=== PATIENT | female | born 1945 | race African-American/Black ===

== ENCOUNTER 2016-05-27 15:35 | Inpatient (IN) | payer MEDICARE ==
[~2016-05-27] VITALS: Ht 162.6 cm; Wt 77.1 kg
[~2016-05-27 15:35] MED LIST: AMOXICILLIN500 MG ORAL; AUGMENTIN 875-1 EAC1 ORAL; BACLOFEN10 MG ORAL; CYMBALTA60 MG ORAL; LYRICA75 M1 ORAL; SPIRIVA18 MCG; VENTOLIN HFA18 GM; ZONEGRAN100 MG ORAL
[2016-05-27 15:48] VITALS: BP 146/85
--- NOTE | 2016-05-27 16:17 | Emergency Room Report ---
History of Present Illness General Chief Complaint: Constipation Source: Patient, EMS Present Illness HPI This patient has a history of paraplegia. She states that for the past 5 days she has not had a bowel movement. She states that she does have a history of constipation but never this severe. She denies pain but does feel "uncomfortable." The patient states she feels like she cannot eat because she is not having bowel movements. She also states that she has had very little urination for the past 3 days. Patient denies fever or chills. She denies nausea or vomiting. She denies chest pain or shortness of breath. She states that she also has bilateral lower extremity edema that is new for her. She has no other complaints. Allergies: Uncoded Allergies: NARCOTICS (Allergy, Mild, 10/02/14) Opiates --> Nausea, SOB Patient History Past Medical History: see triage record, other - paraplegia Past Surgical History: other - Spinal surgeries. Social History: Denies: alcohol use, drug use, smoking Reviewed Nursing Documentation: PMH: Agreed, PSxH: Agreed Nursing Documentation-PMH Hx Cardiac Problems: No Hx Hypertension: No Hx Pacemaker: No Hx COPD: Yes Hx Diabetes: No Hx Cancer: No Hx Gastrointestinal Problems: No Hx Dialysis: No Hx Cerebrovascular Accident: Yes - 2009 Hx Seizures: Yes Hx Paralysis: Yes Hx Weakness: Yes Review of Systems All Other Systems: negative except mentioned in HPI Physical Exam Vital Signs Date Time Temp Pulse Resp B/P Pulse Ox O2 Delivery O2 Flow Rate FiO2 05/27/16 15:27 84 16 147/80 96 Room Air 05/27/16 15:48 97.7 Sp02 EP Interpretation: reviewed, normal General Appearance: no apparent distress, alert, GCS 15, non-toxic Head: normocephalic, atraumatic Eyes: bilateral eye PERRL, bilateral eye normal inspection ENT: hearing grossly normal, normal pharynx, no angioedema, normal voice Neck: full range of motion, supple/symm/no masses Respiratory: chest non-tender, lungs clear, normal breath sounds, speaking full sentences Cardiovascular #1: regular rate, rhythm, no edema Gastrointestinal: soft, no guarding, no rebound, other - mild ttp and full throughout. Rectal: deferred Musculoskeletal: swelling - 2+pitting edema BLE Neurologic: alert, oriented x3, responsive, sensory intact, speech normal, other - Paraplegia. At baseline. Psychiatric: judgement/insight normal, memory normal, mood/affect normal, no suicidal/homicidal ideation Skin: warm/dry, well hydrated, other - See MSK exam Medical Decision Making Diagnostic Impression: Primary Impression: Constipation ER Course This patient presents with constipation. I did go ahead and obtain a CT abdomen and pelvis that showed no acute findings. Unfortunately, the CT contrast did infiltrate into the subcutaneous tissue of the chest wall. This should reabsorb spontaneously. Laboratory workup only showed a mild hyponatremia. I will go ahead and give the patient laxatives and enemas. The patient has a home nurse that can administer the medications and enemas. There is no evidence of a urinary tract infection. At this time, I did not identify an emergency medical condition. The patient was given return precautions and followup instructions. Labs Test 05/27/16 16:45 05/27/16 18:45 Urine Color Yellow Urine Appearance Clear Urine pH 6.5 (4.5-8.0) Urine Specific [place] 1.015 (1.005-1.035) Urine Protein 4+ (NEGATIVE) Urine Glucose (UA) Negative (NEGATIVE) Urine Ketones 1+ (NEGATIVE) Urine Occult Blood 1+ (NEGATIVE) Urine Nitrite Negative (NEGATIVE) Urine Bilirubin Negative (NEGATIVE) Urine Urobilinogen Normal MG/DL (0.0-1.0) Urine Leukocyte Esterase 1+ (NEGATIVE) Urine RBC 0-2 /HPF (0 - 2) Urine WBC 0-2 /HPF (0 - 2) Urine Squamous Epithelial Cells None /LPF (NONE/OCC) Urine Bacteria Few /HPF (NONE) White Blood Count 9.3 K/UL (4.8-10.8) Red Blood Count 5.08 M/UL (4.20-5.40) Hemoglobin 14.3 G/DL (12.0-16.0) Hematocrit 46.1 % (37.0-47.0) Mean Corpuscular Volume 91 FL (80-99) Mean Corpuscular Hemoglobin 28.1 PG (27.0-31.0) Mean Corpuscular Hemoglobin Concent 31.0 G/DL (32.0-36.0) Red Cell Distribution Width 14.1 % (11.6-14.8) Platelet Count 322 K/UL (150-450) Mean Platelet Volume 10.3 FL (6.5-10.1) Neutrophils (%) (Auto) 73.4 % (45.0-75.0) Lymphocytes (%) (Auto) 13.3 % (20.0-45.0) Monocytes (%) (Auto) 11.7 % (1.0-10.0) Eosinophils (%) (Auto) 0.4 % (0.0-3.0) Basophils (%) (Auto) 1.2 % (0.0-2.0) Sodium Level 127 mEQ/L (135-145) Potassium Level 4.3 mEQ/L (3.4-4.9) Chloride Level 88 mEQ/L (98-107) Carbon Dioxide Level 26 mEQ/L (20-30) Anion Gap 13 (5-15) Blood Urea Nitrogen 11 mg/dL (7-23) Creatinine 0.5 mg/dL (0.5-0.9) Estimat Glomerular Filtration Rate mL/min (>60) Glucose Level 109 mg/dL (74-106) Calcium Level 8.8 mg/dL (8.6-10.2) Total Bilirubin < 0.2 mg/dL (0.0-1.2) Aspartate Amino Transf (AST/SGOT) 19 U/L (5-40) Alanine Aminotransferase (ALT/SGPT) 22 U/L (3-33) Alkaline Phosphatase 152 U/L (35-104) Total Protein 7.4 g/dL (6.6-8.7) Albumin 2.1 g/dL (3.5-5.2) Globulin 5.3 g/dL Albumin/Globulin Ratio 0.3 (1.0-2.7) CT/MRI/US Diagnostic Results CT/MRI/US Diagnostic Results : Imaging Test Ordered: CT abd/pelvis Impression No acute findings. See official report. Last Vital Signs Date Time Temp Pulse Resp B/P Pulse Ox O2 Delivery O2 Flow Rate FiO2 05/27/16 15:48 97.7 99 22 146/85 92 Room Air Disposition: HOME, SELF-CARE Condition: Stable Referrals: NOT CHOSEN IPA/,REFERRING (PCP) Patient Instructions: Constipation, Adult EDDIE HOSKINS D.O. May 27, 2016 16:17
[2016-05-27 17:24] LABS: APPEARANCE,URINE CLEAR; KETONES,URINE 1+ (NEGATIVE); LEUKOCYTE ESTERASE ,URINE 1+ (NEGATIVE); NITRITE,URINE NEGATIVE (NEGATIVE); PH,URINE 6.5 (4.5-8.0); PROTEIN,URINE 4+ (NEGATIVE); UROBILINOGEN,URINE NORMAL MG/DL (0.0-1.0)
[2016-05-27 17:38] LABS: BACTERIA,URINE FEW /HPF; RBC,URINE 0-2 /HPF (0 - 2); WBC,URINE 0-2 /HPF (0 - 2)
[2016-05-27 17:53] VITALS: BP 141/77
[2016-05-27 19:00] VITALS: BP 175/71
[2016-05-27 19:02] LABS: BASOPHILS % (AUTO) 1.2 % (0.0-2.0); EOSINOPHILS % (AUTO) 0.4 % (0.0-3.0); LYMPHOCYTES % (AUTO) 13.3 % (20.0-45.0); MEAN CORPUSCULAR HEMOGLOBIN 28.1 PG (27.0-31.0); MEAN CORPUSCULAR VOLUME 91 FL (80-99); MEAN PLATELET VOLUME 10.3 FL (6.5-10.1); MONOCYTES % (AUTO) 11.7 % (1.0-10.0); NEUTROPHILS % (AUTO) 73.4 % (45.0-75.0); PLATELET COUNT 322 K/UL (150-450); RED BLOOD COUNT 5.08 M/UL (4.20-5.40); RED CELL DISTRIBUTION WIDTH 14.1 % (11.6-14.8); WHITE BLOOD COUNT 9.3 K/UL (4.8-10.8)
[2016-05-27 19:25] LABS: ALANINE AMINOTRANSFERASE 22 U/L (3-33); ALBUMIN/GLOBULIN RATIO 0.3 (1.0-2.7); ANION GAP 13 (5-15); ASPARTATE AMINO TRANSFERASE 19 U/L (5-40); CALCIUM 8.8 mg/dL (8.6-10.2); CARBON DIOXIDE 26 mEQ/L (20-30); CHLORIDE 88 mEQ/L (98-107); CREATININE 0.5 mg/dL (0.5-0.9); HEMOLYSIS 6; POTASSIUM 4.3 mEQ/L (3.4-4.9); SODIUM 127 mEQ/L (135-145); TOTAL PROTEIN 7.4 g/dL (6.6-8.7)
[2016-05-27] MEDS ORDERED: FLEET ENEMA133 ML RECTAL (22:46)
[2016-05-27] MEDS ORDERED: MIRALAX17 G2 ORAL (22:46)
[2016-05-27] MEDS ORDERED: COLACE100 MG ORAL (22:46)
[2016-05-27 23:30] VITALS: BP 141/65
[2016-05-28] MEDS ORDERED: Mylanta II UD 30ml ORAL PRN (00:15)
[2016-05-28] MEDS ORDERED: Miralax 17gm pkt ORAL PRN (00:15)
[2016-05-28] MEDS ORDERED: Morphine Sulfate 2mg/ml Inj IVP PRN (00:15)
[2016-05-28] MEDS ORDERED: LORazepam Inj 2mg/ml 1ml IV PRN (00:15)
[2016-05-28] MEDS ORDERED: Zolpidem 5mg tab ORAL PRN (00:15)
[2016-05-28 01:25] VITALS: BP 126/84
[2016-05-28 04:21] VITALS: BP 136/69
[2016-05-28] MEDS: Lyrica 50mg cap ORAL SCH ×3 (06:00→17:45)
[2016-05-28 07:30] LABS: URIC ACID 4.4 mg/dL (3.0-7.5)
[2016-05-28 07:42] LABS: FREE T3 1.6 pg/mL (2.3-4.2); THYROID STIMULATING HORMONE 6.62 uIU/mL (0.300-4.500)
[2016-05-28 08:14] VITALS: BP 144/76
[2016-05-28] MEDS: DULoxetine 30mg cap ORAL SCH (08:30)
[2016-05-28] MEDS: Miralax 17gm pkt ORAL SCH (08:31)
[2016-05-28] MEDS: Heparin 5000 units/ml inj SUBQ SCH ×2 (08:36→21:32)
[2016-05-28 08:42] LABS: APPEARANCE,URINE SLIGHTLY CLOUDY; KETONES,URINE 2+ (NEGATIVE); LEUKOCYTE ESTERASE ,URINE 1+ (NEGATIVE); NITRITE,URINE NEGATIVE (NEGATIVE); PH,URINE 6.5 (4.5-8.0); PROTEIN,URINE 4+ (NEGATIVE); UROBILINOGEN,URINE NORMAL MG/DL (0.0-1.0)
[2016-05-28 08:53] LABS: BACTERIA,URINE FEW /HPF; RBC,URINE 40-60 /HPF (0 - 2); SQUAMOUS EPITHELIAL CELL,UR FEW /LPF (NONE/OCC)
[2016-05-28] MEDS ORDERED: Albuterol 90mcg Inhaler 8gm INH PRN (09:00)
[2016-05-28 11:50] VITALS: BP 152/73
--- NOTE | 2016-05-28 13:35 | Diagnostic Imaging Report ---
Indication: Right flank pain Technique: Spiral acquisitions obtained through the abdomen and pelvis. No oral contrast utilized, per emergency room physician request No IV contrast utilized, as the IV infiltrated during attempted IV contrast injection. Multiplanar reconstructions were generated. Total dose length product 859 mGycm. CTDIvol(s) 19 mGy Comparison: None Findings: Lack of oral contrast limits assessment of the GI tract. There are a few colonic diverticula. No evidence of diverticulitis. The appendix is normal. No small bowel distention. No free or loculated intraperitoneal air or fluid. There is broad-based diastases of the rectus abdominis tendon as well as a small fat-containing umbilical hernia. Lack of IV contrast limits assessment of the solid organs. The liver demonstrates a capsular calcification within segment 1. The gallbladder, bile ducts, pancreas, spleen, adrenals are unremarkable. The left kidney demonstrates a 12 mm cyst. The right kidney is unremarkable. No urinary calculi demonstrated. No retroperitoneal or mesenteric mass or adenopathy. The uterus contains a calcification, presumably old fibroids. There is a Mancini catheter within the bladder which is nondistended. There is diffuse edema of the subcutaneous fat. There are small to moderate bilateral pleural effusions. The lung bases demonstrate interstitial congestive change and some compressive atelectasis. The heart is borderline enlarged. High attenuation material is seen within the superficial superomedial left breast. Impression: Attenuation material within the superficial superomedial left breast. According to the technologist notes, the IV site was in the left breast represents extravasated contrast. Bilateral pleural effusions and pulmonary interstitial edema Generalized soft tissue edema No acute abdominal process. Note, however, limited assessment of the GI tract in the absence of IV contrast Borderline cardiomegaly Incidental findings as noted, including broad-based diastasis of the rectus abdominis tendon, small fat-containing umbilical hernia, capsular calcification within segment one of the liver, 12 mm left renal cyst, old uterine calcified fibroids, Mancini catheter This agrees with the preliminary interpretation provided overnight by Dr. Carroll The CT scanner at [facility] is accredited by the [employer] and the scans are performed using protocols designed to limit radiation exposure to as low as reasonably achievable to attain images of sufficient resolution adequate for diagnostic evaluation.
[2016-05-28 16:00] VITALS: BP 156/97
--- NOTE | 2016-05-28 17:09 | History and Physical ---
History of Present Illness General Date patient seen: May 28, 2016 Reason for Hospitalization: Constipation Present Illness HPI 70 year old female with history of paraplegia presented to [facility] with cc constipation for the last 5 days. She states that she does have a history of constipation but never this severe. She denies pain but does feel "uncomfortable." She also states that she has had very little urination for the past 3 days. Patient denies fever or chills. She denies nausea or vomiting. She denies chest pain or shortness of breath. She states that she also has bilateral lower extremity edema that is new for her. She was aloso found to have anasarca and hyponatremia and admitted for further work up. Allergies: Uncoded Allergies: NARCOTICS (Allergy, Mild, 10/02/14) Opiates --> Nausea, SOB Medication History Scheduled Albuterol Sulfate (Ventolin Hfa), 2 PUFFS DAILY, (Reported) Baclofen* (Baclofen*), 20 MG ORAL THREE TIMES A DAY, (Reported) Docusate Sodium* (Colace*), 100 MG ORAL THREE TIMES A DAY Duloxetine Hcl* (Cymbalta*), 90 MG ORAL DAILY, (Reported) Na Phos,M-B/Na Phos,Di-Ba* (Fleet Enema*), 133 ML RECTAL DAILY Polyethylene Glycol 3350* (Miralax*), 17 GM ORAL DAILY Pregabalin* (Lyrica*), 100 MG ORAL Q6HR, (Reported) Tiotropium Dixie* (Spiriva*), 2 PUFFS DAILY, (Reported) Zonisamide* (Zonegran*), 400 MG ORAL DAILY, (Reported) Patient History History Provided By: Patient Healthcare decision maker daughter(Marleny) Resuscitation status Full Code Advanced Directive on File No Past Medical/Surgical History Past Medical/Surgical History: (1) Chronic incomplete quadriplegia (2) Hypothyroid Review of Systems Gastrointestinal: Reports: constipation Genitourinary: Reports: frequency All Other Systems: negative except mentioned in HPI Physical Exam General Appearance: WD/WN, alert Lines, tubes and drains: peripheral HEENT: normocephalic, atraumatic Neck: non-tender, normal alignment Respiratory/Chest: chest wall non-tender, lungs clear Cardiovascular/Chest: normal peripheral pulses, normal rate Extremities: severe edema, pitting Skin Exam: normal pigmentation Lymphatic: anterior cervical Last 24 Hour Vital Signs Date Time Temp Pulse Resp B/P Pulse Ox O2 Delivery O2 Flow Rate FiO2 05/28/16 11:50 97.9 69 20 152/73 93 Nasal Cannula 2.0 05/28/16 10:28 98 Nasal Cannula 2.0 28 05/28/16 10:28 75 18 98 Nasal Cannula 2.0 28 05/28/16 10:28 Nasal Cannula 2.0 28 05/28/16 10:28 77 18 98 Nasal Cannula 2.0 28 05/28/16 08:14 97.0 100 20 144/76 92 Nasal Cannula 2.0 05/28/16 04:21 97.0 97 20 136/69 92 Nasal Cannula 4.0 05/28/16 02:30 97.7 95 15 144/66 95 Nasal Cannula 3.0 05/28/16 01:25 97.7 99 14 126/84 92 Nasal Cannula 2.0 05/27/16 23:30 96 18 141/65 93 Room Air 05/27/16 23:16 96 14 133/78 90 Room Air 05/27/16 19:00 91 21 175/71 96 Room Air 05/27/16 17:53 88 13 141/77 92 Room Air Intake and Output 05/27/16 05/28/16 19:00 07:00 Output Total 250 ml Balance -250 ml Output Urine Total 250 ml # Voids 1 Laboratory Tests Test 05/27/16 18:45 05/28/16 05:45 05/28/16 07:00 White Blood Count 9.3 K/UL (4.8-10.8) Red Blood Count 5.08 M/UL (4.20-5.40) Hemoglobin 14.3 G/DL (12.0-16.0) Hematocrit 46.1 % (37.0-47.0) Mean Corpuscular Volume 91 FL (80-99) Mean Corpuscular Hemoglobin 28.1 PG (27.0-31.0) Mean Corpuscular Hemoglobin Concent 31.0 G/DL (32.0-36.0) L Red Cell Distribution Width 14.1 % (11.6-14.8) Platelet Count 322 K/UL (150-450) Mean Platelet Volume 10.3 FL (6.5-10.1) H Neutrophils (%) (Auto) 73.4 % (45.0-75.0) Lymphocytes (%) (Auto) 13.3 % (20.0-45.0) L Monocytes (%) (Auto) 11.7 % (1.0-10.0) H Eosinophils (%) (Auto) 0.4 % (0.0-3.0) Basophils (%) (Auto) 1.2 % (0.0-2.0) Sodium Level 127 mEQ/L (135-145) L Potassium Level 4.3 mEQ/L (3.4-4.9) Chloride Level 88 mEQ/L (98-107) L Carbon Dioxide Level 26 mEQ/L (20-30) Anion Gap 13 (5-15) Blood Urea Nitrogen 11 mg/dL (7-23) Creatinine 0.5 mg/dL (0.5-0.9) Estimat Glomerular Filtration Rate mL/min (>60) Glucose Level 109 mg/dL (74-106) H Calcium Level 8.8 mg/dL (8.6-10.2) Total Bilirubin < 0.2 mg/dL (0.0-1.2) Aspartate Amino Transf (AST/SGOT) 19 U/L (5-40) Alanine Aminotransferase (ALT/SGPT) 22 U/L (3-33) Alkaline Phosphatase 152 U/L (35-104) H Total Protein 7.4 g/dL (6.6-8.7) Albumin 2.1 g/dL (3.5-5.2) L Globulin 5.3 g/dL Albumin/Globulin Ratio 0.3 (1.0-2.7) L Plasma/Serum Osmolality Pending Uric Acid 4.4 mg/dL (3.0-7.5) Thyroid Stimulating Hormone (TSH) 6.620 uIU/mL (0.300-4.500) Free Thyroxine 0.92 ng/dL (0.86-1.85) Free Triiodothyronine 1.6 pg/mL (2.3-4.2) L Cortisol Pending Urine Color Yellow Urine Appearance Slightly cloudy Urine pH 6.5 (4.5-8.0) Urine Specific [place] 1.010 (1.005-1.035) Urine Protein 4+ (NEGATIVE) H Urine Glucose (UA) Negative (NEGATIVE) Urine Ketones 2+ (NEGATIVE) H Urine Occult Blood 5+ (NEGATIVE) H Urine Nitrite Negative (NEGATIVE) Urine Bilirubin Negative (NEGATIVE) Urine Urobilinogen Normal MG/DL (0.0-1.0) Urine Leukocyte Esterase 1+ (NEGATIVE) H Urine RBC 40-60 /HPF (0 - 2) H Urine WBC 2-4 /HPF (0 - 2) Urine Squamous Epithelial Cells Few /LPF (NONE/OCC) Urine Bacteria Few /HPF (NONE) Urine Osmolality Pending Urine Random Sodium 10 mmol/L Height (Feet): 5 Height (Inches): 4.00 Weight (Pounds): 170 Medications Current Medications Medications (Trade) Dose Ordered Sig/Miguel Route PRN Reason Start Time Stop Time Status Last Admin Dose Admin Acetaminophen (Tylenol) 650 mg Q4H PRN ORAL fever 05/28/16 00:15 06/27/16 00:14 Al Hydroxide/Mg Hydroxide (Mylanta II) 30 ml Q6H PRN ORAL dyspepsia 05/28/16 00:15 06/27/16 00:14 Albuterol Sulfate (Proventil MDI) 2 puff Q4H PRN INH Shortness of Breath 05/28/16 09:00 06/27/16 08:59 Baclofen (Lioresal) 20 mg THREE TIMES A DAY ORAL 05/28/16 09:00 06/27/16 08:59 05/28/16 13:53 Dextrose (Dextrose 50%) STAT PRN IV Hypoglycemia 05/28/16 00:15 06/27/16 00:14 Duloxetine HCl (Cymbalta) 90 mg DAILY ORAL 05/28/16 09:00 06/27/16 08:59 05/28/16 08:30 Heparin Sodium (Porcine) (Heparin 5000 units/ml) 5,000 units EVERY 12 HOURS SUBQ 05/28/16 09:00 06/27/16 08:59 05/28/16 08:36 Lorazepam (Ativan 2mg/ml 1ml) 0.5 mg Q4H PRN IV For Anxiety 05/28/16 00:15 06/04/16 00:14 Morphine Sulfate (Morphine Sulfate) 1 mg Q4H PRN IVP For Pain 05/28/16 00:15 06/04/16 00:14 Ondansetron HCl (Zofran) 4 mg Q6H PRN IVP Nausea & Vomiting 05/28/16 00:15 06/27/16 00:14 Polyethylene Glycol (Miralax) 17 gm DAILY ORAL 05/28/16 09:00 06/27/16 08:59 05/28/16 08:31 Polyethylene Glycol (Miralax) 17 gm HSPRN PRN ORAL Constipation 05/28/16 00:15 06/27/16 00:14 Pregabalin (Lyrica) 100 mg Q6HR ORAL 05/28/16 06:00 06/27/16 05:59 05/28/16 13:54 Tiotropium [place] (Spiriva Inhaler) 2 puff DAILY INH 05/28/16 09:30 06/27/16 09:29 05/28/16 10:27 Zolpidem Tartrate (Ambien) 5 mg HSPRN PRN ORAL Insomnia 05/28/16 00:15 06/27/16 00:14 Zonisamide (Zonegran) 400 mg DAILY ORAL 05/28/16 09:00 06/27/16 08:59 Assessment/Plan Problem List: (1) Anasarca ICD Codes: R60.1 - Generalized edema SNOMED: 768517039, 255360350 (2) Chronic incomplete quadriplegia ICD Codes: G82.50 - Quadriplegia, unspecified SNOMED: 83437306, 195489101 (3) Hypothyroid ICD Codes: E03.9 - Hypothyroidism, unspecified SNOMED: 09497332 (4) Hyponatremia ICD Codes: E87.1 - Hypo-osmolality and hyponatremia SNOMED: 14999487 (5) Constipation ICD Codes: K59.00 - Constipation, unspecified SNOMED: 37678500 Assessment/Plan laxatives and enema endo evaluation vascular studies of legs Urology evaluation f/u DARION Reinoso May 28, 2016 17:09
[2016-05-28] MEDS: Lactulose 20gm/30ml UDC ORAL SCH (17:45)
[2016-05-28] MEDS: Docusate 100mg cap ORAL SCH (17:51)
[2016-05-28 20:00] VITALS: BP 140/80
[2016-05-28] MEDS ORDERED: Miralax 17gm pkt ORAL SCH (21:00)
[2016-05-29] VITALS (10 sets, daily range): BP systolic 71–180; BP diastolic 48–96
[2016-05-29] MEDS: Lyrica 50mg cap ORAL SCH ×4 (06:00→18:09)
[2016-05-29 06:40] LABS: BASOPHILS % (AUTO) 3.3 % (0.0-2.0); LYMPHOCYTES % (AUTO) 10.3 % (20.0-45.0); MEAN CORPUSCULAR HEMOGLOBIN 28.9 PG (27.0-31.0); MEAN CORPUSCULAR HGB CONC 31.6 G/DL (32.0-36.0); MEAN CORPUSCULAR VOLUME 92 FL (80-99); MEAN PLATELET VOLUME 10.3 FL (6.5-10.1); MONOCYTES % (AUTO) 7.3 % (1.0-10.0); NEUTROPHILS % (AUTO) 79.1 % (45.0-75.0); PLATELET COUNT 321 K/UL (150-450); RED BLOOD COUNT 4.76 M/UL (4.20-5.40); RED CELL DISTRIBUTION WIDTH 13.6 % (11.6-14.8); WHITE BLOOD COUNT 8.3 K/UL (4.8-10.8)
[2016-05-29 07:01] LABS: ALANINE AMINOTRANSFERASE 19 U/L (3-33); ALBUMIN/GLOBULIN RATIO 0.4 (1.0-2.7); ANION GAP 12 (5-15); ASPARTATE AMINO TRANSFERASE 18 U/L (5-40); CALCIUM 8.8 mg/dL (8.6-10.2); CARBON DIOXIDE 28 mEQ/L (20-30); CHLORIDE 90 mEQ/L (98-107); CHOLESTEROL 265 mg/dL (< 200); CREATININE 0.4 mg/dL (0.5-0.9); HEMOLYSIS 16; SODIUM 130 mEQ/L (135-145); TOTAL PROTEIN 6.9 g/dL (6.6-8.7)
[2016-05-29 07:03] LABS: CHOLESTEROL/HDL RATIO 2.1 (3.3-4.4); LDL CHOLESTEROL (CALC.) 121 mg/dL (60-99)
[2016-05-29] MEDS: DULoxetine 30mg cap ORAL SCH (08:53)
[2016-05-29] MEDS: Miralax 17gm pkt ORAL SCH (08:53)
[2016-05-29] MEDS: Docusate 100mg cap ORAL SCH ×3 (08:53→18:09)
[2016-05-29] MEDS: Heparin 5000 units/ml inj SUBQ SCH (08:54)
[2016-05-29] MEDS: Lactulose 20gm/30ml UDC ORAL SCH ×3 (08:54→18:00)
--- NOTE | 2016-05-29 09:10 | Consultation ---
DATE OF CONSULTATION: 05/29/2016 ENDOCRINOLOGY CONSULTATION CONSULTING PHYSICIAN: Shravan Dhaliwal M.D. REFERRING PHYSICIAN: Jose Tenorio M.D. REASON FOR CONSULTATION: Hypothyroidism. HISTORY OF THE PRESENT ILLNESS: The patient is a 70-year-old, female with history of hypothyroidism, who presents to the hospital with fever, constipation and weakness. The patient urination has been decreased and has not been eating and drinking as usual. PAST MEDICAL HISTORY: 1. Quadriplezia. 2. Questionable hypothyroidism. FAMILY HISTORY: Noncontributory. REVIEW OF SYSTEMS: As per history of present illness. PHYSICAL EXAMINATION: GENERAL: She is awake and alert. VITAL SIGNS: Blood pressure is 165/96, pulse of 97, temperature 97.0 degrees, and respiratory of 18. HEENT: Pupils are equal and reactive to light. Sclerae are anicteric NECK: No JVD. No thyromegaly. LUNGS: Clear. HEART: Regular rate and rhythm. ABDOMEN: Positive bowel sounds. Soft. EXTREMITIES: Upper and lower extremity edema. LABORATORY AND DIAGNOSTIC DATA: Sodium 127, potassium 4.2, chloride 98, bicarbonate 26, BUN 11, creatinine 0.5, and glucose of 109. A1c is pending. Uric acid 4.4, and alkaline phosphatase 152. TSH 6.6, free T4 0.92, and free T3 of 1.6. DIAGNOSES: 1. Constipation. 2. Chronic hyponatremia. 3. Hypothyroidism. PLAN: Hyponatremia most likely due to dehydration. I doubt the patient has as a renal insufficiency since the patient's potassium on presentation was not elevated. On furthermore, the patient has an elevated blood pressure. TSH is elevated. I will start the patient on levothyroxine 50 mcg. Serum cortisol is pending. I will follow the results. Thank you Dr. Tenorio, for courtesy of this consultation. Shravan Dhaliwal M.D. DR: Floyd JOB#: [id number] CC: [email or web address]
--- NOTE | 2016-05-29 12:47 | Consultation ---
History of Present Illness General Date patient seen: May 29, 2016 Time patient seen: 12:43 Chief Complaint: Constipation Reason for Consultation: trouble urinating Present Illness HPI 70 yo female incomplete quadriplegic. Came to ER yesterday with complaints of feeling weak and having constipation. In ER admitted to difficulty urinating as well. Currently patient denies urinary troubles. She has a milton in. Discussed with caregiver Mrs. Vicki Ronquillo who denies that patient had any urinary issues. She states she uses a diaper overnight, no hematuria. In daytime she has good control over urination. Caregiver admits patient has been complaining of constipation for a while though. Allergies: Uncoded Allergies: NARCOTICS (Allergy, Mild, 10/02/14) Opiates --> Nausea, SOB Medication History Scheduled Albuterol Sulfate (Ventolin Hfa), 2 PUFFS DAILY, (Reported) Baclofen* (Baclofen*), 20 MG ORAL THREE TIMES A DAY, (Reported) Docusate Sodium* (Colace*), 100 MG ORAL THREE TIMES A DAY Duloxetine Hcl* (Cymbalta*), 90 MG ORAL DAILY, (Reported) Na Phos,M-B/Na Phos,Di-Ba* (Fleet Enema*), 133 ML RECTAL DAILY Polyethylene Glycol 3350* (Miralax*), 17 GM ORAL DAILY Pregabalin* (Lyrica*), 100 MG ORAL Q6HR, (Reported) Tiotropium [place]* (Spiriva*), 2 PUFFS DAILY, (Reported) Zonisamide* (Zonegran*), 400 MG ORAL DAILY, (Reported) Patient History Limited by: medical condition History Provided By: Patient, Caregiver Healthcare decision maker daughter(Marleny) Resuscitation status Full Code Advanced Directive on File No Past Medical/Surgical History Past Medical/Surgical History: (1) Chronic incomplete quadriplegia (2) Constipation (3) Hyponatremia Review of Systems Constitutional: Reports: weakness Eye: Denies: acuity changes, blurred vision, discharge, double vision, eye pain , no symptoms, nose congestion, nose pain, other, see HPI, tearing ENT: Denies: ear discharge, ear pain, hearing loss, mouth pain, nasal discharge , no symptoms, nose congestion, nose pain, other, see HPI, throat pain, throat swelling Respiratory: Denies: MARCUS, cough, no symptoms, orthopnea, other, see HPI, shortness of breath, sputum, stridor, wheezing Cardiovascular: Denies: PND, chest pain, edema, no symptoms, other, palpitations, see HPI, syncope Gastrointestinal: Reports: constipation Genitourinary: Denies: discharge, dysuria, frequency, hematuria, incontinence, no symptoms, other, pain, retention, see HPI, urgency, vag bleed/dc Musculoskeletal: Denies: back pain, gout, joint pain, joint swelling, muscle pain, muscle stiffness, no symptoms, other, see HPI Skin: Denies: change in color, change in hair/nails, dryness, lesions, no symptoms, other, rash, see HPI Psychiatric: Denies: HI, SI, anxiety, depressed feelings, emotional problems, hallucinations, no symptoms, other, prior hx, see HPI Neurological: Denies: dizziness, focal weakness, headache, no symptoms, numbness, other, paresthesia, see HPI, seizure, syncope, tingling, tremors Endocrine: Denies: excessive sweating, flushing, increased thirst, increased urine, intolerance to temperature, no symptoms, other, see HPI, unexplained weight loss Hematologic/Lymphatic: Denies: anemia, blood clots, diathesis, easy bleeding, easy bruising, no symptoms, other, see HPI, swollen glands Physical Exam General Appearance: WD/WN Respiratory/Chest: lungs clear Cardiovascular/Chest: normal rate Abdomen: non tender, soft Genitourinary/Rectal: milton Last 24 Hour Vital Signs Date Time Temp Pulse Resp B/P Pulse Ox O2 Delivery O2 Flow Rate FiO2 05/29/16 11:25 98.0 76 20 128/88 93 Nasal Cannula 2.0 05/29/16 07:52 97.5 66 21 143/73 94 Nasal Cannula 2.0 05/29/16 07:37 77 18 96 Nasal Cannula 2.0 28 05/29/16 07:37 78 18 96 Nasal Cannula 2.0 28 05/29/16 07:37 96 Nasal Cannula 2.0 28 05/29/16 07:37 Nasal Cannula 2.0 28 05/29/16 06:43 165/96 05/29/16 04:00 97.0 97 20 165/96 96 Nasal Cannula 2.0 05/29/16 02:07 97.5 96 20 158/90 94 Nasal Cannula 2.0 05/29/16 00:00 97.5 104 20 180/90 94 Nasal Cannula 2.0 05/28/16 20:00 97.6 80 18 140/80 93 Room Air 05/28/16 19:58 98 Nasal Cannula 2.0 28 05/28/16 19:58 Nasal Cannula 2.0 28 05/28/16 16:00 97.7 96 16 156/97 90 Room Air Intake and Output 05/28/16 05/29/16 19:00 07:00 Intake Total 240 ml 180 ml Output Total 250 ml 550 ml Balance -10 ml -370 ml Intake Oral 240 ml 180 ml Output Urine Total 250 ml 550 ml # Voids 1 # Bowel Movements 2 Laboratory Tests Test 05/29/16 05:30 White Blood Count 8.3 K/UL (4.8-10.8) Red Blood Count 4.76 M/UL (4.20-5.40) Hemoglobin 13.8 G/DL (12.0-16.0) Hematocrit 43.7 % (37.0-47.0) Mean Corpuscular Volume 92 FL (80-99) Mean Corpuscular Hemoglobin 28.9 PG (27.0-31.0) Mean Corpuscular Hemoglobin Concent 31.6 G/DL (32.0-36.0) L Red Cell Distribution Width 13.6 % (11.6-14.8) Platelet Count 321 K/UL (150-450) Mean Platelet Volume 10.3 FL (6.5-10.1) H Neutrophils (%) (Auto) 79.1 % (45.0-75.0) H Lymphocytes (%) (Auto) 10.3 % (20.0-45.0) L Monocytes (%) (Auto) 7.3 % (1.0-10.0) Eosinophils (%) (Auto) 0.0 % (0.0-3.0) Basophils (%) (Auto) 3.3 % (0.0-2.0) H Sodium Level 130 mEQ/L (135-145) L Potassium Level 4.0 mEQ/L (3.4-4.9) Chloride Level 90 mEQ/L (98-107) L Carbon Dioxide Level 28 mEQ/L (20-30) Anion Gap 12 (5-15) Blood Urea Nitrogen 10 mg/dL (7-23) Creatinine 0.4 mg/dL (0.5-0.9) L Estimat Glomerular Filtration Rate mL/min (>60) Glucose Level 94 mg/dL (74-106) Hemoglobin A1c 6.0 % (< 6.0) Calcium Level 8.8 mg/dL (8.6-10.2) Total Bilirubin < 0.2 mg/dL (0.0-1.2) Aspartate Amino Transf (AST/SGOT) 18 U/L (5-40) Alanine Aminotransferase (ALT/SGPT) 19 U/L (3-33) Alkaline Phosphatase 150 U/L (35-104) H Pro-B-Type Natriuretic Peptide 9096 pg/mL (0-125) H Total Protein 6.9 g/dL (6.6-8.7) Albumin 2.0 g/dL (3.5-5.2) L Globulin 4.9 g/dL Albumin/Globulin Ratio 0.4 (1.0-2.7) L Triglycerides Level 83 mg/dL (< 150) Cholesterol Level 265 mg/dL (< 200) H LDL Cholesterol 121 mg/dL (60-99) H HDL Cholesterol 127 mg/dL (> 60) H Cholesterol/HDL Ratio 2.1 (3.3-4.4) L Thyroid Stimulating Hormone (TSH) 6.390 uIU/mL (0.300-4.500) Height (Feet): 5 Height (Inches): 4.00 Weight (Pounds): 170 Medications Current Medications Medications (Trade) Dose Ordered Sig/Miguel Route PRN Reason Start Time Stop Time Status Last Admin Dose Admin Acetaminophen (Tylenol) 650 mg Q4H PRN ORAL fever 05/28/16 00:15 06/27/16 00:14 Al Hydroxide/Mg Hydroxide (Mylanta II) 30 ml Q6H PRN ORAL dyspepsia 05/28/16 00:15 06/27/16 00:14 Albuterol Sulfate (Proventil MDI) 2 puff Q4H PRN INH Shortness of Breath 05/28/16 09:00 06/27/16 08:59 Baclofen (Lioresal) 20 mg THREE TIMES A DAY ORAL 05/28/16 09:00 06/27/16 08:59 05/29/16 08:54 Clonidine HCl (Catapres) 0.1 mg Q4H PRN ORAL For High Blood Pressure 05/29/16 06:30 06/28/16 06:29 05/29/16 06:43 Dextrose (Dextrose 50%) STAT PRN IV Hypoglycemia 05/28/16 00:15 06/27/16 00:14 Docusate Sodium (Colace) 100 mg THREE TIMES A DAY ORAL 05/28/16 18:00 06/27/16 17:59 05/29/16 08:53 Duloxetine HCl (Cymbalta) 90 mg DAILY ORAL 05/28/16 09:00 06/27/16 08:59 05/29/16 08:53 Heparin Sodium (Porcine) (Heparin 5000 units/ml) 5,000 units EVERY 12 HOURS SUBQ 05/28/16 09:00 06/27/16 08:59 05/29/16 08:54 Lactulose (Cephulac) 30 gm THREE TIMES A DAY ORAL 05/28/16 18:00 06/27/16 17:59 05/29/16 08:54 Levothyroxine Sodium (Synthroid) 50 mcg DAILY@0630 ORAL 05/29/16 10:00 06/28/16 09:59 05/29/16 08:57 Lorazepam (Ativan 2mg/ml 1ml) 0.5 mg Q4H PRN IV For Anxiety 05/28/16 00:15 06/04/16 00:14 Mineral Oil (Fleet's Mineral Oil Enema) 133 ml EVERY OTHER DAY RECTAL 05/30/16 09:00 06/29/16 08:59 Morphine Sulfate (Morphine Sulfate) 1 mg Q4H PRN IVP For Pain 05/28/16 00:15 06/04/16 00:14 Ondansetron HCl (Zofran) 4 mg Q6H PRN IVP Nausea & Vomiting 05/28/16 00:15 06/27/16 00:14 Polyethylene Glycol (Miralax) 17 gm DAILY ORAL 05/28/16 09:00 06/27/16 08:59 05/29/16 08:53 Polyethylene Glycol (Miralax) 17 gm HSPRN PRN ORAL Constipation 05/28/16 00:15 06/27/16 00:14 Pregabalin (Lyrica) 100 mg Q6HR ORAL 05/28/16 06:00 06/27/16 05:59 05/28/16 17:45 Sennosides (Senokot) 8.6 mg DAILY ORAL 05/28/16 17:00 06/27/16 16:59 05/29/16 08:53 Tiotropium [place] (Spiriva Inhaler) 2 puff DAILY INH 05/28/16 09:30 06/27/16 09:29 05/29/16 07:37 Zolpidem Tartrate (Ambien) 5 mg HSPRN PRN ORAL Insomnia 05/28/16 00:15 06/27/16 00:14 Zonisamide (Zonegran) 400 mg DAILY ORAL 05/28/16 09:00 06/27/16 08:59 05/29/16 08:[address] negative for pathology Assessment/Plan Status: doing well, stable Assessment/Plan 70 yo female with incomplete quadriplegia for 6 years. Discussed with caregiver , not sure if difficulty urinating was true history. Patient currently denies it. Admits to constipation though. Caregiver states patient was voiding fine at home. Uses a diaper overnight and voids on her own in the daytime. 1. recommend DC milton 2. ua is relatively benign, f/u on culture 3. no further intervention. Abhijeet Asher M.D. May 29, 2016 12:47
--- NOTE | 2016-05-29 16:08 | Wound Care Consultation ---
Wound Assessment Wound Assessment : Wound Present on Admission: Yes New Wound: No Status Change of Wound: No Wound Location Body Site Modif: right Wound Location Body Site: buttocks Wound Type: pressure ulcer Benson Test: Does not Benson Pressure Ulcer Stage: deep tissue injury Wound Thickness: Full Thickness Wound Length: 3.0 Wound Width: 3.0 Wound Depth: utd Percent of Wound Purple/Maroon: 100 Wound Drainage Amount: None Wound Drainage Odor: None/Absent Tissue Surrounding Wound: Erythemic Wound General Appearance: Reddened Wound Comment #1 Right buttock DTI purple in color Recommendation -Keep clean and dry -Turn and reposition -Optimize nutrition -Local wound care per protocol -Low air loss overlay mattress -Offload both heels -Assess and f/u accordingly for any changes NICKIE MENDEZ RN May 29, 2016 16:08
--- NOTE | 2016-05-29 21:37 | Pulmonology Progress Note ---
Assessment/Plan Problems: (1) Anasarca (2) Tachycardia (3) Constipation (4) Hyponatremia (5) Hypothyroid (6) Chronic incomplete quadriplegia Assessment/Plan transfer to [facility] for bp support echo in am xr of left hip continue laxatives Endo consult reviewed Subjective ROS Limited/Unobtainable: No Interval Events: c/o left hip pain, was tachycardic and hypotensive Allergies: Uncoded Allergies: NARCOTICS (Allergy, Mild, 10/02/14) Opiates --> Nausea, SOB Objective Last 24 Hour Vital Signs Date Time Temp Pulse Resp B/P Pulse Ox O2 Delivery O2 Flow Rate FiO2 05/29/16 21:07 97.9 133 19 118/82 94 Nasal Cannula 5.0 05/29/16 21:04 98.1 94 20 100/60 98 Nasal Cannula 5.0 05/29/16 21:03 125 80/54 93 05/29/16 20:00 97.9 121 20 71/48 95 Room Air 05/29/16 19:41 Nasal Cannula 2.0 28 05/29/16 19:41 97 Nasal Cannula 2.0 28 05/29/16 16:17 98.2 51 17 151/71 94 Nasal Cannula 3.0 05/29/16 11:25 98.0 76 20 128/88 93 Nasal Cannula 2.0 05/29/16 07:52 97.5 66 21 143/73 94 Nasal Cannula 2.0 05/29/16 07:37 77 18 96 Nasal Cannula 2.0 28 05/29/16 07:37 78 18 96 Nasal Cannula 2.0 28 05/29/16 07:37 96 Nasal Cannula 2.0 28 05/29/16 07:37 Nasal Cannula 2.0 28 05/29/16 06:43 165/96 05/29/16 04:00 97.0 97 20 165/96 96 Nasal Cannula 2.0 05/29/16 02:07 97.5 96 20 158/90 94 Nasal Cannula 2.0 05/29/16 00:00 97.5 104 20 180/90 94 Nasal Cannula 2.0 Intake and Output 05/28/16 05/29/16 19:00 07:00 Intake Total 240 ml 180 ml Output Total 250 ml 550 ml Balance -10 ml -370 ml Intake Oral 240 ml 180 ml Output Urine Total 250 ml 550 ml # Voids 1 # Bowel Movements 2 Objective General Appearance: WD/WN HEENT: normocephalic, atraumatic Respiratory/Chest: chest wall non-tender, lungs clear Cardiovascular: normal peripheral pulses, normal rate, regular rhythm Abdomen: normal bowel sounds, soft, non tender, no organomegaly Genitourinary: normal external genitalia Extremities: no cyanosis, no clubbing +++ edema Skin: no rash, no lesions 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 Laboratory Tests 05/29/16 05:30: White Blood Count 8.3, Red Blood Count 4.76, Hemoglobin 13.8, Hematocrit 43.7, Mean Corpuscular Volume 92, Mean Corpuscular Hemoglobin 28.9, Mean Corpuscular Hemoglobin Concent 31.6L, Red Cell Distribution Width 13.6, Platelet Count 321, Mean Platelet Volume 10.3H, Neutrophils (%) (Auto) 79.1H, Lymphocytes (%) (Auto ) 10.3L, Monocytes (%) (Auto) 7.3, Eosinophils (%) (Auto) 0.0, Basophils (%) ( Auto) 3.3H, Sodium Level 130L, Potassium Level 4.0, Chloride Level 90L, Carbon Dioxide Level 28, Anion Gap 12, Blood Urea Nitrogen 10, Creatinine 0.4L, Estimat Glomerular Filtration Rate , Glucose Level 94, Hemoglobin A1c 6.0, Calcium Level 8.8, Total Bilirubin < 0.2, Aspartate Amino Transf (AST/SGOT) 18, Alanine Aminotransferase (ALT/SGPT) 19, Alkaline Phosphatase 150H, Pro-B-Type Natriuretic Peptide 9096H, Total Protein 6.9, Albumin 2.0L, Globulin 4.9, Albumin/Globulin Ratio 0.4L, Triglycerides Level 83, Cholesterol Level 265H, LDL Cholesterol 121H, HDL Cholesterol 127H, Cholesterol/HDL Ratio 2.1L, Thyroid Stimulating Hormone (TSH) 6.390H Current Medications Medications (Trade) Dose Ordered Sig/Miguel Route PRN Reason Start Time Stop Time Status Last Admin Dose Admin Acetaminophen (Tylenol) 650 mg Q4H PRN ORAL fever 05/30/16 00:15 06/29/16 00:14 UNV Al Hydroxide/Mg Hydroxide (Mylanta II) 30 ml Q6H PRN ORAL dyspepsia 05/30/16 00:15 06/29/16 00:14 UNV Albuterol Sulfate (Proventil MDI) 2 puff Q4H PRN INH Shortness of Breath 05/30/16 01:00 06/29/16 00:59 UNV Baclofen (Lioresal) 20 mg THREE TIMES A DAY ORAL 05/30/16 09:00 06/29/16 08:59 UNV Clonidine HCl (Catapres) 0.1 mg Q4H PRN ORAL For High Blood Pressure 05/29/16 22:30 06/28/16 22:29 UNV Dextrose (Dextrose 50%) STAT PRN IV Hypoglycemia 05/30/16 00:15 06/29/16 00:14 UNV Docusate Sodium (Colace) 100 mg THREE TIMES A DAY ORAL 05/30/16 09:00 06/29/16 08:59 UNV Duloxetine HCl (Cymbalta) 90 mg DAILY ORAL 05/30/16 09:00 06/29/16 08:59 UNV Heparin Sodium (Porcine) (Heparin 5000 units/ml) 5,000 units EVERY 12 HOURS SUBQ 05/30/16 09:00 06/29/16 08:59 UNV Lactulose (Cephulac) 30 gm THREE TIMES A DAY ORAL 05/30/16 09:00 06/29/16 08:59 UNV Levothyroxine Sodium (Synthroid) 50 mcg DAILY@0630 ORAL 05/30/16 06:30 06/29/16 06:29 UNV Lorazepam (Ativan 2mg/ml 1ml) 0.5 mg Q4H PRN IV For Anxiety 05/30/16 00:15 06/06/16 00:14 UNV Mineral Oil (Fleet's Mineral Oil Enema) 133 ml EVERY OTHER DAY RECTAL 05/30/16 09:00 06/29/16 08:59 UNV Morphine Sulfate (Morphine Sulfate) 1 mg Q4H PRN IVP For Pain 05/30/16 00:15 06/06/16 00:14 UNV Ondansetron HCl (Zofran) 4 mg Q6H PRN IVP Nausea & Vomiting 05/30/16 00:15 06/29/16 00:14 UNV Polyethylene Glycol (Miralax) 17 gm DAILY ORAL 05/30/16 09:00 06/29/16 08:59 UNV Polyethylene Glycol (Miralax) 17 gm HSPRN PRN ORAL Constipation 05/30/16 00:15 06/29/16 00:14 UNV Pregabalin (Lyrica) 100 mg Q6HR ORAL 05/30/16 00:00 06/29/16 00:00 UNV Sennosides (Senokot) 8.6 mg DAILY ORAL 05/30/16 09:00 06/29/16 08:59 UNV Tiotropium [place] (Spiriva Inhaler) 2 puff DAILY INH 05/30/16 09:00 06/29/16 08:59 UNV Zolpidem Tartrate (Ambien) 5 mg HSPRN PRN ORAL Insomnia 05/30/16 00:15 06/29/16 00:14 UNV Zonisamide (Zonegran) 400 mg DAILY ORAL 05/30/16 09:00 06/29/16 08:59 UNV DARION MISHRA May 29, 2016 21:37
[2016-05-30] VITALS: BP 97/63
[2016-05-30] MEDS: Lyrica 50mg cap ORAL SCH ×4 (00:03→18:06)
[2016-05-30] MEDS ORDERED: LORazepam Inj 2mg/ml 1ml IV PRN (00:15)
[2016-05-30] MEDS ORDERED: Zolpidem 5mg tab ORAL PRN (00:15)
[2016-05-30] MEDS ORDERED: Morphine Sulfate 2mg/ml Inj IVP PRN (00:15)
[2016-05-30] MEDS ORDERED: Mylanta II UD 30ml ORAL PRN (00:15)
[2016-05-30] MEDS ORDERED: Miralax 17gm pkt ORAL PRN (00:15)
[2016-05-30] MEDS ORDERED: Albuterol 90mcg Inhaler 8gm INH PRN (01:00)
[2016-05-30 04:00] VITALS: BP 117/71
[2016-05-30 08:00] VITALS: BP 123/46
[2016-05-30] MEDS ORDERED: Fleet's Mineral Oil Enema RECTAL SCH (09:00)
[2016-05-30] MEDS: Fleet's Mineral Oil Enema RECTAL SCH (09:00)
[2016-05-30 09:14] LABS: CORTISOL LC 14.8 ug/dL (.)
[2016-05-30] MEDS: Lactulose 20gm/30ml UDC ORAL SCH ×3 (09:29→17:59)
[2016-05-30] MEDS: Miralax 17gm pkt ORAL SCH (09:29)
[2016-05-30] MEDS: DULoxetine 30mg cap ORAL SCH (09:31)
[2016-05-30] MEDS: Docusate 100mg cap ORAL SCH ×3 (09:33→17:59)
[2016-05-30] MEDS: Heparin 5000 units/ml inj SUBQ SCH ×2 (09:34→21:13)
[2016-05-30 10:36] LABS: EOSINOPHILS % (AUTO) 0.2 % (0.0-3.0); LYMPHOCYTES % (AUTO) 12.3 % (20.0-45.0); MEAN CORPUSCULAR HGB CONC 29.9 G/DL (32.0-36.0); MEAN CORPUSCULAR VOLUME 90 FL (80-99); MEAN PLATELET VOLUME 9.1 FL (6.5-10.1); MONOCYTES % (AUTO) 12.8 % (1.0-10.0); NEUTROPHILS % (AUTO) 73.8 % (45.0-75.0); PLATELET COUNT 324 K/UL (150-450); RED BLOOD COUNT 5.04 M/UL (4.20-5.40); RED CELL DISTRIBUTION WIDTH 14.2 % (11.6-14.8); WHITE BLOOD COUNT 8.1 K/UL (4.8-10.8)
[2016-05-30 10:55] LABS: ALANINE AMINOTRANSFERASE 22 U/L (3-33); ALBUMIN/GLOBULIN RATIO 0.3 (1.0-2.7); ANION GAP 13 (5-15); ASPARTATE AMINO TRANSFERASE 30 U/L (5-40); CALCIUM 8.6 mg/dL (8.6-10.2); CARBON DIOXIDE 26 mEQ/L (20-30); CHLORIDE 93 mEQ/L (98-107); CREATININE 0.6 mg/dL (0.5-0.9); HEMOLYSIS 4; POTASSIUM 4.4 mEQ/L (3.4-4.9); SODIUM 132 mEQ/L (135-145); TOTAL PROTEIN 6.6 g/dL (6.6-8.7)
--- NOTE | 2016-05-30 10:56 | Diagnostic Imaging Report ---
Indication: DYSPNEA Technique: One view of the chest Comparison: 06/02/2013 Findings: There are bilateral pleural effusions, right greater than left. There is some underlying parenchymal consolidation the right lung base. There is some atelectasis versus scarring at left lung base. Chronic parenchymal scarring with calcification and pleural thickening are seen in the right lung apex Impression: Bilateral pleural effusions Right basilar consolidation Chronic changes as described
--- NOTE | 2016-05-30 11:05 | Pulmonology Progress Note ---
Assessment/Plan Problems: (1) Anasarca (2) Tachycardia (3) Constipation (4) Hyponatremia (5) Hypothyroid (6) Chronic incomplete quadriplegia Assessment/Plan transfer to [facility] for bp support echo shwoing EF of 60% xr of left hip continue laxatives, had a few BM Endo consult reviewed cardio evaluation abdominal US for increased Alk phos Subjective ROS Limited/Unobtainable: No Interval Events: transferred to [facility] b/o tachycardia Constitutional: Reports: no symptoms HEENT: Repors: no symptoms Respiratory: Reports: no symptoms Cardiovascular: Reports: no symptoms Gastrointestinal/Abdominal: Reports: no symptoms Genitourinary: Reports: no symptoms Musculoskeletal: Reports: other - massive edema Allergies: Uncoded Allergies: NARCOTICS (Allergy, Mild, 10/02/14) Opiates --> Nausea, SOB Objective Last 24 Hour Vital Signs Date Time Temp Pulse Resp B/P Pulse Ox O2 Delivery O2 Flow Rate FiO2 05/30/16 10:30 76 16 98 Nasal Cannula 2.0 28 05/30/16 10:30 Nasal Cannula 2.0 28 05/30/16 10:30 78 16 97 Nasal Cannula 2.0 28 05/30/16 10:30 98 Nasal Cannula 2.0 28 05/30/16 08:00 97.9 52 18 123/46 98 Simple Mask 4.0 05/30/16 08:00 89 05/30/16 04:00 96.8 104 18 117/71 98 Simple Mask 4.0 05/30/16 03:37 99 05/30/16 00:00 139 05/30/16 00:00 96.8 104 18 97/63 98 Simple Mask 4.0 05/29/16 21:07 97.9 133 19 118/82 94 Nasal Cannula 5.0 05/29/16 21:04 98.1 94 20 100/60 98 Nasal Cannula 5.0 05/29/16 21:03 125 80/54 93 05/29/16 20:00 97.9 121 20 71/48 95 Room Air 05/29/16 19:41 Nasal Cannula 2.0 28 05/29/16 19:41 97 Nasal Cannula 2.0 28 05/29/16 16:17 98.2 51 17 151/71 94 Nasal Cannula 3.0 05/29/16 11:25 98.0 76 20 128/88 93 Nasal Cannula 2.0 Intake and Output 05/29/16 05/30/16 19:00 07:00 Intake Total 200 ml Output Total 300 ml 100 ml Balance -100 ml -100 ml Intake Oral 200 ml Output Urine Total 300 ml 100 ml Objective General Appearance: WD/WN HEENT: normocephalic, atraumatic Respiratory/Chest: chest wall non-tender, lungs clear Cardiovascular: normal peripheral pulses, normal rate, regular rhythm Abdomen: normal bowel sounds, soft, non tender, no organomegaly Genitourinary: normal external genitalia Extremities: no cyanosis, no clubbing +++ edema Skin: no rash, no lesions 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 General Appearance: WD/WN HEENT: normocephalic, atraumatic Respiratory/Chest: chest wall non-tender, lungs clear Cardiovascular: normal peripheral pulses, normal rate Abdomen: normal bowel sounds, no organomegaly Genitourinary: normal external genitalia Extremities: no cyanosis Skin: no lesions 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 Lymphatic: no neck adenopathy Laboratory Tests 05/30/16 10:30: White Blood Count 8.1, Red Blood Count 5.04, Hemoglobin 13.6, Hematocrit 45.5, Mean Corpuscular Volume 90, Mean Corpuscular Hemoglobin 27.0, Mean Corpuscular Hemoglobin Concent 29.9L, Red Cell Distribution Width 14.2, Platelet Count 324, Mean Platelet Volume 9.1, Neutrophils (%) (Auto) 73.8, Lymphocytes (%) (Auto) 12.3L, Monocytes (%) (Auto) 12.8H, Eosinophils (%) (Auto) 0.2, Basophils (%) ( Auto) 1.0, Sodium Level 132L, Potassium Level 4.4, Chloride Level 93L, Carbon Dioxide Level 26, Anion Gap 13, Blood Urea Nitrogen 12, Creatinine 0.6, Estimat Glomerular Filtration Rate , Glucose Level 111H, Calcium Level 8.6, Total Bilirubin < 0.2, Aspartate Amino Transf (AST/SGOT) 30, Alanine Aminotransferase (ALT/SGPT) 22, Alkaline Phosphatase 153H, Pro-B-Type Natriuretic Peptide 8476H, Total Protein 6.6, Albumin 1.8L, Globulin 4.8, Albumin/Globulin Ratio 0.3L Current Medications Medications (Trade) Dose Ordered Sig/Miguel Route PRN Reason Start Time Stop Time Status Last Admin Dose Admin Acetaminophen (Tylenol) 650 mg Q4H PRN ORAL fever 05/30/16 00:15 06/29/16 00:14 Al Hydroxide/Mg Hydroxide (Mylanta II) 30 ml Q6H PRN ORAL dyspepsia 05/30/16 00:15 06/29/16 00:14 Albuterol Sulfate (Proventil MDI) 2 puff Q4H PRN INH Shortness of Breath 05/30/16 01:00 06/29/16 00:59 Baclofen (Lioresal) 20 mg THREE TIMES A DAY ORAL 05/30/16 09:00 06/29/16 08:59 05/30/16 09:32 Clonidine HCl (Catapres) 0.1 mg Q4H PRN ORAL For High Blood Pressure 05/29/16 22:30 06/28/16 22:29 Dextrose (Dextrose 50%) STAT PRN IV Hypoglycemia 05/30/16 00:15 06/29/16 00:14 Docusate Sodium (Colace) 100 mg THREE TIMES A DAY ORAL 05/30/16 09:00 06/29/16 08:59 05/30/16 09:33 Duloxetine HCl (Cymbalta) 90 mg DAILY ORAL 05/30/16 09:00 06/29/16 08:59 05/30/16 09:31 Heparin Sodium (Porcine) (Heparin 5000 units/ml) 5,000 units EVERY 12 HOURS SUBQ 05/30/16 09:00 06/29/16 08:59 05/30/16 09:34 Lactulose (Cephulac) 30 gm THREE TIMES A DAY ORAL 05/30/16 09:00 06/29/16 08:59 05/30/16 09:29 Levothyroxine Sodium (Synthroid) 50 mcg DAILY@0630 ORAL 05/30/16 06:30 06/29/16 06:29 05/30/16 06:04 Lorazepam (Ativan 2mg/ml 1ml) 0.5 mg Q4H PRN IV For Anxiety 05/30/16 00:15 06/06/16 00:14 Mineral Oil (Fleet's Mineral Oil Enema) 133 ml EVERY OTHER DAY RECTAL 05/30/16 09:00 06/29/16 08:59 Morphine Sulfate (Morphine Sulfate) 1 mg Q4H PRN IVP For Pain 05/30/16 00:15 06/06/16 00:14 Ondansetron HCl (Zofran) 4 mg Q6H PRN IVP Nausea & Vomiting 05/30/16 00:15 06/29/16 00:14 Polyethylene Glycol (Miralax) 17 gm DAILY ORAL 05/30/16 09:00 06/29/16 08:59 05/30/16 09:29 Polyethylene Glycol (Miralax) 17 gm HSPRN PRN ORAL Constipation 05/30/16 00:15 06/29/16 00:14 Pregabalin (Lyrica) 100 mg Q6HR ORAL 05/30/16 00:00 06/29/16 00:00 05/30/16 06:06 Sennosides (Senokot) 8.6 mg DAILY ORAL 05/30/16 09:00 06/29/16 08:59 05/30/16 09:32 Tiotropium [place] (Spiriva Inhaler) 1 puff DAILY INH 05/30/16 09:00 06/29/16 08:59 05/30/16 10:34 Zolpidem Tartrate (Ambien) 5 mg HSPRN PRN ORAL Insomnia 05/30/16 00:15 06/29/16 00:14 Zonisamide (Zonegran) 400 mg DAILY ORAL 05/30/16 09:00 06/29/16 08:59 05/30/16 09:31 DARION MISHRA May 30, 2016 11:05
[2016-05-30 12:00] VITALS: BP 136/80
--- NOTE | 2016-05-30 14:51 | General Progress Note ---
Assessment/Plan Problem List: (1) Hyponatremia ICD Codes: E87.1 - Hypo-osmolality and hyponatremia SNOMED: 51083144 (2) Hypothyroid ICD Codes: E03.9 - Hypothyroidism, unspecified SNOMED: 97131686 (3) Chronic incomplete quadriplegia ICD Codes: G82.50 - Quadriplegia, unspecified SNOMED: 20236690, 739243248 (4) Constipation ICD Codes: K59.00 - Constipation, unspecified SNOMED: 52586025 Assessment/Plan continue Levothyroxine 50 mcg daily serum Cortisol is normal repeat TSH in 6 weeks as OP I will sign off Subjective Allergies: Uncoded Allergies: NARCOTICS (Allergy, Mild, 10/02/14) Opiates --> Nausea, SOB All Systems: reviewed and negative except above Subjective events noted - interval notes reviewed Objective Last 24 Hour Vital Signs Date Time Temp Pulse Resp B/P Pulse Ox O2 Delivery O2 Flow Rate FiO2 05/30/16 12:00 99 05/30/16 12:00 97.2 80 18 136/80 98 Simple Mask 4.0 05/30/16 10:30 76 16 98 Nasal Cannula 2.0 28 05/30/16 10:30 Nasal Cannula 2.0 28 05/30/16 10:30 78 16 97 Nasal Cannula 2.0 28 05/30/16 10:30 98 Nasal Cannula 2.0 28 05/30/16 08:00 97.9 52 18 123/46 98 Simple Mask 4.0 05/30/16 08:00 89 05/30/16 04:00 96.8 104 18 117/71 98 Simple Mask 4.0 05/30/16 03:37 99 05/30/16 00:00 139 05/30/16 00:00 96.8 104 18 97/63 98 Simple Mask 4.0 05/29/16 21:07 97.9 133 19 118/82 94 Nasal Cannula 5.0 05/29/16 21:04 98.1 94 20 100/60 98 Nasal Cannula 5.0 05/29/16 21:03 125 80/54 93 05/29/16 20:00 97.9 121 20 71/48 95 Room Air 05/29/16 19:41 Nasal Cannula 2.0 28 05/29/16 19:41 97 Nasal Cannula 2.0 28 2/16/17 16:17 98.2 51 17 151/71 94 Nasal Cannula 3.0 Intake and Output 05/29/16 05/30/16 19:00 07:00 Intake Total 200 ml Output Total 300 ml 100 ml Balance -100 ml -100 ml Intake Oral 200 ml Output Urine Total 300 ml 100 ml Laboratory Tests 05/30/16 10:30: White Blood Count 8.1, Red Blood Count 5.04, Hemoglobin 13.6, Hematocrit 45.5, Mean Corpuscular Volume 90, Mean Corpuscular Hemoglobin 27.0, Mean Corpuscular Hemoglobin Concent 29.9L, Red Cell Distribution Width 14.2, Platelet Count 324, Mean Platelet Volume 9.1, Neutrophils (%) (Auto) 73.8, Lymphocytes (%) (Auto) 12.3L, Monocytes (%) (Auto) 12.8H, Eosinophils (%) (Auto) 0.2, Basophils (%) ( Auto) 1.0, Sodium Level 132L, Potassium Level 4.4, Chloride Level 93L, Carbon Dioxide Level 26, Anion Gap 13, Blood Urea Nitrogen 12, Creatinine 0.6, Estimat Glomerular Filtration Rate , Glucose Level 111H, Calcium Level 8.6, Total Bilirubin < 0.2, Aspartate Amino Transf (AST/SGOT) 30, Alanine Aminotransferase (ALT/SGPT) 22, Alkaline Phosphatase 153H, Pro-B-Type Natriuretic Peptide 8476H, Total Protein 6.6, Albumin 1.8L, Globulin 4.8, Albumin/Globulin Ratio 0.3L, Alpha Fetoprotein [Pending], Carcinoembryonic Antigen 2.1 Height (Feet): 5 Height (Inches): 4.00 Weight (Pounds): 170 General Appearance: no apparent distress Neck: normal alignment Cardiovascular: regular rhythm Respiratory/Chest: normal breath sounds Abdomen: normal bowel sounds Objective Current Medications Medications (Trade) Dose Ordered Sig/Miguel Route PRN Reason Start Time Stop Time Status Last Admin Dose Admin Acetaminophen (Tylenol) 650 mg Q4H PRN ORAL fever 05/30/16 00:15 06/29/16 00:14 Al Hydroxide/Mg Hydroxide (Mylanta II) 30 ml Q6H PRN ORAL dyspepsia 05/30/16 00:15 06/29/16 00:14 Albuterol Sulfate (Proventil MDI) 2 puff Q4H PRN INH Shortness of Breath 05/30/16 01:00 06/29/16 00:59 Baclofen (Lioresal) 20 mg THREE TIMES A DAY ORAL 05/30/16 09:00 06/29/16 08:59 05/30/16 09:32 Clonidine HCl (Catapres) 0.1 mg Q4H PRN ORAL For High Blood Pressure 05/29/16 22:30 06/28/16 22:29 Dextrose (Dextrose 50%) STAT PRN IV Hypoglycemia 05/30/16 00:15 06/29/16 00:14 Docusate Sodium (Colace) 100 mg THREE TIMES A DAY ORAL 05/30/16 09:00 06/29/16 08:59 05/30/16 09:33 Duloxetine HCl (Cymbalta) 90 mg DAILY ORAL 05/30/16 09:00 06/29/16 08:59 05/30/16 09:31 Heparin Sodium (Porcine) (Heparin 5000 units/ml) 5,000 units EVERY 12 HOURS SUBQ 05/30/16 09:00 06/29/16 08:59 05/30/16 09:34 Lactulose (Cephulac) 30 gm THREE TIMES A DAY ORAL 05/30/16 09:00 06/29/16 08:59 05/30/16 09:29 Levothyroxine Sodium (Synthroid) 50 mcg DAILY@0630 ORAL 05/30/16 06:30 06/29/16 06:29 05/30/16 06:04 Lorazepam (Ativan 2mg/ml 1ml) 0.5 mg Q4H PRN IV For Anxiety 05/30/16 00:15 06/06/16 00:14 Mineral Oil (Fleet's Mineral Oil Enema) 133 ml EVERY OTHER DAY RECTAL 05/30/16 09:00 06/29/16 08:59 Morphine Sulfate (Morphine Sulfate) 1 mg Q4H PRN IVP For Pain 05/30/16 00:15 06/06/16 00:14 Ondansetron HCl (Zofran) 4 mg Q6H PRN IVP Nausea & Vomiting 05/30/16 00:15 06/29/16 00:14 Polyethylene Glycol (Miralax) 17 gm DAILY ORAL 05/30/16 09:00 06/29/16 08:59 05/30/16 09:29 Polyethylene Glycol (Miralax) 17 gm HSPRN PRN ORAL Constipation 05/30/16 00:15 06/29/16 00:14 Pregabalin (Lyrica) 100 mg Q6HR ORAL 05/30/16 00:00 06/29/16 00:00 05/30/16 06:06 Sennosides (Senokot) 8.6 mg DAILY ORAL 05/30/16 09:00 06/29/16 08:59 05/30/16 09:32 Tiotropium [place] (Spiriva Inhaler) 1 puff DAILY INH 05/30/16 09:00 06/29/16 08:59 05/30/16 10:34 Zolpidem Tartrate (Ambien) 5 mg HSPRN PRN ORAL Insomnia 05/30/16 00:15 06/29/16 00:14 Zonisamide (Zonegran) 400 mg DAILY ORAL 05/30/16 09:00 06/29/16 08:59 05/30/16 09:31 MAXIMILIANO FISCHER May 30, 2016 14:51
[2016-05-30 16:41] LABS: PROTHROMBIN TIME 10.4 SEC (9.30-11.50)
--- NOTE | 2016-05-30 16:42 | Diagnostic Imaging Report ---
Indication: ABN LABS Technique: Akbar-scale and duplex images of the upper abdomen were obtained Comparison: Findings: Liver demonstrates slightly coarsened echogenicity. No focal abnormality. There is a right-sided pleural effusion. Pancreas is unremarkable. Right kidney measures 9.1 cm length. Patent portal and hepatic veins. Gallbladder is unremarkable, without stones, wall thickening, nor pericholecystic fluid. Common bile duct measures 5 mm diameter. Left kidney measures 9.4 cm length. Kidneys demonstrate normal echogenicity, no hydronephrosis or focal abnormalities. The spleen is small, otherwise unremarkable the left renal cyst described on recent CT scan is not evident sonographically CT scan 05/27/2016. The distal abdominal aorta is obscured by bowel gas. Visualized portions are nonaneurysmal Impression: Negative for gallstones or dilated ducts Right pleural effusion, also described on prior CT scan Nonspecific mild coarsening of the hepatic echogenicity, hepatocellular disease not excludable Note inability to visualize the distal abdominal aorta
[2016-05-30] MEDS ORDERED: NS 275ml ONE (16:53)
[2016-05-30] MEDS ORDERED: Tubing IV Secondary IV ONE (16:53)
[2016-05-30 16:59] VITALS: BP 140/75
[2016-05-30 20:00] VITALS: BP 138/66
--- NOTE | 2016-05-30 21:44 | Diagnostic Imaging Report ---
APPROVED REPORT CPT Code: 85308 Symptoms Comments: Hip and BL legs pain Comments Technically difficult study due to vessel depth and market edema (mid-thigh and calf area). RIGHT LEG: Common femoral artery waveform analysis is within normal limits at rest. Color flow duplex sonography reveals diffuse plaque throughout the proximal superficial femoral and popliteal arteries. There is no evidence of stenosis or occlusion within these segments. The mid to distal superficial femoral artery was not well visualized. The tibioperoneal trunk was also not well visualized. The distal posterior tibial and dorsalis pedis arteries are moderately calcified. However, Doppler posterior tibial artery waveform analysis is monophasic, consistent with severe ischemia at rest. LEFT LEG: Common femoral artery waveform analysis is within normal limits at rest. Color flow duplex sonography reveals diffuse plaque throughout the proximal superficial femoral and popliteal arteries. There is no evidence of stenosis or occlusion within these segments. The mid to distal superficial femoral artery was not well visualized. The tibioperoneal trunk was also not well visualized. The distal posterior tibial and dorsalis pedis arteries are moderately calcified. However, Doppler posterior tibial artery waveform analysis is monophasic, consistent with severe ischemia at rest.
[2016-05-31] VITALS: BP 110/66
[2016-05-31] MEDS: Lyrica 50mg cap ORAL SCH ×4 (00:21→18:28)
[2016-05-31 04:00] VITALS: BP 122/59
[2016-05-31 08:00] VITALS: BP 126/57
[2016-05-31] MEDS: Miralax 17gm pkt ORAL SCH (08:23)
[2016-05-31] MEDS: DULoxetine 30mg cap ORAL SCH (08:25)
[2016-05-31] MEDS: Lactulose 20gm/30ml UDC ORAL SCH ×3 (08:25→18:00)
[2016-05-31] MEDS: Docusate 100mg cap ORAL SCH ×3 (08:26→18:00)
[2016-05-31] MEDS: Heparin 5000 units/ml inj SUBQ SCH ×2 (08:29→20:32)
--- NOTE | 2016-05-31 10:32 | Pulmonology Progress Note ---
Assessment/Plan Problems: (1) Anasarca (2) Tachycardia (3) Constipation (4) Hyponatremia (5) Hypothyroid (6) Chronic incomplete quadriplegia Assessment/Plan transfer to [facility] for bp support echo shwoing EF of 60% xr of left hip continue laxatives, had a few BM Endo consult reviewed cardio evaluation abdominal US for increased Alk phos Subjective Allergies: Coded Allergies: OPIOIDS - MORPHINE ANALOGUES (Verified Allergy, Unknown, 06/02/16) per daughter. All opiods, she doesn't want any given to patient Uncoded Allergies: NARCOTICS (Allergy, Mild, 10/02/14) Opiates --> Nausea, SOB Objective Last 24 Hour Vital Signs Date Time Temp Pulse Resp B/P Pulse Ox O2 Delivery O2 Flow Rate FiO2 05/31/16 09:36 103 16 99 Nasal Cannula 2.0 05/31/16 09:32 103 16 99 Nasal Cannula 2.0 05/31/16 09:03 Nasal Cannula 2.0 05/31/16 08:00 97.3 95 16 126/57 100 Nasal Cannula 4.0 05/31/16 07:02 99 Nasal Cannula 2.0 05/31/16 04:00 97.5 99 21 122/59 96 Nasal Cannula 4.0 05/31/16 00:00 97.9 101 24 110/66 96 Nasal Cannula 4.0 05/30/16 20:00 97.9 93 24 138/66 96 Nasal Cannula 4.0 05/30/16 19:35 98.3 05/30/16 19:08 97 05/30/16 18:55 Nasal Cannula 2.0 28 05/30/16 18:53 98 Nasal Cannula 2.0 28 05/30/16 16:59 97.3 101 24 140/75 96 Nasal Cannula 4.0 05/30/16 16:53 94 05/30/16 12:00 99 05/30/16 12:00 97.2 80 18 136/80 98 Simple Mask 4.0 Intake and Output 05/30/16 05/31/16 19:00 07:00 Intake Total 200 ml Output Total 200 ml 500 ml Balance 0 ml -500 ml Intake Oral 200 ml Output Urine Total 200 ml 500 ml # Bowel Movements 4 Objective General Appearance: WD/WN HEENT: normocephalic, atraumatic Respiratory/Chest: chest wall non-tender, lungs clear Cardiovascular: normal peripheral pulses, normal rate, regular rhythm Abdomen: normal bowel sounds, soft, non tender, no organomegaly Genitourinary: normal external genitalia Extremities: no cyanosis, no clubbing +++ edema Skin: no rash, no lesions 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 normal Laboratory Tests 05/30/16 16:10: Prothrombin Time 10.4, Prothromb Time International Ratio 1.0, Activated Partial Thromboplast Time 31 Current Medications Medications (Trade) Dose Ordered Sig/Miguel Route PRN Reason Start Time Stop Time Status Last Admin Dose Admin Acetaminophen (Tylenol) 650 mg Q4H PRN ORAL fever 05/30/16 00:15 06/29/16 00:14 Al Hydroxide/Mg Hydroxide (Mylanta II) 30 ml Q6H PRN ORAL dyspepsia 05/30/16 00:15 06/29/16 00:14 Albuterol Sulfate (Proventil MDI) 2 puff Q4H PRN INH Shortness of Breath 05/30/16 01:00 06/29/16 00:59 Baclofen (Lioresal) 20 mg THREE TIMES A DAY ORAL 05/30/16 09:00 06/29/16 08:59 05/31/16 08:26 Clonidine HCl (Catapres) 0.1 mg Q4H PRN ORAL For High Blood Pressure 05/29/16 22:30 06/28/16 22:29 Dextrose (Dextrose 50%) STAT PRN IV Hypoglycemia 05/30/16 00:15 06/29/16 00:14 Docusate Sodium (Colace) 100 mg THREE TIMES A DAY ORAL 05/30/16 09:00 06/29/16 08:59 05/31/16 08:26 Duloxetine HCl (Cymbalta) 90 mg DAILY ORAL 05/30/16 09:00 06/29/16 08:59 05/31/16 08:25 Heparin Sodium (Porcine) (Heparin 5000 units/ml) 5,000 units EVERY 12 HOURS SUBQ 05/30/16 09:00 06/29/16 08:59 05/31/16 08:29 Lactulose (Cephulac) 30 gm THREE TIMES A DAY ORAL 05/30/16 09:00 06/29/16 08:59 05/31/16 08:25 Levothyroxine Sodium (Synthroid) 50 mcg DAILY@0630 ORAL 05/30/16 06:30 06/29/16 06:29 05/31/16 05:51 Lorazepam (Ativan 2mg/ml 1ml) 0.5 mg Q4H PRN IV For Anxiety 05/30/16 00:15 06/06/16 00:14 Mineral Oil (Fleet's Mineral Oil Enema) 133 ml EVERY OTHER DAY RECTAL 05/30/16 09:00 06/29/16 08:59 Morphine Sulfate (Morphine Sulfate) 1 mg Q4H PRN IVP For Pain 05/30/16 00:15 06/06/16 00:14 Ondansetron HCl (Zofran) 4 mg Q6H PRN IVP Nausea & Vomiting 05/30/16 00:15 06/29/16 00:14 Polyethylene Glycol (Miralax) 17 gm DAILY ORAL 05/30/16 09:00 06/29/16 08:59 05/31/16 08:23 Polyethylene Glycol (Miralax) 17 gm HSPRN PRN ORAL Constipation 05/30/16 00:15 06/29/16 00:14 Pregabalin (Lyrica) 100 mg Q6HR ORAL 05/30/16 00:00 06/29/16 00:00 05/31/16 05:51 Sennosides (Senokot) 8.6 mg DAILY ORAL 05/30/16 09:00 06/29/16 08:59 05/31/16 08:26 Tiotropium [place] (Spiriva Inhaler) 1 puff DAILY INH 05/30/16 09:00 06/29/16 08:59 05/31/16 09:33 Zolpidem Tartrate (Ambien) 5 mg HSPRN PRN ORAL Insomnia 05/30/16 00:15 06/29/16 00:14 Zonisamide (Zonegran) 400 mg DAILY ORAL 05/30/16 09:00 06/29/16 08:59 05/31/16 08:25 DARION MISHRA May 31, 2016 10:32
--- NOTE | 2016-05-31 11:21 | Diagnostic Imaging Report ---
Indication: Dyspnea Comparison: 05/29/16 A single view chest radiograph was obtained. Findings: Microcalcifications and thickening of the right apical pleura with some mild scarring of the lung noted. Findings unchanged. Small left pleural-based density that appears non-gravity dependent noted, not seen on the prior occasion. Cardiomegaly is present. Again there is some prominence of pulmonary vascularity bilaterally. The bones are osteopenic. Impression: Suspected mild CHF. Please correlate clinically. Apparent small left pleural effusion. Old granulomatous disease
[2016-05-31 12:00] VITALS: BP 120/72
[2016-05-31] MEDS ORDERED: NS 275ml ONE (13:59)
[2016-05-31 16:00] VITALS: BP 145/82
--- NOTE | 2016-05-31 17:44 | Cardiology Progress Note ---
Subjective Subjective [id number] Objective Last 24 Hour Vital Signs Date Time Temp Pulse Resp B/P Pulse Ox O2 Delivery O2 Flow Rate FiO2 05/31/16 16:00 97.5 95 24 145/82 97 Nasal Cannula 2.0 05/31/16 16:00 91 05/31/16 12:00 97.5 98 18 120/72 100 Nasal Cannula 4.0 05/31/16 12:00 96 05/31/16 09:36 103 16 99 Nasal Cannula 2.0 05/31/16 09:32 103 16 99 Nasal Cannula 2.0 05/31/16 09:03 Nasal Cannula 2.0 05/31/16 08:00 97.3 95 16 126/57 100 Nasal Cannula 4.0 05/31/16 08:00 94 05/31/16 07:02 99 Nasal Cannula 2.0 05/31/16 04:00 97.5 99 21 122/59 96 Nasal Cannula 4.0 05/31/16 00:00 97.9 101 24 110/66 96 Nasal Cannula 4.0 05/30/16 20:00 97.9 93 24 138/66 96 Nasal Cannula 4.0 05/30/16 19:35 98.3 05/30/16 19:08 97 05/30/16 18:55 Nasal Cannula 2.0 28 05/30/16 18:53 98 Nasal Cannula 2.0 28 Intake and Output 05/30/16 05/31/16 19:00 07:00 Intake Total 200 ml Output Total 200 ml 500 ml Balance 0 ml -500 ml Intake Oral 200 ml Output Urine Total 200 ml 500 ml # Bowel Movements 4 SALVADOR FARRAR May 31, 2016 17:44
[2016-05-31 20:00] VITALS: BP 124/57
--- NOTE | 2016-05-31 22:59 | Consultation ---
DATE OF CONSULTATION: 05/31/2016 CARDIOLOGY CONSULT[address] Coverage for Dr. Ulises Millan. IDENTIFYING DATA: This is a 70-year-old black female. REASON FOR ADMISSION: Altered mental status. HISTORY OF PRESENT ILLNESS: History is taken from the patient's caregiver. The patient is an unfortunate 70-year-old female, who had a stroke in the past and then she had quadriplegia due to the spinal cord injury in her neck and she is bedridden for significant amount of time. The caregiver was taking care of her and she noted that the patient is more obtunded and she is constipated so they brought her to the emergency department at [facility], where she was evaluated and admitted to telemetry. She still remains lethargic and there was no history of shortness of breath or chest pain. PAST MEDICAL HISTORY: Hypertension, atrial fibrillation, quadriplegia due to compression fractures and spasticity due to spinal cord injury and chronic pain. ALLERGIES: Not documented. MEDICATIONS: Her home medications were reviewed and as I can see she has not taken anything for blood thinning. REVIEW OF SYSTEMS: Discussed with the caregiver and she said that the patient has history of atrial fibrillation in the past and high blood pressure and she has not taken anything for blood thinners. PHYSICAL EXAMINATION: GENERAL: She is very lethargic. She barely trying to open her eyes. She is responding and conversing. She however looks like unable to open her eyes and she denies any shortness of breath, wheezing on cough, or recent fever. No dysuria. VITAL SIGNS: Blood pressure is 140/80, heart rate is 90, that time I see the patient is in sinus rhythm and oxygen saturation 97%, based on the nursing record. She is afebrile. HEENT: Does not open her eyes. She has good corneal reaction. Cannot evaluate extraocular movement due to the closed eyes. NECK: SKINCannot evaluate JVP because patient is supine in her bed. Her carotid upstroke is normal LUNGS: She has crackles at both bases. HEART: Regular. Diminished S1 and diminished S2. PMI is not palpable. SKIN: There is no rash present. No significant lumps. She has LE edema and abdominal wall edema. ABDOMEN: Soft and distended. No rebound. No guarding. EXTREMITIES: Lower extremities, bilateral edema and some discoloration at distal toes. NEUROLOGICAL: She has spastic quadriplegia. LABORATORY AND DIAGNOSTIC DATA: Her INR was 1. Her laboratories are remarkable for very low Hb. Her chemistry was noted and significant for elevated BNP, CEA is 2.1, and TSH was 6.38. Her medications ordered during this admission also were reviewed. Her EKG which was done emergency department revealed presence of low-voltage QRS with atrial fibrillation with Edward phenomenon and the rate about, 120 beats per minute, however, right now on the monitor, she is in sinus rhythm. IMPRESSION AND RECOMMENDATION: The patient is in the paroxysmal atrial fibrillation and she probably has indication for anticoagulation (Coumadin) , but that needs to be decided by her primary care physician. I would recommend at the present time to put her on subcutaneous Lovenox for her paroxysmal atrial fibrillation and then decision can be made whether she is a good candidate to bridge her with Coumadin. However, she needs to be cleared neurologically, to make sure she does not have acute stroke. Also, her voltage is very low out of proportion to her echo data. The degree of hypothyroidism is out of proportion to her low voltage ECG. \ The other differential would be infiltrative heart disease, such as amyloidosis. The best test would be cardiac MRI, that should be taken in consideration to see whether she has infiltrative heart disease. The other option will be the biopsy. Thank you very much. I will follow this patient with you. Janee Pablo M.D. DR: YOHANNES JOB#: [id number] CC: [facility]
[2016-06-01] VITALS: BP 107/54
[2016-06-01] MEDS: Lyrica 50mg cap ORAL SCH ×4 (00:53→17:34)
[2016-06-01 04:00] VITALS: BP 114/58
[2016-06-01 08:00] VITALS: BP 127/63
[2016-06-01] MEDS: Heparin 5000 units/ml inj SUBQ SCH ×2 (08:23→21:24)
[2016-06-01] MEDS: Docusate 100mg cap ORAL SCH ×3 (08:36→17:28)
[2016-06-01] MEDS: Lactulose 20gm/30ml UDC ORAL SCH ×3 (08:36→17:27)
[2016-06-01] MEDS: Fleet's Mineral Oil Enema RECTAL SCH (09:00)
[2016-06-01] MEDS: Miralax 17gm pkt ORAL SCH (10:22)
[2016-06-01] MEDS: DULoxetine 30mg cap ORAL SCH (10:22)
[2016-06-01 11:54] LABS: ANION GAP 10 (5-15); CALCIUM 8.6 mg/dL (8.6-10.2); CARBON DIOXIDE 29 mEQ/L (20-30); CHLORIDE 96 mEQ/L (98-107); CREATININE 0.5 mg/dL (0.5-0.9); HEMOLYSIS 103; POTASSIUM 4.3 mEQ/L (3.4-4.9); SODIUM 135 mEQ/L (135-145)
[2016-06-01 12:00] VITALS: BP 121/57
--- NOTE | 2016-06-01 12:22 | Pulmonology Progress Note ---
Assessment/Plan Assessment/Plan ASSESSMENT acute toxic encephalopathy- anasarca severe PVD bilateral pleural effusion mild pulmonary edema severe pulmonary HTN seizure disorder constipation hyponatremia -resolved hypothyroidism with elevated TSH functional quadriplegia [facility] O2 HHN titrate to keep sat above 92% MRI brain in am ammonia level now neuro eval EEG CXR with mild pulmonary edema, bilateral pleural effusion continue with diuretic, monitor renal parameters, lytes, thoracentesis for am if enough pleural fluid to safely tap cardio eval appreciated evidence of mild congestive heart failure per cardio ECHO with preserved EF 60-65% and RVSP of 86 c/w severe pulmonary HTN patient with evidence of PAF, rate controlled, cardio recommended a/coagulation - to be decided by PMD/cardio as outpatient- hold for now in lieu of possible CVA elevated alkaline phosphatase CT A/P no acute abdominal process, + anasarca abdominal US - no gallstones, no dilated bile ducts Arterial Duplex BLE with evidence of severe PVD, need to be started on ASA, when OK with neuro seizure precautions, continue anticonvulsant EEG urology seen, off Mancini, no difficulties urinating to diaper, no further issues as per urologist elevated TSH and low T4, started on Synthroid, check thyroid panel in 4 weeks bowel regimen DVT prophylaxis case discussed and evaluated by supervising physician Subjective Allergies: Uncoded Allergies: NARCOTICS (Allergy, Mild, 10/02/14) Opiates --> Nausea, SOB Subjective patient not responsive, open eyes spontaneously afebrile seen and evaluated by cardio 05/31 family at the bedside per family patient was not altered when admitted, started yesterday MRI brain pending hx of seizure hx of prior CVA and brain aneurysm Objective Last 24 Hour Vital Signs Date Time Temp Pulse Resp B/P Pulse Ox O2 Delivery O2 Flow Rate FiO2 06/01/16 08:00 97.2 95 16 127/63 100 Nasal Cannula 2.5 06/01/16 08:00 95 06/01/16 04:00 97.0 92 18 114/58 Nasal Cannula 2.0 06/01/16 00:00 97.0 92 18 107/54 99 Nasal Cannula 2.0 05/31/16 20:00 97.3 91 24 124/57 100 Nasal Cannula 2.0 05/31/16 20:00 94 05/31/16 19:32 97.5 05/31/16 19:21 99 Nasal Cannula 2.0 05/31/16 19:21 Nasal Cannula 2.0 05/31/16 16:00 97.5 95 24 145/82 97 Nasal Cannula 2.0 05/31/16 16:00 91 Intake and Output 05/31/16 06/01/16 19:00 07:00 Intake Total 460 ml 60 ml Output Total 100 ml 250 ml Balance 360 ml -190 ml Intake Oral 460 ml 60 ml Output Urine Total 100 ml 250 ml # Bowel Movements 5 3 General Appearance: other - bedridden AA female not verbally responsive mert cute distress HEENT: normocephalic, atraumatic, anicteric, other - R facial droop Respiratory/Chest: no respiratory distress, no accessory muscle use, decreased breath sounds - at bases , crackles/rales - few isoalted crackles at abses Cardiovascular: normal peripheral pulses, normal rate, regular rhythm, no JVD Abdomen: normal bowel sounds, non distended Genitourinary: normal external genitalia Extremities: pedal pulses normal, other - +3 BLE, +1 to 2 BUE Neurologic/Psychiatric: abnormal gait, other - R facial droop, not verbally responsive, Musculoskeletal: atrophy - BLE, other - conrtracted palms Laboratory Tests 06/01/16 11:10: Sodium Level 135, Potassium Level 4.3, Chloride Level 96L, Carbon Dioxide Level 29, Anion Gap 10, Blood Urea Nitrogen 11, Creatinine 0.5, Estimat Glomerular Filtration Rate , Glucose Level 129H, Calcium Level 8.6 Current Medications Medications (Trade) Dose Ordered Sig/Miguel Route PRN Reason Start Time Stop Time Status Last Admin Dose Admin Acetaminophen (Tylenol) 650 mg Q4H PRN ORAL fever 05/30/16 00:15 06/29/16 00:14 Al Hydroxide/Mg Hydroxide (Mylanta II) 30 ml Q6H PRN ORAL dyspepsia 05/30/16 00:15 06/29/16 00:14 Albuterol Sulfate (Proventil MDI) 2 puff Q4H PRN INH Shortness of Breath 05/30/16 01:00 06/29/16 00:59 Baclofen (Lioresal) 20 mg THREE TIMES A DAY ORAL 05/30/16 09:00 06/29/16 08:59 06/01/16 08:34 Clonidine HCl (Catapres) 0.1 mg Q4H PRN ORAL For High Blood Pressure 05/29/16 22:30 06/28/16 22:29 Dextrose (Dextrose 50%) STAT PRN IV Hypoglycemia 05/30/16 00:15 06/29/16 00:14 Docusate Sodium (Colace) 100 mg THREE TIMES A DAY ORAL 05/30/16 09:00 06/29/16 08:59 06/01/16 08:36 Duloxetine HCl (Cymbalta) 90 mg DAILY ORAL 05/30/16 09:00 06/29/16 08:59 06/01/16 10:22 Furosemide (Lasix) 20 mg EVERY 8 HOURS IV 06/01/16 07:30 07/01/16 07:29 06/01/16 08:15 Heparin Sodium (Porcine) (Heparin 5000 units/ml) 5,000 units EVERY 12 HOURS SUBQ 05/30/16 09:00 06/29/16 08:59 06/01/16 08:23 Lactulose (Cephulac) 30 gm THREE TIMES A DAY ORAL 05/30/16 09:00 06/29/16 08:59 06/01/16 08:36 Levothyroxine Sodium (Synthroid) 50 mcg DAILY@0630 ORAL 05/30/16 06:30 06/29/16 06:29 06/01/16 06:58 Lorazepam (Ativan 2mg/ml 1ml) 0.5 mg Q4H PRN IV For Anxiety 05/30/16 00:15 06/06/16 00:14 Mineral Oil (Fleet's Mineral Oil Enema) 133 ml EVERY OTHER DAY RECTAL 05/30/16 09:00 06/29/16 08:59 Morphine Sulfate (Morphine Sulfate) 1 mg Q4H PRN IVP For Pain 05/30/16 00:15 06/06/16 00:14 Ondansetron HCl (Zofran) 4 mg Q6H PRN IVP Nausea & Vomiting 05/30/16 00:15 06/29/16 00:14 Polyethylene Glycol (Miralax) 17 gm DAILY ORAL 05/30/16 09:00 06/29/16 08:59 06/01/16 10:22 Polyethylene Glycol (Miralax) 17 gm HSPRN PRN ORAL Constipation 05/30/16 00:15 06/29/16 00:14 Pregabalin (Lyrica) 100 mg Q6HR ORAL 05/30/16 00:00 06/29/16 00:00 06/01/16 06:57 Sennosides (Senokot) 8.6 mg DAILY ORAL 05/30/16 09:00 06/29/16 08:59 06/01/16 08:36 Tiotropium [place] (Spiriva Inhaler) 1 puff DAILY INH 05/30/16 09:00 06/29/16 08:59 06/01/16 08:13 Zolpidem Tartrate (Ambien) 5 mg HSPRN PRN ORAL Insomnia 05/30/16 00:15 06/29/16 00:14 Zonisamide (Zonegran) 400 mg DAILY ORAL 05/30/16 09:00 06/29/16 08:59 06/01/16 08:36 [facility]Mariela NP Jun 01, 2016 12:22
[2016-06-01] MEDS ORDERED: Lidocaine 1% Plain 30 ml INJ PRN (12:45)
[2016-06-01] MEDS ORDERED: Heparin 2000 units/Ns 1000ml INJ PRN (12:45)
[2016-06-01] MEDS ORDERED: Sodium Bicarbonate 8.4% 50ml Inj IV PRN (12:45)
--- NOTE | 2016-06-01 13:31 | Consultation ---
Consult Note Consult Note asked to eval for anasarca Low Serum Albumin, High Cholestrol, 4+ Proteinuria Assessment/Plan Nephrotic Syndrome most likely- leading to Anasarca, Pleural effusion acute toxic encephalopathy- severe PVD mild pulmonary edema severe pulmonary HTN seizure disorder constipation hyponatremia , likelu due to Anasarca Mild hypothyroidism with elevated TSH functional quadriplegia Plan: 24 H urine for Protein- Easy on diuresis- per orders MARISOL ELAINE Jun 01, 2016 13:31
--- NOTE | 2016-06-01 14:54 | Internal Med Progress Note ---
Subjective Physician Name Jareth Verma Attending Physician Jose Tenorio Current Medications Medications (Trade) Dose Ordered Sig/Miguel Route PRN Reason Start Time Stop Time Status Last Admin Dose Admin Acetaminophen (Tylenol) 650 mg Q4H PRN ORAL fever 05/30/16 00:15 06/29/16 00:14 Albuterol Sulfate (Proventil MDI) 2 puff Q4H PRN INH Shortness of Breath 05/30/16 01:00 06/29/16 00:59 Baclofen (Lioresal) 20 mg THREE TIMES A DAY ORAL 05/30/16 09:00 06/29/16 08:59 06/01/16 13:09 Clonidine HCl (Catapres) 0.1 mg Q4H PRN ORAL For High Blood Pressure 05/29/16 22:30 06/28/16 22:29 Dextrose (Dextrose 50%) STAT PRN IV Hypoglycemia 05/30/16 00:15 06/29/16 00:14 Docusate Sodium (Colace) 100 mg THREE TIMES A DAY ORAL 05/30/16 09:00 06/29/16 08:59 06/01/16 13:09 Duloxetine HCl (Cymbalta) 90 mg DAILY ORAL 05/30/16 09:00 06/29/16 08:59 06/01/16 10:22 Furosemide (Lasix) 20 mg EVERY 12 HOURS IV 06/02/16 21:00 07/02/16 20:59 Heparin Sodium (Porcine) (Heparin 5000 units/ml) 5,000 units EVERY 12 HOURS SUBQ 05/30/16 09:00 06/29/16 08:59 06/01/16 08:23 Heparin Sodium/ Sodium Chloride (Heparin 2000 units/Ns 1000ml premix) 2,000 unit ONCE PRN INJ PICC PLACEMENT 06/01/16 12:45 06/02/16 23:59 Lactulose (Cephulac) 30 gm THREE TIMES A DAY ORAL 05/30/16 09:00 06/29/16 08:59 06/01/16 13:07 Levothyroxine Sodium (Synthroid) 50 mcg DAILY@0630 ORAL 05/30/16 06:30 06/29/16 06:29 06/01/16 06:58 Lidocaine HCl (Xylocaine 1% 30ml) 30 ml ONCE PRN INJ PICC PLACEMENT 06/01/16 12:45 06/02/16 23:59 Lorazepam (Ativan 2mg/ml 1ml) 0.5 mg Q4H PRN IV For Anxiety 05/30/16 00:15 06/06/16 00:14 Mineral Oil (Fleet's Mineral Oil Enema) 133 ml EVERY OTHER DAY RECTAL 05/30/16 09:00 06/29/16 08:59 Morphine Sulfate (Morphine Sulfate) 1 mg Q4H PRN IVP For Pain 05/30/16 00:15 06/06/16 00:14 Ondansetron HCl (Zofran) 4 mg Q6H PRN IVP Nausea & Vomiting 05/30/16 00:15 06/29/16 00:14 Pantoprazole (Protonix) 40 mg DAILY ORAL 06/02/16 09:00 07/02/16 08:59 Polyethylene Glycol (Miralax) 17 gm DAILY ORAL 05/30/16 09:00 06/29/16 08:59 06/01/16 10:22 Polyethylene Glycol (Miralax) 17 gm HSPRN PRN ORAL Constipation 05/30/16 00:15 06/29/16 00:14 Pregabalin (Lyrica) 100 mg Q6HR ORAL 05/30/16 00:00 06/29/16 00:00 06/01/16 13:08 Sennosides (Senokot) 8.6 mg DAILY ORAL 05/30/16 09:00 06/29/16 08:59 06/01/16 08:36 Sodium Bicarbonate (Sodium Bicarbonate) 50 ml ONCE PRN IV PICC PLACEMENT 06/01/16 12:45 06/02/16 23:59 Tiotropium [place] (Spiriva Inhaler) 1 puff DAILY INH 05/30/16 09:00 06/29/16 08:59 06/01/16 08:13 Zolpidem Tartrate (Ambien) 5 mg HSPRN PRN ORAL Insomnia 05/30/16 00:15 06/29/16 00:14 Zonisamide (Zonegran) 400 mg DAILY ORAL 05/30/16 09:00 06/29/16 08:59 06/01/16 08:36 Allergies: Uncoded Allergies: NARCOTICS (Allergy, Mild, 10/02/14) Opiates --> Nausea, SOB Subjective altered, not responsive, open eyes, daughter and grad daughter at bedside Objective Last Vital Signs Date Time Temp Pulse Resp B/P Pulse Ox O2 Delivery O2 Flow Rate FiO2 06/01/16 09:00 92 18 100 Nasal Cannula 3.0 32 06/01/16 08:00 97.2 127/63 General Appearance: no apparent distress, lethargic EENT: other - PERRLA, Anicteric, sluggish Neck: normal alignment, supple Cardiovascular: normal rate, regularly irregular, other - distent heart sound Respiratory/Chest: no accessory muscle use, decreased breath sounds, other - decrease breath sound on bases Abdomen: normal bowel sounds, non tender, soft, other - obese Extremities: other - contracted extrimeties Neurologic: disoriented, unresponsiveness Laboratory Tests Test 06/01/16 11:10 Sodium Level 135 mEQ/L (135-145) Potassium Level 4.3 mEQ/L (3.4-4.9) Chloride Level 96 mEQ/L (98-107) L Carbon Dioxide Level 29 mEQ/L (20-30) Anion Gap 10 (5-15) Blood Urea Nitrogen 11 mg/dL (7-23) Creatinine 0.5 mg/dL (0.5-0.9) Estimat Glomerular Filtration Rate mL/min (>60) Glucose Level 129 mg/dL (74-106) H Calcium Level 8.6 mg/dL (8.6-10.2) Intake and Output 05/31/16 06/01/16 18:59 06:59 Intake Total 400 ml 120 ml Output Total 100 ml 250 ml Balance 300 ml -130 ml Intake Oral 400 ml 120 ml Output Urine Total 100 ml 250 ml # Bowel Movements 5 3 Assessment/Plan Assessment/Plan ASSESSMENT acute toxic metabolic encephalopathy- possible CVA anasarca severe PVD bilateral pleural effusion mild pulmonary edema severe pulmonary HTN seizure disorder constipation hyponatremia -resolved hypothyroidism with elevated TSH functional quadriplegia PLAN: in [facility] O2 HHN titrate to keep sat above 92% MRI brain in am CTA of brain stat neuro eval EEG Monitor Labs and cultures discuss with daughter at bedside extensively NG tube placement and start feeding DVT prophylaxis No Abx for now Jareth Verma MD Jun 01, 2016 14:54
--- NOTE | 2016-06-01 15:09 | Internal Med Progress Note ---
Subjective Date of Service: Jun 01, 2016 Physician Name LafleurZenia german Attending Physician Jose Tenorio Current Medications Medications (Trade) Dose Ordered Sig/Miguel Route PRN Reason Start Time Stop Time Status Last Admin Dose Admin Acetaminophen (Tylenol) 650 mg Q4H PRN ORAL fever 05/30/16 00:15 06/29/16 00:14 Albuterol Sulfate (Proventil MDI) 2 puff Q4H PRN INH Shortness of Breath 05/30/16 01:00 06/29/16 00:59 Baclofen (Lioresal) 20 mg THREE TIMES A DAY ORAL 05/30/16 09:00 06/29/16 08:59 06/01/16 13:09 Clonidine HCl (Catapres) 0.1 mg Q4H PRN ORAL For High Blood Pressure 05/29/16 22:30 06/28/16 22:29 Dextrose (Dextrose 50%) STAT PRN IV Hypoglycemia 05/30/16 00:15 06/29/16 00:14 Docusate Sodium (Colace) 100 mg THREE TIMES A DAY ORAL 05/30/16 09:00 06/29/16 08:59 06/01/16 13:09 Duloxetine HCl (Cymbalta) 90 mg DAILY ORAL 05/30/16 09:00 06/29/16 08:59 06/01/16 10:22 Furosemide (Lasix) 20 mg EVERY 12 HOURS IV 06/02/16 21:00 07/02/16 20:59 Heparin Sodium (Porcine) (Heparin 5000 units/ml) 5,000 units EVERY 12 HOURS SUBQ 05/30/16 09:00 06/29/16 08:59 06/01/16 08:23 Heparin Sodium/ Sodium Chloride (Heparin 2000 units/Ns 1000ml premix) 2,000 unit ONCE PRN INJ PICC PLACEMENT 06/01/16 12:45 06/02/16 23:59 Lactulose (Cephulac) 30 gm THREE TIMES A DAY ORAL 05/30/16 09:00 06/29/16 08:59 06/01/16 13:07 Levothyroxine Sodium (Synthroid) 50 mcg DAILY@0630 ORAL 05/30/16 06:30 06/29/16 06:29 06/01/16 06:58 Lidocaine HCl (Xylocaine 1% 30ml) 30 ml ONCE PRN INJ PICC PLACEMENT 06/01/16 12:45 06/02/16 23:59 Lorazepam (Ativan 2mg/ml 1ml) 0.5 mg Q4H PRN IV For Anxiety 05/30/16 00:15 06/06/16 00:14 Mineral Oil (Fleet's Mineral Oil Enema) 133 ml EVERY OTHER DAY RECTAL 05/30/16 09:00 06/29/16 08:59 Morphine Sulfate (Morphine Sulfate) 1 mg Q4H PRN IVP For Pain 05/30/16 00:15 06/06/16 00:14 Ondansetron HCl (Zofran) 4 mg Q6H PRN IVP Nausea & Vomiting 05/30/16 00:15 06/29/16 00:14 Pantoprazole (Protonix) 40 mg DAILY ORAL 06/02/16 09:00 07/02/16 08:59 Polyethylene Glycol (Miralax) 17 gm DAILY ORAL 05/30/16 09:00 06/29/16 08:59 06/01/16 10:22 Polyethylene Glycol (Miralax) 17 gm HSPRN PRN ORAL Constipation 05/30/16 00:15 06/29/16 00:14 Pregabalin (Lyrica) 100 mg Q6HR ORAL 05/30/16 00:00 06/29/16 00:00 06/01/16 13:08 Sennosides (Senokot) 8.6 mg DAILY ORAL 05/30/16 09:00 06/29/16 08:59 06/01/16 08:36 Sodium Bicarbonate (Sodium Bicarbonate) 50 ml ONCE PRN IV PICC PLACEMENT 06/01/16 12:45 06/02/16 23:59 Tiotropium [place] (Spiriva Inhaler) 1 puff DAILY INH 05/30/16 09:00 06/29/16 08:59 06/01/16 08:13 Zolpidem Tartrate (Ambien) 5 mg HSPRN PRN ORAL Insomnia 05/30/16 00:15 06/29/16 00:14 Zonisamide (Zonegran) 400 mg DAILY ORAL 05/30/16 09:00 06/29/16 08:59 06/01/16 08:36 Allergies: Uncoded Allergies: NARCOTICS (Allergy, Mild, 10/02/14) Opiates --> Nausea, SOB ROS Limited/Unobtainable: No Constitutional: Reports: no symptoms HEENT: Reports: no symptoms Cardiovascular: Reports: no symptoms Respiratory: Reports: no symptoms Gastrointestinal/Abdominal: Reports: constipated Genitourinary: Reports: no symptoms Neurologic/Psychiatric: Reports: no symptoms Subjective 70 YO F admitted for constipation, anasarca and altered mental status. Cover for Int [place]-Dr Verma Objective Last Vital Signs Date Time Temp Pulse Resp B/P Pulse Ox O2 Delivery O2 Flow Rate FiO2 06/01/16 09:00 92 18 100 Nasal Cannula 3.0 32 06/01/16 08:00 97.2 127/63 General Appearance: no apparent distress, alert, obese EENT: PERRL/EOMI, normal ENT inspection Neck: non-tender, normal alignment, supple Cardiovascular: normal peripheral pulses, no gallop/murmur, no JVD, irregularly irregular Respiratory/Chest: chest wall non-tender, lungs clear, normal breath sounds, no respiratory distress, no accessory muscle use Abdomen: normal bowel sounds, no organomegaly, no mass, guarding, tender Extremities: normal range of motion Edema: trace edema Neurologic: sas etl developer II-XII grossly normal, no motor/sensory deficits Laboratory Tests Test 06/01/16 11:10 Sodium Level 135 mEQ/L (135-145) Potassium Level 4.3 mEQ/L (3.4-4.9) Chloride Level 96 mEQ/L (98-107) L Carbon Dioxide Level 29 mEQ/L (20-30) Anion Gap 10 (5-15) Blood Urea Nitrogen 11 mg/dL (7-23) Creatinine 0.5 mg/dL (0.5-0.9) Estimat Glomerular Filtration Rate mL/min (>60) Glucose Level 129 mg/dL (74-106) H Calcium Level 8.6 mg/dL (8.6-10.2) Intake and Output 05/31/16 06/01/16 19:00 07:00 Intake Total 460 ml 60 ml Output Total 100 ml 250 ml Balance 360 ml -190 ml Intake Oral 460 ml 60 ml Output Urine Total 100 ml 250 ml # Bowel Movements 5 3 Assessment/Plan Problem List: (1) Altered mental status (2) Acute complete quadriplegia (3) Constipation Assessment & Plan: Resolving; ? due to hypothyroidism? (4) Anasarca Assessment & Plan: ?hypothyroidism? Continue lasix (5) Cerebral vascular disease (6) HTN (hypertension) (7) Atrial fibrillation Assessment & Plan: see cardiology note. Cont lovenox. May require coumadin (8) Hypothyroidism Assessment & Plan: Cont levoxyl. (9) Hyponatremia Status: not improved ZENIA LAFLEUR Jun 01, 2016 15:09
[2016-06-01 15:47] VITALS: BP 156/76
--- NOTE | 2016-06-01 16:29 | Cardiology Progress Note ---
Assessment/Plan Assessment/Plan The patient has episodes of a fib she has indications for anticoagulation however, she needs to be cleared neurologically (to make sure she does not have a stroke) before starting her on anticoagulation she also needs further evaluation for possible cardiac amyoloidosis or other infiltrative cardiac disease, probably by cardiac MRI Subjective Subjective remains lethargic and has difficulties to open her eyes denies dyspnea and chest pain, according to caregiver Objective Last 24 Hour Vital Signs Date Time Temp Pulse Resp B/P Pulse Ox O2 Delivery O2 Flow Rate FiO2 06/01/16 15:47 97.3 90 18 156/76 06/01/16 12:00 97.0 90 16 121/57 100 Nasal Cannula 2.5 06/01/16 12:00 97.0 90 16 121/57 100 Nasal Cannula 2.5 06/01/16 09:00 92 18 100 Nasal Cannula 3.0 32 06/01/16 09:00 92 18 100 Nasal Cannula 3.0 32 06/01/16 08:00 97.2 95 16 127/63 100 Nasal Cannula 2.5 06/01/16 08:00 95 06/01/16 06:35 Nasal Cannula 3.0 32 06/01/16 06:35 99 Nasal Cannula 2.0 28 06/01/16 04:00 97.0 92 18 114/58 Nasal Cannula 2.0 06/01/16 00:00 97.0 92 18 107/54 99 Nasal Cannula 2.0 05/31/16 20:00 97.3 91 24 124/57 100 Nasal Cannula 2.0 05/31/16 20:00 94 05/31/16 19:32 97.5 05/31/16 19:21 99 Nasal Cannula 2.0 05/31/16 19:21 Nasal Cannula 2.0 General Appearance: lethargic, other - does not open her eyes EENT: other - bilateral ptosis Neck: other - unable to assess JVD Rhythm: NSR - and paroxysmal a fib Cardiovascular: normal rate Respiratory/Chest: decreased breath sounds, crackles/rales Abdomen: soft Extremities: non-pitting, moderate edema Neurologic: other - quadriplegia Intake and Output 05/31/16 06/01/16 19:00 07:00 Intake Total 460 ml 60 ml Output Total 100 ml 250 ml Balance 360 ml -190 ml Intake Oral 460 ml 60 ml Output Urine Total 100 ml 250 ml # Bowel Movements 5 3 Laboratory Tests Test 06/01/16 11:10 Sodium Level 135 mEQ/L (135-145) Potassium Level 4.3 mEQ/L (3.4-4.9) Chloride Level 96 mEQ/L (98-107) L Carbon Dioxide Level 29 mEQ/L (20-30) Anion Gap 10 (5-15) Blood Urea Nitrogen 11 mg/dL (7-23) Creatinine 0.5 mg/dL (0.5-0.9) Estimat Glomerular Filtration Rate mL/min (>60) Glucose Level 129 mg/dL (74-106) H Calcium Level 8.6 mg/dL (8.6-10.2) SALVADOR FARRAR Jun 01, 2016 16:29
[2016-06-01 19:57] VITALS: BP 123/76
[2016-06-02] VITALS (36 sets, daily range): BP systolic 84–142; BP diastolic 54–95
[2016-06-02 04:36] LABS: BASOPHILS % (AUTO) 2.1 % (0.0-2.0); LYMPHOCYTES % (AUTO) 6.7 % (20.0-45.0); MEAN CORPUSCULAR HGB CONC 30.5 G/DL (32.0-36.0); MEAN CORPUSCULAR VOLUME 92 FL (80-99); MEAN PLATELET VOLUME 9.6 FL (6.5-10.1); NEUTROPHILS % (AUTO) 78.2 % (45.0-75.0); PLATELET COUNT 324 K/UL (150-450); RED BLOOD COUNT 4.62 M/UL (4.20-5.40); RED CELL DISTRIBUTION WIDTH 14.5 % (11.6-14.8); WHITE BLOOD COUNT 8.4 K/UL (4.8-10.8)
[2016-06-02 04:45] LABS: PROTHROMBIN TIME 9.8 SEC (9.30-11.50)
[2016-06-02] MEDS: Lyrica 50mg cap ORAL SCH ×4 (05:46→19:11)
[2016-06-02 06:56] LABS: ALANINE AMINOTRANSFERASE 20 U/L (3-33); ALBUMIN/GLOBULIN RATIO 0.4 (1.0-2.7); ANION GAP 12 (5-15); ASPARTATE AMINO TRANSFERASE 15 U/L (5-40); CARBON DIOXIDE 29 mEQ/L (20-30); CHLORIDE 97 mEQ/L (98-107); CHOLESTEROL 259 mg/dL (< 200); CREATININE 0.4 mg/dL (0.5-0.9); CRP QUANT 2.6 mg/dL (< 0.5); HEMOLYSIS 13; LDL CHOLESTEROL (CALC.) 131 mg/dL (60-99); MAGNESIUM 2.2 mg/dL (1.7-2.5); POTASSIUM 4.4 mEQ/L (3.4-4.9); SODIUM 138 mEQ/L (135-145); TOTAL PROTEIN 6.2 g/dL (6.6-8.7); URIC ACID 5.8 mg/dL (3.0-7.5)
[2016-06-02] MEDS: Heparin 5000 units/ml inj SUBQ SCH ×2 (09:00→22:42)
[2016-06-02] MEDS: Lactulose 20gm/30ml UDC ORAL SCH ×3 (09:40→19:09)
[2016-06-02] MEDS: DULoxetine 30mg cap ORAL SCH (09:41)
[2016-06-02] MEDS: Miralax 17gm pkt ORAL SCH (09:42)
[2016-06-02] MEDS: Docusate 100mg cap ORAL SCH ×2 (09:43→13:25)
--- NOTE | 2016-06-02 10:03 | Diagnostic Imaging Report ---
Indication: Altered level of consciousness Technique: Contiguous 5 mm thick transaxial imaging of the head obtained in a Siemens Sensation [address] scanner. Soft tissue and bone windows generated. Total Dose length Product (DLP): [address] Dose Index Volume (CTDIvol): 70.38 mGy Comparison: 10/02/14 Findings: Patient has had previous right temporal craniotomy. There is an aneurysm clip projected over the M1 segment of the right middle cerebral artery. There is encephalomalacia involving part of the medial right temporal lobe and the basal ganglia. Ex-vacuo dilatation of the anterior horn of the right lateral ventricle and other compensatory volume loss changes noted. Findings are unchanged. There is no mass effect, midline shift, edema or acute hemorrhage identified. Impression: No definite mass effect, midline shift or acute intracranial bleed Postsurgical changes related to aneurysm clip surgery in the right side. Findings unchanged from the prior examination. The CT scanner at [facility] is accredited by the [employer] [place] [employer] and the scans are performed using protocols designed to limit radiation exposure to as low as reasonably achievable to attain images of sufficient resolution adequate for diagnostic evaluation.
[2016-06-02] MEDS ORDERED: Artificial Tears 1.4% Op Soln BOTH EYES PRN (10:15)
--- NOTE | 2016-06-02 10:21 | Internal Med Progress Note ---
Subjective Date of Service: Jun 02, 2016 Physician Name Emmanuel Lafleur Attending Physician Jareth Verma MD Current Medications Medications (Trade) Dose Ordered Sig/Miguel Route PRN Reason Start Time Stop Time Status Last Admin Dose Admin Acetaminophen (Tylenol) 650 mg Q4H PRN ORAL fever 05/30/16 00:15 06/29/16 00:14 Albuterol Sulfate (Proventil MDI) 2 puff Q4H PRN INH Shortness of Breath 05/30/16 01:00 06/29/16 00:59 Baclofen (Lioresal) 20 mg THREE TIMES A DAY ORAL 05/30/16 09:00 06/29/16 08:59 06/01/16 13:09 Clonidine HCl (Catapres) 0.1 mg Q4H PRN ORAL For High Blood Pressure 05/29/16 22:30 06/28/16 22:29 Dextrose (Dextrose 50%) STAT PRN IV Hypoglycemia 05/30/16 00:15 06/29/16 00:14 Docusate Sodium (Colace) 100 mg THREE TIMES A DAY ORAL 05/30/16 09:00 06/29/16 08:59 06/02/16 09:43 Duloxetine HCl (Cymbalta) 90 mg DAILY ORAL 05/30/16 09:00 06/29/16 08:59 06/02/16 09:41 Furosemide (Lasix) 20 mg EVERY 12 HOURS IV 06/02/16 21:00 07/02/16 20:59 Heparin Sodium (Porcine) (Heparin 5000 units/ml) 5,000 units EVERY 12 HOURS SUBQ 05/30/16 09:00 06/29/16 08:59 06/01/16 21:24 Heparin Sodium/ Sodium Chloride (Heparin 2000 units/Ns 1000ml premix) 2,000 unit ONCE PRN INJ PICC PLACEMENT 06/01/16 12:45 06/02/16 23:59 Lactulose (Cephulac) 30 gm THREE TIMES A DAY ORAL 05/30/16 09:00 06/29/16 08:59 06/02/16 09:40 Levothyroxine Sodium (Synthroid) 50 mcg DAILY@0630 ORAL 05/30/16 06:30 06/29/16 06:29 06/02/16 06:18 Lidocaine HCl (Xylocaine 1% 30ml) 30 ml ONCE PRN INJ PICC PLACEMENT 06/01/16 12:45 06/02/16 23:59 Lorazepam (Ativan 2mg/ml 1ml) 0.5 mg Q4H PRN IV For Anxiety 05/30/16 00:15 06/06/16 00:14 Mineral Oil (Fleet's Mineral Oil Enema) 133 ml EVERY OTHER DAY RECTAL 05/30/16 09:00 06/29/16 08:59 Morphine Sulfate (Morphine Sulfate) 1 mg Q4H PRN IVP For Pain 05/30/16 00:15 06/06/16 00:14 Ondansetron HCl (Zofran) 4 mg Q6H PRN IVP Nausea & Vomiting 05/30/16 00:15 06/29/16 00:14 Pantoprazole (Protonix) 40 mg DAILY ORAL 06/02/16 09:00 07/02/16 08:59 06/02/16 09:40 Polyethylene Glycol (Miralax) 17 gm DAILY ORAL 05/30/16 09:00 06/29/16 08:59 06/02/16 09:42 Polyethylene Glycol (Miralax) 17 gm HSPRN PRN ORAL Constipation 05/30/16 00:15 06/29/16 00:14 Pregabalin (Lyrica) 100 mg Q6HR ORAL 05/30/16 00:00 06/29/16 00:00 06/01/16 13:08 Sennosides (Senokot) 8.6 mg DAILY ORAL 05/30/16 09:00 06/29/16 08:59 06/02/16 09:42 Sodium Bicarbonate (Sodium Bicarbonate) 50 ml ONCE PRN IV PICC PLACEMENT 06/01/16 12:45 06/02/16 23:59 Tiotropium [place] (Spiriva Inhaler) 1 puff DAILY INH 05/30/16 09:00 06/29/16 08:59 06/01/16 08:13 Zolpidem Tartrate (Ambien) 5 mg HSPRN PRN ORAL Insomnia 05/30/16 00:15 06/29/16 00:14 Zonisamide (Zonegran) 400 mg DAILY ORAL 05/30/16 09:00 06/29/16 08:59 06/02/16 09:40 Allergies: Uncoded Allergies: NARCOTICS (Allergy, Mild, 10/02/14) Opiates --> Nausea, SOB ROS Limited/Unobtainable: Yes Subjective 70 YO F admitted for constipation, anasarca and altered mental status. More alert today per daughter at bedside. Cover for Int Med-Dr Verma. Await transfer to [facility] per family request. Objective Last Vital Signs Date Time Temp Pulse Resp B/P Pulse Ox O2 Delivery O2 Flow Rate FiO2 06/02/16 09:37 Nasal Cannula 3.0 32 06/02/16 09:36 90 18 94 06/02/16 08:00 97.7 134/62 General Appearance: WD/WN, lethargic, agitated EENT: PERRL/EOMI, normal ENT inspection, TMs normal Neck: non-tender, normal alignment, supple Cardiovascular: normal peripheral pulses, normal rate, regular rhythm, no gallop/murmur, no JVD Respiratory/Chest: respiratory distress, crackles/rales, rhonchi - bilaterally , expiratory wheezing Abdomen: normal bowel sounds, non tender, soft, no organomegaly, no mass Extremities: normal range of motion Edema: pitting Neurologic: quiller tender II-XII grossly normal Skin: normal pigmentation, warm/dry Laboratory Tests Test 06/01/16 11:10 06/02/16 04:00 Sodium Level 135 mEQ/L (135-145) 138 mEQ/L (135-145) Potassium Level 4.3 mEQ/L (3.4-4.9) 4.4 mEQ/L (3.4-4.9) Chloride Level 96 mEQ/L (98-107) L 97 mEQ/L (98-107) L Carbon Dioxide Level 29 mEQ/L (20-30) 29 mEQ/L (20-30) Anion Gap 10 (5-15) 12 (5-15) Blood Urea Nitrogen 11 mg/dL (7-23) 12 mg/dL (7-23) Creatinine 0.5 mg/dL (0.5-0.9) 0.4 mg/dL (0.5-0.9) L Estimat Glomerular Filtration Rate mL/min (>60) mL/min (>60) Glucose Level 129 mg/dL (74-106) H 122 mg/dL (74-106) H Calcium Level 8.6 mg/dL (8.6-10.2) 9.0 mg/dL (8.6-10.2) White Blood Count 8.4 K/UL (4.8-10.8) Red Blood Count 4.62 M/UL (4.20-5.40) Hemoglobin 12.9 G/DL (12.0-16.0) Hematocrit 42.5 % (37.0-47.0) Mean Corpuscular Volume 92 FL (80-99) Mean Corpuscular Hemoglobin 28.0 PG (27.0-31.0) Mean Corpuscular Hemoglobin Concent 30.5 G/DL (32.0-36.0) L Red Cell Distribution Width 14.5 % (11.6-14.8) Platelet Count 324 K/UL (150-450) Mean Platelet Volume 9.6 FL (6.5-10.1) Neutrophils (%) (Auto) 78.2 % (45.0-75.0) H Lymphocytes (%) (Auto) 6.7 % (20.0-45.0) L Monocytes (%) (Auto) 13.0 % (1.0-10.0) H Eosinophils (%) (Auto) 0.0 % (0.0-3.0) Basophils (%) (Auto) 2.1 % (0.0-2.0) H Prothrombin Time 9.8 SEC (9.30-11.50) Prothromb Time International Ratio 1.0 (0.9-1.1) Uric Acid 5.8 mg/dL (3.0-7.5) Phosphorus Level 4.0 mg/dL (2.5-4.8) Magnesium Level 2.2 mg/dL (1.7-2.5) Total Bilirubin < 0.2 mg/dL (0.0-1.2) Gamma Glutamyl Transpeptidase 148 U/L (5-36) H Aspartate Amino Transf (AST/SGOT) 15 U/L (5-40) Alanine Aminotransferase (ALT/SGPT) 20 U/L (3-33) Alkaline Phosphatase 159 U/L (35-104) H Ammonia 109 umol/L (11-51) H Total Creatine Kinase 42 U/L (26-140) C-Reactive Protein, Quantitative 2.6 mg/dL (< 0.5) H Pro-B-Type Natriuretic Peptide 9661 pg/mL (0-125) H Total Protein 6.2 g/dL (6.6-8.7) L Albumin 2.0 g/dL (3.5-5.2) L Globulin 4.2 g/dL Albumin/Globulin Ratio 0.4 (1.0-2.7) L Triglycerides Level 86 mg/dL (< 150) Cholesterol Level 259 mg/dL (< 200) H LDL Cholesterol 131 mg/dL (60-99) H HDL Cholesterol > 111 mg/dL (> 60) H Cholesterol/HDL Ratio 2.0 (3.3-4.4) L Thyroid Stimulating Hormone (TSH) 4.480 uIU/mL (0.300-4.500) Cortisol Pending Intake and Output 06/01/16 06/02/16 19:00 07:00 Intake Total 50 ml 50 ml Output Total 500 ml 290 ml Balance -450 ml -240 ml Intake Oral 50 ml Free Water 50 ml Output Urine Total 500 ml 290 ml # Voids 2 # Bowel Movements 2 Assessment/Plan Problem List: (1) Altered mental status (2) Acute complete quadriplegia (3) Constipation Assessment & Plan: Resolving; ? due to hypothyroidism? (4) Anasarca Assessment & Plan: ?hypothyroidism? Continue lasix (5) Cerebral vascular disease (6) HTN (hypertension) (7) Atrial fibrillation Assessment & Plan: see cardiology note. Cont lovenox. May require coumadin (8) Hypothyroidism Assessment & Plan: Cont levoxyl. (9) Hyponatremia Assessment & Plan: See nephrology note. Status: not improved Assessment/Plan Transfer to [facility] when bed available per family request EMMANUEL LAFLEUR Jun 02, 2016 10:21
--- NOTE | 2016-06-02 10:49 | Cardiology Report ---
APPROVED REPORT EXAM: Two-dimensional and M-mode echocardiogram with Doppler and color Doppler. INDICATION Left Ventricular Function M-Mode DIMENSIONS IVSd1.2 (0.7-1.1cm)Left Atrium (MM)2.7 (1.6-4.0cm) LVDd4.2 (3.5-5.6cm)Aortic Root2.8 (2.0-3.7cm) PWd.9 (0.7-1.1cm)Aortic Cusp Exc.1.8 (1.5-2.0cm) LVDs1.9 (2.5-4.0cm) PWs1.6 cm Normal left ventricular chamber size, systolic function and wall motion. Left ventricular ejection fraction estimated to be 60-65 %. Mild left ventricular hypertrophy. No evidence of pericardial fat or effusion. All other cardiac chamber sizes are within normal limits. Mild focal aortic valve sclerosis with adequate cusp excursion. Mildly thickened mitral valve leaflets with normal excursion. Mild mitral annulus and aortic root calcification. Pulmonic valve not well visualized. Normal tricuspid valve structure. IVC at normal size with physiologic collapse. A color flow and spectral Doppler study was performed and revealed: Trace aortic regurgitation. Trace mitral regurgitation. Mitral diastolic velocities suggest reduced left ventricular relaxation (Grade I). Mild to moderate tricuspid regurgitation. Tricuspid systolic velocities suggests peak right ventricular systolic pressure of 86 mmHg, consistent with severe pulmonary hypertension. No pulmonic regurgitation present.
--- NOTE | 2016-06-02 10:50 | Diagnostic Imaging Report ---
Indication: Left hip pain. Swollen leg Technique: 2 views of the left hip Comparison: None Findings: Positioning is limited. Bones are osteoporotic. No definite acute fractures or dislocations. Joint spaces are preserved. Is a Mancini catheter. Impression: No gross acute bony trauma Note, however, that in elderly osteoporotic patients, nondisplaced fractures can easily be occult. Consider cross-sectional imaging if there is high clinical suspicion
--- NOTE | 2016-06-02 13:07 | Pulmonology Progress Note ---
Assessment/Plan Problems: (1) Anasarca (2) Tachycardia (3) Constipation (4) Hyponatremia (5) Hypothyroid (6) Chronic incomplete quadriplegia Assessment/Plan CT of head was negative awaiting MRI PICC line placed echo shwoing EF of 60% continue laxatives, had a few BM cardio evaluation and f/u appreciated abdominal US for increased Alk phos Subjective ROS Limited/Unobtainable: No Interval Events: less somnolent Allergies: Uncoded Allergies: NARCOTICS (Allergy, Mild, 10/02/14) Opiates --> Nausea, SOB Objective Last 24 Hour Vital Signs Date Time Temp Pulse Resp B/P Pulse Ox O2 Delivery O2 Flow Rate FiO2 06/02/16 09:37 Nasal Cannula 3.0 32 06/02/16 09:36 90 18 94 Nasal Cannula 3.0 32 06/02/16 08:00 96 06/02/16 08:00 97.7 95 18 134/62 100 Nasal Cannula 3.0 06/02/16 07:10 99 Nasal Cannula 3.0 32 06/02/16 07:10 Nasal Cannula 3.0 32 06/02/16 04:00 97.6 89 20 133/79 100 Nasal Cannula 3.0 06/02/16 00:00 97.4 86 18 141/75 100 Nasal Cannula 3.0 06/01/16 23:36 90 06/01/16 20:00 93 06/01/16 19:57 97.7 89 18 123/76 100 06/01/16 19:17 Nasal Cannula 3.0 32 06/01/16 19:16 100 Nasal Cannula 2.0 28 06/01/16 16:00 93 06/01/16 15:47 97.3 90 18 156/76 Intake and Output 06/01/16 06/02/16 18:59 06:59 Intake Total 50 ml 50 ml Output Total 500 ml 290 ml Balance -450 ml -240 ml Intake Oral 50 ml Free Water 50 ml Output Urine Total 500 ml 290 ml # Voids 2 # Bowel Movements 2 Objective General Appearance: WD/WN HEENT: normocephalic, atraumatic Respiratory/Chest: chest wall non-tender, lungs clear Cardiovascular: normal peripheral pulses, normal rate, regular rhythm Abdomen: normal bowel sounds, soft, non tender, no organomegaly Genitourinary: normal external genitalia Extremities: no cyanosis, no clubbing +++ edema Skin: no rash, no lesions 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 General Appearance: cachetic HEENT: normocephalic Respiratory/Chest: chest wall non-tender, lungs clear Cardiovascular: normal peripheral pulses, normal rate, regular rhythm Abdomen: normal bowel sounds, no organomegaly Genitourinary: normal external genitalia Extremities: no cyanosis Skin: no rash Laboratory Tests 06/02/16 04:00: White Blood Count 8.4, Red Blood Count 4.62, Hemoglobin 12.9, Hematocrit 42.5, Mean Corpuscular Volume 92, Mean Corpuscular Hemoglobin 28.0, Mean Corpuscular Hemoglobin Concent 30.5L, Red Cell Distribution Width 14.5, Platelet Count 324, Mean Platelet Volume 9.6, Neutrophils (%) (Auto) 78.2H, Lymphocytes (%) (Auto) 6.7L, Monocytes (%) (Auto) 13.0H, Eosinophils (%) (Auto) 0.0, Basophils (%) ( Auto) 2.1H, Prothrombin Time 9.8, Prothromb Time International Ratio 1.0, Sodium Level 138, Potassium Level 4.4, Chloride Level 97L, Carbon Dioxide Level 29, Anion Gap 12, Blood Urea Nitrogen 12, Creatinine 0.4L, Estimat Glomerular Filtration Rate , Glucose Level 122H, Uric Acid 5.8, Calcium Level 9.0, Phosphorus Level 4.0, Magnesium Level 2.2, Total Bilirubin < 0.2, Gamma Glutamyl Transpeptidase 148H, Aspartate Amino Transf (AST/SGOT) 15, Alanine Aminotransferase (ALT/SGPT) 20, Alkaline Phosphatase 159H, Ammonia 109H, Total Creatine Kinase 42, C-Reactive Protein, Quantitative 2.6H, Pro-B-Type Natriuretic Peptide 9661H, Total Protein 6.2L, Albumin 2.0L, Globulin 4.2, Albumin/Globulin Ratio 0.4L, Triglycerides Level 86, Cholesterol Level 259H, LDL Cholesterol 131H, HDL Cholesterol > 111H, Cholesterol/HDL Ratio 2.0L, Thyroid Stimulating Hormone (TSH) 4.480, Cortisol [Pending] Current Medications Medications (Trade) Dose Ordered Sig/Miguel Route PRN Reason Start Time Stop Time Status Last Admin Dose Admin Acetaminophen (Tylenol) 650 mg Q4H PRN ORAL fever 05/30/16 00:15 06/29/16 00:14 Albuterol Sulfate (Proventil MDI) 2 puff Q4H PRN INH Shortness of Breath 05/30/16 01:00 06/29/16 00:59 Artificial Tears (Akwa-Tears) 2 drop Q2H PRN BOTH EYES Dry Eyes 06/02/16 10:15 07/02/16 10:14 Baclofen (Lioresal) 20 mg THREE TIMES A DAY ORAL 05/30/16 09:00 06/29/16 08:59 06/01/16 13:09 Clonidine HCl (Catapres) 0.1 mg Q4H PRN ORAL For High Blood Pressure 05/29/16 22:30 06/28/16 22:29 Dextrose (Dextrose 50%) STAT PRN IV Hypoglycemia 05/30/16 00:15 06/29/16 00:14 Docusate Sodium (Colace) 100 mg THREE TIMES A DAY ORAL 05/30/16 09:00 06/29/16 08:59 06/02/16 09:43 Duloxetine HCl (Cymbalta) 90 mg DAILY ORAL 05/30/16 09:00 06/29/16 08:59 06/02/16 09:41 Furosemide (Lasix) 20 mg EVERY 12 HOURS IV 06/02/16 21:00 07/02/16 20:59 Heparin Sodium (Porcine) (Heparin 5000 units/ml) 5,000 units EVERY 12 HOURS SUBQ 05/30/16 09:00 06/29/16 08:59 06/01/16 21:24 Heparin Sodium/ Sodium Chloride (Heparin 2000 units/Ns 1000ml premix) 2,000 unit ONCE PRN INJ PICC PLACEMENT 06/01/16 12:45 06/02/16 23:59 Lactulose (Cephulac) 30 gm THREE TIMES A DAY ORAL 05/30/16 09:00 06/29/16 08:59 06/02/16 09:40 Levothyroxine Sodium (Synthroid) 50 mcg DAILY@0630 ORAL 05/30/16 06:30 06/29/16 06:29 06/02/16 06:18 Lidocaine HCl (Xylocaine 1% 30ml) 30 ml ONCE PRN INJ PICC PLACEMENT 06/01/16 12:45 06/02/16 23:59 Lorazepam (Ativan 2mg/ml 1ml) 0.5 mg Q4H PRN IV For Anxiety 05/30/16 00:15 06/06/16 00:14 Mineral Oil (Fleet's Mineral Oil Enema) 133 ml EVERY OTHER DAY RECTAL 05/30/16 09:00 06/29/16 08:59 Morphine Sulfate (Morphine Sulfate) 1 mg Q4H PRN IVP For Pain 05/30/16 00:15 06/06/16 00:14 Ondansetron HCl (Zofran) 4 mg Q6H PRN IVP Nausea & Vomiting 05/30/16 00:15 06/29/16 00:14 Pantoprazole (Protonix) 40 mg DAILY ORAL 06/02/16 09:00 07/02/16 08:59 06/02/16 09:40 Polyethylene Glycol (Miralax) 17 gm DAILY ORAL 05/30/16 09:00 06/29/16 08:59 06/02/16 09:42 Polyethylene Glycol (Miralax) 17 gm HSPRN PRN ORAL Constipation 05/30/16 00:15 06/29/16 00:14 Pregabalin (Lyrica) 100 mg Q6HR ORAL 05/30/16 00:00 06/29/16 00:00 06/01/16 13:08 Sennosides (Senokot) 8.6 mg DAILY ORAL 05/30/16 09:00 06/29/16 08:59 06/02/16 09:42 Sodium Bicarbonate (Sodium Bicarbonate) 50 ml ONCE PRN IV PICC PLACEMENT 06/01/16 12:45 06/02/16 23:59 Tiotropium Vernon (Spiriva Inhaler) 1 puff DAILY INH 05/30/16 09:00 06/29/16 08:59 06/01/16 08:13 Zolpidem Tartrate (Ambien) 5 mg HSPRN PRN ORAL Insomnia 05/30/16 00:15 06/29/16 00:14 Zonisamide (Zonegran) 400 mg DAILY ORAL 05/30/16 09:00 06/29/16 08:59 06/02/16 09:40 DARION MISHRA Jun 02, 2016 13:07
--- NOTE | 2016-06-02 13:14 | General Progress Note ---
Assessment/Plan Status: stable Assessment/Plan Nephrotic Syndrome most likely- leading to Anasarca, Pleural effusion acute toxic encephalopathy- severe PVD mild pulmonary edema severe pulmonary HTN seizure disorder constipation hyponatremia , likelu due to Anasarca Mild hypothyroidism with elevated TSH functional quadriplegia Plan: 24 H urine for Protein- being collected Easy on diuresis- per orders- monitor lytes- ? DC planning? Subjective ROS Limited/Unobtainable: Yes Allergies: Uncoded Allergies: NARCOTICS (Allergy, Mild, 10/02/14) Opiates --> Nausea, SOB Objective Last 24 Hour Vital Signs Date Time Temp Pulse Resp B/P Pulse Ox O2 Delivery O2 Flow Rate FiO2 06/02/16 09:37 Nasal Cannula 3.0 32 06/02/16 09:36 90 18 94 Nasal Cannula 3.0 32 06/02/16 08:00 96 06/02/16 08:00 97.7 95 18 134/62 100 Nasal Cannula 3.0 06/02/16 07:10 99 Nasal Cannula 3.0 32 06/02/16 07:10 Nasal Cannula 3.0 32 06/02/16 04:00 97.6 89 20 133/79 100 Nasal Cannula 3.0 06/02/16 00:00 97.4 86 18 141/75 100 Nasal Cannula 3.0 06/01/16 23:36 90 06/01/16 20:00 93 06/01/16 19:57 97.7 89 18 123/76 100 06/01/16 19:17 Nasal Cannula 3.0 32 06/01/16 19:16 100 Nasal Cannula 2.0 28 06/01/16 16:00 93 06/01/16 15:47 97.3 90 18 156/76 Intake and Output 06/01/16 06/02/16 19:00 07:00 Intake Total 50 ml 50 ml Output Total 500 ml 290 ml Balance -450 ml -240 ml Intake Oral 50 ml Free Water 50 ml Output Urine Total 500 ml 290 ml # Voids 2 # Bowel Movements 2 Laboratory Tests 06/02/16 04:00: White Blood Count 8.4, Red Blood Count 4.62, Hemoglobin 12.9, Hematocrit 42.5, Mean Corpuscular Volume 92, Mean Corpuscular Hemoglobin 28.0, Mean Corpuscular Hemoglobin Concent 30.5L, Red Cell Distribution Width 14.5, Platelet Count 324, Mean Platelet Volume 9.6, Neutrophils (%) (Auto) 78.2H, Lymphocytes (%) (Auto) 6.7L, Monocytes (%) (Auto) 13.0H, Eosinophils (%) (Auto) 0.0, Basophils (%) ( Auto) 2.1H, Prothrombin Time 9.8, Prothromb Time International Ratio 1.0, Sodium Level 138, Potassium Level 4.4, Chloride Level 97L, Carbon Dioxide Level 29, Anion Gap 12, Blood Urea Nitrogen 12, Creatinine 0.4L, Estimat Glomerular Filtration Rate , Glucose Level 122H, Uric Acid 5.8, Calcium Level 9.0, Phosphorus Level 4.0, Magnesium Level 2.2, Total Bilirubin < 0.2, Gamma Glutamyl Transpeptidase 148H, Aspartate Amino Transf (AST/SGOT) 15, Alanine Aminotransferase (ALT/SGPT) 20, Alkaline Phosphatase 159H, Ammonia 109H, Total Creatine Kinase 42, C-Reactive Protein, Quantitative 2.6H, Pro-B-Type Natriuretic Peptide 9661H, Total Protein 6.2L, Albumin 2.0L, Globulin 4.2, Albumin/Globulin Ratio 0.4L, Triglycerides Level 86, Cholesterol Level 259H, LDL Cholesterol 131H, HDL Cholesterol > 111H, Cholesterol/HDL Ratio 2.0L, Thyroid Stimulating Hormone (TSH) 4.480, Cortisol [Pending] Height (Feet): 5 Height (Inches): 4.00 Weight (Pounds): 170 General Appearance: no apparent distress Neck: stiff neck Cardiovascular: tachycardia Respiratory/Chest: decreased breath sounds Abdomen: distended Edema: 2+ Arm (L), 2+ Arm (R), 2+ Leg (L), 2+ Leg (R), 2+ Pedal (L), 2+ Pedal ( R), 2+ Generalized MARISOL ELAINE Jun 02, 2016 13:14
--- NOTE | 2016-06-02 13:17 | Diagnostic Imaging Report ---
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 The right upper extremity was prepped with alcohol. All elements of maximal sterile barrier technique were followed including usage of a cap, mask, sterile gown, sterile gloves, hand hygiene and a large sterile sheet. Sonographic evaluation of the upper extremity was performed demonstrating a patent and compressible basilic vein. Access was obtained under real-time ultrasound guidance and digital image was saved and archived. An .018 wire was introduced. Needle exchanged for a 5 Fijian peel-away sheath. Measurements were obtained. A 5 Fijian dual-lumen Power PICC line catheter was cut to 35 cm and introduced over the wire. Peel-away sheath and wire were removed.Catheter was secured to the skin using 2-0 Prolene suture. Both ports aspirate and flush easily. Post procedure chest x-ray demonstrates good position of the PICC line catheter within the SVC. Impression: Successful placement of an upper extremity PICC line catheter
--- NOTE | 2016-06-02 13:28 | Diagnostic Imaging Report ---
Indication: Chest Pain Comparison: 05/31/16 A single view chest radiograph was obtained. Findings: There is a right pleural effusion. Interstitial opacities again noted bilaterally. Cardiomegaly is present. Thickening of the right apical pleural and suggestion of a right apical parenchymal scarring noted. NG tube is in good position. Impression: Suspected mild CHF. Right pleural effusion suspected. Pleural/parenchymal scarring right upper lobe. No significant interval change
--- NOTE | 2016-06-02 13:28 | Diagnostic Imaging Report ---
Indication: NG tube Comparison: None Single view of the abdomen obtained NG tube is in good position with the tip and proximal port both in the stomach. In pression: NG tube satisfactory in position
[2016-06-02] MEDS ORDERED: DOPamine 400mg/250ml BTL IV ONE (16:14)
[2016-06-02] MEDS ORDERED: Sodium Bicarbonate 8.4% 50ml Carp ONE (16:14)
[2016-06-02] MEDS ORDERED: Atropine Inj 1mg/10ml Syr ONE (16:14)
[2016-06-02] MEDS ORDERED: EPINEPHrine 1mg/10ml carp IV ONE (16:14)
--- NOTE | 2016-06-02 16:46 | Diagnostic Imaging Report ---
Indication: Altered level of consciousness Technique: The head was imaged in a 1.5 Beckie magnet. Sequences obtained include sagittal T1 FLAIR, axial T2 FLAIR, diffusion and ADC map. Comparison: None No diffusion restriction is identified. There is limited evaluation because of a magnetic susceptibility artifact involving the right middle cranial fossa region. This is due to a presence of an aneurysm clip placed in 2007. There is no mass effect or edema demonstrated. Impression: Incomplete examination. No mass effect, edema or hemorrhage identified as demonstrated. Note: The patient was noted to be unresponsive during the scan. The technologists performing the exam were concerned as they noted diminished breath sounds. A code blue was initiated.
[2016-06-02] MEDS ORDERED: DOPamine 400mg/250ml 250 ML IV SCH ×2 (17:00→17:15)
--- NOTE | 2016-06-02 17:15 | Consultation ---
Consult Note Consult Note NEUROLOGY CONSULTATION: Full note dictated #[id number] 70 y/o, RH, BF with PH of right MCA aneurysmal rupture ~ 20 years ago with unknown consequences. This was followed by a seizure disorder for which the patient was on Zonegran. About 7 years ago she had a seizure and neck injury and became quadriparetic. She was admitted to [facility] on 05/28/16 for constipation and anasarca. On 06/01/16 there was a change in her mental state. A CT of the brain was done and was benign for acute pathology. On 06/02/16 she was taken to the MRI scanner where she had a respiratory arrest. A code Blue was called at 15:14 hrs. She was intubated and ventilated. It is unclear what the BP and pulse were. She has since been transferred to the ICU. ON EXAM: Comatose with no response to DP. EM+ on OCM. 1+ DTRs with absent ankle jerks and mute plantars. IMPRESSION: S/P code blue. Now comatose. Suspect anoxic ischemic encephalopathy. REC: Support cardio-respiratory function. Observe. Change antiseizure medicine to Keppra 500 mg IV q 12 hours after 1 G load. Renny Bazzi M.D., M.S.P.Gavin. RENNY BAZZI Jun 02, 2016 17:15
[2016-06-02] MEDS ORDERED: levETIRAcetam 1,000 MG in D5W 110 ML IV STA (17:23)
--- NOTE | 2016-06-02 17:25 | Emergency Room Report ---
History of Present Illness General Chief Complaint: Constipation Source: Patient, Caregiver Present Illness Allergies: Coded Allergies: OPIOIDS - MORPHINE ANALOGUES (Verified Allergy, Unknown, 06/02/16) per daughter. All opiods, she doesn't want any given to patient Uncoded Allergies: NARCOTICS (Allergy, Mild, 10/02/14) Opiates --> Nausea, SOB Nursing Documentation-PMH Hx Cardiac Problems: No Hx Hypertension: No Hx Pacemaker: No Hx COPD: Yes Hx Diabetes: No Hx Cancer: No Hx Gastrointestinal Problems: No Hx Dialysis: No Hx Cerebrovascular Accident: Yes - 2009 Hx Seizures: Yes Hx Paralysis: Yes Hx Weakness: Yes Physical Exam Vital Signs Date Time Temp Pulse Resp B/P Pulse Ox O2 Delivery O2 Flow Rate FiO2 05/27/16 15:27 84 16 147/80 96 Room Air 05/27/16 15:48 97.7 05/28/16 01:25 2.0 05/28/16 10:28 28 Procedures CPR/Code Blue CPR/Code Blue Narrative Was called to the MRI department for CODE BLUE Upon arrival the patient was pulseless pupils are fixed and dilated With lack of any respirations CPR was underway Patient was asystole and epinephrine was given Patient had some pooling of blood in the oral mucosa However I was able to intubate using 7.5 ET tube at the lips under direct visualization of the vocal cords Good CO2 color change CPR and ACLS continued Patient was given multiple rounds of medications refer to the code sheet for full specifics, patient's Accu-Chek was over 150 Patient did have a response to our intervention and did gain pulses with a palpable femoral pulse On a rapid secondary evaluation patient show significant edema diffusely At this time patient has a palpable pulse Documented blood pressure Patient was transferred emergently to ICU for continued care , Intubation Intubation : Consent: Emergent Intubation Method: orotracheal Tube Size (cm): 7.5 Breath Sounds after Intubation: equal Intubation Complications: no complications Post Intubation Xray: Yes Progress/Xray Impression: ET tube, appropriately placed right lower lobe atelectasis infiltrate left Attempts: One Patient Tolerated: Well Complications: None Medical Decision Making Diagnostic Impression: Primary Impression: Constipation Last Vital Signs Date Time Temp Pulse Resp B/P Pulse Ox O2 Delivery O2 Flow Rate FiO2 06/02/16 16:52 100 06/02/16 15:43 142 20 06/02/16 12:00 97.7 114/61 100 Nasal Cannula 3.0 Disposition: ADMITTED INPATIENT Condition: Stable Scripts Na Phos,M-B/Na Phos,Di-Ba* (FLEET ENEMA*) 133 Ml Enema 133 ML RECTAL DAILY for 2 Days, ML 0 Refills Prov: EDDIE HOSKINS D.O. 05/27/16 Polyethylene Glycol 3350* (MIRALAX*) 17 Gm Powd.pack 17 GM ORAL DAILY for 30 Days, PACKET Prov: EDDIE HOSKINS D.O. 05/27/16 Docusate Sodium* (COLACE*) 100 Mg Capsule 100 MG ORAL THREE TIMES A DAY for 30 Days, CAP Prov: EDDIE HOSKINS D.O. 05/27/16 Referrals: NOT CHOSEN IPA/,REFERRING (PCP) Patient Instructions: Constipation, Adult CHER DICKEY D.O. Jun 02, 2016 17:25
[2016-06-02] MEDS ORDERED: LORazepam Inj 2mg/ml 1ml IV PRN (17:30)
[2016-06-02] MEDS ORDERED: Docusate 100mg cap ORAL SCH (18:00)
--- NOTE | 2016-06-02 20:07 | Cardiology Progress Note ---
Assessment/Plan Assessment/Plan s/p pulmonary arrest atrial fibrillation acute toxic encephalopathy severe pulmonary HTN right heart failure Nephrotic Syndrome most likely-leading to Anasarca, Pleural effusion seizure disorder constipation hyponatremia Mild hypothyroidism with elevated TSH functional quadriplegi on pressors now on the vent neuro noted seems to be in sinus now ekg tonit e not oan anticaog yet continue suppportive carer for aliyah at least 48 hour to see if any change neuro ja[place] to then determine prognosis bp support with pressors vent support d/w rn d/w dr carter will check trop although maybe elevated due to cpr remain critical and at risk of dying tle reviwed ekg reviewd labs reviwed 45 min Subjective ROS Limited/Unobtainable: Yes Subjective s/p cardiopulm arrest while in mri s/p resuscitation now on the evnt not verbal not communicative Objective Last 24 Hour Vital Signs Date Time Temp Pulse Resp B/P Pulse Ox O2 Delivery O2 Flow Rate FiO2 06/02/16 19:45 119 16 109/80 96 Mechanical Ventilator 100 06/02/16 19:30 118 16 100 06/02/16 19:30 118 16 128/86 96 Mechanical Ventilator 100 06/02/16 19:15 118 16 127/95 96 Mechanical Ventilator 100 06/02/16 19:00 120 16 127/95 96 Mechanical Ventilator 100 06/02/16 18:45 126 16 105/80 96 Mechanical Ventilator 100 06/02/16 18:38 84/61 06/02/16 18:30 130 16 103/69 96 Mechanical Ventilator 100 06/02/16 18:15 129 16 84/61 96 Mechanical Ventilator 100 06/02/16 18:00 122 20 103/69 96 Mechanical Ventilator 100 06/02/16 17:45 120 20 90/60 96 Mechanical Ventilator 100 06/02/16 17:35 120 20 95/60 96 Mechanical Ventilator 100 06/02/16 17:32 123 16 100 06/02/16 17:27 119 20 Mechanical Ventilator 100 06/02/16 17:26 119 20 100 06/02/16 17:15 118 20 100/68 96 Mechanical Ventilator 100 06/02/16 17:00 138 20 115/60 96 Mechanical Ventilator 100 06/02/16 16:52 100 06/02/16 16:45 128 20 115/60 96 Mechanical Ventilator 100 06/02/16 16:30 129 20 118/58 94 Mechanical Ventilator 100 06/02/16 16:15 130 20 120/60 95 Mechanical Ventilator 100 06/02/16 16:00 97.5 139 20 130/61 96 Mechanical Ventilator 100 06/02/16 15:43 142 20 100 06/02/16 12:00 97.7 104 19 114/61 100 Nasal Cannula 3.0 06/02/16 12:00 91 06/02/16 09:37 Nasal Cannula 3.0 32 06/02/16 09:36 90 18 94 Nasal Cannula 3.0 32 06/02/16 08:00 96 06/02/16 08:00 97.7 95 18 134/62 100 Nasal Cannula 3.0 06/02/16 07:10 99 Nasal Cannula 3.0 32 06/02/16 07:10 Nasal Cannula 3.0 32 06/02/16 04:00 97.6 89 20 133/79 100 Nasal Cannula 3.0 06/02/16 00:00 97.4 86 18 141/75 100 Nasal Cannula 3.0 06/01/16 23:36 90 General Appearance: no apparent distress, on vent Neck: supple Cardiovascular: normal rate, tachycardia Respiratory/Chest: lungs clear, normal breath sounds Abdomen: normal bowel sounds, non tender Extremities: severe edema, pitting - up aliyah abd wall Intake and Output 06/01/16 06/02/16 19:00 07:00 Intake Total 50 ml 50 ml Output Total 500 ml 290 ml Balance -450 ml -240 ml Intake Oral 50 ml Free Water 50 ml Output Urine Total 500 ml 290 ml # Voids 2 # Bowel Movements 2 Laboratory Tests Test 06/02/16 04:00 White Blood Count 8.4 K/UL (4.8-10.8) Red Blood Count 4.62 M/UL (4.20-5.40) Hemoglobin 12.9 G/DL (12.0-16.0) Hematocrit 42.5 % (37.0-47.0) Mean Corpuscular Volume 92 FL (80-99) Mean Corpuscular Hemoglobin 28.0 PG (27.0-31.0) Mean Corpuscular Hemoglobin Concent 30.5 G/DL (32.0-36.0) L Red Cell Distribution Width 14.5 % (11.6-14.8) Platelet Count 324 K/UL (150-450) Mean Platelet Volume 9.6 FL (6.5-10.1) Neutrophils (%) (Auto) 78.2 % (45.0-75.0) H Lymphocytes (%) (Auto) 6.7 % (20.0-45.0) L Monocytes (%) (Auto) 13.0 % (1.0-10.0) H Eosinophils (%) (Auto) 0.0 % (0.0-3.0) Basophils (%) (Auto) 2.1 % (0.0-2.0) H Prothrombin Time 9.8 SEC (9.30-11.50) Prothromb Time International Ratio 1.0 (0.9-1.1) Sodium Level 138 mEQ/L (135-145) Potassium Level 4.4 mEQ/L (3.4-4.9) Chloride Level 97 mEQ/L (98-107) L Carbon Dioxide Level 29 mEQ/L (20-30) Anion Gap 12 (5-15) Blood Urea Nitrogen 12 mg/dL (7-23) Creatinine 0.4 mg/dL (0.5-0.9) L Estimat Glomerular Filtration Rate mL/min (>60) Glucose Level 122 mg/dL (74-106) H Uric Acid 5.8 mg/dL (3.0-7.5) Calcium Level 9.0 mg/dL (8.6-10.2) Phosphorus Level 4.0 mg/dL (2.5-4.8) Magnesium Level 2.2 mg/dL (1.7-2.5) Total Bilirubin < 0.2 mg/dL (0.0-1.2) Gamma Glutamyl Transpeptidase 148 U/L (5-36) H Aspartate Amino Transf (AST/SGOT) 15 U/L (5-40) Alanine Aminotransferase (ALT/SGPT) 20 U/L (3-33) Alkaline Phosphatase 159 U/L (35-104) H Ammonia 109 umol/L (11-51) H Total Creatine Kinase 42 U/L (26-140) C-Reactive Protein, Quantitative 2.6 mg/dL (< 0.5) H Pro-B-Type Natriuretic Peptide 9661 pg/mL (0-125) H Total Protein 6.2 g/dL (6.6-8.7) L Albumin 2.0 g/dL (3.5-5.2) L Globulin 4.2 g/dL Albumin/Globulin Ratio 0.4 (1.0-2.7) L Triglycerides Level 86 mg/dL (< 150) Cholesterol Level 259 mg/dL (< 200) H LDL Cholesterol 131 mg/dL (60-99) H HDL Cholesterol > 111 mg/dL (> 60) H Cholesterol/HDL Ratio 2.0 (3.3-4.4) L Thyroid Stimulating Hormone (TSH) 4.480 uIU/mL (0.300-4.500) Cortisol Pending TOMEKA CHUN Jun 02, 2016 20:07
[2016-06-02] MEDS ORDERED: Albuterol 90mcg Inhaler 8gm INH PRN (21:00)
--- NOTE | 2016-06-02 22:18 | Consultation ---
DATE OF CONSULTATION: 06/02/2016 NEUROLOGY CONSULTATION CONSULTING PHYSICIAN: Beto Bazzi M.D. REQUESTING PHYSICIANS: Jose Tenorio M.D. &. Jareth Verma M.D. HISTORY: Ms. Liya Donato is a 70-year-old, right-handed, black lady, who does have a past history of a right middle cerebral artery aneurysmal rupture that was treated with clipping approximately 20 years ago. The exact consequences of that rupture are unknown to us. She however did have a seizure disorder following that and has been on Zonegran for seizure control. About 7 years ago, she had a seizure and a neck injury and following that became quadriparetic. She was functioning relatively well in spite of that, until 05/28/2016 when she was admitted to [facility] for constipation and anasarca. On 06/01/2016, there was a sudden change in her mental state. A CT scan of the brain was performed, and was benign for acute pathology. On 06/02/2016, she was taken to the MRI scanner for an MRI scan of the brain for continued alteration in mental state. There she had a respiratory arrest. A Code Brain was called at 1514 hours. She was then intubated and ventilated and transferred to the intensive care unit with pressure support. It is unclear as to what her blood pressure and pulse were during the code. At this point in time, the patient is unresponsive. This consultation was requested to evaluate the patient for altered mental state. PAST MEDICAL HISTORY: Significant for hypothyroidism, right MCA aneurysmal rupture approximately 20 years ago, seizure disorder following aneurysmal rupture and neck injury approximately 7 years ago leading to quadriparesis. FAMILY HISTORY: Unavailable. PERSONAL HISTORY: Home: She lives with her daughter. Work: She is disabled. Habits: Unknown. PRESENT MEDICATIONS: Include Lasix, Artificial Tears, Protonix, sodium bicarbonate, docusate sodium, Cymbalta, heparin for DVT prophylaxis, lactulose, mineral oil, polyethylene glycol, Senokot, Spiriva, Zonegran 400 mg daily, baclofen 20 mg 3 times a day, Synthroid, Proventil, Tylenol p.r.n., Ativan p.r.n., morphine p.r.n., Zofran, MiraLax, Ambien, Lyrica 100 mg every 6 hours and clonidine. PHYSICAL EXAMINATION: GENERAL: She is a well-developed, black lady, lying in an ICU bed, connected to a ventilator via an orotracheal tube. VITAL SIGNS: Pulse 140, blood pressure 114/61 mmHg, respirations 18 per minute all controlled via ventilator, and temperature 97.7 degrees Fahrenheit. HEAD: Normocephalic and atraumatic. NECK: No neck rigidity was observed. EENT EXAMINATION: Benign except for bilateral chemosis. NEUROLOGICAL EXAMINATION: MENTAL STATUS EXAMINATION: She was comatose and did not respond even to deep painful stimuli. SPEECH: Could not be tested. LANGUAGE: Could not be tested. CRANIAL NERVE EXAMINATION: II: She did not blink to threat. III, IV & : The pupils were 5 mm in diameter and did not react to light. She had minimal eye movements on oculocephalic maneuvers. VIII: She did not respond to sounds and had no nystagmus. IX & X: The gag reflex was absent. XI: The sternocleidomastoids and trapezii did not function. XII: Could not be tested. MOTOR SYSTEM: The tone was increased in all four extremities with a significant degree of spasticity. Examination of muscle mass revealed generalized muscle wasting with bilateral upper and lower extremity contractures. Examination of power was impossible to perform because even on applying deep painful stimuli, no movements were seen. SENSORY EXAMINATION: She did not respond even to deep painful stimuli. REFLEXES: 1+ and bilaterally symmetrical at the biceps, triceps, brachioradialis, and knees and 0 at both ankles. The plantar responses were mute bilaterally. COORDINATION, STANCE & GAIT: Could not be tested. DIAGNOSTIC IMPRESSION: 1. Ms. Liya Donato is a 70-year-old, right-handed, black lady, who had right middle cerebral aneurysmal rupture approximately 20 years ago with unknown consequences. This however was followed by a seizure disorder for which the patient is on Zonegran. About 7 years ago, she had a seizure associated with neck injury and she became quadriparetic. On 05/28/2016, she was hospitalized at [facility] for constipation and anasarca. On 06/01/2016, there was a sudden change in her mental state. A CT scan of the brain was performed, and was benign for acute pathology. On 06/02/2016, she was taken to the MRI scanner where she had a respiratory arrest. A Code Blue was called and she had to be intubated, ventilated and at this point in time, she is comatose. 2. On neurological examination at this time, she does not respond even to deep painful stimuli. The only brainstem function she exhibits is minimal eye movements on oculocephalic maneuvers. Deep tendon reflexes are globally diminished with mute plantar responses. 3. The patient's history and neurological examination are most compatible with a significant anoxic ischemic cerebral insult, with her at this point in time being in a comatose state. RECOMMENDATIONS: 1. Agree with management thus far. 2. Would support the patient's cardiorespiratory function in an ICU setting. 3. As the patient is unable to take oral medicines at this time. Her antiseizure medicines should be changed to Keppra 500 mg intravenously every 12 hours after a 1 gram load right now. 4. Depending on how the patient fares over the next day or so, further recommendations will be given. Thank you for entrusting me with the care of Ms. Donato. I shall follow her with you. Beto Bazzi M.D., M.S.P.H. DR: [place] JOB#: [id number] MTDD
[2016-06-03] VITALS (78 sets, daily range): BP systolic 75–142; BP diastolic 40–111
[2016-06-03] MEDS ORDERED: Miralax 17gm pkt ORAL PRN (00:15)
[2016-06-03] MEDS ORDERED: Zolpidem 5mg tab ORAL PRN (00:15)
[2016-06-03 03:44] LABS: MEAN CORPUSCULAR HEMOGLOBIN 27.4 PG (27.0-31.0); MEAN CORPUSCULAR HGB CONC 30.6 G/DL (32.0-36.0); MEAN CORPUSCULAR VOLUME 90 FL (80-99); MEAN PLATELET VOLUME 8.3 FL (6.5-10.1); PLATELET COUNT 276 K/UL (150-450); RED BLOOD COUNT 4.16 M/UL (4.20-5.40); RED CELL DISTRIBUTION WIDTH 14.4 % (11.6-14.8)
[2016-06-03 03:59] LABS: ANION GAP 15 (5-15); CALCIUM 8.4 mg/dL (8.6-10.2); CARBON DIOXIDE 28 mEQ/L (20-30); CHLORIDE 99 mEQ/L (98-107); CREATININE 0.7 mg/dL (0.5-0.9); HEMOLYSIS 6; POTASSIUM 3.3 mEQ/L (3.4-4.9); SODIUM 142 mEQ/L (135-145)
[2016-06-03 04:01] LABS: TROPONIN I < 0.30 ng/mL (<=0.30)
[2016-06-03 04:06] LABS: WHITE BLOOD COUNT 28.4 K/UL (4.8-10.8)
[2016-06-03] MEDS: Lyrica 50mg cap ORAL SCH ×4 (05:47→19:12)
[2016-06-03 07:17] LABS: BILIRUBIN,DIRECT 0.1 mg/dL (0.1-0.3); TOTAL PROTEIN 5.6 g/dL (6.6-8.7)
[2016-06-03] MEDS ORDERED: levETIRAcetam 500 MG in D5W 110 ML IV SCH (09:00)
[2016-06-03 09:05] LABS: ABG ALLEN TEST POSITIVE; ABG BASE EXCESS 3.9; ABG PCO2 37.4 mmHg (35.0-45.0)
--- NOTE | 2016-06-03 09:37 | Diagnostic Imaging Report ---
Indication: As well as intubation, shortness of breath Technique: One view of the chest Comparison: 8 hours earlier Findings: Interim endotracheal intubation, endotracheal tube at the hilary interim placement right arm PICC, tip of the level of mid superior vena cava. There appears to be decreased bilateral pleural fluid and increased interstitial congestion. Nasogastric tube projects off the image, appears to be well within the stomach Impression: Interim endotracheal intubation. Slightly low position of endotracheal tube, tip at the hilary. This was discussed with patient's nurse at the time of interpretation Satisfactory position of PICC Slightly improved bilateral pleural effusions and interstitial congestion, over 8 hours
[2016-06-03] MEDS: Lactulose 20gm/30ml UDC ORAL SCH ×3 (10:08→19:11)
[2016-06-03] MEDS: Docusate 100mg tablet NG SCH ×3 (10:10→18:00)
[2016-06-03] MEDS: Miralax 17gm pkt ORAL SCH (10:11)
--- NOTE | 2016-06-03 10:21 | Pulmonolgy Critical Care Note ---
Critical Care - Asmt/Plan Problems: (1) Acute respiratory failure (2) Chronic incomplete quadriplegia (3) Atrial fibrillation (4) Acute encephalopathy (5) Protein-calorie malnutrition, severe (6) Anasarca Respiratory: monitor respiratory rate, adjust FIO2, CXR Cardiac: continue pressors - titrate to mean bp of 60, continue to monitor HR/ BP Renal: F/U I&O, keep IV fluid, check electrolytes Infectious Disease: check cultures, continue antibiotics Endocrine: monitor blood sugar Hematologic: transfuse if hgb<8.5 Neurologic: PRN Morphine, keep patient comfortable Affect: PRN ativan Prophylaxis: Protonix, Heparin Disposition: keep in ICU Time Spent (Minutes): 40 Notes Reviewed: entertainment & media correspondent, cardio, renal, ID Discussed with: nurses, consultants, telehealth case managerdog races manager - Objective Last 24 Hour Vital Signs Date Time Temp Pulse Resp B/P Pulse Ox O2 Delivery O2 Flow Rate FiO2 06/03/16 08:47 155 16 60 06/03/16 07:30 130 16 60 06/03/16 07:00 106 16 99/56 100 Mechanical Ventilator 60 06/03/16 07:00 99/56 06/03/16 06:45 108 16 117/91 100 Mechanical Ventilator 60 06/03/16 06:30 106 16 110/56 100 Mechanical Ventilator 60 06/03/16 06:15 110 16 117/91 100 Mechanical Ventilator 60 06/03/16 06:00 112 16 91/46 100 Mechanical Ventilator 60 06/03/16 06:00 93/52 06/03/16 05:45 110 16 116/56 100 Mechanical Ventilator 60 06/03/16 05:30 111 16 100 06/03/16 05:30 106 16 117/91 100 Mechanical Ventilator 60 06/03/16 05:15 111 16 135/90 100 Mechanical Ventilator 60 06/03/16 05:00 106 16 117/91 100 Mechanical Ventilator 60 06/03/16 05:00 135/78 06/03/16 04:45 106 16 137/78 100 Mechanical Ventilator 60 06/03/16 04:30 106 16 82/49 100 Mechanical Ventilator 60 06/03/16 04:15 106 16 75/47 100 Mechanical Ventilator 60 06/03/16 04:00 99.5 106 16 86/46 100 Mechanical Ventilator 60 06/03/16 04:00 86/58 06/03/16 03:45 106 16 84/49 100 Mechanical Ventilator 60 06/03/16 03:30 106 16 100 06/03/16 03:30 106 16 86/50 100 Mechanical Ventilator 60 06/03/16 03:15 106 16 122/51 100 Mechanical Ventilator 60 06/03/16 03:00 107 16 104/46 100 Mechanical Ventilator 60 06/03/16 03:00 118/56 06/03/16 02:45 106 16 102/40 100 Mechanical Ventilator 60 06/03/16 02:30 106 16 104/46 100 Mechanical Ventilator 60 06/03/16 02:15 107 16 104/56 100 Mechanical Ventilator 60 06/03/16 02:00 104/56 06/03/16 02:00 106 16 105/58 100 Mechanical Ventilator 60 06/03/16 01:45 107 16 120/62 100 Mechanical Ventilator 60 06/03/16 01:30 105 16 100 06/03/16 01:30 106 16 116/54 100 Mechanical Ventilator 60 06/03/16 01:15 109 16 107/56 100 Mechanical Ventilator 60 06/03/16 01:00 114 16 116/67 100 Mechanical Ventilator 100 06/03/16 01:00 116/54 06/03/16 00:45 114 16 116/67 100 Mechanical Ventilator 100 06/03/16 00:30 114 16 109/67 100 Mechanical Ventilator 100 06/03/16 00:15 114 16 106/75 100 Mechanical Ventilator 100 06/03/16 00:00 111 06/03/16 00:00 100 06/03/16 00:00 102/54 06/03/16 00:00 99.5 114 16 102/73 100 Mechanical Ventilator 100 06/02/16 23:45 114 16 108/54 100 Mechanical Ventilator 100 06/02/16 23:30 114 16 103/70 100 Mechanical Ventilator 100 06/02/16 23:15 114 16 118/73 100 Mechanical Ventilator 100 06/02/16 23:00 114 16 118/73 100 Mechanical Ventilator 100 06/02/16 23:00 118/73 06/02/16 22:45 114 16 100 06/02/16 22:45 114 16 131/68 100 Mechanical Ventilator 100 06/02/16 22:30 114 16 131/68 100 Mechanical Ventilator 100 06/02/16 22:15 114 16 118/84 100 Mechanical Ventilator 100 06/02/16 22:00 115 16 130/69 100 Mechanical Ventilator 100 06/02/16 22:00 130/69 17 21:45 116 16 127/83 100 Mechanical Ventilator 100 06/02/16 21:30 117 16 119/82 100 Mechanical Ventilator 100 17 21:30 114 16 100 17 21:15 118 16 142/80 100 Mechanical Ventilator 100 06/02/16 21:00 113/89 17 21:00 117 16 113/89 100 Mechanical Ventilator 100 17 20:45 117 16 113/78 100 Mechanical Ventilator 100 06/02/16 20:30 118 16 115/76 100 Mechanical Ventilator 100 06/02/16 20:15 117 17 127/77 96 Mechanical Ventilator 100 06/02/16 20:00 99.2 118 16 124/78 96 Mechanical Ventilator 100 06/02/16 20:00 124/76 06/02/16 19:45 119 16 109/80 96 Mechanical Ventilator 100 06/02/16 19:30 118 16 100 06/02/16 19:30 118 16 128/86 96 Mechanical Ventilator 100 06/02/16 19:15 118 16 127/95 96 Mechanical Ventilator 100 06/02/16 19:00 105/80 06/02/16 19:00 120 16 127/95 96 Mechanical Ventilator 100 06/02/16 18:45 126 16 105/80 96 Mechanical Ventilator 100 06/02/16 18:38 84/61 06/02/16 18:30 130 16 103/69 96 Mechanical Ventilator 100 06/02/16 18:15 129 16 84/61 96 Mechanical Ventilator 100 06/02/16 18:00 122 20 103/69 96 Mechanical Ventilator 100 06/02/16 17:45 120 20 90/60 96 Mechanical Ventilator 100 17 17:35 120 20 95/60 96 Mechanical Ventilator 100 17 17:32 123 16 100 17 17:27 119 20 Mechanical Ventilator 100 06/02/16 17:26 119 20 100 17 17:15 118 20 100/68 96 Mechanical Ventilator 100 06/02/16 17:00 138 20 115/60 96 Mechanical Ventilator 100 06/02/16 16:52 100 17 16:45 128 20 115/60 96 Mechanical Ventilator 100 06/02/16 16:30 129 20 118/58 94 Mechanical Ventilator 100 06/02/16 16:15 130 20 120/60 95 Mechanical Ventilator 100 06/02/16 16:00 97.5 139 20 130/61 96 Mechanical Ventilator 100 06/02/16 15:43 142 20 100 06/02/16 12:00 97.7 104 19 114/61 100 Nasal Cannula 3.0 06/02/16 12:00 91 Status: obtunded Condition: critical, grave HEENT: atraumatic, normocephalic Lungs: clear, chest wall tender Heart: HR/BP stable, HR/BP unstable Abdomen: soft, non-tender, active bowel sounds Extremities: edema - anasarca Critical Care - Subjective ROS Limited/Unobtainable: Yes ICU Day: 2 Intubation Day: 2 Interval Events: pt had an episode of respiratory arrest yesterday during MRI. She was revived and transferred to ICU. pt is orally intubated. looks comfortable. FI02: 60 Vent Support Breath Rate: 16 Vent Support Mode: AC Vent Tidal Volume: 600 Sputum Amount: Small PEEP: 5.0 PIP: 42 Fluids: NS 100 cc/hour Tube Feeding Amount: 0 I&O: Intake and Output 06/02/16 06/03/16 19:00 07:00 Intake Total 252.5 ml 1492.5 ml Output Total 320 ml 170 ml Balance -67.5 ml 1322.5 ml Intake Oral 0 ml 0 ml Free Water 125 ml IV Total 87.5 ml 1492.5 ml Tube Feeding 40 ml 0 ml Output Urine Total 320 ml 170 ml # Bowel Movements 1 CXR: ET in good position small right effusion, unchanged. ET-Tube: 7.5 ET Position: 24 Labs: Laboratory Tests Test 06/03/16 03:20 06/03/16 03:30 06/03/16 08:48 White Blood Count 28.4 K/UL (4.8-10.8) #*H Red Blood Count 4.16 M/UL (4.20-5.40) L Hemoglobin 11.4 G/DL (12.0-16.0) L Hematocrit 37.2 % (37.0-47.0) Mean Corpuscular Volume 90 FL (80-99) Mean Corpuscular Hemoglobin 27.4 PG (27.0-31.0) Mean Corpuscular Hemoglobin Concent 30.6 G/DL (32.0-36.0) L Red Cell Distribution Width 14.4 % (11.6-14.8) Platelet Count 276 K/UL (150-450) Mean Platelet Volume 8.3 FL (6.5-10.1) Neutrophils (%) (Auto) % (45.0-75.0) Lymphocytes (%) (Auto) % (20.0-45.0) Monocytes (%) (Auto) % (1.0-10.0) Eosinophils (%) (Auto) % (0.0-3.0) Basophils (%) (Auto) % (0.0-2.0) Neutrophils % (Manual) Pending Lymphocytes % (Manual) Pending Platelet Estimate Pending Platelet Morphology Pending Sodium Level 142 mEQ/L (135-145) Potassium Level 3.3 mEQ/L (3.4-4.9) L Chloride Level 99 mEQ/L (98-107) Carbon Dioxide Level 28 mEQ/L (20-30) Anion Gap 15 (5-15) Blood Urea Nitrogen 17 mg/dL (7-23) Creatinine 0.7 mg/dL (0.5-0.9) # Estimat Glomerular Filtration Rate mL/min (>60) Glucose Level 122 mg/dL (74-106) H Calcium Level 8.4 mg/dL (8.6-10.2) L Troponin I < 0.30 ng/mL (<=0.30) Pro-B-Type Natriuretic Peptide 84337 pg/mL (0-125) H Total Bilirubin 0.2 mg/dL (0.0-1.2) Direct Bilirubin 0.1 mg/dL (0.1-0.3) Aspartate Amino Transf (AST/SGOT) 28 U/L (5-40) Alanine Aminotransferase (ALT/SGPT) 23 U/L (3-33) Alkaline Phosphatase 163 U/L (35-104) H Total Protein 5.6 g/dL (6.6-8.7) L Albumin 1.5 g/dL (3.5-5.2) L Arterial Blood pH 7.480 (7.350-7.450) Arterial Blood Partial Pressure CO2 37.4 mmHg (35.0-45.0) Arterial Blood Partial Pressure O2 177.1 mmHg (75.0-100.0) H Arterial Blood HCO3 27.4 mmol/L (22.0-26.0) H Arterial Blood Oxygen Saturation 99.2 % (92.0-98.0) H Arterial Blood Base Excess 3.9 Claudy Test Positive DARION MISHRA Jun 03, 2016 10:21
[2016-06-03] MEDS: levETIRAcetam 500 MG in D5W 110 ML IV SCH ×2 (10:29→21:59)
[2016-06-03] MEDS: Fleet's Mineral Oil Enema RECTAL SCH (10:29)
[2016-06-03] MEDS: DULoxetine 30mg cap ORAL SCH (10:29)
[2016-06-03] MEDS: Heparin 5000 units/ml inj SUBQ SCH ×2 (10:32→22:00)
--- NOTE | 2016-06-03 10:42 | General Progress Note ---
Assessment/Plan Status: unchanged, deteriorating Status Narrative coded in MRI yesterday - intubated on vent Assessment/Plan Nephrotic Syndrome most likely- leading to Anasarca, Pleural effusion now with respiratory failure- acute toxic encephalopathy- severe PVD mild pulmonary edema severe pulmonary HTN seizure disorder constipation hyponatremia , likelu due to Anasarca Mild hypothyroidism with elevated TSH functional quadriplegia Plan: 24 H urine for Protein- still being collected pulm support per orders- monitor lytes- Subjective ROS Limited/Unobtainable: Yes Allergies: Coded Allergies: OPIOIDS - MORPHINE ANALOGUES (Verified Allergy, Unknown, 06/02/16) per daughter. All opiods, she doesn't want any given to patient Uncoded Allergies: NARCOTICS (Allergy, Mild, 10/02/14) Opiates --> Nausea, SOB Objective Last 24 Hour Vital Signs Date Time Temp Pulse Resp B/P Pulse Ox O2 Delivery O2 Flow Rate FiO2 06/03/16 08:47 155 16 60 06/03/16 07:30 130 16 60 06/03/16 07:00 106 16 99/56 100 Mechanical Ventilator 60 06/03/16 07:00 99/56 06/03/16 06:45 108 16 117/91 100 Mechanical Ventilator 60 06/03/16 06:30 106 16 110/56 100 Mechanical Ventilator 60 06/03/16 06:15 110 16 117/91 100 Mechanical Ventilator 60 06/03/16 06:00 112 16 91/46 100 Mechanical Ventilator 60 06/03/16 06:00 93/52 06/03/16 05:45 110 16 116/56 100 Mechanical Ventilator 60 06/03/16 05:30 111 16 100 06/03/16 05:30 106 16 117/91 100 Mechanical Ventilator 60 06/03/16 05:15 111 16 135/90 100 Mechanical Ventilator 60 06/03/16 05:00 106 16 117/91 100 Mechanical Ventilator 60 06/03/16 05:00 135/78 06/03/16 04:45 106 16 137/78 100 Mechanical Ventilator 60 06/03/16 04:30 106 16 82/49 100 Mechanical Ventilator 60 06/03/16 04:15 106 16 75/47 100 Mechanical Ventilator 60 06/03/16 04:00 99.5 106 16 86/46 100 Mechanical Ventilator 60 06/03/16 04:00 86/58 06/03/16 03:45 106 16 84/49 100 Mechanical Ventilator 60 06/03/16 03:30 106 16 100 06/03/16 03:30 106 16 86/50 100 Mechanical Ventilator 60 06/03/16 03:15 106 16 122/51 100 Mechanical Ventilator 60 06/03/16 03:00 107 16 104/46 100 Mechanical Ventilator 60 06/03/16 03:00 118/56 06/03/16 02:45 106 16 102/40 100 Mechanical Ventilator 60 06/03/16 02:30 106 16 104/46 100 Mechanical Ventilator 60 06/03/16 02:15 107 16 104/56 100 Mechanical Ventilator 60 06/03/16 02:00 104/56 06/03/16 02:00 106 16 105/58 100 Mechanical Ventilator 60 06/03/16 01:45 107 16 120/62 100 Mechanical Ventilator 60 06/03/16 01:30 105 16 100 06/03/16 01:30 106 16 116/54 100 Mechanical Ventilator 60 06/03/16 01:15 109 16 107/56 100 Mechanical Ventilator 60 06/03/16 01:00 114 16 116/67 100 Mechanical Ventilator 100 06/03/16 01:00 116/54 06/03/16 00:45 114 16 116/67 100 Mechanical Ventilator 100 06/03/16 00:30 114 16 109/67 100 Mechanical Ventilator 100 06/03/16 00:15 114 16 106/75 100 Mechanical Ventilator 100 06/03/16 00:00 111 06/03/16 00:00 100 06/03/16 00:00 102/54 06/03/16 00:00 99.5 114 16 102/73 100 Mechanical Ventilator 100 06/02/16 23:45 114 16 108/54 100 Mechanical Ventilator 100 06/02/16 23:30 114 16 103/70 100 Mechanical Ventilator 100 06/02/16 23:15 114 16 118/73 100 Mechanical Ventilator 100 06/02/16 23:00 114 16 118/73 100 Mechanical Ventilator 100 06/02/16 23:00 118/73 06/02/16 22:45 114 16 100 06/02/16 22:45 114 16 131/68 100 Mechanical Ventilator 100 06/02/16 22:30 114 16 131/68 100 Mechanical Ventilator 100 06/02/16 22:15 114 16 118/84 100 Mechanical Ventilator 100 06/02/16 22:00 115 16 130/69 100 Mechanical Ventilator 100 06/02/16 22:00 130/69 06/02/16 21:45 116 16 127/83 100 Mechanical Ventilator 100 06/02/16 21:30 117 16 119/82 100 Mechanical Ventilator 100 06/02/16 21:30 114 16 100 06/02/16 21:15 118 16 142/80 100 Mechanical Ventilator 100 06/02/16 21:00 113/89 06/02/16 21:00 117 16 113/89 100 Mechanical Ventilator 100 06/02/16 20:45 117 16 113/78 100 Mechanical Ventilator 100 06/02/16 20:30 118 16 115/76 100 Mechanical Ventilator 100 06/02/16 20:15 117 17 127/77 96 Mechanical Ventilator 100 06/02/16 20:00 99.2 118 16 124/78 96 Mechanical Ventilator 100 06/02/16 20:00 124/76 06/02/16 19:45 119 16 109/80 96 Mechanical Ventilator 100 06/02/16 19:30 118 16 100 06/02/16 19:30 118 16 128/86 96 Mechanical Ventilator 100 06/02/16 19:15 118 16 127/95 96 Mechanical Ventilator 100 06/02/16 19:00 105/80 06/02/16 19:00 120 16 127/95 96 Mechanical Ventilator 100 06/02/16 18:45 126 16 105/80 96 Mechanical Ventilator 100 06/02/16 18:38 84/61 06/02/16 18:30 130 16 103/69 96 Mechanical Ventilator 100 06/02/16 18:15 129 16 84/61 96 Mechanical Ventilator 100 06/02/16 18:00 122 20 103/69 96 Mechanical Ventilator 100 06/02/16 17:45 120 20 90/60 96 Mechanical Ventilator 100 06/02/16 17:35 120 20 95/60 96 Mechanical Ventilator 100 06/02/16 17:32 123 16 100 17 17:27 119 20 Mechanical Ventilator 100 06/02/16 17:26 119 20 100 17 17:15 118 20 100/68 96 Mechanical Ventilator 100 06/02/16 17:00 138 20 115/60 96 Mechanical Ventilator 100 17 16:52 100 17 16:45 128 20 115/60 96 Mechanical Ventilator 100 06/02/16 16:30 129 20 118/58 94 Mechanical Ventilator 100 06/02/16 16:15 130 20 120/60 95 Mechanical Ventilator 100 06/02/16 16:00 97.5 139 20 130/61 96 Mechanical Ventilator 100 06/02/16 15:43 142 20 100 06/02/16 12:00 97.7 104 19 114/61 100 Nasal Cannula 3.0 06/02/16 12:00 91 Intake and Output 06/02/16 06/03/16 19:00 07:00 Intake Total 252.5 ml 1492.5 ml Output Total 320 ml 170 ml Balance -67.5 ml 1322.5 ml Intake Oral 0 ml 0 ml Free Water 125 ml IV Total 87.5 ml 1492.5 ml Tube Feeding 40 ml 0 ml Output Urine Total 320 ml 170 ml # Bowel Movements 1 Laboratory Tests 06/03/16 03:20: White Blood Count 28.4#*H, Red Blood Count 4.16L, Hemoglobin 11.4L, Hematocrit 37.2, Mean Corpuscular Volume 90, Mean Corpuscular Hemoglobin 27.4, Mean Corpuscular Hemoglobin Concent 30.6L, Red Cell Distribution Width 14.4, Platelet Count 276, Mean Platelet Volume 8.3, Neutrophils (%) (Auto) , Lymphocytes (%) (Auto) , Monocytes (%) (Auto) , Eosinophils (%) (Auto) , Basophils (%) (Auto) , Neutrophils % (Manual) [Pending], Lymphocytes % (Manual) [Pending], Platelet Estimate [Pending], Platelet Morphology [Pending], Sodium Level 142, Potassium Level 3.3L, Chloride Level 99, Carbon Dioxide Level 28, Anion Gap 15, Blood Urea Nitrogen 17, Creatinine 0.7#, Estimat Glomerular Filtration Rate , Glucose Level 122H, Calcium Level 8.4L, Troponin I < 0.30, Pro -B-Type Natriuretic Peptide [id number] 06/03/16 03:30: Total Bilirubin 0.2, Direct Bilirubin 0.1, Aspartate Amino Transf (AST/SGOT) 28 , Alanine Aminotransferase (ALT/SGPT) 23, Alkaline Phosphatase 163H, Total Protein 5.6L, Albumin 1.5L 06/03/16 08:48: Arterial Blood pH 7.480H, Arterial Blood Partial Pressure CO2 37.4, Arterial Blood Partial Pressure O2 177.1H, Arterial Blood HCO3 27.4H, Arterial Blood Oxygen Saturation 99.2H, Arterial Blood Base Excess 3.9, Claudy Test Positive Height (Feet): 5 Height (Inches): 4.00 Weight (Pounds): 170 General Appearance: no apparent distress EENT: other - on Vent Cardiovascular: tachycardia Respiratory/Chest: decreased breath sounds Abdomen: distended Edema: 2+ Arm (L), 2+ Arm (R), 2+ Leg (L), 2+ Leg (R), 2+ Pedal (L), 2+ Pedal ( R), 2+ Generalized MARISOL ELAINE Jun 03, 2016 10:42
[2016-06-03] MEDS ORDERED: KCl 10% 40mEq/30ml liquid NG ONE (11:00)
[2016-06-03 11:24] LABS: BAND NEUTROPHILS % (MANUAL) 0 % (0-8); BASOPHILS % (MANUAL) 0 % (0-2); EOSINOPHILS % (MANUAL) 0 % (0-3); HYPOCHROMASIA 1+; LYMPHOCYTES % (MANUAL) 4 % (20-45); NEUTROPHILS % (MANUAL) 92 % (45-75); PLATELET ESTIMATE ADEQUATE; PLATELET MORPHOLOGY NORMAL; TOTAL CELLS COUNTED 100
--- NOTE | 2016-06-03 14:24 | Diagnostic Imaging Report ---
Indication: Status post endotracheal tube readjustment Technique: One view of the chest Comparison: 06/02/2016 Findings: Interim slight retraction of endotracheal tube, with improved and now satisfactory position approximately 3 cm above the hilary. Right arm PICC remains. Nasogastric tube remains. There is slightly better aeration currently. Small bilateral pleural effusions, reticular parenchymal disease at the right lung base persist. Impression: Improved and now satisfactory position of endotracheal tube Other essentially stable findings as described
--- NOTE | 2016-06-03 15:25 | Internal Med Progress Note ---
Subjective Date of Service: Jun 03, 2016 Physician Name Zenia Lafleur Attending Physician Jareth Verma MD Current Medications Medications (Trade) Dose Ordered Sig/Miguel Route PRN Reason Start Time Stop Time Status Last Admin Dose Admin Acetaminophen (Tylenol) 650 mg Q4H PRN ORAL fever 06/02/16 20:15 07/02/16 20:14 Albuterol Sulfate (Proventil MDI) 2 puff Q4H PRN INH Shortness of Breath 06/02/16 21:00 07/02/16 20:59 Artificial Tears (Akwa-Tears) 2 drop Q2H PRN BOTH EYES Dry Eyes 06/02/16 18:15 07/02/16 18:14 Baclofen (Lioresal) 20 mg THREE TIMES A DAY ORAL 06/02/16 18:00 07/02/16 17:59 06/03/16 10:10 Clonidine HCl (Catapres) 0.1 mg Q4H PRN ORAL For High Blood Pressure 06/02/16 18:30 07/02/16 18:29 Dextrose (Dextrose 50%) STAT PRN IV Hypoglycemia 06/03/16 00:15 07/03/16 00:14 Docusate Sodium 100 mg 100 mg TID NG 06/03/16 09:00 07/03/16 08:59 06/03/16 10:10 Duloxetine HCl (Cymbalta) 90 mg DAILY ORAL 06/03/16 09:00 07/03/16 08:59 06/03/16 10:29 Heparin Sodium (Porcine) (Heparin 5000 units/ml) 5,000 units EVERY 12 HOURS SUBQ 06/02/16 21:00 07/02/16 20:59 06/03/16 10:32 Lactulose (Cephulac) 30 gm THREE TIMES A DAY ORAL 06/02/16 18:00 07/02/16 17:59 06/03/16 10:08 Levetiracetam/ Dextrose (Keppra/D5W) 115 ml @ 460 mls/hr Q12HR IV 06/03/16 09:00 07/03/16 08:59 06/03/16 10:29 Levothyroxine Sodium (Synthroid) 50 mcg DAILY@0630 ORAL 06/03/16 06:30 07/03/16 06:29 06/03/16 06:30 Lorazepam (Ativan 2mg/ml 1ml) 2 mg Q4H PRN IV For Anxiety 06/02/16 21:30 06/09/16 21:29 Mineral Oil (Fleet's Mineral Oil Enema) 133 ml EVERY OTHER DAY RECTAL 06/03/16 09:00 07/03/16 08:59 06/03/16 10:29 Norepinephrine Bitartrate 4 mg/ Dextrose 250 ml @ 0 mls/hr Q24H IV 06/02/16 17:15 07/02/16 17:14 06/02/16 18:38 Ondansetron HCl (Zofran) 4 mg Q6H PRN IVP Nausea & Vomiting 06/02/16 18:15 07/02/16 18:14 Pantoprazole (Protonix) 40 mg DAILY ORAL 06/03/16 09:00 07/03/16 08:59 06/03/16 10:10 Polyethylene Glycol (Miralax) 17 gm DAILY ORAL 06/03/16 09:00 07/03/16 08:59 06/03/16 10:11 Polyethylene Glycol (Miralax) 17 gm HSPRN PRN ORAL Constipation 06/03/16 00:15 07/03/16 00:14 Pregabalin (Lyrica) 100 mg Q6HR ORAL 06/02/16 18:00 07/02/16 17:59 06/02/16 19:11 Sennosides (Senokot) 8.6 mg DAILY ORAL 06/03/16 09:00 07/03/16 08:59 06/03/16 10:10 Sodium Chloride (Sodium Chloride 1000ml bag) 1,000 ml @ 50 mls/hr Q20H IV 06/03/16 11:00 07/03/16 10:59 06/03/16 11:33 Zolpidem Tartrate (Ambien) 5 mg HSPRN PRN ORAL Insomnia 06/03/16 00:15 07/03/16 00:14 Allergies: Coded Allergies: OPIOIDS - MORPHINE ANALOGUES (Verified Allergy, Unknown, 06/02/16) per daughter. All opiods, she doesn't want any given to patient Uncoded Allergies: NARCOTICS (Allergy, Mild, 10/02/14) Opiates --> Nausea, SOB ROS Limited/Unobtainable: Yes Subjective 70 YO F admitted for constipation, anasarca and altered mental status. Cover for Int Med-Dr Verma. Patient coded yesterday in MRI; now intubated in ICU. Objective Last Vital Signs Date Time Temp Pulse Resp B/P Pulse Ox O2 Delivery O2 Flow Rate FiO2 06/03/16 15:00 107 16 114/93 100 Mechanical Ventilator 60 06/03/16 13:00 98.6 06/02/16 12:00 3.0 Laboratory Tests Test 06/03/16 03:20 06/03/16 03:30 06/03/16 08:48 White Blood Count 28.4 K/UL (4.8-10.8) #*H Red Blood Count 4.16 M/UL (4.20-5.40) L Hemoglobin 11.4 G/DL (12.0-16.0) L Hematocrit 37.2 % (37.0-47.0) Mean Corpuscular Volume 90 FL (80-99) Mean Corpuscular Hemoglobin 27.4 PG (27.0-31.0) Mean Corpuscular Hemoglobin Concent 30.6 G/DL (32.0-36.0) L Red Cell Distribution Width 14.4 % (11.6-14.8) Platelet Count 276 K/UL (150-450) Mean Platelet Volume 8.3 FL (6.5-10.1) Neutrophils (%) (Auto) % (45.0-75.0) Lymphocytes (%) (Auto) % (20.0-45.0) Monocytes (%) (Auto) % (1.0-10.0) Eosinophils (%) (Auto) % (0.0-3.0) Basophils (%) (Auto) % (0.0-2.0) Differential Total Cells Counted 100 Neutrophils % (Manual) 92 % (45-75) H Lymphocytes % (Manual) 4 % (20-45) L Monocytes % (Manual) 4 % (1-10) Eosinophils % (Manual) 0 % (0-3) Basophils % (Manual) 0 % (0-2) Band Neutrophils 0 % (0-8) Platelet Estimate Adequate Platelet Morphology Normal Hypochromasia 1+ Sodium Level 142 mEQ/L (135-145) Potassium Level 3.3 mEQ/L (3.4-4.9) L Chloride Level 99 mEQ/L (98-107) Carbon Dioxide Level 28 mEQ/L (20-30) Anion Gap 15 (5-15) Blood Urea Nitrogen 17 mg/dL (7-23) Creatinine 0.7 mg/dL (0.5-0.9) # Estimat Glomerular Filtration Rate mL/min (>60) Glucose Level 122 mg/dL (74-106) H Calcium Level 8.4 mg/dL (8.6-10.2) L Troponin I < 0.30 ng/mL (<=0.30) Pro-B-Type Natriuretic Peptide 01097 pg/mL (0-125) H Total Bilirubin 0.2 mg/dL (0.0-1.2) Direct Bilirubin 0.1 mg/dL (0.1-0.3) Aspartate Amino Transf (AST/SGOT) 28 U/L (5-40) Alanine Aminotransferase (ALT/SGPT) 23 U/L (3-33) Alkaline Phosphatase 163 U/L (35-104) H Total Protein 5.6 g/dL (6.6-8.7) L Albumin 1.5 g/dL (3.5-5.2) L Arterial Blood pH 7.480 (7.350-7.450) Arterial Blood Partial Pressure CO2 37.4 mmHg (35.0-45.0) Arterial Blood Partial Pressure O2 177.1 mmHg (75.0-100.0) H Arterial Blood HCO3 27.4 mmol/L (22.0-26.0) H Arterial Blood Oxygen Saturation 99.2 % (92.0-98.0) H Arterial Blood Base Excess 3.9 Claudy Test Positive Intake and Output 06/02/16 06/03/16 19:00 07:00 Intake Total 252.5 ml 1492.5 ml Output Total 320 ml 170 ml Balance -67.5 ml 1322.5 ml Intake Oral 0 ml 0 ml Free Water 125 ml IV Total 87.5 ml 1492.5 ml Tube Feeding 40 ml 0 ml Output Urine Total 320 ml 170 ml # Bowel Movements 1 Objective General Appearance: WD/WN, lethargic, agitated EENT: PERRL/EOMI, normal ENT inspection, TMs normal Neck: non-tender, normal alignment, supple Cardiovascular: normal peripheral pulses, normal rate, regular rhythm, no gallop/murmur, no JVD Respiratory/Chest: Mech vent; respiratory distress, crackles/rales, rhonchi - bilaterally, expiratory wheezing Abdomen: normal bowel sounds, non tender, soft, no organomegaly, no mass Extremities: normal range of motion Edema: pitting Neurologic: nail galvanizer II-XII grossly normal Skin: normal pigmentation, warm/dry Assessment/Plan Problem List: (1) Altered mental status (2) Acute complete quadriplegia (3) Constipation Assessment & Plan: Resolving; ? due to hypothyroidism? (4) Anasarca Assessment & Plan: ?hypothyroidism? Continue lasix (5) Cerebral vascular disease (6) HTN (hypertension) (7) Atrial fibrillation Assessment & Plan: see cardiology note. Cont lovenox. May require coumadin (8) Hypothyroidism Assessment & Plan: Cont levoxyl. (9) Hyponatremia Assessment & Plan: See nephrology note. (10) Respiratory failure Assessment & Plan: Intubated 06/02/16; see pulmonary note. Status: deteriorating Assessment/Plan Transfer to [facility] when bed available per family request ZENIA LAFLEUR Jun 03, 2016 15:25
--- NOTE | 2016-06-03 17:22 | Cardiology Progress Note ---
Assessment/Plan Assessment/Plan s/p pulmonary arrest atrial fibrillation now sinus anoxic encephalopathy severe pulmonary HTN right heart failure leukocytosis Nephrotic Syndrome seizure disorder constipation hyponatremia Mild hypothyroidism with elevated TSH functional quadriplegi on pressors now on the vent neuro noted seems to be in sinus now not on anticaog yet continue supportive carer for aliyah at least 48 hour to see if any change neuro ja[place] to then determine prognosis bp support with pressors vent support d/w rn d/w dr carter trop normal ekg noted has some chronic t inversion remains critical and at risk of dying tele reviewed labs reviewed will repeat echo tomorrow last one was fine a few days ago before her arrest d/w family 45 min Subjective ROS Limited/Unobtainable: Yes Subjective s/p cardiopulm arrest while in mri s/p resuscitation now on the vent not verbal not communicative Objective Last 24 Hour Vital Signs Date Time Temp Pulse Resp B/P Pulse Ox O2 Delivery O2 Flow Rate FiO2 06/03/16 16:08 133/49 06/03/16 15:00 107 16 114/93 100 Mechanical Ventilator 60 06/03/16 15:00 114/93 06/03/16 14:59 111 16 60 06/03/16 14:45 101 16 97/46 100 Mechanical Ventilator 60 06/03/16 14:30 101 16 102/54 100 Mechanical Ventilator 60 06/03/16 14:15 104 16 94/44 100 Mechanical Ventilator 60 06/03/16 14:00 107 16 98/53 100 Mechanical Ventilator 60 06/03/16 14:00 119/71 06/03/16 13:45 103 16 119/71 100 Mechanical Ventilator 60 06/03/16 13:30 106 16 106/59 100 Mechanical Ventilator 60 06/03/16 13:15 116 16 99/68 100 Mechanical Ventilator 60 06/03/16 13:00 98.6 122 16 107/62 100 Mechanical Ventilator 60 06/03/16 13:00 107/62 06/03/16 12:55 121 16 60 06/03/16 12:45 121 16 105/61 100 Mechanical Ventilator 60 06/03/16 12:30 118 16 88/48 100 Mechanical Ventilator 60 06/03/16 12:15 120 16 93/64 100 Mechanical Ventilator 60 06/03/16 12:00 122 06/03/16 12:00 60 06/03/16 12:00 114 16 91/69 100 Mechanical Ventilator 60 06/03/16 12:00 91/69 06/03/16 11:45 122 16 106/73 100 Mechanical Ventilator 60 06/03/16 11:30 121 16 118/63 100 Mechanical Ventilator 60 06/03/16 11:15 119 16 103/61 100 Mechanical Ventilator 60 06/03/16 11:00 119 16 93/65 100 Mechanical Ventilator 60 06/03/16 11:00 93/65 06/03/16 10:45 140 16 91/64 100 Mechanical Ventilator 60 06/03/16 10:31 138 16 60 06/03/16 10:30 137 16 82/52 100 Mechanical Ventilator 60 06/03/16 10:15 128 16 93/69 100 Mechanical Ventilator 60 06/03/16 10:00 91/63 06/03/16 10:00 129 16 91/63 100 Mechanical Ventilator 60 06/03/16 09:45 134 16 90/45 100 Mechanical Ventilator 60 06/03/16 09:30 145 16 113/57 100 Mechanical Ventilator 60 06/03/16 09:15 137 16 80/51 100 Mechanical Ventilator 60 06/03/16 09:00 103/52 06/03/16 09:00 138 16 103/52 100 Mechanical Ventilator 60 06/03/16 08:47 155 16 60 06/03/16 08:45 138 16 103/56 100 Mechanical Ventilator 60 06/03/16 08:30 144 16 99/42 100 Mechanical Ventilator 60 06/03/16 08:15 137 16 108/62 100 Mechanical Ventilator 60 06/03/16 08:00 127 06/03/16 08:00 60 06/03/16 08:00 107/62 06/03/16 08:00 99.0 139 16 98/58 100 Mechanical Ventilator 60 06/03/16 07:45 134 16 110/77 100 Mechanical Ventilator 60 06/03/16 07:30 130 16 60 06/03/16 07:30 130 16 107/64 100 Mechanical Ventilator 60 06/03/16 07:15 129 16 89/56 100 Mechanical Ventilator 60 06/03/16 07:00 106 16 99/56 100 Mechanical Ventilator 60 06/03/16 07:00 99/56 06/03/16 06:45 108 16 117/91 100 Mechanical Ventilator 60 06/03/16 06:30 106 16 110/56 100 Mechanical Ventilator 60 06/03/16 06:15 110 16 117/91 100 Mechanical Ventilator 60 06/03/16 06:00 112 16 91/46 100 Mechanical Ventilator 60 06/03/16 06:00 93/52 06/03/16 05:45 110 16 116/56 100 Mechanical Ventilator 60 06/03/16 05:30 111 16 100 06/03/16 05:30 106 16 117/91 100 Mechanical Ventilator 60 06/03/16 05:15 111 16 135/90 100 Mechanical Ventilator 60 06/03/16 05:00 106 16 117/91 100 Mechanical Ventilator 60 06/03/16 05:00 135/78 06/03/16 04:45 106 16 137/78 100 Mechanical Ventilator 60 06/03/16 04:30 106 16 82/49 100 Mechanical Ventilator 60 06/03/16 04:15 106 16 75/47 100 Mechanical Ventilator 60 06/03/16 04:00 99.5 106 16 86/46 100 Mechanical Ventilator 60 06/03/16 04:00 86/58 06/03/16 03:45 106 16 84/49 100 Mechanical Ventilator 60 06/03/16 03:30 106 16 100 06/03/16 03:30 106 16 86/50 100 Mechanical Ventilator 60 06/03/16 03:15 106 16 122/51 100 Mechanical Ventilator 60 06/03/16 03:00 107 16 104/46 100 Mechanical Ventilator 60 06/03/16 03:00 118/56 06/03/16 02:45 106 16 102/40 100 Mechanical Ventilator 60 06/03/16 02:30 106 16 104/46 100 Mechanical Ventilator 60 06/03/16 02:15 107 16 104/56 100 Mechanical Ventilator 60 06/03/16 02:00 104/56 06/03/16 02:00 106 16 105/58 100 Mechanical Ventilator 60 06/03/16 01:45 107 16 120/62 100 Mechanical Ventilator 60 06/03/16 01:30 105 16 100 06/03/16 01:30 106 16 116/54 100 Mechanical Ventilator 60 06/03/16 01:15 109 16 107/56 100 Mechanical Ventilator 60 06/03/16 01:00 114 16 116/67 100 Mechanical Ventilator 100 06/03/16 01:00 116/54 06/03/16 00:45 114 16 116/67 100 Mechanical Ventilator 100 06/03/16 00:30 114 16 109/67 100 Mechanical Ventilator 100 06/03/16 00:15 114 16 106/75 100 Mechanical Ventilator 100 06/03/16 00:00 111 06/03/16 00:00 100 06/03/16 00:00 102/54 06/03/16 00:00 99.5 114 16 102/73 100 Mechanical Ventilator 100 06/02/16 23:45 114 16 108/54 100 Mechanical Ventilator 100 06/02/16 23:30 114 16 103/70 100 Mechanical Ventilator 100 06/02/16 23:15 114 16 118/73 100 Mechanical Ventilator 100 06/02/16 23:00 114 16 118/73 100 Mechanical Ventilator 100 06/02/16 23:00 118/73 06/02/16 22:45 114 16 100 06/02/16 22:45 114 16 131/68 100 Mechanical Ventilator 100 06/02/16 22:30 114 16 131/68 100 Mechanical Ventilator 100 06/02/16 22:15 114 16 118/84 100 Mechanical Ventilator 100 06/02/16 22:00 115 16 130/69 100 Mechanical Ventilator 100 06/02/16 22:00 130/69 06/02/16 21:45 116 16 127/83 100 Mechanical Ventilator 100 06/02/16 21:30 117 16 119/82 100 Mechanical Ventilator 100 06/02/16 21:30 114 16 100 06/02/16 21:15 118 16 142/80 100 Mechanical Ventilator 100 06/02/16 21:00 113/89 06/02/16 21:00 117 16 113/89 100 Mechanical Ventilator 100 06/02/16 20:45 117 16 113/78 100 Mechanical Ventilator 100 06/02/16 20:30 118 16 115/76 100 Mechanical Ventilator 100 06/02/16 20:15 117 17 127/77 96 Mechanical Ventilator 100 06/02/16 20:00 99.2 118 16 124/78 96 Mechanical Ventilator 100 06/02/16 20:00 124/76 06/02/16 19:45 119 16 109/80 96 Mechanical Ventilator 100 06/02/16 19:30 118 16 100 06/02/16 19:30 118 16 128/86 96 Mechanical Ventilator 100 06/02/16 19:15 118 16 127/95 96 Mechanical Ventilator 100 06/02/16 19:00 105/80 06/02/16 19:00 120 16 127/95 96 Mechanical Ventilator 100 06/02/16 18:45 126 16 105/80 96 Mechanical Ventilator 100 06/02/16 18:38 84/61 06/02/16 18:30 130 16 103/69 96 Mechanical Ventilator 100 06/02/16 18:15 129 16 84/61 96 Mechanical Ventilator 100 06/02/16 18:00 122 20 103/69 96 Mechanical Ventilator 100 06/02/16 17:45 120 20 90/60 96 Mechanical Ventilator 100 06/02/16 17:35 120 20 95/60 96 Mechanical Ventilator 100 06/02/16 17:32 123 16 100 06/02/16 17:27 119 20 Mechanical Ventilator 100 06/02/16 17:26 119 20 100 General Appearance: no apparent distress, on vent Cardiovascular: regular rhythm, tachycardia - mild Respiratory/Chest: lungs clear, normal breath sounds Abdomen: normal bowel sounds, non tender, soft Extremities: no swelling Intake and Output 06/02/16 06/03/16 19:00 07:00 Intake Total 252.5 ml 1492.5 ml Output Total 320 ml 170 ml Balance -67.5 ml 1322.5 ml Intake Oral 0 ml 0 ml Free Water 125 ml IV Total 87.5 ml 1492.5 ml Tube Feeding 40 ml 0 ml Output Urine Total 320 ml 170 ml # Bowel Movements 1 Laboratory Tests Test 06/03/16 03:20 06/03/16 03:30 06/03/16 08:48 06/03/16 15:00 White Blood Count 28.4 K/UL (4.8-10.8) #*H Red Blood Count 4.16 M/UL (4.20-5.40) L Hemoglobin 11.4 G/DL (12.0-16.0) L Hematocrit 37.2 % (37.0-47.0) Mean Corpuscular Volume 90 FL (80-99) Mean Corpuscular Hemoglobin 27.4 PG (27.0-31.0) Mean Corpuscular Hemoglobin Concent 30.6 G/DL (32.0-36.0) L Red Cell Distribution Width 14.4 % (11.6-14.8) Platelet Count 276 K/UL (150-450) Mean Platelet Volume 8.3 FL (6.5-10.1) Neutrophils (%) (Auto) % (45.0-75.0) Lymphocytes (%) (Auto) % (20.0-45.0) Monocytes (%) (Auto) % (1.0-10.0) Eosinophils (%) (Auto) % (0.0-3.0) Basophils (%) (Auto) % (0.0-2.0) Differential Total Cells Counted 100 Neutrophils % (Manual) 92 % (45-75) H Lymphocytes % (Manual) 4 % (20-45) L Monocytes % (Manual) 4 % (1-10) Eosinophils % (Manual) 0 % (0-3) Basophils % (Manual) 0 % (0-2) Band Neutrophils 0 % (0-8) Platelet Estimate Adequate Platelet Morphology Normal Hypochromasia 1+ Sodium Level 142 mEQ/L (135-145) Potassium Level 3.3 mEQ/L (3.4-4.9) L Chloride Level 99 mEQ/L (98-107) Carbon Dioxide Level 28 mEQ/L (20-30) Anion Gap 15 (5-15) Blood Urea Nitrogen 17 mg/dL (7-23) Creatinine 0.7 mg/dL (0.5-0.9) # Estimat Glomerular Filtration Rate mL/min (>60) Glucose Level 122 mg/dL (74-106) H Calcium Level 8.4 mg/dL (8.6-10.2) L Troponin I < 0.30 ng/mL (<=0.30) Pro-B-Type Natriuretic Peptide 36117 pg/mL (0-125) H Total Bilirubin 0.2 mg/dL (0.0-1.2) Direct Bilirubin 0.1 mg/dL (0.1-0.3) Aspartate Amino Transf (AST/SGOT) 28 U/L (5-40) Alanine Aminotransferase (ALT/SGPT) 23 U/L (3-33) Alkaline Phosphatase 163 U/L (35-104) H Total Protein 5.6 g/dL (6.6-8.7) L Albumin 1.5 g/dL (3.5-5.2) L Arterial Blood pH 7.480 (7.350-7.450) Arterial Blood Partial Pressure CO2 37.4 mmHg (35.0-45.0) Arterial Blood Partial Pressure O2 177.1 mmHg (75.0-100.0) H Arterial Blood HCO3 27.4 mmol/L (22.0-26.0) H Arterial Blood Oxygen Saturation 99.2 % (92.0-98.0) H Arterial Blood Base Excess 3.9 Claudy Test Positive Ammonia 29 umol/L (11-51) TOMEKA CHUN Jun 03, 2016 17:22
--- NOTE | 2016-06-03 20:52 | Neurology Progress Note ---
Interim History Interim History Interim History Ms. Donato continues to be comatose. She is intubated and artificially ventilated. She is on pressors for BP support. As per her nurse there has been no improvement in her neurologic state. No seizures have been noted. Review of Systems Neuro Review of Systems Unable to obtain. Objective Physical Exam Last Vital Signs Date Time Temp Pulse Resp B/P Pulse Ox O2 Delivery O2 Flow Rate FiO2 06/03/16 20:00 99.2 120 16 107/87 100 Mechanical Ventilator 60 06/02/16 12:00 3.0 Laboratory Tests Test 06/03/16 03:20 06/03/16 03:30 06/03/16 08:48 06/03/16 15:00 White Blood Count 28.4 K/UL (4.8-10.8) #*H Red Blood Count 4.16 M/UL (4.20-5.40) L Hemoglobin 11.4 G/DL (12.0-16.0) L Hematocrit 37.2 % (37.0-47.0) Mean Corpuscular Volume 90 FL (80-99) Mean Corpuscular Hemoglobin 27.4 PG (27.0-31.0) Mean Corpuscular Hemoglobin Concent 30.6 G/DL (32.0-36.0) L Red Cell Distribution Width 14.4 % (11.6-14.8) Platelet Count 276 K/UL (150-450) Mean Platelet Volume 8.3 FL (6.5-10.1) Neutrophils (%) (Auto) % (45.0-75.0) Lymphocytes (%) (Auto) % (20.0-45.0) Monocytes (%) (Auto) % (1.0-10.0) Eosinophils (%) (Auto) % (0.0-3.0) Basophils (%) (Auto) % (0.0-2.0) Differential Total Cells Counted 100 Neutrophils % (Manual) 92 % (45-75) H Lymphocytes % (Manual) 4 % (20-45) L Monocytes % (Manual) 4 % (1-10) Eosinophils % (Manual) 0 % (0-3) Basophils % (Manual) 0 % (0-2) Band Neutrophils 0 % (0-8) Platelet Estimate Adequate Platelet Morphology Normal Hypochromasia 1+ Sodium Level 142 mEQ/L (135-145) Potassium Level 3.3 mEQ/L (3.4-4.9) L Chloride Level 99 mEQ/L (98-107) Carbon Dioxide Level 28 mEQ/L (20-30) Anion Gap 15 (5-15) Blood Urea Nitrogen 17 mg/dL (7-23) Creatinine 0.7 mg/dL (0.5-0.9) # Estimat Glomerular Filtration Rate mL/min (>60) Glucose Level 122 mg/dL (74-106) H Calcium Level 8.4 mg/dL (8.6-10.2) L Troponin I < 0.30 ng/mL (<=0.30) Pro-B-Type Natriuretic Peptide 97600 pg/mL (0-125) H Total Bilirubin 0.2 mg/dL (0.0-1.2) Direct Bilirubin 0.1 mg/dL (0.1-0.3) Aspartate Amino Transf (AST/SGOT) 28 U/L (5-40) Alanine Aminotransferase (ALT/SGPT) 23 U/L (3-33) Alkaline Phosphatase 163 U/L (35-104) H Total Protein 5.6 g/dL (6.6-8.7) L Albumin 1.5 g/dL (3.5-5.2) L Arterial Blood pH 7.480 (7.350-7.450) Arterial Blood Partial Pressure CO2 37.4 mmHg (35.0-45.0) Arterial Blood Partial Pressure O2 177.1 mmHg (75.0-100.0) H Arterial Blood HCO3 27.4 mmol/L (22.0-26.0) H Arterial Blood Oxygen Saturation 99.2 % (92.0-98.0) H Arterial Blood Base Excess 3.9 Claudy Test Positive Ammonia 29 umol/L (11-51) Neurologic Exam Objective PHYSICAL EXAMINATION: GENERAL: She is a well-developed, black lady, lying in an ICU bed, connected to a ventilator via an orotracheal tube. HEAD: Normocephalic, atraumatic, with old right temporal craniotomy scar.. NECK: No neck rigidity was observed. EENT EXAMINATION: Benign except for bilateral chemosis. NEUROLOGICAL EXAMINATION: MENTAL STATUS EXAMINATION: She was comatose and did not respond even to deep painful stimuli. SPEECH: Could not be tested. LANGUAGE: Could not be tested. CRANIAL NERVE EXAMINATION: II: She did not blink to threat. III, IV & : The pupils were 5 mm in diameter and did not react to light. She had minimal eye movements on oculocephalic maneuvers. VIII: She did not respond to sounds and had no nystagmus. IX & X: The gag reflex was absent. XI: The sternocleidomastoids and trapezii did not function. XII: Could not be tested. MOTOR SYSTEM: The tone was increased in all four extremities with a significant degree of spasticity. Examination of muscle mass revealed generalized muscle wasting with bilateral upper and lower extremity contractures. Examination of power was impossible to perform because even on applying deep painful stimuli, no movements were seen. SENSORY EXAMINATION: She did not respond even to deep painful stimuli. REFLEXES: 3+ and bilaterally symmetrical at the biceps, triceps, and brachioradialis. 1+ at both knees. 0 at both ankles. The plantar responses were mute bilaterally. COORDINATION, STANCE & GAIT: Could not be tested. Impression/Recommendations Diagnostic Impression 1. Ms. Liya Donato is a 70-year-old, right-handed, black lady, who had a right middle cerebral aneurysmal rupture approximately 20 years ago with unknown consequences. This however was followed by a seizure disorder for which the patient is on Zonegran. About 7 years ago, she had a seizure associated with neck injury and she became quadriparetic. On 05/28/2016, she was hospitalized at [facility] for constipation and anasarca. On , there was a sudden change in her mental state. A CT scan of the brain was performed, and was benign for acute pathology. On 06/02/2016, she was taken to the MRI scanner where she had a respiratory arrest. A Code Blue was called and she had to be intubated and ventilated. She has been comatose since then. 2. At this time she continues to be comatose, artificially ventilated and on norepinephrine for pressure support. 3. On neurological examination at this time, she does not respond even to deep painful stimuli. The only brainstem function she exhibits is minimal eye movements on oculocephalic maneuvers. Deep tendon reflexes are brisk in the upper extremities and diminished at the knees with mute plantar responses. 4. The EEG done on 06/02/16 revealed a severe encephalopathy with no reactivity, but no inter-ictal or ictal phenomena. 5. The patient's history and neurological examination are most compatible with a significant anoxic ischemic cerebral insult, with her at this point in time being in a comatose state, with no improvement in her neurologic condition. Recommendations 1. Continue present management. 2. Continue to support the patient's cardiorespiratory function in an ICU setting. 3. Continue Keppra 500 mg intravenously every 12 hours. 4. Observe closely. Renny Bazzi M.D., M.S.P.H. RENNY BAZZI Jun 03, 2016 20:52
--- NOTE | 2016-06-03 22:48 | Electroencephalogram ---
DATE OF PROCEDURE: 06/02/2016 REQUESTING PHYSICIANS: Jose Tenorio M.D. & Jareth Verma M.D. PROCEDURE PERFORMED: Electroencephalogram. HISTORY: This EEG was performed on 70-year-old lady with a history of right middle cerebral artery aneurysm rupture approximately 20 years ago, and approximately 7 years ago, she had neck trauma leading to quadriparesis associated with a seizure. The patient was recently admitted for constipation and anasarca then was exhibiting an altered mental state. While she was in the MRI scanner, she had a code blue. Following that, the patient has been comatose. The purpose of this EEG was to evaluate the patient for the degree and type of cerebral dysfunction and to exclude ongoing ictal or interictal phenomenon. TECHNICAL NOTE: This EEG was performed on a [employer] with electrodes placed on the scalp according to the International 10-20 system. [id number] and [id number] montages were used. The EEG was technically mediocre quality due to the fact that large parts of tracing were marred by EMG artifact. OBSERVATIONS: In the reportedly comatose state, the background activity consisted of low amplitude, slow activity in the 5-6 Hz theta and 2-3 Hz delta range. As mentioned earlier large parts of EEG were illegible due to EMG artifact. When the patient was stimulated with external stimulation, no change in the EEG background was noted. No definite focal abnormalities or epileptiform discharges were seen. IMPRESSION: This is an abnormal EEG characterized by slowing of the background in the theta and delta range with no reactivity to external stimulation. COMMENT: This study is consistent with an encephalopathy of a severe degree. Beto Bazzi M.D., M.S.P.H. DR: Gume JOB#: [id number] [place]
[2016-06-04] VITALS (25 sets, daily range): BP systolic 92–148; BP diastolic 42–103
[2016-06-04] MEDS: Lyrica 50mg cap ORAL SCH ×2 (06:00)
[2016-06-04 06:01] LABS: ALANINE AMINOTRANSFERASE 24 U/L (3-33); ALBUMIN/GLOBULIN RATIO 0.2 (1.0-2.7); ANION GAP 13 (5-15); ASPARTATE AMINO TRANSFERASE 34 U/L (5-40); CARBON DIOXIDE 26 mEQ/L (20-30); CHLORIDE 105 mEQ/L (98-107); CREATININE 0.9 mg/dL (0.5-0.9); HEMOLYSIS 55; MAGNESIUM 1.8 mg/dL (1.7-2.5); PHOSPHORUS 1.4 mg/dL (2.5-4.8); POTASSIUM 3.2 mEQ/L (3.4-4.9); SODIUM 144 mEQ/L (135-145); TOTAL PROTEIN 5.5 g/dL (6.6-8.7)
[2016-06-04 06:37] LABS: MEAN CORPUSCULAR HEMOGLOBIN 27.8 PG (27.0-31.0); MEAN CORPUSCULAR HGB CONC 31.5 G/DL (32.0-36.0); MEAN CORPUSCULAR VOLUME 88 FL (80-99); MEAN PLATELET VOLUME 8.9 FL (6.5-10.1); PLATELET COUNT 251 K/UL (150-450); RED BLOOD COUNT 3.97 M/UL (4.20-5.40); RED CELL DISTRIBUTION WIDTH 13.6 % (11.6-14.8)
[2016-06-04 06:40] LABS: WHITE BLOOD COUNT 26.9 K/UL (4.8-10.8)
[2016-06-04 06:55] LABS: CRP QUANT 11.4 mg/dL (< 0.5)
[2016-06-04 07:01] LABS: THYROID STIMULATING HORMONE 4.96 uIU/mL (0.300-4.500)
[2016-06-04 08:02] LABS: ABG BASE EXCESS 3.5; ABG PCO2 49.4 mmHg (35.0-45.0)
[2016-06-04 08:03] LABS: ABG ALLEN TEST POSITIVE
[2016-06-04] MEDS: Lactulose 20gm/30ml UDC ORAL SCH (08:31)
[2016-06-04] MEDS: Docusate 100mg tablet NG SCH (08:31)
[2016-06-04] MEDS: Miralax 17gm pkt ORAL SCH (08:53)
[2016-06-04] MEDS: DULoxetine 30mg cap ORAL SCH (08:53)
[2016-06-04] MEDS: levETIRAcetam 500 MG in D5W 110 ML IV SCH ×2 (08:53→20:18)
[2016-06-04] MEDS: Heparin 5000 units/ml inj SUBQ SCH ×2 (08:57→20:18)
--- NOTE | 2016-06-04 09:27 | General Progress Note ---
Assessment/Plan Status: stable - from renal stand point, unchanged - from neuro stand point Assessment/Plan Renal: Nephrotic Syndrome most likely- leading to Anasarca, Pleural effusion Other: Respiratory failure- anoxic ischemic cerebral insult , post code blue acute toxic encephalopathy- severe PVD mild pulmonary edema severe pulmonary HTN seizure disorder constipation hyponatremia , likelu due to Anasarca Mild hypothyroidism with elevated TSH functional quadriplegia Plan: 24 H urine for Protein- will be repeated K Phos IV pulm support per orders- monitor lytes- poor prognosis Subjective ROS Limited/Unobtainable: Yes Allergies: Coded Allergies: OPIOIDS - MORPHINE ANALOGUES (Verified Allergy, Unknown, 06/02/16) per daughter. All opiods, she doesn't want any given to patient Uncoded Allergies: NARCOTICS (Allergy, Mild, 10/02/14) Opiates --> Nausea, SOB Objective Last 24 Hour Vital Signs Date Time Temp Pulse Resp B/P Pulse Ox O2 Delivery O2 Flow Rate FiO2 06/04/16 09:00 118 16 130/103 100 Mechanical Ventilator 40 06/04/16 08:00 50 06/04/16 08:00 117 06/04/16 08:00 98.0 113 16 130/93 100 Mechanical Ventilator 50 06/04/16 07:10 118 16 50 06/04/16 07:00 115 15 133/73 100 Mechanical Ventilator 60 06/04/16 06:00 106 15 146/90 100 Mechanical Ventilator 60 06/04/16 05:11 118 16 50 06/04/16 05:00 107 15 127/86 100 Mechanical Ventilator 60 06/04/16 04:00 112 06/04/16 04:00 60 06/04/16 04:00 112 15 125/75 100 Mechanical Ventilator 60 06/04/16 03:30 125 16 50 06/04/16 03:00 111 15 148/74 100 Mechanical Ventilator 60 06/04/16 02:00 107 15 115/63 100 Mechanical Ventilator 60 06/04/16 01:38 115 15 102/50 100 Mechanical Ventilator 60 06/04/16 01:13 110 16 50 06/04/16 01:00 125 15 102/50 100 Mechanical Ventilator 60 06/04/16 00:00 60 06/04/16 00:00 99.5 125 15 95/67 100 Mechanical Ventilator 60 06/04/16 00:00 125 06/03/16 23:00 113 15 98/56 100 Mechanical Ventilator 60 06/03/16 22:55 117 16 50 06/03/16 22:00 106 16 98/56 100 Mechanical Ventilator 60 06/03/16 21:17 119 16 50 06/03/16 21:00 118 16 92/75 100 Mechanical Ventilator 60 06/03/16 20:00 99.2 120 16 107/87 100 Mechanical Ventilator 60 06/03/16 20:00 60 06/03/16 19:30 118 16 50 06/03/16 19:00 118 16 118/71 100 Mechanical Ventilator 60 06/03/16 18:00 120 16 114/92 100 Mechanical Ventilator 60 06/03/16 18:00 114/92 06/03/16 17:45 120 16 142/111 100 Mechanical Ventilator 60 06/03/16 17:30 121 16 119/103 100 Mechanical Ventilator 60 06/03/16 17:15 119 16 129/59 100 Mechanical Ventilator 60 06/03/16 17:00 119 18 123/72 100 Mechanical Ventilator 60 06/03/16 17:00 123/72 06/03/16 16:59 119 16 60 06/03/16 16:45 119 16 105/59 100 Mechanical Ventilator 60 06/03/16 16:30 119 16 117/88 100 Mechanical Ventilator 60 06/03/16 16:15 119 16 115/59 100 Mechanical Ventilator 60 06/03/16 16:08 133/49 06/03/16 16:00 99.9 107 16 133/49 100 Mechanical Ventilator 60 06/03/16 16:00 60 06/03/16 15:45 105 16 105/59 100 Mechanical Ventilator 60 06/03/16 15:30 111 16 138/68 100 Mechanical Ventilator 60 06/03/16 15:15 105 16 115/67 100 Mechanical Ventilator 60 06/03/16 15:00 107 16 114/93 100 Mechanical Ventilator 60 06/03/16 15:00 114/93 06/03/16 14:59 111 16 60 06/03/16 14:45 101 16 97/46 100 Mechanical Ventilator 60 06/03/16 14:30 101 16 102/54 100 Mechanical Ventilator 60 06/03/16 14:15 104 16 94/44 100 Mechanical Ventilator 60 06/03/16 14:00 107 16 98/53 100 Mechanical Ventilator 60 06/03/16 14:00 119/71 2/21/17 13:45 103 16 119/71 100 Mechanical Ventilator 60 06/03/16 13:30 106 16 106/59 100 Mechanical Ventilator 60 06/03/16 13:15 116 16 99/68 100 Mechanical Ventilator 60 06/03/16 13:00 98.6 122 16 107/62 100 Mechanical Ventilator 60 06/03/16 13:00 107/62 06/03/16 12:55 121 16 60 06/03/16 12:45 121 16 105/61 100 Mechanical Ventilator 60 06/03/16 12:30 118 16 88/48 100 Mechanical Ventilator 60 06/03/16 12:15 120 16 93/64 100 Mechanical Ventilator 60 06/03/16 12:00 122 06/03/16 12:00 60 06/03/16 12:00 114 16 91/69 100 Mechanical Ventilator 60 06/03/16 12:00 91/69 06/03/16 11:45 122 16 106/73 100 Mechanical Ventilator 60 06/03/16 11:30 121 16 118/63 100 Mechanical Ventilator 60 06/03/16 11:15 119 16 103/61 100 Mechanical Ventilator 60 06/03/16 11:00 119 16 93/65 100 Mechanical Ventilator 60 06/03/16 11:00 93/65 06/03/16 10:45 140 16 91/64 100 Mechanical Ventilator 60 06/03/16 10:31 138 16 60 06/03/16 10:30 137 16 82/52 100 Mechanical Ventilator 60 06/03/16 10:15 128 16 93/69 100 Mechanical Ventilator 60 06/03/16 10:00 91/63 06/03/16 10:00 129 16 91/63 100 Mechanical Ventilator 60 06/03/16 09:45 134 16 90/45 100 Mechanical Ventilator 60 06/03/16 09:30 145 16 113/57 100 Mechanical Ventilator 60 Intake and Output 06/03/16 06/04/16 19:00 07:00 Intake Total 1136.25 ml 765 ml Output Total 70 ml 90 ml Balance 1066.25 ml 675 ml IV Total 1136.25 ml 765 ml Output Urine Total 70 ml 90 ml # Bowel Movements 1 1 Laboratory Tests 06/03/16 15:00: Ammonia 29 06/04/16 04:00: Arterial Blood pH 7.391, Arterial Blood Partial Pressure CO2 49.4H, Arterial Blood Partial Pressure O2 306.4H, Arterial Blood HCO3 29.3H, Arterial Blood Oxygen Saturation 99.2H, Arterial Blood Base Excess 3.5, Claudy Test Positive 06/04/16 04:50: Sodium Level 144, Potassium Level 3.2L, Chloride Level 105, Carbon Dioxide Level 26, Anion Gap 13, Blood Urea Nitrogen 18, Creatinine 0.9, Estimat Glomerular Filtration Rate , Glucose Level 119H, Uric Acid 7.0, Calcium Level 8.0L, Phosphorus Level 1.4L, Magnesium Level 1.8, Total Bilirubin 0.3, Gamma Glutamyl Transpeptidase 107H, Aspartate Amino Transf (AST/SGOT) 34, Alanine Aminotransferase (ALT/SGPT) 24, Alkaline Phosphatase 153H, C-Reactive Protein, Quantitative 11.4H, Pro-B-Type Natriuretic Peptide [id number], Total Protein 5.5L, Albumin 1.1L, Globulin 4.4, Albumin/Globulin Ratio 0.2L, Thyroid Stimulating Hormone (TSH) 4.960H 06/04/16 06:25: White Blood Count 26.9*H, Red Blood Count 3.97L, Hemoglobin 11.0L, Hematocrit 34.9L, Mean Corpuscular Volume 88, Mean Corpuscular Hemoglobin 27.8, Mean Corpuscular Hemoglobin Concent 31.5L, Red Cell Distribution Width 13.6, Platelet Count 251, Mean Platelet Volume 8.9, Neutrophils (%) (Auto) , Lymphocytes (%) (Auto) , Monocytes (%) (Auto) , Eosinophils (%) (Auto) , Basophils (%) (Auto) , Neutrophils % (Manual) [Pending], Lymphocytes % (Manual) [Pending], Platelet Estimate [Pending], Platelet Morphology [Pending] Height (Feet): 5 Height (Inches): 4.00 Weight (Pounds): 170 General Appearance: no apparent distress Cardiovascular: tachycardia Respiratory/Chest: decreased breath sounds Abdomen: distended Edema: 1+ Arm (L), 1+ Arm (R), 1+ Leg (L), 1+ Leg (R), 1+ Pedal (L), 1+ Pedal ( R), 1+ Generalized Neurologic: other - comatose MARISOL ELAINE Jun 04, 2016 09:27
[2016-06-04] MEDS ORDERED: Potassium Phosphate 30 MM in NS 275 ML IV ONE (10:30)
[2016-06-04 11:12] LABS: BAND NEUTROPHILS % (MANUAL) 0 % (0-8); BASOPHILS % (MANUAL) 0 % (0-2); EOSINOPHILS % (MANUAL) 0 % (0-3); HYPOCHROMASIA 1+; LYMPHOCYTES % (MANUAL) 1 % (20-45); NEUTROPHILS % (MANUAL) 95 % (45-75); PLATELET ESTIMATE ADEQUATE; PLATELET MORPHOLOGY NORMAL; TOTAL CELLS COUNTED 100
--- NOTE | 2016-06-04 11:29 | Pulmonolgy Critical Care Note ---
Critical Care - Asmt/Plan Problems: (1) Acute respiratory failure (2) Chronic incomplete quadriplegia (3) Atrial fibrillation (4) Protein-calorie malnutrition, severe (5) Cardiac arrest (6) Anasarca (7) Acute encephalopathy Respiratory: monitor respiratory rate, adjust FIO2, CXR Cardiac: stop pressors - off pressors, continue to monitor HR/BP Renal: keep IV fluid, check electrolytes, other - k and Phos supplement Gastrointestinal: continue feedings/current rate Endocrine: monitor blood sugar, check TSH, continue sliding scale insulin Hematologic: monitor H/H, transfuse if hgb<8.5 Neurologic: PRN Ativan, keep patient comfortable Affect: PRN ativan Time Spent (Minutes): 40 Notes Reviewed: cardio, 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, consultants, clinical case managerexternal relations manager - Objective Last 24 Hour Vital Signs Date Time Temp Pulse Resp B/P Pulse Ox O2 Delivery O2 Flow Rate FiO2 06/04/16 11:00 125 16 135/64 100 Mechanical Ventilator 40 06/04/16 10:40 125 17 40 06/04/16 10:00 122 19 142/65 100 Mechanical Ventilator 40 06/04/16 09:00 118 16 130/103 100 Mechanical Ventilator 40 06/04/16 08:55 112 16 40 06/04/16 08:00 50 06/04/16 08:00 117 06/04/16 08:00 98.0 113 16 130/93 100 Mechanical Ventilator 50 06/04/16 07:10 118 16 50 06/04/16 07:00 115 15 133/73 100 Mechanical Ventilator 60 06/04/16 06:00 106 15 146/90 100 Mechanical Ventilator 60 06/04/16 05:11 118 16 50 06/04/16 05:00 107 15 127/86 100 Mechanical Ventilator 60 06/04/16 04:00 112 06/04/16 04:00 60 06/04/16 04:00 112 15 125/75 100 Mechanical Ventilator 60 06/04/16 03:30 125 16 50 06/04/16 03:00 111 15 148/74 100 Mechanical Ventilator 60 06/04/16 02:00 107 15 115/63 100 Mechanical Ventilator 60 06/04/16 01:38 115 15 102/50 100 Mechanical Ventilator 60 06/04/16 01:13 110 16 50 06/04/16 01:00 125 15 102/50 100 Mechanical Ventilator 60 06/04/16 00:00 60 06/04/16 00:00 99.5 125 15 95/67 100 Mechanical Ventilator 60 06/04/16 00:00 125 06/03/16 23:00 113 15 98/56 100 Mechanical Ventilator 60 06/03/16 22:55 117 16 50 06/03/16 22:00 106 16 98/56 100 Mechanical Ventilator 60 06/03/16 21:17 119 16 50 06/03/16 21:00 118 16 92/75 100 Mechanical Ventilator 60 06/03/16 20:00 99.2 120 16 107/87 100 Mechanical Ventilator 60 06/03/16 20:00 60 06/03/16 19:30 118 16 50 06/03/16 19:00 118 16 118/71 100 Mechanical Ventilator 60 06/03/16 18:00 120 16 114/92 100 Mechanical Ventilator 60 06/03/16 18:00 114/92 06/03/16 17:45 120 16 142/111 100 Mechanical Ventilator 60 06/03/16 17:30 121 16 119/103 100 Mechanical Ventilator 60 06/03/16 17:15 119 16 129/59 100 Mechanical Ventilator 60 06/03/16 17:00 119 18 123/72 100 Mechanical Ventilator 60 06/03/16 17:00 123/72 06/03/16 16:59 119 16 60 06/03/16 16:45 119 16 105/59 100 Mechanical Ventilator 60 06/03/16 16:30 119 16 117/88 100 Mechanical Ventilator 60 06/03/16 16:15 119 16 115/59 100 Mechanical Ventilator 60 06/03/16 16:08 133/49 06/03/16 16:00 99.9 107 16 133/49 100 Mechanical Ventilator 60 06/03/16 16:00 60 06/03/16 15:45 105 16 105/59 100 Mechanical Ventilator 60 06/03/16 15:30 111 16 138/68 100 Mechanical Ventilator 60 06/03/16 15:15 105 16 115/67 100 Mechanical Ventilator 60 06/03/16 15:00 107 16 114/93 100 Mechanical Ventilator 60 06/03/16 15:00 114/93 06/03/16 14:59 111 16 60 06/03/16 14:45 101 16 97/46 100 Mechanical Ventilator 60 06/03/16 14:30 101 16 102/54 100 Mechanical Ventilator 60 06/03/16 14:15 104 16 94/44 100 Mechanical Ventilator 60 06/03/16 14:00 107 16 98/53 100 Mechanical Ventilator 60 06/03/16 14:00 119/71 06/03/16 13:45 103 16 119/71 100 Mechanical Ventilator 60 06/03/16 13:30 106 16 106/59 100 Mechanical Ventilator 60 06/03/16 13:15 116 16 99/68 100 Mechanical Ventilator 60 06/03/16 13:00 98.6 122 16 107/62 100 Mechanical Ventilator 60 06/03/16 13:00 107/62 06/03/16 12:55 121 16 60 06/03/16 12:45 121 16 105/61 100 Mechanical Ventilator 60 06/03/16 12:30 118 16 88/48 100 Mechanical Ventilator 60 06/03/16 12:15 120 16 93/64 100 Mechanical Ventilator 60 06/03/16 12:00 122 06/03/16 12:00 60 06/03/16 12:00 114 16 91/69 100 Mechanical Ventilator 60 06/03/16 12:00 91/69 06/03/16 11:45 122 16 106/73 100 Mechanical Ventilator 60 06/03/16 11:30 121 16 118/63 100 Mechanical Ventilator 60 Status: obtunded Condition: critical HEENT: atraumatic, normocephalic Neck: full ROM Lungs: clear Heart: HR/BP stable Abdomen: soft, non-tender, feeding tube Extremities: edema Critical Care - Subjective ROS Limited/Unobtainable: Yes ICU Day: 3 Intubation Day: 3 Interval Events: EEG is done, Breathing over the vent FI02: 40 Vent Support Breath Rate: 16 Vent Support Mode: AC Vent Tidal Volume: 600 Sputum Amount: Small PEEP: 5.0 PIP: 48 Secretions: small Fluids: NS 50 cc.hour Tube Feeding Amount: 0 I&O: Intake and Output 06/03/16 06/04/16 19:00 07:00 Intake Total 1136.25 ml 765 ml Output Total 70 ml 90 ml Balance 1066.25 ml 675 ml IV Total 1136.25 ml 765 ml Output Urine Total 70 ml 90 ml # Bowel Movements 1 1 CXR: Et in good position ET-Tube: 7.5 ET Position: 22 Labs: Laboratory Tests Test 06/03/16 15:00 06/04/16 04:00 06/04/16 04:50 06/04/16 06:25 Ammonia 29 umol/L (11-51) Arterial Blood pH 7.391 (7.350-7.450) Arterial Blood Partial Pressure CO2 49.4 mmHg (35.0-45.0) H Arterial Blood Partial Pressure O2 306.4 mmHg (75.0-100.0) H Arterial Blood HCO3 29.3 mmol/L (22.0-26.0) H Arterial Blood Oxygen Saturation 99.2 % (92.0-98.0) H Arterial Blood Base Excess 3.5 Claudy Test Positive Sodium Level 144 mEQ/L (135-145) Potassium Level 3.2 mEQ/L (3.4-4.9) L Chloride Level 105 mEQ/L (98-107) Carbon Dioxide Level 26 mEQ/L (20-30) Anion Gap 13 (5-15) Blood Urea Nitrogen 18 mg/dL (7-23) Creatinine 0.9 mg/dL (0.5-0.9) Estimat Glomerular Filtration Rate mL/min (>60) Glucose Level 119 mg/dL (74-106) H Uric Acid 7.0 mg/dL (3.0-7.5) Calcium Level 8.0 mg/dL (8.6-10.2) L Phosphorus Level 1.4 mg/dL (2.5-4.8) L Magnesium Level 1.8 mg/dL (1.7-2.5) Total Bilirubin 0.3 mg/dL (0.0-1.2) Gamma Glutamyl Transpeptidase 107 U/L (5-36) H Aspartate Amino Transf (AST/SGOT) 34 U/L (5-40) Alanine Aminotransferase (ALT/SGPT) 24 U/L (3-33) Alkaline Phosphatase 153 U/L (35-104) H C-Reactive Protein, Quantitative 11.4 mg/dL (< 0.5) H Pro-B-Type Natriuretic Peptide 91954 pg/mL (0-125) H Total Protein 5.5 g/dL (6.6-8.7) L Albumin 1.1 g/dL (3.5-5.2) L Globulin 4.4 g/dL Albumin/Globulin Ratio 0.2 (1.0-2.7) L Thyroid Stimulating Hormone (TSH) 4.960 uIU/mL (0.300-4.500) White Blood Count 26.9 K/UL (4.8-10.8) *H Red Blood Count 3.97 M/UL (4.20-5.40) L Hemoglobin 11.0 G/DL (12.0-16.0) L Hematocrit 34.9 % (37.0-47.0) L Mean Corpuscular Volume 88 FL (80-99) Mean Corpuscular Hemoglobin 27.8 PG (27.0-31.0) Mean Corpuscular Hemoglobin Concent 31.5 G/DL (32.0-36.0) L Red Cell Distribution Width 13.6 % (11.6-14.8) Platelet Count 251 K/UL (150-450) Mean Platelet Volume 8.9 FL (6.5-10.1) Neutrophils (%) (Auto) % (45.0-75.0) Lymphocytes (%) (Auto) % (20.0-45.0) Monocytes (%) (Auto) % (1.0-10.0) Eosinophils (%) (Auto) % (0.0-3.0) Basophils (%) (Auto) % (0.0-2.0) Differential Total Cells Counted 100 Neutrophils % (Manual) 95 % (45-75) H Lymphocytes % (Manual) 1 % (20-45) L Monocytes % (Manual) 4 % (1-10) Eosinophils % (Manual) 0 % (0-3) Basophils % (Manual) 0 % (0-2) Band Neutrophils 0 % (0-8) Platelet Estimate Adequate Platelet Morphology Normal Hypochromasia 1+ DARION MISHRA Jun 04, 2016 11:29
--- NOTE | 2016-06-04 15:38 | Diagnostic Imaging Report ---
Indications: DYSPNEA Technique: Portable AP chest Findings: Comparison: 06/03/16 Bilateral interstitial infiltrates right greater than left, small bibasal pleural effusions are unchanged. Cardiac mediastinal silhouette stable. Lines and tubes remain in place. No new abnormality identified. IMPRESSION: No change from one day prior
[2016-06-04] MEDS ORDERED: Tubing IV Secondary IV ONE (16:04)
[2016-06-04] MEDS ORDERED: Tubing Blood Filter IV ONE (16:04)
[2016-06-04] MEDS ORDERED: NS 275ml ONE (16:04)
[2016-06-04] MEDS: Artificial Tears 1.4% Op Soln BOTH EYES PRN ×2 (18:01→20:19)
--- NOTE | 2016-06-04 19:03 | Internal Med Progress Note ---
Subjective Date of Service: Jun 04, 2016 Physician Name LafleurZenia Attending Physician Jareth Verma MD Current Medications Medications (Trade) Dose Ordered Sig/Miguel Route PRN Reason Start Time Stop Time Status Last Admin Dose Admin Acetaminophen (Tylenol) 650 mg Q4H PRN ORAL fever 06/02/16 20:15 07/02/16 20:14 Albuterol Sulfate (Proventil MDI) 2 puff Q4H PRN INH Shortness of Breath 06/02/16 21:00 07/02/16 20:59 Artificial Tears (Akwa-Tears) 2 drop Q2H PRN BOTH EYES Dry Eyes 06/02/16 18:15 07/02/16 18:14 06/04/16 18:01 Clonidine HCl (Catapres) 0.1 mg Q4H PRN ORAL For High Blood Pressure 06/02/16 18:30 07/02/16 18:29 Dextrose (Dextrose 50%) STAT PRN IV Hypoglycemia 06/03/16 00:15 07/03/16 00:14 Heparin Sodium (Porcine) (Heparin 5000 units/ml) 5,000 units EVERY 12 HOURS SUBQ 06/02/16 21:00 07/02/16 20:59 06/04/16 08:57 Levetiracetam/ Dextrose (Keppra/D5W) 115 ml @ 460 mls/hr Q12HR IV 06/03/16 09:00 07/03/16 08:59 06/04/16 08:53 Levothyroxine Sodium (Synthroid) 50 mcg DAILY@0630 ORAL 06/03/16 06:30 07/03/16 06:29 06/04/16 06:26 Lorazepam (Ativan 2mg/ml 1ml) 2 mg Q4H PRN IV For Anxiety 06/02/16 21:30 06/09/16 21:29 Mineral Oil (Fleet's Mineral Oil Enema) 133 ml EVERY OTHER DAY RECTAL 06/03/16 09:00 07/03/16 08:59 06/03/16 10:29 Norepinephrine Bitartrate 4 mg/ Dextrose 250 ml @ 0 mls/hr Q24H IV 06/02/16 17:15 07/02/16 17:14 06/03/16 16:08 Ondansetron HCl (Zofran) 4 mg Q6H PRN IVP Nausea & Vomiting 06/02/16 18:15 07/02/16 18:14 Pantoprazole (Protonix) 40 mg DAILY ORAL 06/03/16 09:00 07/03/16 08:59 06/04/16 08:53 Polyethylene Glycol 17 gm 17 gm DAILY ORAL 06/03/16 09:00 07/03/16 08:59 06/04/16 08:53 Sodium Chloride (Sodium Chloride 1000ml bag) 1,000 ml @ 50 mls/hr Q20H IV 06/03/16 11:00 07/03/16 10:59 06/04/16 07:19 Allergies: Coded Allergies: OPIOIDS - MORPHINE ANALOGUES (Verified Allergy, Unknown, 06/02/16) per daughter. All opiods, she doesn't want any given to patient Uncoded Allergies: NARCOTICS (Allergy, Mild, 10/02/14) Opiates --> Nausea, SOB ROS Limited/Unobtainable: Yes Subjective 70 YO F admitted for constipation, anasarca and altered mental status. Cover for [facility] Med-Dr Verma. Intubated and sedated. ICU. Continues on pressors. Objective Last Vital Signs Date Time Temp Pulse Resp B/P Pulse Ox O2 Delivery O2 Flow Rate FiO2 06/04/16 18:00 113 25 105/76 100 Mechanical Ventilator 40 06/04/16 16:00 99.1 06/02/16 12:00 3.0 Laboratory Tests Test 06/04/16 04:00 06/04/16 04:50 06/04/16 06:25 Arterial Blood pH 7.391 (7.350-7.450) Arterial Blood Partial Pressure CO2 49.4 mmHg (35.0-45.0) H Arterial Blood Partial Pressure O2 306.4 mmHg (75.0-100.0) H Arterial Blood HCO3 29.3 mmol/L (22.0-26.0) H Arterial Blood Oxygen Saturation 99.2 % (92.0-98.0) H Arterial Blood Base Excess 3.5 Claudy Test Positive Sodium Level 144 mEQ/L (135-145) Potassium Level 3.2 mEQ/L (3.4-4.9) L Chloride Level 105 mEQ/L (98-107) Carbon Dioxide Level 26 mEQ/L (20-30) Anion Gap 13 (5-15) Blood Urea Nitrogen 18 mg/dL (7-23) Creatinine 0.9 mg/dL (0.5-0.9) Estimat Glomerular Filtration Rate mL/min (>60) Glucose Level 119 mg/dL (74-106) H Uric Acid 7.0 mg/dL (3.0-7.5) Calcium Level 8.0 mg/dL (8.6-10.2) L Phosphorus Level 1.4 mg/dL (2.5-4.8) L Magnesium Level 1.8 mg/dL (1.7-2.5) Total Bilirubin 0.3 mg/dL (0.0-1.2) Gamma Glutamyl Transpeptidase 107 U/L (5-36) H Aspartate Amino Transf (AST/SGOT) 34 U/L (5-40) Alanine Aminotransferase (ALT/SGPT) 24 U/L (3-33) Alkaline Phosphatase 153 U/L (35-104) H C-Reactive Protein, Quantitative 11.4 mg/dL (< 0.5) H Pro-B-Type Natriuretic Peptide 04864 pg/mL (0-125) H Total Protein 5.5 g/dL (6.6-8.7) L Albumin 1.1 g/dL (3.5-5.2) L Globulin 4.4 g/dL Albumin/Globulin Ratio 0.2 (1.0-2.7) L Thyroid Stimulating Hormone (TSH) 4.960 uIU/mL (0.300-4.500) White Blood Count 26.9 K/UL (4.8-10.8) *H Red Blood Count 3.97 M/UL (4.20-5.40) L Hemoglobin 11.0 G/DL (12.0-16.0) L Hematocrit 34.9 % (37.0-47.0) L Mean Corpuscular Volume 88 FL (80-99) Mean Corpuscular Hemoglobin 27.8 PG (27.0-31.0) Mean Corpuscular Hemoglobin Concent 31.5 G/DL (32.0-36.0) L Red Cell Distribution Width 13.6 % (11.6-14.8) Platelet Count 251 K/UL (150-450) Mean Platelet Volume 8.9 FL (6.5-10.1) Neutrophils (%) (Auto) % (45.0-75.0) Lymphocytes (%) (Auto) % (20.0-45.0) Monocytes (%) (Auto) % (1.0-10.0) Eosinophils (%) (Auto) % (0.0-3.0) Basophils (%) (Auto) % (0.0-2.0) Differential Total Cells Counted 100 Neutrophils % (Manual) 95 % (45-75) H Lymphocytes % (Manual) 1 % (20-45) L Monocytes % (Manual) 4 % (1-10) Eosinophils % (Manual) 0 % (0-3) Basophils % (Manual) 0 % (0-2) Band Neutrophils 0 % (0-8) Platelet Estimate Adequate Platelet Morphology Normal Hypochromasia 1+ Intake and Output 06/03/16 06/04/16 19:00 07:00 Intake Total 1136.25 ml 765 ml Output Total 70 ml 90 ml Balance 1066.25 ml 675 ml IV Total 1136.25 ml 765 ml Output Urine Total 70 ml 90 ml # Bowel Movements 1 1 Objective General Appearance: WD/WN, lethargic, agitated EENT: PERRL/EOMI, normal ENT inspection, TMs normal Neck: non-tender, normal alignment, supple Cardiovascular: normal peripheral pulses, normal rate, regular rhythm, no gallop/murmur, no JVD Respiratory/Chest: Mech vent; respiratory distress, crackles/rales, rhonchi - bilaterally, expiratory wheezing Abdomen: normal bowel sounds, non tender, soft, no organomegaly, no mass Extremities: normal range of motion Edema: pitting Neurologic: muff winder II-XII grossly normal Skin: normal pigmentation, warm/dry Assessment/Plan Problem List: (1) Altered mental status (2) Acute complete quadriplegia (3) Constipation Assessment & Plan: Resolving; ? due to hypothyroidism? (4) Anasarca Assessment & Plan: ?hypothyroidism? Continue lasix (5) Cerebral vascular disease (6) HTN (hypertension) (7) Atrial fibrillation Assessment & Plan: see cardiology note. Cont lovenox. May require coumadin (8) Hypothyroidism Assessment & Plan: Cont levoxyl. (9) Hyponatremia Assessment & Plan: See nephrology note. (10) Respiratory failure Assessment & Plan: Intubated 06/02/16; see pulmonary note. (11) Leukocytosis Assessment & Plan: See ID note (12) Cardiac arrest (13) Cardiogenic shock Assessment & Plan: Cont pressors Status: not improved Assessment/Plan Prognosis is guarded. ZENIA LAFLEUR Jun 04, 2016 19:03
--- NOTE | 2016-06-04 19:20 | Neurology Progress Note ---
Interim History Interim History Interim History Ms. Donato continues to be comatose. She is intubated and artificially ventilated. She is on pressors for BP support. As per her nurse there has been no improvement in her neurologic state. No seizures have been noted. Review of Systems Neuro Review of Systems Unable to obtain. Objective Physical Exam Last Vital Signs Date Time Temp Pulse Resp B/P Pulse Ox O2 Delivery O2 Flow Rate FiO2 06/04/16 19:09 111 16 40 06/04/16 18:00 105/76 100 Mechanical Ventilator 06/04/16 16:00 99.1 06/02/16 12:00 3.0 Laboratory Tests Test 06/04/16 04:00 06/04/16 04:50 06/04/16 06:25 Arterial Blood pH 7.391 (7.350-7.450) Arterial Blood Partial Pressure CO2 49.4 mmHg (35.0-45.0) H Arterial Blood Partial Pressure O2 306.4 mmHg (75.0-100.0) H Arterial Blood HCO3 29.3 mmol/L (22.0-26.0) H Arterial Blood Oxygen Saturation 99.2 % (92.0-98.0) H Arterial Blood Base Excess 3.5 Claudy Test Positive Sodium Level 144 mEQ/L (135-145) Potassium Level 3.2 mEQ/L (3.4-4.9) L Chloride Level 105 mEQ/L (98-107) Carbon Dioxide Level 26 mEQ/L (20-30) Anion Gap 13 (5-15) Blood Urea Nitrogen 18 mg/dL (7-23) Creatinine 0.9 mg/dL (0.5-0.9) Estimat Glomerular Filtration Rate mL/min (>60) Glucose Level 119 mg/dL (74-106) H Uric Acid 7.0 mg/dL (3.0-7.5) Calcium Level 8.0 mg/dL (8.6-10.2) L Phosphorus Level 1.4 mg/dL (2.5-4.8) L Magnesium Level 1.8 mg/dL (1.7-2.5) Total Bilirubin 0.3 mg/dL (0.0-1.2) Gamma Glutamyl Transpeptidase 107 U/L (5-36) H Aspartate Amino Transf (AST/SGOT) 34 U/L (5-40) Alanine Aminotransferase (ALT/SGPT) 24 U/L (3-33) Alkaline Phosphatase 153 U/L (35-104) H C-Reactive Protein, Quantitative 11.4 mg/dL (< 0.5) H Pro-B-Type Natriuretic Peptide 88633 pg/mL (0-125) H Total Protein 5.5 g/dL (6.6-8.7) L Albumin 1.1 g/dL (3.5-5.2) L Globulin 4.4 g/dL Albumin/Globulin Ratio 0.2 (1.0-2.7) L Thyroid Stimulating Hormone (TSH) 4.960 uIU/mL (0.300-4.500) White Blood Count 26.9 K/UL (4.8-10.8) *H Red Blood Count 3.97 M/UL (4.20-5.40) L Hemoglobin 11.0 G/DL (12.0-16.0) L Hematocrit 34.9 % (37.0-47.0) L Mean Corpuscular Volume 88 FL (80-99) Mean Corpuscular Hemoglobin 27.8 PG (27.0-31.0) Mean Corpuscular Hemoglobin Concent 31.5 G/DL (32.0-36.0) L Red Cell Distribution Width 13.6 % (11.6-14.8) Platelet Count 251 K/UL (150-450) Mean Platelet Volume 8.9 FL (6.5-10.1) Neutrophils (%) (Auto) % (45.0-75.0) Lymphocytes (%) (Auto) % (20.0-45.0) Monocytes (%) (Auto) % (1.0-10.0) Eosinophils (%) (Auto) % (0.0-3.0) Basophils (%) (Auto) % (0.0-2.0) Differential Total Cells Counted 100 Neutrophils % (Manual) 95 % (45-75) H Lymphocytes % (Manual) 1 % (20-45) L Monocytes % (Manual) 4 % (1-10) Eosinophils % (Manual) 0 % (0-3) Basophils % (Manual) 0 % (0-2) Band Neutrophils 0 % (0-8) Platelet Estimate Adequate Platelet Morphology Normal Hypochromasia 1+ Neurologic Exam Objective PHYSICAL EXAMINATION: GENERAL: She is a well-developed, black lady, lying in an ICU bed, connected to a ventilator via an orotracheal tube. HEAD: Normocephalic, atraumatic, with old right temporal craniotomy scar.. NECK: No neck rigidity was observed. EENT EXAMINATION: Benign except for bilateral chemosis. NEUROLOGICAL EXAMINATION: MENTAL STATUS EXAMINATION: She was comatose and did not respond even to deep painful stimuli. SPEECH: Could not be tested. LANGUAGE: Could not be tested. CRANIAL NERVE EXAMINATION: II: She did not blink to threat. III, IV & : The pupils were 5 mm in diameter and did not react to light. She had no eye movements on oculocephalic maneuvers. VIII: She did not respond to sounds and had no nystagmus. IX & X: The gag reflex was absent. XI: The sternocleidomastoids and trapezii did not function. XII: Could not be tested. MOTOR SYSTEM: The tone was increased in all four extremities with a significant degree of spasticity. Examination of muscle mass revealed generalized muscle wasting with bilateral upper and lower extremity contractures. Examination of power was impossible to perform because even on applying deep painful stimuli, no movements were seen. SENSORY EXAMINATION: She did not respond even to deep painful stimuli. REFLEXES: 3+ on the right and 3++ on the left at the biceps, triceps, and brachioradialis. 1+ at both knees. 0 at both ankles. The plantar responses were mute bilaterally. COORDINATION, STANCE & GAIT: Could not be tested. Impression/Recommendations Diagnostic Impression 1. Ms. Liya Donato is a 70-year-old, right-handed, black lady, who had a right middle cerebral aneurysmal rupture approximately 20 years ago with unknown consequences. This however was followed by a seizure disorder for which the patient is on Zonegran. About 7 years ago, she had a seizure associated with neck injury and she became quadriparetic. On 05/28/2016, she was hospitalized at [facility] for constipation and anasarca. On , there was a sudden change in her mental state. A CT scan of the brain was performed, and was benign for acute pathology. On 06/02/2016, she was taken to the MRI scanner where she had a respiratory arrest. A Code Blue was called and she had to be intubated and ventilated. She has been comatose since then. 2. At this time she continues to be comatose, artificially ventilated with no spontaneous respirations and on norepinephrine for pressure support. 3. On neurological examination at this time, she does not respond even to deep painful stimuli. She demonstrates no brainstem function. The deep tendon reflexes are brisk in the upper extremities and diminished at the knees with mute plantar responses. 4. The EEG done on 06/02/16 revealed a severe encephalopathy with no reactivity, but no inter-ictal or ictal phenomena. 5. The patient's history and neurological examination are most compatible with a significant anoxic ischemic cerebral insult, with her at this point in time being in a comatose state, with no improvement in her neurologic condition. Recommendations 1. Continue present management. 2. Continue to support the patient's cardiorespiratory function in an ICU setting. 3. Continue Keppra 500 mg intravenously every 12 hours. 4. Observe closely. Renny Bazzi M.D., M.S.P.Gavin. RENNY BAZZI Jun 04, 2016 19:20
--- NOTE | 2016-06-04 21:38 | Cardiology Progress Note ---
Assessment/Plan Assessment/Plan s/p pulmonary arrest atrial fibrillation now sinus anoxic encephalopathy severe pulmonary HTN right heart failure leukocytosis Nephrotic Syndrome seizure disorder constipation hyponatremia Mild hypothyroidism with elevated TSH functional quadriplegi off pressors now on the vent neuro noted seems to be in sinus now continue supportive care for the at least 48 hour to see if any change neuro jaimes to then determine prognosis bp support with pressors as needed vent support d/w rn d/w dr carter trop normal ekg noted has some chronic t inversion remains critical and at risk of dying tele reviewed labs reviewed repeat echo shows normal ef still with pulm htn has sig edema but cannot diurese yest would be concerned about anticoaguation at this time with possible anoxic encephloapthy d/w rn echo report ntoed 45 min Subjective ROS Limited/Unobtainable: Yes Subjective s/p cardiopulm arrest while in mri s/p resuscitation now on the vent not verbal not communicative Objective Last 24 Hour Vital Signs Date Time Temp Pulse Resp B/P Pulse Ox O2 Delivery O2 Flow Rate FiO2 06/04/16 21:01 109 16 40 06/04/16 21:00 107 27 97/42 100 Mechanical Ventilator 40 06/04/16 20:00 98.7 114 25 98/70 100 Mechanical Ventilator 40 06/04/16 20:00 40 06/04/16 20:00 110 06/04/16 19:09 111 16 40 06/04/16 19:00 111 26 117/76 100 Mechanical Ventilator 40 06/04/16 18:00 113 25 105/76 100 Mechanical Ventilator 40 06/04/16 17:01 113 16 40 06/04/16 17:00 121 27 110/73 100 Mechanical Ventilator 40 06/04/16 16:49 105/88 06/04/16 16:00 116 06/04/16 16:00 40 06/04/16 16:00 99.1 117 29 105/88 100 Mechanical Ventilator 40 06/04/16 15:00 117 16 40 06/04/16 15:00 116 29 115/59 100 Mechanical Ventilator 40 06/04/16 14:00 114 16 114/54 100 Mechanical Ventilator 40 06/04/16 13:00 114 16 92/69 100 Mechanical Ventilator 40 06/04/16 12:30 113 16 40 06/04/16 12:00 40 06/04/16 12:00 97.8 115 23 103/75 100 Mechanical Ventilator 40 06/04/16 12:00 115 06/04/16 11:00 125 16 135/64 100 Mechanical Ventilator 40 06/04/16 10:40 125 17 40 06/04/16 10:00 122 19 142/65 100 Mechanical Ventilator 40 06/04/16 09:00 118 16 130/103 100 Mechanical Ventilator 40 06/04/16 08:55 112 16 40 06/04/16 08:00 50 06/04/16 08:00 117 06/04/16 08:00 98.0 113 16 130/93 100 Mechanical Ventilator 50 06/04/16 07:10 118 16 50 06/04/16 07:00 115 15 133/73 100 Mechanical Ventilator 60 06/04/16 06:00 106 15 146/90 100 Mechanical Ventilator 60 06/04/16 05:11 118 16 50 06/04/16 05:00 107 15 127/86 100 Mechanical Ventilator 60 06/04/16 04:00 112 06/04/16 04:00 60 06/04/16 04:00 112 15 125/75 100 Mechanical Ventilator 60 06/04/16 03:30 125 16 50 06/04/16 03:00 111 15 148/74 100 Mechanical Ventilator 60 06/04/16 02:00 107 15 115/63 100 Mechanical Ventilator 60 06/04/16 01:38 115 15 102/50 100 Mechanical Ventilator 60 06/04/16 01:13 110 16 50 06/04/16 01:00 125 15 102/50 100 Mechanical Ventilator 60 06/04/16 00:00 60 06/04/16 00:00 99.5 125 15 95/67 100 Mechanical Ventilator 60 06/04/16 00:00 125 06/03/16 23:00 113 15 98/56 100 Mechanical Ventilator 60 06/03/16 22:55 117 16 50 06/03/16 22:00 106 16 98/56 100 Mechanical Ventilator 60 General Appearance: on vent Neck: supple Cardiovascular: normal rate, regular rhythm Respiratory/Chest: lungs clear, normal breath sounds Abdomen: normal bowel sounds, non tender, soft Extremities: moderate edema Intake and Output 06/03/16 06/04/16 19:00 07:00 Intake Total 1136.25 ml 765 ml Output Total 70 ml 90 ml Balance 1066.25 ml 675 ml IV Total 1136.25 ml 765 ml Output Urine Total 70 ml 90 ml # Bowel Movements 1 1 Laboratory Tests Test 06/04/16 04:00 06/04/16 04:50 06/04/16 06:25 Arterial Blood pH 7.391 (7.350-7.450) Arterial Blood Partial Pressure CO2 49.4 mmHg (35.0-45.0) H Arterial Blood Partial Pressure O2 306.4 mmHg (75.0-100.0) H Arterial Blood HCO3 29.3 mmol/L (22.0-26.0) H Arterial Blood Oxygen Saturation 99.2 % (92.0-98.0) H Arterial Blood Base Excess 3.5 Claudy Test Positive Sodium Level 144 mEQ/L (135-145) Potassium Level 3.2 mEQ/L (3.4-4.9) L Chloride Level 105 mEQ/L (98-107) Carbon Dioxide Level 26 mEQ/L (20-30) Anion Gap 13 (5-15) Blood Urea Nitrogen 18 mg/dL (7-23) Creatinine 0.9 mg/dL (0.5-0.9) Estimat Glomerular Filtration Rate mL/min (>60) Glucose Level 119 mg/dL (74-106) H Uric Acid 7.0 mg/dL (3.0-7.5) Calcium Level 8.0 mg/dL (8.6-10.2) L Phosphorus Level 1.4 mg/dL (2.5-4.8) L Magnesium Level 1.8 mg/dL (1.7-2.5) Total Bilirubin 0.3 mg/dL (0.0-1.2) Gamma Glutamyl Transpeptidase 107 U/L (5-36) H Aspartate Amino Transf (AST/SGOT) 34 U/L (5-40) Alanine Aminotransferase (ALT/SGPT) 24 U/L (3-33) Alkaline Phosphatase 153 U/L (35-104) H C-Reactive Protein, Quantitative 11.4 mg/dL (< 0.5) H Pro-B-Type Natriuretic Peptide 11191 pg/mL (0-125) H Total Protein 5.5 g/dL (6.6-8.7) L Albumin 1.1 g/dL (3.5-5.2) L Globulin 4.4 g/dL Albumin/Globulin Ratio 0.2 (1.0-2.7) L Thyroid Stimulating Hormone (TSH) 4.960 uIU/mL (0.300-4.500) White Blood Count 26.9 K/UL (4.8-10.8) *H Red Blood Count 3.97 M/UL (4.20-5.40) L Hemoglobin 11.0 G/DL (12.0-16.0) L Hematocrit 34.9 % (37.0-47.0) L Mean Corpuscular Volume 88 FL (80-99) Mean Corpuscular Hemoglobin 27.8 PG (27.0-31.0) Mean Corpuscular Hemoglobin Concent 31.5 G/DL (32.0-36.0) L Red Cell Distribution Width 13.6 % (11.6-14.8) Platelet Count 251 K/UL (150-450) Mean Platelet Volume 8.9 FL (6.5-10.1) Neutrophils (%) (Auto) % (45.0-75.0) Lymphocytes (%) (Auto) % (20.0-45.0) Monocytes (%) (Auto) % (1.0-10.0) Eosinophils (%) (Auto) % (0.0-3.0) Basophils (%) (Auto) % (0.0-2.0) Differential Total Cells Counted 100 Neutrophils % (Manual) 95 % (45-75) H Lymphocytes % (Manual) 1 % (20-45) L Monocytes % (Manual) 4 % (1-10) Eosinophils % (Manual) 0 % (0-3) Basophils % (Manual) 0 % (0-2) Band Neutrophils 0 % (0-8) Platelet Estimate Adequate Platelet Morphology Normal Hypochromasia 1+ TOMEKA CHUN Jun 04, 2016 21:38
[2016-06-05] VITALS (24 sets, daily range): BP systolic 90–123; BP diastolic 30–77
[2016-06-05] MEDS: Metoprolol 5mg/5ml Inj IVP SCH (02:09)
[2016-06-05 05:26] LABS: MEAN CORPUSCULAR HEMOGLOBIN 27.3 PG (27.0-31.0); MEAN CORPUSCULAR HGB CONC 31.2 G/DL (32.0-36.0); MEAN CORPUSCULAR VOLUME 88 FL (80-99); MEAN PLATELET VOLUME 9.2 FL (6.5-10.1); PLATELET COUNT 221 K/UL (150-450); RED BLOOD COUNT 3.74 M/UL (4.20-5.40); RED CELL DISTRIBUTION WIDTH 13.5 % (11.6-14.8)
[2016-06-05 05:34] LABS: WHITE BLOOD COUNT 34.8 K/UL (4.8-10.8)
--- NOTE | 2016-06-05 05:49 | Wound Care Consultation ---
Wound Assessment Wound Assessment : Wound Number: #1 Wound Present on Admission: Yes New Wound: No Status Change of Wound: No Wound Location Body Site Modif: right Wound Location Body Site: buttocks Wound Type: pressure ulcer Benson Test: Does not Benson Pressure Ulcer Stage: deep tissue injury Wound Thickness: Full Thickness Wound Length: 3.0 Wound Width: 4.0 Wound Depth: utd Percent of Wound Purple/Maroon: 100 Wound Drainage Amount: None Wound Drainage Odor: None/Absent Tissue Surrounding Wound: Erythemic Wound General Appearance: Reddened Wound Comment #1 Right buttocks DTI. upon reassessment noted right buttock DTI remains intact , maroon color remains present, current treatment is effective at this time. Patient repositioned to offload affected area. Recommendation - Low air loss Overlay mattress (spr) -Local wound care as ordered. -Turn and reposition. -Optimize nutrition. -Keep clean and dry. -Offload affected site, heels and feet. -Assess and notify MD if any changes of condition are noted. HEMALATHA NAJERA Jun 05, 2016 05:49
[2016-06-05 06:02] LABS: ALANINE AMINOTRANSFERASE 21 U/L (3-33); ALBUMIN/GLOBULIN RATIO 0.3 (1.0-2.7); ANION GAP 12 (5-15); ASPARTATE AMINO TRANSFERASE 27 U/L (5-40); CARBON DIOXIDE 25 mEQ/L (20-30); CHLORIDE 108 mEQ/L (98-107); CREATININE 0.7 mg/dL (0.5-0.9); HEMOLYSIS 2; MAGNESIUM 1.6 mg/dL (1.7-2.5); PHOSPHORUS 2.9 mg/dL (2.5-4.8); SODIUM 145 mEQ/L (135-145); TOTAL PROTEIN 5.2 g/dL (6.6-8.7)
[2016-06-05 07:30] LABS: ANISOCYTOSIS 1+; BAND NEUTROPHILS % (MANUAL) 2 % (0-8); BASOPHILS % (MANUAL) 0 % (0-2); EOSINOPHILS % (MANUAL) 0 % (0-3); HYPOCHROMASIA 1+; LYMPHOCYTES % (MANUAL) 2 % (20-45); NEUTROPHILS % (MANUAL) 95 % (45-75); PLATELET ESTIMATE ADEQUATE; PLATELET MORPHOLOGY NORMAL; TOTAL CELLS COUNTED 100
[2016-06-05 07:46] LABS: ABG ALLEN TEST POSITIVE; ABG BASE EXCESS 0.3; ABG PCO2 38.8 mmHg (35.0-45.0)
[2016-06-05] MEDS: levETIRAcetam 500 MG in D5W 110 ML IV SCH ×2 (08:54→21:11)
[2016-06-05] MEDS: Miralax 17gm pkt ORAL SCH (08:55)
[2016-06-05] MEDS: Heparin 5000 units/ml inj SUBQ SCH ×2 (08:57→21:21)
[2016-06-05] MEDS: Fleet's Mineral Oil Enema RECTAL SCH (08:57)
--- NOTE | 2016-06-05 09:29 | General Progress Note ---
Assessment/Plan Status: unchanged, deteriorating Assessment/Plan Renal: Nephrotic Syndrome most likely- leading to Anasarca, Pleural effusion Other: Respiratory failure- anoxic ischemic cerebral insult , post code blue acute toxic encephalopathy- severe PVD mild pulmonary edema severe pulmonary HTN seizure disorder constipation hyponatremia , likelu due to Anasarca Mild hypothyroidism with elevated TSH functional quadriplegia Plan: 24 H urine for Protein- will be repeated K IV pulm support per orders- monitor lytes- poor prognosis favor comfort care and terminal extubation if Neuro agrees Subjective ROS Limited/Unobtainable: Yes Allergies: Coded Allergies: OPIOIDS - MORPHINE ANALOGUES (Verified Allergy, Unknown, 06/02/16) per daughter. All opiods, she doesn't want any given to patient Uncoded Allergies: NARCOTICS (Allergy, Mild, 10/02/14) Opiates --> Nausea, SOB Objective Last 24 Hour Vital Signs Date Time Temp Pulse Resp B/P Pulse Ox O2 Delivery O2 Flow Rate FiO2 06/05/16 09:00 109 20 94/51 100 Mechanical Ventilator 40 06/05/16 08:44 113 16 40 06/05/16 08:00 40 06/05/16 08:00 98.6 109 21 109/30 100 Mechanical Ventilator 40 06/05/16 08:00 109 06/05/16 07:28 104 16 40 06/05/16 07:00 104 22 94/50 100 Mechanical Ventilator 40 06/05/16 06:00 106 22 92/47 100 Mechanical Ventilator 40 06/05/16 05:11 118 18 40 06/05/16 05:00 109 25 123/32 100 Mechanical Ventilator 40 06/05/16 04:00 98.4 110 12 121/74 100 Mechanical Ventilator 40 06/05/16 04:00 108 06/05/16 04:00 40 06/05/16 03:09 128 18 40 06/05/16 03:00 107 19 99/64 100 Mechanical Ventilator 40 06/05/16 02:09 149 92/64 06/05/16 02:00 110 16 92/63 100 Mechanical Ventilator 40 06/05/16 01:30 153 16 40 06/05/16 01:00 110 25 90/46 100 Mechanical Ventilator 40 06/05/16 00:00 109 06/05/16 00:00 99.5 104 25 92/33 100 Mechanical Ventilator 40 06/05/16 00:00 40 06/04/16 23:30 108 21 40 06/04/16 23:00 105 25 92/63 100 Mechanical Ventilator 40 06/04/16 22:00 104 25 103/58 100 Mechanical Ventilator 40 06/04/16 21:01 109 16 40 06/04/16 21:00 107 27 97/42 100 Mechanical Ventilator 40 06/04/16 20:00 98.7 114 25 98/70 100 Mechanical Ventilator 40 06/04/16 20:00 40 06/04/16 20:00 110 06/04/16 19:09 111 16 40 06/04/16 19:00 111 26 117/76 100 Mechanical Ventilator 40 06/04/16 18:00 113 25 105/76 100 Mechanical Ventilator 40 06/04/16 17:01 113 16 40 06/04/16 17:00 121 27 110/73 100 Mechanical Ventilator 40 06/04/16 16:49 105/88 06/04/16 16:00 116 06/04/16 16:00 40 06/04/16 16:00 99.1 117 29 105/88 100 Mechanical Ventilator 40 06/04/16 15:00 117 16 40 06/04/16 15:00 116 29 115/59 100 Mechanical Ventilator 40 06/04/16 14:00 114 16 114/54 100 Mechanical Ventilator 40 06/04/16 13:00 114 16 92/69 100 Mechanical Ventilator 40 06/04/16 12:30 113 16 40 06/04/16 12:00 40 06/04/16 12:00 97.8 115 23 103/75 100 Mechanical Ventilator 40 06/04/16 12:00 115 06/04/16 11:00 125 16 135/64 100 Mechanical Ventilator 40 06/04/16 10:40 125 17 40 06/04/16 10:00 122 19 142/65 100 Mechanical Ventilator 40 Intake and Output 06/04/16 06/05/16 19:00 07:00 Intake Total 1019.7 ml 565 ml Output Total 145 ml 305 ml Balance 874.7 ml 260 ml IV Total 919.7 ml 565 ml Other 100 ml Output Urine Total 145 ml 305 ml # Bowel Movements 1 1 Laboratory Tests 06/05/16 05:00: White Blood Count 34.8*H, Red Blood Count 3.74L, Hemoglobin 10.2L, Hematocrit 32.7L, Mean Corpuscular Volume 88, Mean Corpuscular Hemoglobin 27.3, Mean Corpuscular Hemoglobin Concent 31.2L, Red Cell Distribution Width 13.5, Platelet Count 221, Mean Platelet Volume 9.2, Neutrophils (%) (Auto) , Lymphocytes (%) (Auto) , Monocytes (%) (Auto) , Eosinophils (%) (Auto) , Basophils (%) (Auto) , Differential Total Cells Counted 100, Neutrophils % ( Manual) 95H, Lymphocytes % (Manual) 2L, Monocytes % (Manual) 1, Eosinophils % ( Manual) 0, Basophils % (Manual) 0, Band Neutrophils 2, Platelet Estimate Adequate, Platelet Morphology Normal, Hypochromasia 1+, Anisocytosis 1+, Sodium Level 145, Potassium Level 3.0L, Chloride Level 108H, Carbon Dioxide Level 25, Anion Gap 12, Blood Urea Nitrogen 20, Creatinine 0.7, Estimat Glomerular Filtration Rate , Glucose Level 80, Calcium Level 7.0L, Phosphorus Level 2.9, Magnesium Level 1.6L, Total Bilirubin 0.3, Aspartate Amino Transf (AST/SGOT) 27 , Alanine Aminotransferase (ALT/SGPT) 21, Alkaline Phosphatase 130H, Total Protein 5.2L, Albumin 1.4L, Globulin 3.8, Albumin/Globulin Ratio 0.3L 06/05/16 07:40: Arterial Blood pH 7.421, Arterial Blood Partial Pressure CO2 38.8, Arterial Blood Partial Pressure O2 78.2, Arterial Blood HCO3 24.7, Arterial Blood Oxygen Saturation 94.5, Arterial Blood Base Excess 0.3, Claudy Test Positive Height (Feet): 5 Height (Inches): 4.00 Weight (Pounds): 170 General Appearance: lethargic, other - comatose Cardiovascular: tachycardia Respiratory/Chest: decreased breath sounds Abdomen: distended Objective other PE not changed MARISOL ELAINE Jun 05, 2016 09:29
[2016-06-05] MEDS ORDERED: Amikacin Rx to dose MISC PRN (10:45)
--- NOTE | 2016-06-05 10:48 | Pulmonolgy Critical Care Note ---
Critical Care - Asmt/Plan Problems: (1) Acute respiratory failure (2) Chronic incomplete quadriplegia (3) Atrial fibrillation (4) Protein-calorie malnutrition, severe (5) Cardiac arrest (6) Anasarca (7) Acute encephalopathy Respiratory: monitor respiratory rate, adjust FIO2 Cardiac: continue to monitor HR/BP Renal: F/U I&O, keep IV fluid Infectious Disease: check cultures Gastrointestinal: continue feedings/current rate, start feedings Endocrine: check TSH, continue sliding scale insulin Hematologic: monitor H/H, transfuse if hgb<8.5 Neurologic: PRN Ativan, PRN Morphine, keep patient comfortable 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[employer], 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, 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, consultants Critical Care - Objective Last 24 Hour Vital Signs Date Time Temp Pulse Resp B/P Pulse Ox O2 Delivery O2 Flow Rate FiO2 06/05/16 10:00 108 20 97/65 100 Mechanical Ventilator 40 06/05/16 09:00 109 20 94/51 100 Mechanical Ventilator 40 06/05/16 08:44 113 16 40 06/05/16 08:00 40 06/05/16 08:00 98.6 109 21 109/30 100 Mechanical Ventilator 40 06/05/16 08:00 109 06/05/16 07:28 104 16 40 06/05/16 07:00 104 22 94/50 100 Mechanical Ventilator 40 06/05/16 06:00 106 22 92/47 100 Mechanical Ventilator 40 06/05/16 05:11 118 18 40 06/05/16 05:00 109 25 123/32 100 Mechanical Ventilator 40 06/05/16 04:00 98.4 110 12 121/74 100 Mechanical Ventilator 40 06/05/16 04:00 108 06/05/16 04:00 40 06/05/16 03:09 128 18 40 06/05/16 03:00 107 19 99/64 100 Mechanical Ventilator 40 06/05/16 02:09 149 92/64 06/05/16 02:00 110 16 92/63 100 Mechanical Ventilator 40 06/05/16 01:30 153 16 40 06/05/16 01:00 110 25 90/46 100 Mechanical Ventilator 40 06/05/16 00:00 109 06/05/16 00:00 99.5 104 25 92/33 100 Mechanical Ventilator 40 06/05/16 00:00 40 06/04/16 23:30 108 21 40 2/22/17 23:00 105 25 92/63 100 Mechanical Ventilator 40 06/04/16 22:00 104 25 103/58 100 Mechanical Ventilator 40 06/04/16 21:01 109 16 40 06/04/16 21:00 107 27 97/42 100 Mechanical Ventilator 40 06/04/16 20:00 98.7 114 25 98/70 100 Mechanical Ventilator 40 06/04/16 20:00 40 06/04/16 20:00 110 06/04/16 19:09 111 16 40 06/04/16 19:00 111 26 117/76 100 Mechanical Ventilator 40 06/04/16 18:00 113 25 105/76 100 Mechanical Ventilator 40 06/04/16 17:01 113 16 40 06/04/16 17:00 121 27 110/73 100 Mechanical Ventilator 40 06/04/16 16:49 105/88 06/04/16 16:00 116 06/04/16 16:00 40 06/04/16 16:00 99.1 117 29 105/88 100 Mechanical Ventilator 40 06/04/16 15:00 117 16 40 06/04/16 15:00 116 29 115/59 100 Mechanical Ventilator 40 06/04/16 14:00 114 16 114/54 100 Mechanical Ventilator 40 06/04/16 13:00 114 16 92/69 100 Mechanical Ventilator 40 06/04/16 12:30 113 16 40 06/04/16 12:00 40 06/04/16 12:00 97.8 115 23 103/75 100 Mechanical Ventilator 40 06/04/16 12:00 115 06/04/16 11:00 125 16 135/64 100 Mechanical Ventilator 40 Status: sedated, somnolent Condition: critical HEENT: atraumatic, normocephalic Lungs: clear Heart: HR/BP stable Abdomen: soft, non-tender, feeding tube Micro: Microbiology Date/Time Source Procedure Growth Status 06/03/16 15:00 Blood Blood Culture - Preliminary NO GROWTH AFTER 24 HOURS Resulted 06/03/16 14:55 Blood Blood Culture - Preliminary NO GROWTH AFTER 24 HOURS Resulted Critical Care - Subjective ROS Limited/Unobtainable: Yes ICU Day: 4 Intubation Day: 4 Condition: critical EKG Rhythm: Sinus Rhythm FI02: 40 Vent Support Breath Rate: 16 Vent Support Mode: AC Vent Tidal Volume: 600 Sputum Amount: Scant PEEP: 5.0 PIP: 46 Fluids: Ns 50 cc.hour Tube Feeding Amount: 0 I&O: Intake and Output 06/04/16 06/05/16 19:00 07:00 Intake Total 1019.7 ml 615 ml Output Total 145 ml 305 ml Balance 874.7 ml 310 ml IV Total 919.7 ml 615 ml Other 100 ml Output Urine Total 145 ml 305 ml # Bowel Movements 1 1 CXR: RLL infiltrate ET-Tube: 7.5 ET Position: 23 Labs: Laboratory Tests Test 06/05/16 05:00 06/05/16 07:40 White Blood Count 34.8 K/UL (4.8-10.8) *H Red Blood Count 3.74 M/UL (4.20-5.40) L Hemoglobin 10.2 G/DL (12.0-16.0) L Hematocrit 32.7 % (37.0-47.0) L Mean Corpuscular Volume 88 FL (80-99) Mean Corpuscular Hemoglobin 27.3 PG (27.0-31.0) Mean Corpuscular Hemoglobin Concent 31.2 G/DL (32.0-36.0) L Red Cell Distribution Width 13.5 % (11.6-14.8) Platelet Count 221 K/UL (150-450) Mean Platelet Volume 9.2 FL (6.5-10.1) Neutrophils (%) (Auto) % (45.0-75.0) Lymphocytes (%) (Auto) % (20.0-45.0) Monocytes (%) (Auto) % (1.0-10.0) Eosinophils (%) (Auto) % (0.0-3.0) Basophils (%) (Auto) % (0.0-2.0) Differential Total Cells Counted 100 Neutrophils % (Manual) 95 % (45-75) H Lymphocytes % (Manual) 2 % (20-45) L Monocytes % (Manual) 1 % (1-10) Eosinophils % (Manual) 0 % (0-3) Basophils % (Manual) 0 % (0-2) Band Neutrophils 2 % (0-8) Platelet Estimate Adequate Platelet Morphology Normal Hypochromasia 1+ Anisocytosis 1+ Sodium Level 145 mEQ/L (135-145) Potassium Level 3.0 mEQ/L (3.4-4.9) L Chloride Level 108 mEQ/L (98-107) H Carbon Dioxide Level 25 mEQ/L (20-30) Anion Gap 12 (5-15) Blood Urea Nitrogen 20 mg/dL (7-23) Creatinine 0.7 mg/dL (0.5-0.9) Estimat Glomerular Filtration Rate mL/min (>60) Glucose Level 80 mg/dL (74-106) Calcium Level 7.0 mg/dL (8.6-10.2) L Phosphorus Level 2.9 mg/dL (2.5-4.8) Magnesium Level 1.6 mg/dL (1.7-2.5) L Total Bilirubin 0.3 mg/dL (0.0-1.2) Aspartate Amino Transf (AST/SGOT) 27 U/L (5-40) Alanine Aminotransferase (ALT/SGPT) 21 U/L (3-33) Alkaline Phosphatase 130 U/L (35-104) H Total Protein 5.2 g/dL (6.6-8.7) L Albumin 1.4 g/dL (3.5-5.2) L Globulin 3.8 g/dL Albumin/Globulin Ratio 0.3 (1.0-2.7) L Arterial Blood pH 7.421 (7.350-7.450) Arterial Blood Partial Pressure CO2 38.8 mmHg (35.0-45.0) Arterial Blood Partial Pressure O2 78.2 mmHg (75.0-100.0) Arterial Blood HCO3 24.7 mmol/L (22.0-26.0) Arterial Blood Oxygen Saturation 94.5 % (92.0-98.0) Arterial Blood Base Excess 0.3 Claudy Test Positive DARION MISHRA Jun 05, 2016 10:48
--- NOTE | 2016-06-05 11:21 | Diagnostic Imaging Report ---
Indication: DYSPNEA Technique: One view of the chest Comparison: 06/04/2016 Findings: Stable satisfactory positions of endotracheal and nasogastric tube, right arm PICC. Bilateral small pleural effusions persists. There is some basilar interstitial disease, particularly on the right, which is probably not significantly changed allowing for exposure differences. The heart size is normal. Impression: Unchanged, over one day, findings as above.
[2016-06-05] MEDS: Piperacillin/Tazobactam 3.375 GM in NS 110 ML IVPB SCH ×2 (12:48→21:48)
--- NOTE | 2016-06-05 14:08 | Consultation ---
Consult Note Consult Note ID CONSULT: Dict# [id number] Assessment/Plan ASSESSMENT: 70 y/o female with: // Possible aspiration PNA - SCx pending - CXR 06/05: Bilateral small pleural effusions persists. 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 // Probable sepsis // Leukocytosis - worsening, afebrile. Cultures NGTD - CT A/P 05/27: no abscess // Acute VDRF - intubated 06/02 // Severe encephalopathy / comatose, probable MADAN - no improvement // SP code blue 06/02 ?etiology // Elevated ALP - US: Negative for gallstones or dilated ducts // Hypoalbuminemia 05/15 nephrotic syndrome // Elevated CRP // PAD - arterial doppler: waveform analysis is monophasic, consistent with severe ischemia at rest. // Severe pulmonary HTN // Constipation // Chronic paraplegia 05/15 SCI // SP RUE PICC 06/01 // No ABX allergies // Full Code PLAN: - continue empiric IV vancomycin, zosyn, amikacin d# 1, add flagyl d# 1 - check UA, UCx, C.difficile - f/u cultures, adjust ABX accordingly - monitor CBC, temperatures - monitor BMP - monitor CXR - vent support, wean as tolerated - poor overall prognosis d/w family at bedside Thanks! Will follow ABHISHEK BURTON Jun 05, 2016 14:08
[2016-06-05] MEDS: Amikacin 400 MG in NS 110 ML IV SCH (14:12)
--- NOTE | 2016-06-05 15:18 | Cardiology Report ---
APPROVED REPORT EKG Measurement Heart [id number] Sinus tachycardia T wave abnormality, consider anterior ischemia Abnormal ECG
--- NOTE | 2016-06-05 15:30 | Cardiology Report ---
APPROVED REPORT EXAM: Two-dimensional and M-mode echocardiogram with Doppler and color Doppler. INDICATION Arrhythmia M-Mode DIMENSIONS IVSd0.7 (0.7-1.1cm)Left Atrium (MM)2.4 (1.6-4.0cm) LVDd3.7 (3.5-5.6cm)Aortic Root2.7 (2.0-3.7cm) PWd0.8 (0.7-1.1cm)Aortic Cusp Exc.1.8 (1.5-2.0cm) LVDs1.5 (2.5-4.0cm) PWs1.1 cm Normal left ventricular chamber size, systolic function and wall motion. Left ventricular ejection fraction estimated to be 70-75%. Mild left ventricular hypertrophy. No evidence of pericardial fat or effusion. Moderate right atrial enlargement by 2D. Right cardiac chamber sizes are within normal limits. Focal aortic valve sclerosis with adequate cusp excursion Thickened mitral valve leaflets with normal excursion. Mild mitral annulus and aortic root calcification. Pulmonic valve is well visualized. Normal tricuspid valve structure. IVC is normal in size with physiologic collapse. Aneurysmal intraatrial septum. A color flow and spectral Doppler study was performed and revealed: Trace aortic regurgitation. Trace mitral regurgitation. Left ventricular diastolic dysfunction grade 1. Moderate tricuspid regurgitation. Tricuspid systolic velocities suggests peak right ventricular systolic pressure of 55-60 mmHg Consistent with severe pulmonary hypertension.
[2016-06-05 15:39] LABS: KETONES,URINE 1+ (NEGATIVE); LEUKOCYTE ESTERASE ,URINE 3+ (NEGATIVE); NITRITE,URINE POSITIVE (NEGATIVE); PH,URINE 9 (4.5-8.0); PROTEIN,URINE 3+ (NEGATIVE); UROBILINOGEN,URINE NORMAL MG/DL (0.0-1.0)
[2016-06-05 15:53] LABS: APPEARANCE,URINE SLIGHTLY CLOUDY
[2016-06-05 16:01] LABS: BACTERIA,URINE MANY /HPF; RBC,URINE 15-20 /HPF (0 - 2); SQUAMOUS EPITHELIAL CELL,UR FEW /LPF (NONE/OCC)
[2016-06-05 16:02] LABS: AMORPHOUS SEDIMENT,UR FEW /LPF
[2016-06-05] MEDS: Nystatin Powder 100,000 units/gm 15gm TOPIC SCH ×2 (16:22→18:26)
[2016-06-05] MEDS: metroNIDAZOLE 500mg tab NG SCH ×2 (16:22→21:51)
--- NOTE | 2016-06-05 16:35 | Internal Med Progress Note ---
Subjective Date of Service: Jun 05, 2016 Physician Name Zenia Lafleur Attending Physician Jareth Verma MD Current Medications Medications (Trade) Dose Ordered Sig/Miguel Route PRN Reason Start Time Stop Time Status Last Admin Dose Admin Acetaminophen (Tylenol) 650 mg Q4H PRN ORAL fever 06/02/16 20:15 07/02/16 20:14 Albuterol Sulfate (Proventil MDI) 2 puff Q4H PRN INH Shortness of Breath 06/02/16 21:00 07/02/16 20:59 Amikacin Protocol 1 ea 1 ea DAILY PRN MISC Per rx protocol 06/05/16 10:45 07/05/16 10:44 Amikacin Sulfate/ Sodium Chloride (Amikin/Sodium Chloride) 111.6 ml @ 223.2 mls/ hr Q24H IV 06/05/16 14:00 06/12/16 13:59 06/05/16 14:12 Artificial Tears (Akwa-Tears) 2 drop Q2H PRN BOTH EYES Dry Eyes 06/02/16 18:15 07/02/16 18:14 06/04/16 20:19 Clonidine HCl (Catapres) 0.1 mg Q4H PRN ORAL For High Blood Pressure 06/02/16 18:30 07/02/16 18:29 Dextrose (Dextrose 50%) STAT PRN IV Hypoglycemia 06/03/16 00:15 07/03/16 00:14 Heparin Sodium (Porcine) (Heparin 5000 units/ml) 5,000 units EVERY 12 HOURS SUBQ 06/02/16 21:00 07/02/16 20:59 06/05/16 08:57 Levetiracetam/ Dextrose (Keppra/D5W) 115 ml @ 460 mls/hr Q12HR IV 06/03/16 09:00 07/03/16 08:59 06/05/16 08:54 Levothyroxine Sodium (Synthroid) 50 mcg DAILY@0630 ORAL 06/03/16 06:30 07/03/16 06:29 06/05/16 06:11 Lorazepam (Ativan 2mg/ml 1ml) 2 mg Q4H PRN IV For Anxiety 06/02/16 21:30 06/09/16 21:29 Metoprolol Tartrate (Lopressor) 2.5 mg STAT IVP 06/05/16 02:15 07/05/16 02:14 06/05/16 02:09 Metronidazole (Flagyl) 500 mg Q8HR NG 06/05/16 16:00 06/12/16 15:59 06/05/16 16:22 Mineral Oil (Fleet's Mineral Oil Enema) 133 ml EVERY OTHER DAY RECTAL 06/03/16 09:00 07/03/16 08:59 06/03/16 10:29 Norepinephrine Bitartrate 4 mg/ Dextrose 250 ml @ 0 mls/hr Q24H IV 06/02/16 17:15 07/02/16 17:14 06/03/16 16:08 Nystatin (Nystop Powder) 1 applic THREE TIMES A DAY TOPIC 06/05/16 16:00 07/05/16 15:59 06/05/16 16:22 Ondansetron HCl (Zofran) 4 mg Q6H PRN IVP Nausea & Vomiting 06/02/16 18:15 07/02/16 18:14 Pantoprazole (Protonix) 40 mg DAILY ORAL 06/03/16 09:00 07/03/16 08:59 06/05/16 08:55 Piperacillin Sod/ Tazobactam Sod/ Sodium Chloride (Zosyn/Sodium Chloride) 110 ml @ 27.5 mls/hr Q8HR IVPB 06/05/16 13:00 06/12/16 12:59 06/05/16 12:48 Polyethylene Glycol 17 gm 17 gm DAILY ORAL 06/03/16 09:00 07/03/16 08:59 06/05/16 08:55 Sodium Chloride (Sodium Chloride 1000ml bag) 1,000 ml @ 50 mls/hr Q20H IV 06/03/16 11:00 07/03/16 10:59 06/05/16 03:00 Vancomycin HCl 1.25 gm/Dextrose 275 ml @ 183.333 mls/hr ONCE ONCE IVPB 06/05/16 18:00 06/05/16 19:29 Vancomycin HCl 1 ea 1 ea DAILY PRN MISC Per rx protocol 06/05/16 10:45 07/05/16 10:44 Vancomycin HCl 1 gm/Dextrose 275 ml @ 183.708 mls/hr Q24H IVPB 06/06/16 18:00 06/11/16 17:59 Allergies: Coded Allergies: OPIOIDS - MORPHINE ANALOGUES (Verified Allergy, Unknown, 06/02/16) per daughter. All opiods, she doesn't want any given to patient Uncoded Allergies: NARCOTICS (Allergy, Mild, 10/02/14) Opiates --> Nausea, SOB ROS Limited/Unobtainable: Yes Subjective 70 YO F admitted for constipation, anasarca and altered mental status. Cover for [facility] Med-Dr Verma. Intubated and sedated. ICU. Continues on pressors. Objective Last Vital Signs Date Time Temp Pulse Resp B/P Pulse Ox O2 Delivery O2 Flow Rate FiO2 06/05/16 16:10 116 16 40 06/05/16 15:00 107/53 100 Mechanical Ventilator 06/05/16 12:00 98.9 06/02/16 12:00 3.0 Laboratory Tests Test 06/05/16 05:00 06/05/16 07:40 06/05/16 15:00 White Blood Count 34.8 K/UL (4.8-10.8) *H Red Blood Count 3.74 M/UL (4.20-5.40) L Hemoglobin 10.2 G/DL (12.0-16.0) L Hematocrit 32.7 % (37.0-47.0) L Mean Corpuscular Volume 88 FL (80-99) Mean Corpuscular Hemoglobin 27.3 PG (27.0-31.0) Mean Corpuscular Hemoglobin Concent 31.2 G/DL (32.0-36.0) L Red Cell Distribution Width 13.5 % (11.6-14.8) Platelet Count 221 K/UL (150-450) Mean Platelet Volume 9.2 FL (6.5-10.1) Neutrophils (%) (Auto) % (45.0-75.0) Lymphocytes (%) (Auto) % (20.0-45.0) Monocytes (%) (Auto) % (1.0-10.0) Eosinophils (%) (Auto) % (0.0-3.0) Basophils (%) (Auto) % (0.0-2.0) Differential Total Cells Counted 100 Neutrophils % (Manual) 95 % (45-75) H Lymphocytes % (Manual) 2 % (20-45) L Monocytes % (Manual) 1 % (1-10) Eosinophils % (Manual) 0 % (0-3) Basophils % (Manual) 0 % (0-2) Band Neutrophils 2 % (0-8) Platelet Estimate Adequate Platelet Morphology Normal Hypochromasia 1+ Anisocytosis 1+ Sodium Level 145 mEQ/L (135-145) Potassium Level 3.0 mEQ/L (3.4-4.9) L Chloride Level 108 mEQ/L (98-107) H Carbon Dioxide Level 25 mEQ/L (20-30) Anion Gap 12 (5-15) Blood Urea Nitrogen 20 mg/dL (7-23) Creatinine 0.7 mg/dL (0.5-0.9) Estimat Glomerular Filtration Rate mL/min (>60) Glucose Level 80 mg/dL (74-106) Calcium Level 7.0 mg/dL (8.6-10.2) L Phosphorus Level 2.9 mg/dL (2.5-4.8) Magnesium Level 1.6 mg/dL (1.7-2.5) L Total Bilirubin 0.3 mg/dL (0.0-1.2) Aspartate Amino Transf (AST/SGOT) 27 U/L (5-40) Alanine Aminotransferase (ALT/SGPT) 21 U/L (3-33) Alkaline Phosphatase 130 U/L (35-104) H Total Protein 5.2 g/dL (6.6-8.7) L Albumin 1.4 g/dL (3.5-5.2) L Globulin 3.8 g/dL Albumin/Globulin Ratio 0.3 (1.0-2.7) L Arterial Blood pH 7.421 (7.350-7.450) Arterial Blood Partial Pressure CO2 38.8 mmHg (35.0-45.0) Arterial Blood Partial Pressure O2 78.2 mmHg (75.0-100.0) Arterial Blood HCO3 24.7 mmol/L (22.0-26.0) Arterial Blood Oxygen Saturation 94.5 % (92.0-98.0) Arterial Blood Base Excess 0.3 Claudy Test Positive Urine Color Yellow Urine Appearance Slightly cloudy Urine pH 9 (4.5-8.0) Urine Specific [place] 1.015 (1.005-1.035) Urine Protein 3+ (NEGATIVE) H Urine Glucose (UA) Negative (NEGATIVE) Urine Ketones 1+ (NEGATIVE) H Urine Occult Blood 4+ (NEGATIVE) H Urine Nitrite Positive (NEGATIVE) H Urine Bilirubin Negative (NEGATIVE) Urine Urobilinogen Normal MG/DL (0.0-1.0) Urine Leukocyte Esterase 3+ (NEGATIVE) H Urine RBC 15-20 /HPF (0 - 2) H Urine WBC 10-15 /HPF (0 - 2) H Urine Squamous Epithelial Cells Few /LPF (NONE/OCC) Urine Amorphous Sediment Few /LPF (NONE) H Urine Bacteria Many /HPF (NONE) H Microbiology Date/Time Source Procedure Growth Status 06/03/16 15:00 Blood Blood Culture - Preliminary NO GROWTH AFTER 24 HOURS Resulted 06/03/16 14:55 Blood Blood Culture - Preliminary NO GROWTH AFTER 24 HOURS Resulted Intake and Output 06/04/16 06/05/16 19:00 07:00 Intake Total 1019.7 ml 615 ml Output Total 145 ml 305 ml Balance 874.7 ml 310 ml IV Total 919.7 ml 615 ml Other 100 ml Output Urine Total 145 ml 305 ml # Bowel Movements 1 1 Objective General Appearance: WD/WN, lethargic, agitated EENT: PERRL/EOMI, normal ENT inspection, TMs normal Neck: non-tender, normal alignment, supple Cardiovascular: normal peripheral pulses, normal rate, regular rhythm, no gallop/murmur, no JVD Respiratory/Chest: Mech vent; respiratory distress, crackles/rales, rhonchi - bilaterally, expiratory wheezing Abdomen: normal bowel sounds, non tender, soft, no organomegaly, no mass Extremities: normal range of motion Edema: pitting Neurologic: manager scientific II-XII grossly normal Skin: normal pigmentation, warm/dry Assessment/Plan Problem List: (1) Altered mental status (2) Acute complete quadriplegia (3) Constipation Assessment & Plan: Resolving; ? due to hypothyroidism? (4) Anasarca Assessment & Plan: ?hypothyroidism? Continue lasix (5) Cerebral vascular disease (6) HTN (hypertension) (7) Atrial fibrillation Assessment & Plan: see cardiology note. Cont lovenox. May require coumadin (8) Hypothyroidism Assessment & Plan: Cont levoxyl. (9) Hyponatremia Assessment & Plan: See nephrology note. (10) Respiratory failure Assessment & Plan: Intubated 06/02/16; see pulmonary note. (11) Leukocytosis Assessment & Plan: Worsening. Continue antibiotics per ID. (12) Cardiac arrest (13) Cardiogenic shock Assessment & Plan: Cont pressors Status: not improved Assessment/Plan Prognosis is guarded. ZENIA LAFLEUR Jun 05, 2016 16:35
[2016-06-05] MEDS ORDERED: Vancomycin 1250mg/D5W 275ml IVPB ONE ×2 (18:00)
--- NOTE | 2016-06-05 20:48 | Consultation ---
DATE OF CONSULTATION: 06/05/2016 CONSULTING PHYSICIAN: José Miguel Hedrick M.D. REFERRING PHYSICIAN: oJse Tenorio M.D. REASON FOR CONSULTATION: Leukocytosis. HISTORY OF PRESENT ILLNESS: This is a 70-year-old chronically paraplegic female admitted on May 27 with constipation. Hospital course was complicated by acute encephalopathy for which she was undergoing an MRI examination when she suffered a Code Blue event on June 02. She is now intubated in the intensive care unit and nonresponsive. EEG is consistent with severe encephalopathy. She did require pressor support for short time and is now off of pressors. She has developed worsening leukocytosis and has been afebrile. Blood cultures are no growth to date. Sputum culture is pending. Chest x-ray shows bilateral small pleural effusions and right greater than left interstitial disease. A CT of abdomen and pelvis on admission was negative for an infectious process. She has been started on empiric IV vancomycin, Zosyn, and amikacin and ID now consulted to assist in management. PAST MEDICAL HISTORY: 1. Paraplegia secondary to spinal cord injury. 2. Brain aneurysm and stroke. FAMILY HISTORY: Noncontributory. SOCIAL HISTORY: No active tobacco, alcohol, or illicit drug abuse. She has family involved in her care. ALLERGIES: Opiates. MEDICATIONS: 1. Vancomycin. 2. Zosyn. 3. Amikacin. 4. Keppra. 5. Cymbalta. 6. Synthroid. 7. Subcutaneous heparin. REVIEW OF SYSTEMS: Unable to obtain. PHYSICAL EXAMINATION: VITAL SIGNS: Maximum temperature 99.5, blood pressure 115/55, heart rate 110, and respiratory rate 20. Saturating 97% on 40% FiO2. GENERAL: Nonresponsive on the ventilator. HEENT: Endotracheal and NG tubes in place. CARDIOVASCULAR: Regular rate and rhythm. No murmurs. PULMONARY: Coarse breath sounds bilaterally. ABDOMEN: Bowel sounds present. Soft, nondistended, and nontender. EXTREMITIES: Diffuse anasarca. LABORATORY DATA: White blood cell count 34.8, increased from 26.9 with left shift, hemoglobin 10.2, and platelets 221,000. Sodium 145, potassium 3, chloride 108, bicarb 25, BUN 20, and creatinine 0.7. AST 27, ALT 21, and alkaline phosphatase 130. Total bilirubin 0.3. Albumin 1.4. BNP 12,896. CRP 11.4. MICROBIOLOGY: 1. June 05, 2016 - blood culture pending. 2. June 05, 2016 - sputum culture pending. 3. June 03, 2016 - blood culture no growth to date. IMAGIN. June 05, 2016, chest x-ray - bilateral pleural effusions and right greater than left bibasilar interstitial disease. 2. June 03, 2016, EEG consistent with severe encephalopathy. 3. June 02, 2016, MRA of the brain incomplete. No stroke on the available images. 4. June 01, 2016, CT of the head, no acute findings. 5. May 29, 2016, echocardiogram - ejection fraction of 60% to 65% with trace aortic and mitral regurgitation and severe pulmonary hypertension. 6. May 27, 2016, CT of abdomen and pelvis - bilateral pleural effusions and pulmonary interstitial edema. Generalized soft tissue edema. No acute abdominal process. Incidental findings of small fat containing umbilical hernia, 12 mm left renal cyst, and old uterine calcified fibroid. Please refer to full report for full details. ASSESSMENT: 1. Possible aspiration pneumonia. Sputum cultures pending. Chest x-ray shows bibasilar right greater than left interstitial edema. 2. Probable sepsis. 3. Leukocytosis, worsening and afebrile. Cultures are no growth to date. CT of the abdomen and pelvis on admission showed no infectious process. 4. Acute ventilator-dependent respiratory failure, intubated on June 02, 2016. 5. Severe encephalopathy/comatose and probable anoxic brain injury. No improvement unfortunately. 6. Status post Code Blue on June 02, 2016. 7. Elevated alkaline phosphatase with no gallstones or dilated ducts on ultrasound. 8. Hypoalbuminemia secondary to nephrotic syndrome. 9. Elevated C-reactive protein. 10. Peripheral arterial disease with severe ischemia at rest by arterial Doppler. 11. Severe pulmonary hypertension. 12. Constipation. 13. 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 14. Status post right upper extremity PICC placement on June 01, 2016. 15. No antibiotic allergies. 16. Full Code. PLAN: 1. Continue empiric IV vancomycin, Zosyn, and amikacin day #1 and add empiric Flagyl day #1. 2. Check urinalysis, urine culture, and C. difficile. 3. Follow up cultures and adjust antibiotics accordingly. 4. Monitor CBC and temperatures. 5. Monitor BMP. 6. Monitor chest x-ray. 7. Ventilator support and wean as tolerated. 8. Poor overall prognosis. Discussed with family at bedside. Thank you. We will follow. José Miguel Hedrick M.D. DR: EDENILSON JOB#: [id number] CC: Jose Tenorio M.D.; Fax#: [phone] Nieves M.D; Fax#: [phone]
--- NOTE | 2016-06-05 21:33 | Neurology Progress Note ---
Interim History Interim History Interim History Ms. Donato continues to be unresponsive to her environment. She is intubated and artificially ventilated. She is off pressors and maintaining her BP. As per her nurse there has been no improvement in her neurologic state. No seizures have been noted. She has not demonstrated any improvement in neurologic function >72 hours following her cardiopulmonary event. Review of Systems Neuro Review of Systems Unable to obtain. Objective Physical Exam Last Vital Signs Date Time Temp Pulse Resp B/P Pulse Ox O2 Delivery O2 Flow Rate FiO2 06/05/16 21:06 114 16 40 06/05/16 19:00 95/51 100 Mechanical Ventilator 06/05/16 16:00 99.0 06/02/16 12:00 3.0 Laboratory Tests Test 06/05/16 05:00 06/05/16 07:40 06/05/16 15:00 White Blood Count 34.8 K/UL (4.8-10.8) *H Red Blood Count 3.74 M/UL (4.20-5.40) L Hemoglobin 10.2 G/DL (12.0-16.0) L Hematocrit 32.7 % (37.0-47.0) L Mean Corpuscular Volume 88 FL (80-99) Mean Corpuscular Hemoglobin 27.3 PG (27.0-31.0) Mean Corpuscular Hemoglobin Concent 31.2 G/DL (32.0-36.0) L Red Cell Distribution Width 13.5 % (11.6-14.8) Platelet Count 221 K/UL (150-450) Mean Platelet Volume 9.2 FL (6.5-10.1) Neutrophils (%) (Auto) % (45.0-75.0) Lymphocytes (%) (Auto) % (20.0-45.0) Monocytes (%) (Auto) % (1.0-10.0) Eosinophils (%) (Auto) % (0.0-3.0) Basophils (%) (Auto) % (0.0-2.0) Differential Total Cells Counted 100 Neutrophils % (Manual) 95 % (45-75) H Lymphocytes % (Manual) 2 % (20-45) L Monocytes % (Manual) 1 % (1-10) Eosinophils % (Manual) 0 % (0-3) Basophils % (Manual) 0 % (0-2) Band Neutrophils 2 % (0-8) Platelet Estimate Adequate Platelet Morphology Normal Hypochromasia 1+ Anisocytosis 1+ Sodium Level 145 mEQ/L (135-145) Potassium Level 3.0 mEQ/L (3.4-4.9) L Chloride Level 108 mEQ/L (98-107) H Carbon Dioxide Level 25 mEQ/L (20-30) Anion Gap 12 (5-15) Blood Urea Nitrogen 20 mg/dL (7-23) Creatinine 0.7 mg/dL (0.5-0.9) Estimat Glomerular Filtration Rate mL/min (>60) Glucose Level 80 mg/dL (74-106) Calcium Level 7.0 mg/dL (8.6-10.2) L Phosphorus Level 2.9 mg/dL (2.5-4.8) Magnesium Level 1.6 mg/dL (1.7-2.5) L Total Bilirubin 0.3 mg/dL (0.0-1.2) Aspartate Amino Transf (AST/SGOT) 27 U/L (5-40) Alanine Aminotransferase (ALT/SGPT) 21 U/L (3-33) Alkaline Phosphatase 130 U/L (35-104) H Total Protein 5.2 g/dL (6.6-8.7) L Albumin 1.4 g/dL (3.5-5.2) L Globulin 3.8 g/dL Albumin/Globulin Ratio 0.3 (1.0-2.7) L Arterial Blood pH 7.421 (7.350-7.450) Arterial Blood Partial Pressure CO2 38.8 mmHg (35.0-45.0) Arterial Blood Partial Pressure O2 78.2 mmHg (75.0-100.0) Arterial Blood HCO3 24.7 mmol/L (22.0-26.0) Arterial Blood Oxygen Saturation 94.5 % (92.0-98.0) Arterial Blood Base Excess 0.3 Claudy Test Positive Urine Color Yellow Urine Appearance Slightly cloudy Urine pH 9 (4.5-8.0) Urine Specific [place] 1.015 (1.005-1.035) Urine Protein 3+ (NEGATIVE) H Urine Glucose (UA) Negative (NEGATIVE) Urine Ketones 1+ (NEGATIVE) H Urine Occult Blood 4+ (NEGATIVE) H Urine Nitrite Positive (NEGATIVE) H Urine Bilirubin Negative (NEGATIVE) Urine Urobilinogen Normal MG/DL (0.0-1.0) Urine Leukocyte Esterase 3+ (NEGATIVE) H Urine RBC 15-20 /HPF (0 - 2) H Urine WBC 10-15 /HPF (0 - 2) H Urine Squamous Epithelial Cells Few /LPF (NONE/OCC) Urine Amorphous Sediment Few /LPF (NONE) H Urine Bacteria Many /HPF (NONE) H Neurologic Exam Objective PHYSICAL EXAMINATION: GENERAL: She is a well-developed, black lady, lying in an ICU bed, connected to a ventilator via an orotracheal tube. HEAD: Normocephalic, atraumatic, with old right temporal craniotomy scar. NECK: No neck rigidity was observed. EENT EXAMINATION: Benign except for bilateral chemosis. NEUROLOGICAL EXAMINATION: MENTAL STATUS EXAMINATION: She was comatose and did not respond even to deep painful stimuli. SPEECH: Could not be tested. LANGUAGE: Could not be tested. CRANIAL NERVE EXAMINATION: II: She did not blink to threat. III, IV & : The pupils were 5 mm in diameter and did not react to light. She had eye movements on oculocephalic maneuvers. V & VII: The corneal reflexes were absent. VIII: She did not respond to sounds and had no nystagmus. IX & X: The gag reflex was absent. XI: The sternocleidomastoids and trapezii did not function. XII: Could not be tested. MOTOR SYSTEM: The tone was increased in all four extremities with a significant degree of spasticity. Examination of muscle mass revealed generalized muscle wasting with bilateral upper and lower extremity contractures. Examination of power was impossible to perform because even on applying deep painful stimuli, no movements were seen. SENSORY EXAMINATION: She did not respond even to deep painful stimuli. REFLEXES: 3+ on the right and 3++ on the left at the biceps, triceps, and brachioradialis. 1+ at both knees. 0 at both ankles. The plantar responses were mute bilaterally. COORDINATION, STANCE & GAIT: Could not be tested. Impression/Recommendations Diagnostic Impression 1. Ms. Liya Donato is a 70-year-old, right-handed, black lady, who had a right middle cerebral aneurysmal rupture approximately 20 years ago with unknown consequences. This however was followed by a seizure disorder for which the patient is on Zonegran. About 7 years ago, she had a seizure associated with a neck injury and she became quadriparetic. On 05/28/2016, she was hospitalized at [facility] for constipation and anasarca. On , there was a sudden change in her mental state. A CT scan of the brain was performed, and was benign for acute pathology. On 06/02/2016, she was taken to the MRI scanner where she had a respiratory arrest. A Code Blue was called and she had to be intubated and ventilated. She has been comatose since then. 2. At this time she continues to be comatose, artificially ventilated with no spontaneous respirations. 3. On neurological examination at this time, she does not respond even to deep painful stimuli. She demonstrates minimal brainstem function in the form of restricted occulocephalic eye movements. The deep tendon reflexes are brisk in the upper extremities and diminished at the knees with mute plantar responses. 4. The EEG done on 06/02/16 revealed a severe encephalopathy with no reactivity, but no inter-ictal or ictal phenomena. 5. The patient's history and neurological examination are most compatible with a significant anoxic ischemic cerebral insult, with her at this point in time being in a comatose state, with no improvement in her neurologic condition. 6. As the patient has exhibited no significant improvement in neurologic function > 72 hours following her cardiopulmonary event, the prognosis for recovery of neurologic function is dismal. Recommendations 1. Continue present management. 2. Continue to support the patient's cardiorespiratory function in an ICU setting. 3. Continue Keppra 500 mg intravenously every 12 hours. 4. Observe closely. Renny Bazzi M.D., M.S.P.RENNY GERMAIN Jun 05, 2016 21:33
[2016-06-06] VITALS (29 sets, daily range): BP systolic 77–116; BP diastolic 31–90
[2016-06-06] MEDS: Metoprolol 5mg/5ml Inj IVP SCH (02:15)
[2016-06-06] MEDS ORDERED: Levophed 4mg/4mL Inj IV ONE (03:19)
[2016-06-06 06:16] LABS: MEAN CORPUSCULAR HEMOGLOBIN 27.8 PG (27.0-31.0); MEAN CORPUSCULAR HGB CONC 31.9 G/DL (32.0-36.0); MEAN CORPUSCULAR VOLUME 87 FL (80-99); MEAN PLATELET VOLUME 8.4 FL (6.5-10.1); PLATELET COUNT 193 K/UL (150-450); RED BLOOD COUNT 3.23 M/UL (4.20-5.40); RED CELL DISTRIBUTION WIDTH 13.7 % (11.6-14.8)
[2016-06-06 06:25] LABS: WHITE BLOOD COUNT 25.2 K/UL (4.8-10.8)
[2016-06-06] MEDS: Piperacillin/Tazobactam 3.375 GM in NS 110 ML IVPB SCH ×2 (06:44→16:07)
[2016-06-06] MEDS: metroNIDAZOLE 500mg tab NG SCH ×2 (06:44→14:06)
[2016-06-06 06:48] LABS: ALANINE AMINOTRANSFERASE 18 U/L (3-33); ALBUMIN/GLOBULIN RATIO 0.4 (1.0-2.7); ANION GAP 17 (5-15); ASPARTATE AMINO TRANSFERASE 26 U/L (5-40); CARBON DIOXIDE 22 mEQ/L (20-30); CHLORIDE 106 mEQ/L (98-107); CREATININE 0.8 mg/dL (0.5-0.9); HEMOLYSIS 12; MAGNESIUM 1.5 mg/dL (1.7-2.5); PHOSPHORUS 1.9 mg/dL (2.5-4.8); POTASSIUM 2.9 mEQ/L (3.4-4.9); SODIUM 145 mEQ/L (135-145); TOTAL PROTEIN 3.8 g/dL (6.6-8.7)
[2016-06-06 07:11] LABS: ABG PCO2 38.1 mmHg (35.0-45.0)
[2016-06-06 07:12] LABS: ABG ALLEN TEST POSITIVE; ABG BASE EXCESS 0.7
[2016-06-06 08:36] LABS: APPEARANCE,URINE SLIGHTLY CLOUDY; KETONES,URINE 2+ (NEGATIVE); LEUKOCYTE ESTERASE ,URINE 3+ (NEGATIVE); NITRITE,URINE POSITIVE (NEGATIVE); PH,URINE 9 (4.5-8.0); PROTEIN,URINE 3+ (NEGATIVE); UROBILINOGEN,URINE NORMAL MG/DL (0.0-1.0)
[2016-06-06 08:49] LABS: AMORPHOUS SEDIMENT,UR FEW /LPF; BACTERIA,URINE MODERATE /HPF; SQUAMOUS EPITHELIAL CELL,UR FEW /LPF (NONE/OCC)
[2016-06-06] MEDS: Miralax 17gm pkt ORAL SCH (09:00)
[2016-06-06] MEDS: Nystatin Powder 100,000 units/gm 15gm TOPIC SCH ×3 (09:19→18:20)
[2016-06-06 09:53] LABS: BAND NEUTROPHILS % (MANUAL) 17 % (0-8); BASOPHILS % (MANUAL) 0 % (0-2); EOSINOPHILS % (MANUAL) 0 % (0-3); HYPOCHROMASIA 1+; LYMPHOCYTES % (MANUAL) 1 % (20-45); NEUTROPHILS % (MANUAL) 75 % (45-75); PLATELET ESTIMATE ADEQUATE; PLATELET MORPHOLOGY NORMAL; TOTAL CELLS COUNTED 100
[2016-06-06] MEDS ORDERED: Potassium Phosphate 30 MM in NS 275 ML IV ONE (10:00)
[2016-06-06] MEDS: levETIRAcetam 500 MG in D5W 110 ML IV SCH ×2 (10:04→21:55)
[2016-06-06] MEDS: Heparin 5000 units/ml inj SUBQ SCH ×2 (10:14→21:29)
--- NOTE | 2016-06-06 11:05 | Pulmonolgy Critical Care Note ---
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, 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, 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, 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 - Objective Last 24 Hour Vital Signs Date Time Temp Pulse Resp B/P Pulse Ox O2 Delivery O2 Flow Rate FiO2 06/06/16 09:55 83 15 109/67 100 Mechanical Ventilator 40 06/06/16 09:00 91 17 104/56 100 Mechanical Ventilator 40 06/06/16 09:00 115 16 40 06/06/16 08:00 40 06/06/16 08:00 98.1 100 16 99/56 100 Mechanical Ventilator 40 06/06/16 08:00 98 06/06/16 07:00 103 16 94/45 100 Mechanical Ventilator 40 06/06/16 06:59 104 16 40 06/06/16 06:00 103 16 99/51 100 Mechanical Ventilator 40 06/06/16 05:19 103 16 40 06/06/16 05:00 103 16 88/47 100 Mechanical Ventilator 40 06/06/16 04:30 104 16 90/48 100 Mechanical Ventilator 40 06/06/16 04:15 104 16 98/48 100 Mechanical Ventilator 40 06/06/16 04:00 40 06/06/16 04:00 98.4 104 16 90/48 100 Mechanical Ventilator 40 06/06/16 04:00 102 06/06/16 04:00 98/48 06/06/16 03:45 101 16 89/50 100 Mechanical Ventilator 40 06/06/16 03:30 101 16 77/35 100 Mechanical Ventilator 40 06/06/16 03:25 103 16 40 06/06/16 03:20 98.5 102 16 92/49 100 Mechanical Ventilator 40 06/06/16 03:20 77/35 06/06/16 03:00 98.5 06/06/16 03:00 103 16 78/31 100 Mechanical Ventilator 40 06/06/16 02:15 115 94/45 06/06/16 02:00 100.7 108 16 116/52 100 Mechanical Ventilator 40 06/06/16 01:19 112 16 40 06/06/16 01:00 111 16 111/52 100 Mechanical Ventilator 40 06/06/16 00:00 40 06/06/16 00:00 99.5 111 16 107/90 100 Mechanical Ventilator 40 06/06/16 00:00 107 06/05/16 23:19 110 16 40 06/05/16 23:00 110 16 104/53 100 Mechanical Ventilator 40 06/05/16 22:00 110 16 105/64 100 Mechanical Ventilator 40 06/05/16 21:06 114 16 40 06/05/16 21:00 114 16 108/64 100 Mechanical Ventilator 40 06/05/16 20:00 98.9 115 16 97/49 100 Mechanical Ventilator 40 06/05/16 20:00 40 06/05/16 20:00 109 06/05/16 19:10 116 16 40 06/05/16 19:00 115 16 95/51 100 Mechanical Ventilator 40 06/05/16 18:00 116 20 107/53 100 Mechanical Ventilator 40 06/05/16 17:15 103/45 06/05/16 17:00 116 20 103/45 100 Mechanical Ventilator 40 06/05/16 16:56 114 16 40 06/05/16 16:10 116 16 40 06/05/16 16:00 99.0 113 20 98/57 100 Mechanical Ventilator 40 06/05/16 16:00 116 06/05/16 16:00 40 06/05/16 15:00 114 20 107/53 100 Mechanical Ventilator 40 06/05/16 14:29 114 16 40 06/05/16 14:00 112 20 103/74 100 Mechanical Ventilator 40 06/05/16 13:00 114 20 109/77 100 Mechanical Ventilator 40 06/05/16 12:58 109 16 40 06/05/16 12:00 110 06/05/16 12:00 40 06/05/16 12:00 98.9 110 20 115/55 97 Mechanical Ventilator 40 06/05/16 11:07 111 16 40 Status: awake, sedated Condition: critical, grave, improving HEENT: atraumatic, normocephalic Neck: full ROM Lungs: rales, rhonchi Heart: HR/BP stable Abdomen: soft, non-tender Micro: Microbiology Date/Time Source Procedure Growth Status 06/03/16 15:00 Blood Blood Culture - Preliminary NO GROWTH AFTER 48 HOURS Resulted 06/03/16 14:55 Blood Blood Culture - Preliminary NO GROWTH AFTER 48 HOURS Resulted 06/05/16 11:15 Sputum Gram Stain Pending Resulted 06/05/16 11:15 Sputum Culture - Preliminary Staphylococcus Aureus Resulted Critical Care - Subjective ICU Day: 5 Intubation Day: 5 Interval Events: had one episode of low grade fever Condition: critical FI02: 40 Vent Support Breath Rate: 16 Vent Support Mode: AC Vent Tidal Volume: 600 Sputum Amount: Small PEEP: 5.0 PIP: 41 Tube Feeding Amount: 40 I&O: Intake and Output 06/05/16 06/06/16 19:00 07:00 Intake Total 1785.7 ml 3146.0 ml Output Total 125 ml 370 ml Balance 1660.7 ml 2776.0 ml Free Water 60 ml IV Total 1685.7 ml 2766.0 ml Tube Feeding 100 ml 290 ml Other 30 ml Output Urine Total 125 ml 370 ml # Bowel Movements 3 CXR: No change ET-Tube: 7.5 ET Position: 23 Labs: Laboratory Tests Test 06/05/16 15:00 06/06/16 05:30 06/06/16 07:04 06/06/16 08:30 Urine Color Yellow Brown Urine Appearance Slightly cloudy Slightly cloudy Urine pH 9 (4.5-8.0) 9 (4.5-8.0) Urine Specific [place] 1.015 (1.005-1.035) 1.010 (1.005-1.035) Urine Protein 3+ (NEGATIVE) H 3+ (NEGATIVE) H Urine Glucose (UA) Negative (NEGATIVE) Negative (NEGATIVE) Urine Ketones 1+ (NEGATIVE) H 2+ (NEGATIVE) H Urine Occult Blood 4+ (NEGATIVE) H 4+ (NEGATIVE) H Urine Nitrite Positive (NEGATIVE) H Positive (NEGATIVE) H Urine Bilirubin Negative (NEGATIVE) Negative (NEGATIVE) Urine Urobilinogen Normal MG/DL (0.0-1.0) Normal MG/DL (0.0-1.0) Urine Leukocyte Esterase 3+ (NEGATIVE) H 3+ (NEGATIVE) H Urine RBC 15-20 /HPF (0 - 2) H 10-15 /HPF (0 - 2) H Urine WBC 10-15 /HPF (0 - 2) H 10-15 /HPF (0 - 2) H Urine Squamous Epithelial Cells Few /LPF (NONE/OCC) Few /LPF (NONE/OCC) Urine Amorphous Sediment Few /LPF (NONE) H Few /LPF (NONE) H Urine Bacteria Many /HPF (NONE) H Moderate /HPF (NONE) H White Blood Count 25.2 K/UL (4.8-10.8) *H Red Blood Count 3.23 M/UL (4.20-5.40) L Hemoglobin 9.0 G/DL (12.0-16.0) L Hematocrit 28.2 % (37.0-47.0) L Mean Corpuscular Volume 87 FL (80-99) Mean Corpuscular Hemoglobin 27.8 PG (27.0-31.0) Mean Corpuscular Hemoglobin Concent 31.9 G/DL (32.0-36.0) L Red Cell Distribution Width 13.7 % (11.6-14.8) Platelet Count 193 K/UL (150-450) Mean Platelet Volume 8.4 FL (6.5-10.1) Neutrophils (%) (Auto) % (45.0-75.0) Lymphocytes (%) (Auto) % (20.0-45.0) Monocytes (%) (Auto) % (1.0-10.0) Eosinophils (%) (Auto) % (0.0-3.0) Basophils (%) (Auto) % (0.0-2.0) Differential Total Cells Counted 100 Neutrophils % (Manual) 75 % (45-75) Lymphocytes % (Manual) 1 % (20-45) L Monocytes % (Manual) 7 % (1-10) Eosinophils % (Manual) 0 % (0-3) Basophils % (Manual) 0 % (0-2) Band Neutrophils 17 % (0-8) H Platelet Estimate Adequate Platelet Morphology Normal Hypochromasia 1+ Sodium Level 145 mEQ/L (135-145) Potassium Level 2.9 mEQ/L (3.4-4.9) L Chloride Level 106 mEQ/L (98-107) Carbon Dioxide Level 22 mEQ/L (20-30) Anion Gap 17 (5-15) H Blood Urea Nitrogen 23 mg/dL (7-23) Creatinine 0.8 mg/dL (0.5-0.9) Estimat Glomerular Filtration Rate mL/min (>60) Glucose Level 103 mg/dL (74-106) Calcium Level 6.0 mg/dL (8.6-10.2) L Phosphorus Level 1.9 mg/dL (2.5-4.8) L Magnesium Level 1.5 mg/dL (1.7-2.5) L Total Bilirubin 0.3 mg/dL (0.0-1.2) Aspartate Amino Transf (AST/SGOT) 26 U/L (5-40) Alanine Aminotransferase (ALT/SGPT) 18 U/L (3-33) Alkaline Phosphatase 108 U/L (35-104) H Total Protein 3.8 g/dL (6.6-8.7) L Albumin 1.1 g/dL (3.5-5.2) L Globulin 2.7 g/dL Albumin/Globulin Ratio 0.4 (1.0-2.7) L Arterial Blood pH 7.433 (7.350-7.450) Arterial Blood Partial Pressure CO2 38.1 mmHg (35.0-45.0) Arterial Blood Partial Pressure O2 74.8 mmHg (75.0-100.0) L Arterial Blood HCO3 24.9 mmol/L (22.0-26.0) Arterial Blood Oxygen Saturation 94.8 % (92.0-98.0) Arterial Blood Base Excess 0.7 Claudy Test Positive DARION MISHRA Jun 06, 2016 11:05
--- NOTE | 2016-06-06 11:16 | General Progress Note ---
Assessment/Plan Status: unchanged Status Narrative remains comatose Assessment/Plan Renal: Nephrotic Syndrome most likely- leading to Anasarca, Pleural effusion Other: Respiratory failure- anoxic ischemic cerebral insult , post code blue acute toxic encephalopathy- severe PVD mild pulmonary edema severe pulmonary HTN seizure disorder constipation hyponatremia , likelu due to Anasarca Mild hypothyroidism with elevated TSH functional quadriplegia Plan: 24 H urine for Protein- insignificant K , phos IV as needed pulm support per orders- monitor lytes- poor prognosis favor comfort care and terminal extubation if Neuro agrees Subjective ROS Limited/Unobtainable: Yes Allergies: Coded Allergies: OPIOIDS - MORPHINE ANALOGUES (Verified Allergy, Unknown, 06/02/16) per daughter. All opiods, she doesn't want any given to patient Uncoded Allergies: NARCOTICS (Allergy, Mild, 10/02/14) Opiates --> Nausea, SOB Objective Last 24 Hour Vital Signs Date Time Temp Pulse Resp B/P Pulse Ox O2 Delivery O2 Flow Rate FiO2 06/06/16 11:01 124 16 40 06/06/16 09:55 83 15 109/67 100 Mechanical Ventilator 40 06/06/16 09:00 91 17 104/56 100 Mechanical Ventilator 40 06/06/16 09:00 115 16 40 06/06/16 08:00 40 06/06/16 08:00 98.1 100 16 99/56 100 Mechanical Ventilator 40 06/06/16 08:00 98 06/06/16 07:00 103 16 94/45 100 Mechanical Ventilator 40 06/06/16 06:59 104 16 40 06/06/16 06:00 103 16 99/51 100 Mechanical Ventilator 40 06/06/16 05:19 103 16 40 06/06/16 05:00 103 16 88/47 100 Mechanical Ventilator 40 06/06/16 04:30 104 16 90/48 100 Mechanical Ventilator 40 06/06/16 04:15 104 16 98/48 100 Mechanical Ventilator 40 06/06/16 04:00 40 06/06/16 04:00 98.4 104 16 90/48 100 Mechanical Ventilator 40 06/06/16 04:00 102 06/06/16 04:00 98/48 06/06/16 03:45 101 16 89/50 100 Mechanical Ventilator 40 06/06/16 03:30 101 16 77/35 100 Mechanical Ventilator 40 06/06/16 03:25 103 16 40 06/06/16 03:20 98.5 102 16 92/49 100 Mechanical Ventilator 40 06/06/16 03:20 77/35 06/06/16 03:00 98.5 06/06/16 03:00 103 16 78/31 100 Mechanical Ventilator 40 06/06/16 02:15 115 94/45 06/06/16 02:00 100.7 108 16 116/52 100 Mechanical Ventilator 40 06/06/16 01:19 112 16 40 06/06/16 01:00 111 16 111/52 100 Mechanical Ventilator 40 06/06/16 00:00 40 06/06/16 00:00 99.5 111 16 107/90 100 Mechanical Ventilator 40 06/06/16 00:00 107 06/05/16 23:19 110 16 40 06/05/16 23:00 110 16 104/53 100 Mechanical Ventilator 40 06/05/16 22:00 110 16 105/64 100 Mechanical Ventilator 40 06/05/16 21:06 114 16 40 06/05/16 21:00 114 16 108/64 100 Mechanical Ventilator 40 06/05/16 20:00 98.9 115 16 97/49 100 Mechanical Ventilator 40 06/05/16 20:00 40 06/05/16 20:00 109 06/05/16 19:10 116 16 40 06/05/16 19:00 115 16 95/51 100 Mechanical Ventilator 40 06/05/16 18:00 116 20 107/53 100 Mechanical Ventilator 40 06/05/16 17:15 103/45 06/05/16 17:00 116 20 103/45 100 Mechanical Ventilator 40 06/05/16 16:56 114 16 40 06/05/16 16:10 116 16 40 06/05/16 16:00 99.0 113 20 98/57 100 Mechanical Ventilator 40 06/05/16 16:00 116 06/05/16 16:00 40 06/05/16 15:00 114 20 107/53 100 Mechanical Ventilator 40 06/05/16 14:29 114 16 40 06/05/16 14:00 112 20 103/74 100 Mechanical Ventilator 40 06/05/16 13:00 114 20 109/77 100 Mechanical Ventilator 40 06/05/16 12:58 109 16 40 06/05/16 12:00 110 06/05/16 12:00 40 06/05/16 12:00 98.9 110 20 115/55 97 Mechanical Ventilator 40 Intake and Output 06/05/16 06/06/16 19:00 07:00 Intake Total 1785.7 ml 3146.0 ml Output Total 125 ml 370 ml Balance 1660.7 ml 2776.0 ml Free Water 60 ml IV Total 1685.7 ml 2766.0 ml Tube Feeding 100 ml 290 ml Other 30 ml Output Urine Total 125 ml 370 ml # Bowel Movements 3 Laboratory Tests 06/05/16 15:00: Urine Color Yellow, Urine Appearance Slightly cloudy, Urine pH 9, Urine Specific [place] 1.015, Urine Protein 3+H, Urine Glucose (UA) Negative, Urine Ketones 1+H, Urine Occult Blood 4+H, Urine Nitrite PositiveH, Urine Bilirubin Negative, Urine Urobilinogen Normal, Urine Leukocyte Esterase 3+H, Urine RBC 15- 20H, Urine WBC 10-15H, Urine Squamous Epithelial Cells Few, Urine Amorphous Sediment FewH, Urine Bacteria ManyH 06/06/16 05:30: White Blood Count 25.2*H, Red Blood Count 3.23L, Hemoglobin 9.0L, Hematocrit 28.2L, Mean Corpuscular Volume 87, Mean Corpuscular Hemoglobin 27.8, Mean Corpuscular Hemoglobin Concent 31.9L, Red Cell Distribution Width 13.7, Platelet Count 193, Mean Platelet Volume 8.4, Neutrophils (%) (Auto) , Lymphocytes (%) (Auto) , Monocytes (%) (Auto) , Eosinophils (%) (Auto) , Basophils (%) (Auto) , Differential Total Cells Counted 100, Neutrophils % ( Manual) 75, Lymphocytes % (Manual) 1L, Monocytes % (Manual) 7, Eosinophils % ( Manual) 0, Basophils % (Manual) 0, Band Neutrophils 17H, Platelet Estimate Adequate, Platelet Morphology Normal, Hypochromasia 1+, Sodium Level 145, Potassium Level 2.9L, Chloride Level 106, Carbon Dioxide Level 22, Anion Gap 17H , Blood Urea Nitrogen 23, Creatinine 0.8, Estimat Glomerular Filtration Rate , Glucose Level 103, Calcium Level 6.0L, Phosphorus Level 1.9L, Magnesium Level 1.5L, Total Bilirubin 0.3, Aspartate Amino Transf (AST/SGOT) 26, Alanine Aminotransferase (ALT/SGPT) 18, Alkaline Phosphatase 108H, Total Protein 3.8L, Albumin 1.1L, Globulin 2.7, Albumin/Globulin Ratio 0.4L 06/06/16 07:04: Arterial Blood pH 7.433, Arterial Blood Partial Pressure CO2 38.1, Arterial Blood Partial Pressure O2 74.8L, Arterial Blood HCO3 24.9, Arterial Blood Oxygen Saturation 94.8, Arterial Blood Base Excess 0.7, Claudy Test Positive 06/06/16 08:30: Urine Color Brown, Urine Appearance Slightly cloudy, Urine pH 9, Urine Specific [place] 1.010, Urine Protein 3+H, Urine Glucose (UA) Negative, Urine Ketones 2+H , Urine Occult Blood 4+H, Urine Nitrite PositiveH, Urine Bilirubin Negative, Urine Urobilinogen Normal, Urine Leukocyte Esterase 3+H, Urine RBC 10-15H, Urine WBC 10-15H, Urine Squamous Epithelial Cells Few, Urine Amorphous Sediment FewH, Urine Bacteria ModerateH Height (Feet): 5 Height (Inches): 4.00 Weight (Pounds): 170 General Appearance: no apparent distress, other - on Vent- comatose Respiratory/Chest: decreased breath sounds Abdomen: distended - -ascitis Edema: 2+ Arm (L), 2+ Arm (R), 2+ Leg (L), 2+ Leg (R), 2+ Pedal (L), 2+ Pedal ( R), 2+ Generalized Neurologic: other - comatose Objective other PE not changed MARISOL ELAINE Jun 06, 2016 11:16
--- NOTE | 2016-06-06 11:55 | Infectious Diseases Prog Note ---
Assessment/Plan Assessment/Plan ASSESSMENT: 70 y/o female with: // Possible aspiration PNA - SCx S.aureus - CXR 06/06: Bilateral small pleural effusions persists. 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, unchanged // Probable sepsis // Leukocytosis - improved - CT A/P 05/27: no abscess // Low grade fever // Acute VDRF - intubated 06/02 // Severe encephalopathy / comatose, probable MADAN - no improvement // SP code blue 06/02 ?etiology // Elevated ALP - US: Negative for gallstones or dilated ducts // Hypoalbuminemia 05/15 nephrotic syndrome // Elevated CRP // PAD - arterial doppler: waveform analysis is monophasic, consistent with severe ischemia at rest. // Severe pulmonary HTN // Constipation // Chronic paraplegia 05/15 SCI // SP RUE PICC 06/01 // No ABX allergies // Full Code PLAN: - continue empiric IV vancomycin, zosyn, amikacin, flagyl d# 2 - f/u cultures, C.difficile, adjust ABX accordingly - monitor CBC, temperatures - monitor BMP - monitor CXR - vent support, wean as tolerated - poor overall prognosis Subjective Allergies: Coded Allergies: OPIOIDS - MORPHINE ANALOGUES (Verified Allergy, Unknown, 06/02/16) per daughter. All opiods, she doesn't want any given to patient Uncoded Allergies: NARCOTICS (Allergy, Mild, 10/02/14) Opiates --> Nausea, SOB Subjective low grade fever, WBC improved nonresponsive on vent no family at bedside Objective Vital Signs Last 24 Hour Vital Signs Date Time Temp Pulse Resp B/P Pulse Ox O2 Delivery O2 Flow Rate FiO2 06/06/16 11:04 99.0 06/06/16 11:01 124 16 40 06/06/16 11:00 99.0 120 17 82/53 100 Mechanical Ventilator 40 06/06/16 09:55 83 15 109/67 100 Mechanical Ventilator 40 06/06/16 09:00 91 17 104/56 100 Mechanical Ventilator 40 06/06/16 09:00 115 16 40 06/06/16 08:00 40 06/06/16 08:00 100.3 100 16 99/56 100 Mechanical Ventilator 40 06/06/16 08:00 98 06/06/16 07:00 103 16 94/45 100 Mechanical Ventilator 40 06/06/16 06:59 104 16 40 06/06/16 06:00 103 16 99/51 100 Mechanical Ventilator 40 06/06/16 05:19 103 16 40 06/06/16 05:00 103 16 88/47 100 Mechanical Ventilator 40 06/06/16 04:30 104 16 90/48 100 Mechanical Ventilator 40 06/06/16 04:15 104 16 98/48 100 Mechanical Ventilator 40 06/06/16 04:00 40 06/06/16 04:00 98.4 104 16 90/48 100 Mechanical Ventilator 40 06/06/16 04:00 102 06/06/16 04:00 98/48 06/06/16 03:45 101 16 89/50 100 Mechanical Ventilator 40 06/06/16 03:30 101 16 77/35 100 Mechanical Ventilator 40 06/06/16 03:25 103 16 40 06/06/16 03:20 98.5 102 16 92/49 100 Mechanical Ventilator 40 06/06/16 03:20 77/35 06/06/16 03:00 103 16 78/31 100 Mechanical Ventilator 40 06/06/16 02:15 115 94/45 06/06/16 02:00 100.7 108 16 116/52 100 Mechanical Ventilator 40 06/06/16 01:19 112 16 40 06/06/16 01:00 111 16 111/52 100 Mechanical Ventilator 40 06/06/16 00:00 40 06/06/16 00:00 99.5 111 16 107/90 100 Mechanical Ventilator 40 06/06/16 00:00 107 06/05/16 23:19 110 16 40 06/05/16 23:00 110 16 104/53 100 Mechanical Ventilator 40 06/05/16 22:00 110 16 105/64 100 Mechanical Ventilator 40 06/05/16 21:06 114 16 40 06/05/16 21:00 114 16 108/64 100 Mechanical Ventilator 40 06/05/16 20:00 98.9 115 16 97/49 100 Mechanical Ventilator 40 06/05/16 20:00 40 06/05/16 20:00 109 06/05/16 19:10 116 16 40 06/05/16 19:00 115 16 95/51 100 Mechanical Ventilator 40 06/05/16 18:00 116 20 107/53 100 Mechanical Ventilator 40 06/05/16 17:15 103/45 06/05/16 17:00 116 20 103/45 100 Mechanical Ventilator 40 06/05/16 16:56 114 16 40 06/05/16 16:10 116 16 40 06/05/16 16:00 99.0 113 20 98/57 100 Mechanical Ventilator 40 06/05/16 16:00 116 06/05/16 16:00 40 06/05/16 15:00 114 20 107/53 100 Mechanical Ventilator 40 06/05/16 14:29 114 16 40 06/05/16 14:00 112 20 103/74 100 Mechanical Ventilator 40 06/05/16 13:00 114 20 109/77 100 Mechanical Ventilator 40 06/05/16 12:58 109 16 40 06/05/16 12:00 110 06/05/16 12:00 40 06/05/16 12:00 98.9 110 20 115/55 97 Mechanical Ventilator 40 Height (Feet): 5 Height (Inches): 4.00 Weight (Pounds): 170 General Appearance: other - intubated, nonresponsive Respiratory/Chest: decreased breath sounds Cardiovascular: normal rate, regular rhythm Abdomen: normal bowel sounds, soft, non tender, non distended Microbiology Date/Time Source Procedure Growth Status 06/03/16 15:00 Blood Blood Culture - Preliminary NO GROWTH AFTER 48 HOURS Resulted 06/03/16 14:55 Blood Blood Culture - Preliminary NO GROWTH AFTER 48 HOURS Resulted 06/05/16 11:15 Sputum Gram Stain Pending Resulted 06/05/16 11:15 Sputum Culture - Preliminary Staphylococcus Aureus Resulted Laboratory Tests Test 06/05/16 15:00 06/06/16 05:30 06/06/16 07:04 06/06/16 08:30 Urine Color Yellow Brown Urine Appearance Slightly cloudy Slightly cloudy Urine pH 9 (4.5-8.0) 9 (4.5-8.0) Urine Specific [place] 1.015 (1.005-1.035) 1.010 (1.005-1.035) Urine Protein 3+ (NEGATIVE) H 3+ (NEGATIVE) H Urine Glucose (UA) Negative (NEGATIVE) Negative (NEGATIVE) Urine Ketones 1+ (NEGATIVE) H 2+ (NEGATIVE) H Urine Occult Blood 4+ (NEGATIVE) H 4+ (NEGATIVE) H Urine Nitrite Positive (NEGATIVE) H Positive (NEGATIVE) H Urine Bilirubin Negative (NEGATIVE) Negative (NEGATIVE) Urine Urobilinogen Normal MG/DL (0.0-1.0) Normal MG/DL (0.0-1.0) Urine Leukocyte Esterase 3+ (NEGATIVE) H 3+ (NEGATIVE) H Urine RBC 15-20 /HPF (0 - 2) H 10-15 /HPF (0 - 2) H Urine WBC 10-15 /HPF (0 - 2) H 10-15 /HPF (0 - 2) H Urine Squamous Epithelial Cells Few /LPF (NONE/OCC) Few /LPF (NONE/OCC) Urine Amorphous Sediment Few /LPF (NONE) H Few /LPF (NONE) H Urine Bacteria Many /HPF (NONE) H Moderate /HPF (NONE) H White Blood Count 25.2 K/UL (4.8-10.8) *H Red Blood Count 3.23 M/UL (4.20-5.40) L Hemoglobin 9.0 G/DL (12.0-16.0) L Hematocrit 28.2 % (37.0-47.0) L Mean Corpuscular Volume 87 FL (80-99) Mean Corpuscular Hemoglobin 27.8 PG (27.0-31.0) Mean Corpuscular Hemoglobin Concent 31.9 G/DL (32.0-36.0) L Red Cell Distribution Width 13.7 % (11.6-14.8) Platelet Count 193 K/UL (150-450) Mean Platelet Volume 8.4 FL (6.5-10.1) Neutrophils (%) (Auto) % (45.0-75.0) Lymphocytes (%) (Auto) % (20.0-45.0) Monocytes (%) (Auto) % (1.0-10.0) Eosinophils (%) (Auto) % (0.0-3.0) Basophils (%) (Auto) % (0.0-2.0) Differential Total Cells Counted 100 Neutrophils % (Manual) 75 % (45-75) Lymphocytes % (Manual) 1 % (20-45) L Monocytes % (Manual) 7 % (1-10) Eosinophils % (Manual) 0 % (0-3) Basophils % (Manual) 0 % (0-2) Band Neutrophils 17 % (0-8) H Platelet Estimate Adequate Platelet Morphology Normal Hypochromasia 1+ Sodium Level 145 mEQ/L (135-145) Potassium Level 2.9 mEQ/L (3.4-4.9) L Chloride Level 106 mEQ/L (98-107) Carbon Dioxide Level 22 mEQ/L (20-30) Anion Gap 17 (5-15) H Blood Urea Nitrogen 23 mg/dL (7-23) Creatinine 0.8 mg/dL (0.5-0.9) Estimat Glomerular Filtration Rate mL/min (>60) Glucose Level 103 mg/dL (74-106) Calcium Level 6.0 mg/dL (8.6-10.2) L Phosphorus Level 1.9 mg/dL (2.5-4.8) L Magnesium Level 1.5 mg/dL (1.7-2.5) L Total Bilirubin 0.3 mg/dL (0.0-1.2) Aspartate Amino Transf (AST/SGOT) 26 U/L (5-40) Alanine Aminotransferase (ALT/SGPT) 18 U/L (3-33) Alkaline Phosphatase 108 U/L (35-104) H Total Protein 3.8 g/dL (6.6-8.7) L Albumin 1.1 g/dL (3.5-5.2) L Globulin 2.7 g/dL Albumin/Globulin Ratio 0.4 (1.0-2.7) L Arterial Blood pH 7.433 (7.350-7.450) Arterial Blood Partial Pressure CO2 38.1 mmHg (35.0-45.0) Arterial Blood Partial Pressure O2 74.8 mmHg (75.0-100.0) L Arterial Blood HCO3 24.9 mmol/L (22.0-26.0) Arterial Blood Oxygen Saturation 94.8 % (92.0-98.0) Arterial Blood Base Excess 0.7 Claudy Test Positive Current Medications Medications (Trade) Dose Ordered Sig/Miguel Route PRN Reason Start Time Stop Time Status Last Admin Dose Admin Acetaminophen (Tylenol) 650 mg Q4H PRN ORAL fever 06/02/16 20:15 07/02/16 20:14 06/06/16 10:05 Albuterol Sulfate (Proventil MDI) 2 puff Q4H PRN INH Shortness of Breath 06/02/16 21:00 07/02/16 20:59 Amikacin Protocol 1 ea 1 ea DAILY PRN MISC Per rx protocol 06/05/16 10:45 07/05/16 10:44 Amikacin Sulfate/ Sodium Chloride (Amikin/Sodium Chloride) 111.6 ml @ 223.2 mls/ hr Q24H IV 06/05/16 14:00 06/12/16 13:59 06/05/16 14:12 Artificial Tears (Akwa-Tears) 2 drop Q2H PRN BOTH EYES Dry Eyes 06/02/16 18:15 07/02/16 18:14 06/04/16 20:19 Clonidine HCl (Catapres) 0.1 mg Q4H PRN ORAL For High Blood Pressure 06/02/16 18:30 07/02/16 18:29 Dextrose (Dextrose 50%) STAT PRN IV Hypoglycemia 06/03/16 00:15 07/03/16 00:14 Heparin Sodium (Porcine) (Heparin 5000 units/ml) 5,000 units EVERY 12 HOURS SUBQ 06/02/16 21:00 07/02/16 20:59 06/06/16 10:14 Levetiracetam/ Dextrose (Keppra/D5W) 115 ml @ 460 mls/hr Q12HR IV 06/03/16 09:00 07/03/16 08:59 06/06/16 10:04 Levothyroxine Sodium (Synthroid) 50 mcg DAILY@0630 ORAL 06/03/16 06:30 07/03/16 06:29 06/06/16 06:44 Lorazepam (Ativan 2mg/ml 1ml) 2 mg Q4H PRN IV For Anxiety 06/02/16 21:30 06/09/16 21:29 Metronidazole (Flagyl) 500 mg Q8HR NG 06/05/16 16:00 06/12/16 15:59 06/06/16 06:44 Mineral Oil (Fleet's Mineral Oil Enema) 133 ml EVERY OTHER DAY RECTAL 06/03/16 09:00 07/03/16 08:59 06/03/16 10:29 Norepinephrine Bitartrate 4 mg/ Dextrose 250 ml @ 0 mls/hr Q24H IV 06/02/16 17:15 07/02/16 17:14 06/06/16 03:20 Nystatin 1 applic 1 applic THREE TIMES A DAY TOPIC 06/05/16 16:00 07/05/16 15:59 06/06/16 09:19 Ondansetron HCl (Zofran) 4 mg Q6H PRN IVP Nausea & Vomiting 06/02/16 18:15 07/02/16 18:14 Pantoprazole (Protonix) 40 mg DAILY ORAL 06/03/16 09:00 07/03/16 08:59 06/06/16 09:00 Piperacillin Sod/ Tazobactam Sod/ Sodium Chloride (Zosyn/Sodium Chloride) 110 ml @ 27.5 mls/hr Q8HR IVPB 06/05/16 13:00 06/12/16 12:59 06/06/16 06:44 Polyethylene Glycol 17 gm 17 gm DAILY ORAL 06/03/16 09:00 07/03/16 08:59 06/05/16 08:55 Potassium Phosphate/Sodium Chloride (Potassium Phosphate/Sodium Chloride) 285 ml @ 47.5 mls/hr ONCE ONCE IV 06/06/16 10:00 06/06/16 15:59 06/06/16 10:00 Sodium Chloride (Sodium Chloride 1000ml bag) 1,000 ml @ 50 mls/hr Q20H IV 06/03/16 11:00 07/03/16 10:59 06/05/16 22:56 Vancomycin HCl 1 ea 1 ea DAILY PRN MISC Per rx protocol 06/05/16 10:45 07/05/16 10:44 Vancomycin HCl 1 gm/Dextrose 275 ml @ 183.708 mls/hr Q24H IVPB 06/06/16 18:00 06/11/16 17:59 ABHISHEK BURTON Jun 06, 2016 11:55
--- NOTE | 2016-06-06 12:12 | Diagnostic Imaging Report ---
Indication: DYSPNEA Technique: One view of the chest Comparison: 06/05/2016 Findings: There is increasing right-sided pleural fluid and right lateral basilar consolidation. There is a small left-sided pleural effusion. Left costophrenic angle remains blunted. Stable satisfactory positions of endotracheal tube, nasogastric tube, right arm PICC. Impression: Increasing right pleural effusion and bilateral basilar consolidation, over one-day Other stable findings as described
[2016-06-06] MEDS: Amikacin 400 MG in NS 110 ML IV SCH (14:07)
--- NOTE | 2016-06-06 14:54 | Neurology Progress Note ---
Interim History Interim History Interim History Ms. Donato continues to be unresponsive to her environment. She is intubated and artificially ventilated. She is off pressors and maintaining her BP. As per her nurse there has been no improvement in her neurologic state. No seizures have been noted. She has not demonstrated any improvement in neurologic function >4 days following her cardiopulmonary event. Review of Systems Neuro Review of Systems Unable to obtain. Objective Physical Exam Last Vital Signs Date Time Temp Pulse Resp B/P Pulse Ox O2 Delivery O2 Flow Rate FiO2 06/06/16 14:00 105 18 103/56 100 Mechanical Ventilator 40 06/06/16 12:00 98.9 06/02/16 12:00 3.0 Laboratory Tests Test 06/05/16 15:00 06/06/16 05:30 06/06/16 07:04 06/06/16 08:30 Urine Color Yellow Brown Urine Appearance Slightly cloudy Slightly cloudy Urine pH 9 (4.5-8.0) 9 (4.5-8.0) Urine Specific [place] 1.015 (1.005-1.035) 1.010 (1.005-1.035) Urine Protein 3+ (NEGATIVE) H 3+ (NEGATIVE) H Urine Glucose (UA) Negative (NEGATIVE) Negative (NEGATIVE) Urine Ketones 1+ (NEGATIVE) H 2+ (NEGATIVE) H Urine Occult Blood 4+ (NEGATIVE) H 4+ (NEGATIVE) H Urine Nitrite Positive (NEGATIVE) H Positive (NEGATIVE) H Urine Bilirubin Negative (NEGATIVE) Negative (NEGATIVE) Urine Urobilinogen Normal MG/DL (0.0-1.0) Normal MG/DL (0.0-1.0) Urine Leukocyte Esterase 3+ (NEGATIVE) H 3+ (NEGATIVE) H Urine RBC 15-20 /HPF (0 - 2) H 10-15 /HPF (0 - 2) H Urine WBC 10-15 /HPF (0 - 2) H 10-15 /HPF (0 - 2) H Urine Squamous Epithelial Cells Few /LPF (NONE/OCC) Few /LPF (NONE/OCC) Urine Amorphous Sediment Few /LPF (NONE) H Few /LPF (NONE) H Urine Bacteria Many /HPF (NONE) H Moderate /HPF (NONE) H White Blood Count 25.2 K/UL (4.8-10.8) *H Red Blood Count 3.23 M/UL (4.20-5.40) L Hemoglobin 9.0 G/DL (12.0-16.0) L Hematocrit 28.2 % (37.0-47.0) L Mean Corpuscular Volume 87 FL (80-99) Mean Corpuscular Hemoglobin 27.8 PG (27.0-31.0) Mean Corpuscular Hemoglobin Concent 31.9 G/DL (32.0-36.0) L Red Cell Distribution Width 13.7 % (11.6-14.8) Platelet Count 193 K/UL (150-450) Mean Platelet Volume 8.4 FL (6.5-10.1) Neutrophils (%) (Auto) % (45.0-75.0) Lymphocytes (%) (Auto) % (20.0-45.0) Monocytes (%) (Auto) % (1.0-10.0) Eosinophils (%) (Auto) % (0.0-3.0) Basophils (%) (Auto) % (0.0-2.0) Differential Total Cells Counted 100 Neutrophils % (Manual) 75 % (45-75) Lymphocytes % (Manual) 1 % (20-45) L Monocytes % (Manual) 7 % (1-10) Eosinophils % (Manual) 0 % (0-3) Basophils % (Manual) 0 % (0-2) Band Neutrophils 17 % (0-8) H Platelet Estimate Adequate Platelet Morphology Normal Hypochromasia 1+ Sodium Level 145 mEQ/L (135-145) Potassium Level 2.9 mEQ/L (3.4-4.9) L Chloride Level 106 mEQ/L (98-107) Carbon Dioxide Level 22 mEQ/L (20-30) Anion Gap 17 (5-15) H Blood Urea Nitrogen 23 mg/dL (7-23) Creatinine 0.8 mg/dL (0.5-0.9) Estimat Glomerular Filtration Rate mL/min (>60) Glucose Level 103 mg/dL (74-106) Calcium Level 6.0 mg/dL (8.6-10.2) L Phosphorus Level 1.9 mg/dL (2.5-4.8) L Magnesium Level 1.5 mg/dL (1.7-2.5) L Total Bilirubin 0.3 mg/dL (0.0-1.2) Aspartate Amino Transf (AST/SGOT) 26 U/L (5-40) Alanine Aminotransferase (ALT/SGPT) 18 U/L (3-33) Alkaline Phosphatase 108 U/L (35-104) H Total Protein 3.8 g/dL (6.6-8.7) L Albumin 1.1 g/dL (3.5-5.2) L Globulin 2.7 g/dL Albumin/Globulin Ratio 0.4 (1.0-2.7) L Arterial Blood pH 7.433 (7.350-7.450) Arterial Blood Partial Pressure CO2 38.1 mmHg (35.0-45.0) Arterial Blood Partial Pressure O2 74.8 mmHg (75.0-100.0) L Arterial Blood HCO3 24.9 mmol/L (22.0-26.0) Arterial Blood Oxygen Saturation 94.8 % (92.0-98.0) Arterial Blood Base Excess 0.7 Claudy Test Positive Neurologic Exam Objective PHYSICAL EXAMINATION: GENERAL: She is a well-developed, black lady, lying in an ICU bed, connected to a ventilator via an orotracheal tube. HEAD: Normocephalic, atraumatic, with old right temporal craniotomy scar. NECK: No neck rigidity was observed. EENT EXAMINATION: Benign except for bilateral chemosis. NEUROLOGICAL EXAMINATION: MENTAL STATUS EXAMINATION: She was comatose and did not respond even to deep painful stimuli. SPEECH: Could not be tested. LANGUAGE: Could not be tested. CRANIAL NERVE EXAMINATION: II: She did not blink to threat. III, IV & : The pupils were 5 mm in diameter and did not react to light. She had eye movements on oculocephalic maneuvers. V & VII: The corneal reflexes were absent. VIII: She did not respond to sounds and had no nystagmus. IX & X: The gag reflex was absent. XI: The sternocleidomastoids and trapezii did not function. XII: Could not be tested. MOTOR SYSTEM: The tone was increased in all four extremities with a significant degree of spasticity. Examination of muscle mass revealed generalized muscle wasting with bilateral upper and lower extremity contractures. Examination of power was impossible to perform because even on applying deep painful stimuli, no movements were seen. SENSORY EXAMINATION: She did not respond even to deep painful stimuli. REFLEXES: 3+ on the right and 3++ on the left at the biceps, triceps, and brachioradialis. 1+ at both knees. 0 at both ankles. The plantar responses were extensor bilaterally. COORDINATION, STANCE & GAIT: Could not be tested. Impression/Recommendations Diagnostic Impression 1. Ms. Liya Donato is a 70-year-old, right-handed, black lady, who had a right middle cerebral aneurysmal rupture approximately 20 years ago with unknown consequences. This however was followed by a seizure disorder for which the patient is on Zonegran. About 7 years ago, she had a seizure associated with a neck injury and she became quadriparetic. On 05/28/2016, she was hospitalized at [facility] for constipation and anasarca. On , there was a sudden change in her mental state. A CT scan of the brain was performed, and was benign for acute pathology. On 06/02/2016, she was taken to the MRI scanner where she had a respiratory arrest. A Code Blue was called and she had to be intubated and ventilated. She has been comatose since then. 2. At this time she continues to be comatose, artificially ventilated with no spontaneous respirations. 3. On neurological examination at this time, she does not respond even to deep painful stimuli. She demonstrates minimal brainstem function in the form of restricted occulocephalic eye movements. The deep tendon reflexes are brisk in the upper extremities and diminished at the knees with extensor plantar responses. 4. The EEG done on 06/02/16 revealed a severe encephalopathy with no reactivity, but no inter-ictal or ictal phenomena. 5. The patient's history and neurological examination are most compatible with a severe anoxic ischemic cerebral insult, with her at this point in time being in a comatose state, with no improvement in her neurologic condition. 6. As the patient has exhibited no significant improvement in neurologic function > 4 days following her cardiopulmonary event, the prognosis for recovery of neurologic function is dismal. Recommendations 1. Continue present management. 2. Continue to support the patient's cardiorespiratory function in an ICU setting. 3. Continue Keppra 500 mg intravenously every 12 hours. 4. Observe closely. 5. Discussed poor prognosis with Dr Verma. Renny Bazzi M.D., M.S.P.H. RENNY BAZZI Jun 06, 2016 14:54
[2016-06-06] MEDS ORDERED: Sterile Water Irrig 1000ml IRRIG ONE (15:19)
[2016-06-06] MEDS ORDERED: D5 1/2NS 1000ml IV ONE (15:19)
[2016-06-06] MEDS ORDERED: NS 275ml ONE (16:30)
[2016-06-06] MEDS ORDERED: Tubing IV Secondary IV ONE (16:30)
[2016-06-06] MEDS: Vancomycin 1gm/D5W 275ml IVPB SCH ×2 (18:20)
--- NOTE | 2016-06-06 18:20 | Internal Med Progress Note ---
Subjective Date of Service: Jun 06, 2016 Physician Name Zenia Lafleur Attending Physician Jareth Verma MD Current Medications Medications (Trade) Dose Ordered Sig/Miguel Route PRN Reason Start Time Stop Time Status Last Admin Dose Admin Acetaminophen (Tylenol) 650 mg Q4H PRN ORAL fever 06/02/16 20:15 07/02/16 20:14 06/06/16 10:05 Albuterol Sulfate (Proventil MDI) 2 puff Q4H PRN INH Shortness of Breath 06/02/16 21:00 07/02/16 20:59 Amikacin Protocol (Amikacin pharmacy to dose) 1 ea DAILY PRN MISC Per rx protocol 06/05/16 10:45 07/05/16 10:44 Amikacin Sulfate/ Sodium Chloride (Amikin/Sodium Chloride) 111.6 ml @ 223.2 mls/ hr Q24H IV 06/05/16 14:00 06/12/16 13:59 06/06/16 14:07 Artificial Tears (Akwa-Tears) 2 drop Q2H PRN BOTH EYES Dry Eyes 06/02/16 18:15 07/02/16 18:14 06/04/16 20:19 Clonidine HCl (Catapres) 0.1 mg Q4H PRN ORAL For High Blood Pressure 06/02/16 18:30 07/02/16 18:29 Dextrose (Dextrose 50%) STAT PRN IV Hypoglycemia 06/03/16 00:15 07/03/16 00:14 Heparin Sodium (Porcine) (Heparin 5000 units/ml) 5,000 units EVERY 12 HOURS SUBQ 06/02/16 21:00 07/02/16 20:59 06/06/16 10:14 Levetiracetam/ Dextrose (Keppra/D5W) 115 ml @ 460 mls/hr Q12HR IV 06/03/16 09:00 07/03/16 08:59 06/06/16 10:04 Levothyroxine Sodium (Synthroid) 50 mcg DAILY@0630 ORAL 06/03/16 06:30 07/03/16 06:29 06/06/16 06:44 Lorazepam (Ativan 2mg/ml 1ml) 2 mg Q4H PRN IV For Anxiety 06/02/16 21:30 06/09/16 21:29 Metronidazole (Flagyl) 500 mg Q8HR NG 06/05/16 16:00 06/12/16 15:59 06/06/16 14:06 Mineral Oil (Fleet's Mineral Oil Enema) 133 ml EVERY OTHER DAY RECTAL 06/03/16 09:00 07/03/16 08:59 06/03/16 10:29 Norepinephrine Bitartrate 4 mg/ Dextrose 250 ml @ 0 mls/hr Q24H IV 06/02/16 17:15 07/02/16 17:14 06/06/16 03:20 Nystatin 1 applic 1 applic THREE TIMES A DAY TOPIC 06/05/16 16:00 07/05/16 15:59 06/06/16 13:16 Ondansetron HCl (Zofran) 4 mg Q6H PRN IVP Nausea & Vomiting 06/02/16 18:15 07/02/16 18:14 Pantoprazole (Protonix) 40 mg DAILY ORAL 06/03/16 09:00 07/03/16 08:59 06/06/16 09:00 Piperacillin Sod/ Tazobactam Sod/ Sodium Chloride (Zosyn/Sodium Chloride) 110 ml @ 27.5 mls/hr Q8H IVPB 06/06/16 16:00 06/13/16 15:59 06/06/16 16:07 Polyethylene Glycol 17 gm 17 gm DAILY ORAL 06/03/16 09:00 07/03/16 08:59 06/05/16 08:55 Sodium Chloride (Sodium Chloride 1000ml bag) 1,000 ml @ 50 mls/hr Q20H IV 06/03/16 11:00 07/03/16 10:59 06/05/16 22:56 Vancomycin HCl 1 ea 1 ea DAILY PRN MISC Per rx protocol 06/05/16 10:45 07/05/16 10:44 Vancomycin HCl 1 gm/Dextrose 275 ml @ 183.708 mls/hr Q24H IVPB 06/06/16 18:00 06/11/16 17:59 Allergies: Coded Allergies: OPIOIDS - MORPHINE ANALOGUES (Verified Allergy, Unknown, 06/02/16) per daughter. All opiods, she doesn't want any given to patient Uncoded Allergies: NARCOTICS (Allergy, Mild, 10/02/14) Opiates --> Nausea, SOB ROS Limited/Unobtainable: Yes Subjective 70 YO F admitted for constipation, anasarca and altered mental status. Cover for Int Isr[facility]-Dr Verma. Intubated and sedated. ICU. Continues on pressors. Objective Last Vital Signs Date Time Temp Pulse Resp B/P Pulse Ox O2 Delivery O2 Flow Rate FiO2 06/06/16 17:00 97 16 40 06/06/16 15:00 105/61 100 Mechanical Ventilator 06/06/16 12:00 98.9 06/02/16 12:00 3.0 Laboratory Tests Test 06/06/16 05:30 06/06/16 07:04 06/06/16 08:30 White Blood Count 25.2 K/UL (4.8-10.8) *H Red Blood Count 3.23 M/UL (4.20-5.40) L Hemoglobin 9.0 G/DL (12.0-16.0) L Hematocrit 28.2 % (37.0-47.0) L Mean Corpuscular Volume 87 FL (80-99) Mean Corpuscular Hemoglobin 27.8 PG (27.0-31.0) Mean Corpuscular Hemoglobin Concent 31.9 G/DL (32.0-36.0) L Red Cell Distribution Width 13.7 % (11.6-14.8) Platelet Count 193 K/UL (150-450) Mean Platelet Volume 8.4 FL (6.5-10.1) Neutrophils (%) (Auto) % (45.0-75.0) Lymphocytes (%) (Auto) % (20.0-45.0) Monocytes (%) (Auto) % (1.0-10.0) Eosinophils (%) (Auto) % (0.0-3.0) Basophils (%) (Auto) % (0.0-2.0) Differential Total Cells Counted 100 Neutrophils % (Manual) 75 % (45-75) Lymphocytes % (Manual) 1 % (20-45) L Monocytes % (Manual) 7 % (1-10) Eosinophils % (Manual) 0 % (0-3) Basophils % (Manual) 0 % (0-2) Band Neutrophils 17 % (0-8) H Platelet Estimate Adequate Platelet Morphology Normal Hypochromasia 1+ Sodium Level 145 mEQ/L (135-145) Potassium Level 2.9 mEQ/L (3.4-4.9) L Chloride Level 106 mEQ/L (98-107) Carbon Dioxide Level 22 mEQ/L (20-30) Anion Gap 17 (5-15) H Blood Urea Nitrogen 23 mg/dL (7-23) Creatinine 0.8 mg/dL (0.5-0.9) Estimat Glomerular Filtration Rate mL/min (>60) Glucose Level 103 mg/dL (74-106) Calcium Level 6.0 mg/dL (8.6-10.2) L Phosphorus Level 1.9 mg/dL (2.5-4.8) L Magnesium Level 1.5 mg/dL (1.7-2.5) L Total Bilirubin 0.3 mg/dL (0.0-1.2) Aspartate Amino Transf (AST/SGOT) 26 U/L (5-40) Alanine Aminotransferase (ALT/SGPT) 18 U/L (3-33) Alkaline Phosphatase 108 U/L (35-104) H Total Protein 3.8 g/dL (6.6-8.7) L Albumin 1.1 g/dL (3.5-5.2) L Globulin 2.7 g/dL Albumin/Globulin Ratio 0.4 (1.0-2.7) L Arterial Blood pH 7.433 (7.350-7.450) Arterial Blood Partial Pressure CO2 38.1 mmHg (35.0-45.0) Arterial Blood Partial Pressure O2 74.8 mmHg (75.0-100.0) L Arterial Blood HCO3 24.9 mmol/L (22.0-26.0) Arterial Blood Oxygen Saturation 94.8 % (92.0-98.0) Arterial Blood Base Excess 0.7 Claudy Test Positive Urine Color Brown Urine Appearance Slightly cloudy Urine pH 9 (4.5-8.0) Urine Specific [place] 1.010 (1.005-1.035) Urine Protein 3+ (NEGATIVE) H Urine Glucose (UA) Negative (NEGATIVE) Urine Ketones 2+ (NEGATIVE) H Urine Occult Blood 4+ (NEGATIVE) H Urine Nitrite Positive (NEGATIVE) H Urine Bilirubin Negative (NEGATIVE) Urine Urobilinogen Normal MG/DL (0.0-1.0) Urine Leukocyte Esterase 3+ (NEGATIVE) H Urine RBC 10-15 /HPF (0 - 2) H Urine WBC 10-15 /HPF (0 - 2) H Urine Squamous Epithelial Cells Few /LPF (NONE/OCC) Urine Amorphous Sediment Few /LPF (NONE) H Urine Bacteria Moderate /HPF (NONE) H Microbiology Date/Time Source Procedure Growth Status 06/05/16 11:30 Blood Blood Culture - Preliminary Resulted 06/05/16 11:15 Blood Blood Culture - Preliminary Resulted 06/05/16 11:15 Sputum Gram Stain - Final Resulted 06/05/16 11:15 Sputum Culture - Preliminary Staphylococcus Aureus Resulted 06/05/16 15:00 Indwelling Cath Urine Culture - Preliminary Gram Negative Bacillus 1 Resulted Intake and Output 06/05/16 06/06/16 19:00 07:00 Intake Total 1785.7 ml 3196.0 ml Output Total 125 ml 370 ml Balance 1660.7 ml 2826.0 ml Free Water 60 ml IV Total 1685.7 ml 2816.0 ml Tube Feeding 100 ml 290 ml Other 30 ml Output Urine Total 125 ml 370 ml # Bowel Movements 3 Objective General Appearance: WD/WN, lethargic, agitated EENT: PERRL/EOMI, normal ENT inspection, TMs normal Neck: non-tender, normal alignment, supple Cardiovascular: normal peripheral pulses, normal rate, regular rhythm, no gallop/murmur, no JVD Respiratory/Chest: Mech vent; respiratory distress, crackles/rales, rhonchi - bilaterally, expiratory wheezing Abdomen: normal bowel sounds, non tender, soft, no organomegaly, no mass Extremities: normal range of motion Edema: pitting 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 due to hypothyroidism? (4) Anasarca Assessment & Plan: ?hypothyroidism? Continue lasix (5) Cerebral vascular disease (6) HTN (hypertension) (7) Atrial fibrillation Assessment & Plan: see cardiology note. Cont lovenox. May require coumadin (8) Hypothyroidism Assessment & Plan: Cont levoxyl. (9) Hyponatremia Assessment & Plan: See nephrology note. (10) Respiratory failure Assessment & Plan: Intubated 06/02/16; see pulmonary note. (11) Leukocytosis Assessment & Plan: Worsening. Continue antibiotics per ID. (12) Cardiac arrest (13) Cardiogenic shock Assessment & Plan: Cont pressors Assessment/Plan Prognosis is guarded. ZENIA LAFLEUR Jun 06, 2016 18:20
[2016-06-07] VITALS (24 sets, daily range): BP systolic 11–136; BP diastolic 50–98
[2016-06-07] MEDS: Piperacillin/Tazobactam 3.375 GM in NS 110 ML IVPB SCH ×3 (01:18→16:12)
[2016-06-07] MEDS: metroNIDAZOLE 500mg tab NG SCH ×4 (01:18→21:19)
[2016-06-07 05:12] LABS: MEAN CORPUSCULAR HEMOGLOBIN 27.8 PG (27.0-31.0); MEAN CORPUSCULAR HGB CONC 32.1 G/DL (32.0-36.0); MEAN CORPUSCULAR VOLUME 87 FL (80-99); MEAN PLATELET VOLUME 9.4 FL (6.5-10.1); PLATELET COUNT 245 K/UL (150-450); RED BLOOD COUNT 3.84 M/UL (4.20-5.40); RED CELL DISTRIBUTION WIDTH 13.6 % (11.6-14.8)
[2016-06-07 05:22] LABS: WHITE BLOOD COUNT 26.9 K/UL (4.8-10.8)
[2016-06-07 05:44] LABS: ALANINE AMINOTRANSFERASE 23 U/L (3-33); ALBUMIN/GLOBULIN RATIO 0.2 (1.0-2.7); ANION GAP 13 (5-15); ASPARTATE AMINO TRANSFERASE 23 U/L (5-40); CALCIUM 6.9 mg/dL (8.6-10.2); CARBON DIOXIDE 24 mEQ/L (20-30); CHLORIDE 109 mEQ/L (98-107); HEMOLYSIS 1; MAGNESIUM 1.6 mg/dL (1.7-2.5); PHOSPHORUS 2.9 mg/dL (2.5-4.8); POTASSIUM 2.9 mEQ/L (3.4-4.9); SODIUM 146 mEQ/L (135-145); TOTAL PROTEIN 5.3 g/dL (6.6-8.7)
--- NOTE | 2016-06-07 08:45 | Infectious Diseases Prog Note ---
Assessment/Plan Assessment/Plan ASSESSMENT: 70 y/o female with: // S.aureus bacteremia 06/14 ?source lung vs PICC - sensi pending - TTE 06/04 neg veg // PSA UTI // Possible aspiration PNA - SCx S.aureus - CXR 06/06: Bilateral small pleural effusions persists. 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, unchanged // Sepsis // Leukocytosis - improved, stable - CT A/P 05/27: no abscess // Low grade fever - improved // Acute VDRF - intubated 06/02 // Severe encephalopathy / comatose, probable MADAN - no improvement, family leaning towards withdrawal of care // SP code blue 06/02 ?etiology // Elevated ALP - US: Negative for gallstones or dilated ducts // Hypoalbuminemia 05/15 nephrotic syndrome // Elevated CRP // PAD - arterial doppler: waveform analysis is monophasic, consistent with severe ischemia at rest. // Severe pulmonary HTN // Constipation // Chronic paraplegia 05/15 SCI // SP RUE PICC 06/01 // No ABX allergies // Full Code PLAN: - continue IV vancomycin, zosyn, flagyl d# 3. DC amikakin d# 3 - if ongoing aggressive care, will need PICC change, repeat blood cultures - monitor CBC, temperatures - monitor BMP - monitor CXR - vent support, wean as tolerated - poor overall prognosis Subjective Allergies: Coded Allergies: OPIOIDS - MORPHINE ANALOGUES (Verified Allergy, Unknown, 06/02/16) per daughter. All opiods, she doesn't want any given to patient Uncoded Allergies: NARCOTICS (Allergy, Mild, 10/02/14) Opiates --> Nausea, SOB Subjective afebrile overnight, WBC stable nonresponsive on vent no family at bedside Objective Vital Signs Last 24 Hour Vital Signs Date Time Temp Pulse Resp B/P Pulse Ox O2 Delivery O2 Flow Rate FiO2 06/07/16 06:50 114 16 40 06/07/16 06:00 108 16 136/85 100 Mechanical Ventilator 40 06/07/16 05:00 110 16 135/71 100 Mechanical Ventilator 40 06/07/16 04:50 104 16 40 06/07/16 04:00 40 06/07/16 04:00 98.9 109 16 120/72 100 Mechanical Ventilator 40 06/07/16 04:00 109 06/07/16 03:00 106 16 126/72 100 Mechanical Ventilator 40 06/07/16 03:00 105 16 40 06/07/16 02:00 104 16 116/59 100 Mechanical Ventilator 40 06/07/16 01:00 101 16 40 06/07/16 01:00 104 16 108/65 100 Mechanical Ventilator 40 06/07/16 00:00 99.0 98 16 124/65 100 Mechanical Ventilator 40 06/07/16 00:00 40 06/07/16 00:00 99 06/06/16 23:00 98 16 113/80 100 Mechanical Ventilator 40 06/06/16 22:40 99 16 40 06/06/16 22:00 100 15 104/45 100 Mechanical Ventilator 40 06/06/16 21:00 100 15 88/52 100 Mechanical Ventilator 40 06/06/16 20:55 97 16 40 06/06/16 20:00 101 06/06/16 20:00 98.9 99 13 98/58 100 Mechanical Ventilator 40 06/06/16 20:00 40 06/06/16 19:00 99 13 107/51 100 Mechanical Ventilator 40 06/06/16 18:59 98 16 40 06/06/16 18:00 100 16 98/58 100 Mechanical Ventilator 40 06/06/16 17:00 98 16 106/44 100 Mechanical Ventilator 40 06/06/16 17:00 97 16 40 06/06/16 16:00 40 06/06/16 16:00 99.0 98 16 83/51 100 Mechanical Ventilator 40 06/06/16 16:00 100 06/06/16 15:20 99 16 40 06/06/16 15:00 98 18 105/61 100 Mechanical Ventilator 40 06/06/16 14:00 105 18 103/56 100 Mechanical Ventilator 40 06/06/16 13:02 121 16 40 06/06/16 13:00 124 17 95/56 100 Mechanical Ventilator 40 06/06/16 12:00 40 06/06/16 12:00 104 06/06/16 12:00 98.9 109 15 101/67 100 Mechanical Ventilator 40 06/06/16 11:04 99.0 06/06/16 11:01 124 16 40 06/06/16 11:00 99.0 120 17 82/53 100 Mechanical Ventilator 40 06/06/16 09:55 83 15 109/67 100 Mechanical Ventilator 40 06/06/16 09:00 91 17 104/56 100 Mechanical Ventilator 40 06/06/16 09:00 115 16 40 Height (Feet): 5 Height (Inches): 4.00 Weight (Pounds): 170 General Appearance: other - intubated, nonresponsive Respiratory/Chest: decreased breath sounds Cardiovascular: normal rate, regular rhythm Abdomen: normal bowel sounds, soft, non tender, non distended Microbiology Date/Time Source Procedure Growth Status 06/05/16 11:30 Blood Blood Culture - Preliminary Staphylococcus Aureus Resulted 06/05/16 11:15 Blood Blood Culture - Preliminary Resulted 06/05/16 11:15 Sputum Gram Stain - Final Complete 06/05/16 11:15 Sputum Culture - Final Staphylococcus Aureus Complete 06/05/16 15:00 Indwelling Cath Urine Culture - Final Pseudomonas Aeruginosa Complete Laboratory Tests Test 06/07/16 04:30 White Blood Count 26.9 K/UL (4.8-10.8) *H Red Blood Count 3.84 M/UL (4.20-5.40) L Hemoglobin 10.7 G/DL (12.0-16.0) L Hematocrit 33.2 % (37.0-47.0) L Mean Corpuscular Volume 87 FL (80-99) Mean Corpuscular Hemoglobin 27.8 PG (27.0-31.0) Mean Corpuscular Hemoglobin Concent 32.1 G/DL (32.0-36.0) Red Cell Distribution Width 13.6 % (11.6-14.8) Platelet Count 245 K/UL (150-450) Mean Platelet Volume 9.4 FL (6.5-10.1) Neutrophils (%) (Auto) % (45.0-75.0) Lymphocytes (%) (Auto) % (20.0-45.0) Monocytes (%) (Auto) % (1.0-10.0) Eosinophils (%) (Auto) % (0.0-3.0) Basophils (%) (Auto) % (0.0-2.0) Neutrophils % (Manual) Pending Lymphocytes % (Manual) Pending Platelet Estimate Pending Platelet Morphology Pending Sodium Level 146 mEQ/L (135-145) H Potassium Level 2.9 mEQ/L (3.4-4.9) L Chloride Level 109 mEQ/L (98-107) H Carbon Dioxide Level 24 mEQ/L (20-30) Anion Gap 13 (5-15) Blood Urea Nitrogen 28 mg/dL (7-23) H Creatinine 1.0 mg/dL (0.5-0.9) H Estimat Glomerular Filtration Rate mL/min (>60) Glucose Level 173 mg/dL (74-106) H Calcium Level 6.9 mg/dL (8.6-10.2) L Phosphorus Level 2.9 mg/dL (2.5-4.8) Magnesium Level 1.6 mg/dL (1.7-2.5) L Total Bilirubin 0.3 mg/dL (0.0-1.2) Aspartate Amino Transf (AST/SGOT) 23 U/L (5-40) Alanine Aminotransferase (ALT/SGPT) 23 U/L (3-33) Alkaline Phosphatase 116 U/L (35-104) H Total Protein 5.3 g/dL (6.6-8.7) #L Albumin 1.1 g/dL (3.5-5.2) L Globulin 4.2 g/dL Albumin/Globulin Ratio 0.2 (1.0-2.7) L Current Medications Medications (Trade) Dose Ordered Sig/Miguel Route PRN Reason Start Time Stop Time Status Last Admin Dose Admin Acetaminophen (Tylenol) 650 mg Q4H PRN ORAL fever 06/02/16 20:15 07/02/16 20:14 06/06/16 10:05 Albuterol Sulfate (Proventil MDI) 2 puff Q4H PRN INH Shortness of Breath 06/02/16 21:00 07/02/16 20:59 Amikacin Protocol (Amikacin pharmacy to dose) 1 ea DAILY PRN MISC Per rx protocol 06/05/16 10:45 07/05/16 10:44 Amikacin Sulfate/ Sodium Chloride (Amikin/Sodium Chloride) 111.6 ml @ 223.2 mls/ hr Q24H IV 06/05/16 14:00 06/12/16 13:59 06/06/16 14:07 Artificial Tears (Akwa-Tears) 2 drop Q2H PRN BOTH EYES Dry Eyes 06/02/16 18:15 07/02/16 18:14 06/04/16 20:19 Clonidine HCl (Catapres) 0.1 mg Q4H PRN ORAL For High Blood Pressure 06/02/16 18:30 07/02/16 18:29 Dextrose (Dextrose 50%) STAT PRN IV Hypoglycemia 06/03/16 00:15 07/03/16 00:14 Heparin Sodium (Porcine) (Heparin 5000 units/ml) 5,000 units EVERY 12 HOURS SUBQ 06/02/16 21:00 07/02/16 20:59 06/06/16 21:29 Levetiracetam/ Dextrose (Keppra/D5W) 115 ml @ 460 mls/hr Q12HR IV 06/03/16 09:00 07/03/16 08:59 06/06/16 21:55 Levothyroxine Sodium (Synthroid) 50 mcg DAILY@0630 ORAL 06/03/16 06:30 07/03/16 06:29 06/07/16 07:52 Lorazepam (Ativan 2mg/ml 1ml) 2 mg Q4H PRN IV For Anxiety 06/02/16 21:30 06/09/16 21:29 Magnesium Sulfate (Magnesium Sulfate 1gm/100ml) 100 ml @ 100 mls/hr Q1H IVPB 06/07/16 09:00 06/07/16 12:59 Metronidazole (Flagyl) 500 mg Q8HR NG 06/05/16 16:00 06/12/16 15:59 06/07/16 06:05 Mineral Oil (Fleet's Mineral Oil Enema) 133 ml EVERY OTHER DAY RECTAL 06/03/16 09:00 07/03/16 08:59 06/03/16 10:29 Norepinephrine Bitartrate 4 mg/ Dextrose 250 ml @ 0 mls/hr Q24H IV 06/02/16 17:15 07/02/16 17:14 06/06/16 03:20 Nystatin 1 applic 1 applic THREE TIMES A DAY TOPIC 06/05/16 16:00 07/05/16 15:59 06/06/16 18:20 Ondansetron HCl (Zofran) 4 mg Q6H PRN IVP Nausea & Vomiting 06/02/16 18:15 07/02/16 18:14 Pantoprazole (Protonix) 40 mg DAILY ORAL 06/03/16 09:00 07/03/16 08:59 06/06/16 09:00 Piperacillin Sod/ Tazobactam Sod 3.375 gm/Sodium Chloride 110 ml @ 27.5 mls/hr Q8H IVPB 06/06/16 16:00 06/13/16 15:59 06/07/16 08:24 Polyethylene Glycol 17 gm 17 gm DAILY ORAL 06/03/16 09:00 07/03/16 08:59 06/05/16 08:55 Potassium Chloride 60 meq/ Sodium Chloride 1,030 ml @ 167 mls/hr ONCE ONCE IV 06/07/16 10:00 06/07/16 16:10 Sodium Chloride (Sodium Chloride 1000ml bag) 1,000 ml @ 50 mls/hr Q20H IV 06/03/16 11:00 07/03/16 10:59 06/06/16 21:29 Vancomycin HCl 1 ea 1 ea DAILY PRN MISC Per rx protocol 06/05/16 10:45 07/05/16 10:44 Vancomycin HCl 1 gm/Dextrose 275 ml @ 183.708 mls/hr Q24H IVPB 06/06/16 18:00 06/11/16 17:59 06/06/16 18:20 ABHISHEK BURTON Jun 07, 2016 08:45
[2016-06-07] MEDS: levETIRAcetam 500 MG in D5W 110 ML IV SCH ×2 (08:59→20:37)
[2016-06-07] MEDS: Miralax 17gm pkt ORAL SCH (09:00)
[2016-06-07] MEDS: Fleet's Mineral Oil Enema RECTAL SCH (09:02)
[2016-06-07] MEDS: Nystatin Powder 100,000 units/gm 15gm TOPIC SCH ×3 (09:03→17:44)
[2016-06-07] MEDS: Heparin 5000 units/ml inj SUBQ SCH ×2 (09:09→21:12)
[2016-06-07 09:14] LABS: BAND NEUTROPHILS % (MANUAL) 3 % (0-8); BASOPHILS % (MANUAL) 0 % (0-2); EOSINOPHILS % (MANUAL) 0 % (0-3); HYPOCHROMASIA 1+; LYMPHOCYTES % (MANUAL) 3 % (20-45); NEUTROPHILS % (MANUAL) 86 % (45-75); PLATELET ESTIMATE ADEQUATE; PLATELET MORPHOLOGY NORMAL; TOTAL CELLS COUNTED 100
--- NOTE | 2016-06-07 09:25 | Pulmonolgy Critical Care Note ---
Critical Care - Asmt/Plan Problems: (1) Acute respiratory failure (2) Chronic incomplete quadriplegia (3) Atrial fibrillation (4) Protein-calorie malnutrition, severe (5) Cardiac arrest (6) Anasarca (7) Acute encephalopathy Respiratory: monitor respiratory rate, adjust FIO2, CXR, ABG Cardiac: continue to monitor HR/BP Renal: F/U I&O, keep IV fluid, check electrolytes Infectious Disease: check cultures, other - dc amikacin Gastrointestinal: continue feedings/current rate, hold feedings Endocrine: check TSH Neurologic: PRN Ativan, PRN Morphine Notes Reviewed: audiovisual lead technician, cardio Discussed with: nurses, consultants, immigration case managersap solution manager consultant - Objective Last 24 Hour Vital Signs Date Time Temp Pulse Resp B/P Pulse Ox O2 Delivery O2 Flow Rate FiO2 06/07/16 06:50 114 16 40 06/07/16 06:00 108 16 136/85 100 Mechanical Ventilator 40 06/07/16 05:00 110 16 135/71 100 Mechanical Ventilator 40 06/07/16 04:50 104 16 40 06/07/16 04:00 40 06/07/16 04:00 98.9 109 16 120/72 100 Mechanical Ventilator 40 06/07/16 04:00 109 06/07/16 03:00 106 16 126/72 100 Mechanical Ventilator 40 06/07/16 03:00 105 16 40 06/07/16 02:00 104 16 116/59 100 Mechanical Ventilator 40 06/07/16 01:00 101 16 40 06/07/16 01:00 104 16 108/65 100 Mechanical Ventilator 40 06/07/16 00:00 99.0 98 16 124/65 100 Mechanical Ventilator 40 06/07/16 00:00 40 06/07/16 00:00 99 06/06/16 23:00 98 16 113/80 100 Mechanical Ventilator 40 06/06/16 22:40 99 16 40 06/06/16 22:00 100 15 104/45 100 Mechanical Ventilator 40 06/06/16 21:00 100 15 88/52 100 Mechanical Ventilator 40 06/06/16 20:55 97 16 40 06/06/16 20:00 101 06/06/16 20:00 98.9 99 13 98/58 100 Mechanical Ventilator 40 06/06/16 20:00 40 06/06/16 19:00 99 13 107/51 100 Mechanical Ventilator 40 06/06/16 18:59 98 16 40 06/06/16 18:00 100 16 98/58 100 Mechanical Ventilator 40 06/06/16 17:00 98 16 106/44 100 Mechanical Ventilator 40 06/06/16 17:00 97 16 40 06/06/16 16:00 40 06/06/16 16:00 99.0 98 16 83/51 100 Mechanical Ventilator 40 06/06/16 16:00 100 06/06/16 15:20 99 16 40 06/06/16 15:00 98 18 105/61 100 Mechanical Ventilator 40 06/06/16 14:00 105 18 103/56 100 Mechanical Ventilator 40 06/06/16 13:02 121 16 40 06/06/16 13:00 124 17 95/56 100 Mechanical Ventilator 40 06/06/16 12:00 40 06/06/16 12:00 104 06/06/16 12:00 98.9 109 15 101/67 100 Mechanical Ventilator 40 06/06/16 11:04 99.0 06/06/16 11:01 124 16 40 06/06/16 11:00 99.0 120 17 82/53 100 Mechanical Ventilator 40 06/06/16 09:55 83 15 109/67 100 Mechanical Ventilator 40 Status: obtunded Condition: critical HEENT: atraumatic Neck: full ROM Heart: HR/BP stable, HR/BP unstable Abdomen: soft, non-tender, feeding tube Extremities: edema Decubiti: stage Objective: family needs time ti think about plan of care Micro: Microbiology Date/Time Source Procedure Growth Status 06/05/16 11:30 Blood Blood Culture - Preliminary Staphylococcus Aureus Resulted 06/05/16 11:15 Blood Blood Culture - Preliminary Resulted 06/05/16 11:15 Sputum Gram Stain - Final Complete 06/05/16 11:15 Sputum Culture - Final Staphylococcus Aureus Complete 06/05/16 15:00 Indwelling Cath Urine Culture - Final Pseudomonas Aeruginosa Complete Critical Care - Subjective ROS Limited/Unobtainable: Yes ICU Day: 4 Intubation Day: 4 Condition: critical IV Access: PICC EKG Rhythm: Sinus Rhythm FI02: 40 Vent Support Breath Rate: 16 Vent Support Mode: AC Vent Tidal Volume: 600 Sputum Amount: Moderate PEEP: 5.0 PIP: 42 Tube Feeding Amount: 55 I&O: Intake and Output 06/06/16 06/07/16 19:00 07:00 Intake Total 1824.1 ml 1400.0 ml Output Total 160 ml 220 ml Balance 1664.1 ml 1180.0 ml Free Water 180 ml 100 ml IV Total 1174.1 ml 710.0 ml Tube Feeding 470 ml 590 ml Output Urine Total 160 ml 220 ml # Bowel Movements 2 4 CXR: RLL effusion /infiltrate. ET tub e in good position ET-Tube: 7.5 ET Position: 23 Labs: Laboratory Tests Test 06/07/16 04:30 White Blood Count 26.9 K/UL (4.8-10.8) *H Red Blood Count 3.84 M/UL (4.20-5.40) L Hemoglobin 10.7 G/DL (12.0-16.0) L Hematocrit 33.2 % (37.0-47.0) L Mean Corpuscular Volume 87 FL (80-99) Mean Corpuscular Hemoglobin 27.8 PG (27.0-31.0) Mean Corpuscular Hemoglobin Concent 32.1 G/DL (32.0-36.0) Red Cell Distribution Width 13.6 % (11.6-14.8) Platelet Count 245 K/UL (150-450) Mean Platelet Volume 9.4 FL (6.5-10.1) Neutrophils (%) (Auto) % (45.0-75.0) Lymphocytes (%) (Auto) % (20.0-45.0) Monocytes (%) (Auto) % (1.0-10.0) Eosinophils (%) (Auto) % (0.0-3.0) Basophils (%) (Auto) % (0.0-2.0) Differential Total Cells Counted 100 Neutrophils % (Manual) 86 % (45-75) H Lymphocytes % (Manual) 3 % (20-45) L Monocytes % (Manual) 8 % (1-10) Eosinophils % (Manual) 0 % (0-3) Basophils % (Manual) 0 % (0-2) Band Neutrophils 3 % (0-8) Platelet Estimate Adequate Platelet Morphology Normal Hypochromasia 1+ Anisocytosis Sodium Level 146 mEQ/L (135-145) H Potassium Level 2.9 mEQ/L (3.4-4.9) L Chloride Level 109 mEQ/L (98-107) H Carbon Dioxide Level 24 mEQ/L (20-30) Anion Gap 13 (5-15) Blood Urea Nitrogen 28 mg/dL (7-23) H Creatinine 1.0 mg/dL (0.5-0.9) H Estimat Glomerular Filtration Rate mL/min (>60) Glucose Level 173 mg/dL (74-106) H Calcium Level 6.9 mg/dL (8.6-10.2) L Phosphorus Level 2.9 mg/dL (2.5-4.8) Magnesium Level 1.6 mg/dL (1.7-2.5) L Total Bilirubin 0.3 mg/dL (0.0-1.2) Aspartate Amino Transf (AST/SGOT) 23 U/L (5-40) Alanine Aminotransferase (ALT/SGPT) 23 U/L (3-33) Alkaline Phosphatase 116 U/L (35-104) H Total Protein 5.3 g/dL (6.6-8.7) #L Albumin 1.1 g/dL (3.5-5.2) L Globulin 4.2 g/dL Albumin/Globulin Ratio 0.2 (1.0-2.7) L DARION MISHRA Jun 07, 2016 09:25
[2016-06-07 09:57] LABS: ABG ALLEN TEST POSITIVE; ABG BASE EXCESS -1.7
[2016-06-07] MEDS ORDERED: Potassium Chloride 60 MEQ in NS 1000ml 1,000 ML IV ONE (10:00)
--- NOTE | 2016-06-07 11:20 | General Progress Note ---
Assessment/Plan Status: unchanged - clinical status Assessment/Plan Renal: Nephrotic Syndrome most likely- leading to Anasarca, Pleural effusion Other: Respiratory failure- anoxic ischemic cerebral insult , post code blue acute toxic encephalopathy- severe PVD mild pulmonary edema severe pulmonary HTN seizure disorder constipation hyponatremia , likelu due to Anasarca Mild hypothyroidism with elevated TSH functional quadriplegia Plan: K , phos IV as needed pulm support per orders- monitor lytes- poor prognosis favor comfort care and terminal extubation if Neuro and family agrees Subjective ROS Limited/Unobtainable: Yes Allergies: Coded Allergies: OPIOIDS - MORPHINE ANALOGUES (Verified Allergy, Unknown, 06/02/16) per daughter. All opiods, she doesn't want any given to patient Uncoded Allergies: NARCOTICS (Allergy, Mild, 10/02/14) Opiates --> Nausea, SOB Objective Last 24 Hour Vital Signs Date Time Temp Pulse Resp B/P Pulse Ox O2 Delivery O2 Flow Rate FiO2 06/07/16 10:00 108 16 98/52 100 Mechanical Ventilator 40 06/07/16 10:00 40 06/07/16 09:00 108 16 90/54 100 Mechanical Ventilator 40 06/07/16 09:00 104 16 40 06/07/16 08:00 99.2 108 16 100/50 100 Mechanical Ventilator 40 06/07/16 08:00 113 06/07/16 07:00 108 16 11/60 100 Mechanical Ventilator 40 06/07/16 06:50 114 16 40 06/07/16 06:00 108 16 136/85 100 Mechanical Ventilator 40 06/07/16 05:00 110 16 135/71 100 Mechanical Ventilator 40 06/07/16 04:50 104 16 40 06/07/16 04:00 40 06/07/16 04:00 98.9 109 16 120/72 100 Mechanical Ventilator 40 06/07/16 04:00 109 06/07/16 03:00 106 16 126/72 100 Mechanical Ventilator 40 06/07/16 03:00 105 16 40 06/07/16 02:00 104 16 116/59 100 Mechanical Ventilator 40 06/07/16 01:00 101 16 40 06/07/16 01:00 104 16 108/65 100 Mechanical Ventilator 40 06/07/16 00:00 99.0 98 16 124/65 100 Mechanical Ventilator 40 06/07/16 00:00 40 06/07/16 00:00 99 06/06/16 23:00 98 16 113/80 100 Mechanical Ventilator 40 06/06/16 22:40 99 16 40 06/06/16 22:00 100 15 104/45 100 Mechanical Ventilator 40 06/06/16 21:00 100 15 88/52 100 Mechanical Ventilator 40 06/06/16 20:55 97 16 40 06/06/16 20:00 101 06/06/16 20:00 98.9 99 13 98/58 100 Mechanical Ventilator 40 06/06/16 20:00 40 06/06/16 19:00 99 13 107/51 100 Mechanical Ventilator 40 06/06/16 18:59 98 16 40 06/06/16 18:00 100 16 98/58 100 Mechanical Ventilator 40 06/06/16 17:00 98 16 106/44 100 Mechanical Ventilator 40 06/06/16 17:00 97 16 40 06/06/16 16:00 40 06/06/16 16:00 99.0 98 16 83/51 100 Mechanical Ventilator 40 06/06/16 16:00 100 06/06/16 15:20 99 16 40 06/06/16 15:00 98 18 105/61 100 Mechanical Ventilator 40 06/06/16 14:00 105 18 103/56 100 Mechanical Ventilator 40 06/06/16 13:02 121 16 40 06/06/16 13:00 124 17 95/56 100 Mechanical Ventilator 40 06/06/16 12:00 40 06/06/16 12:00 104 06/06/16 12:00 98.9 109 15 101/67 100 Mechanical Ventilator 40 Intake and Output 06/06/16 06/07/16 19:00 07:00 Intake Total 1824.1 ml 1455.0 ml Output Total 160 ml 230 ml Balance 1664.1 ml 1225.0 ml Free Water 180 ml 100 ml IV Total 1174.1 ml 710.0 ml Tube Feeding 470 ml 645 ml Output Urine Total 160 ml 230 ml # Bowel Movements 2 4 Laboratory Tests 06/07/16 04:30: White Blood Count 26.9*H, Red Blood Count 3.84L, Hemoglobin 10.7L, Hematocrit 33.2L, Mean Corpuscular Volume 87, Mean Corpuscular Hemoglobin 27.8, Mean Corpuscular Hemoglobin Concent 32.1, Red Cell Distribution Width 13.6, Platelet Count 245, Mean Platelet Volume 9.4, Neutrophils (%) (Auto) , Lymphocytes (%) ( Auto) , Monocytes (%) (Auto) , Eosinophils (%) (Auto) , Basophils (%) (Auto) , Differential Total Cells Counted 100, Neutrophils % (Manual) 86H, Lymphocytes % (Manual) 3L, Monocytes % (Manual) 8, Eosinophils % (Manual) 0, Basophils % ( Manual) 0, Band Neutrophils 3, Platelet Estimate Adequate, Platelet Morphology Normal, Hypochromasia 1+, Anisocytosis , Sodium Level 146H, Potassium Level 2.9L , Chloride Level 109H, Carbon Dioxide Level 24, Anion Gap 13, Blood Urea Nitrogen 28H, Creatinine 1.0H, Estimat Glomerular Filtration Rate , Glucose Level 173H, Calcium Level 6.9L, Phosphorus Level 2.9, Magnesium Level 1.6L, Total Bilirubin 0.3, Aspartate Amino Transf (AST/SGOT) 23, Alanine Aminotransferase (ALT/SGPT) 23, Alkaline Phosphatase 116H, Total Protein 5.3#L, Albumin 1.1L, Globulin 4.2, Albumin/Globulin Ratio 0.2L 06/07/16 08:50: Arterial Blood pH 7.360, Arterial Blood Partial Pressure CO2 43.0, Arterial Blood Partial Pressure O2 89.6, Arterial Blood HCO3 23.7, Arterial Blood Oxygen Saturation 96.3, Arterial Blood Base Excess -1.7, Claudy Test Positive Height (Feet): 5 Height (Inches): 4.00 Weight (Pounds): 170 General Appearance: other - comatose Cardiovascular: tachycardia Respiratory/Chest: decreased breath sounds Abdomen: distended Objective other PE not changed MARISOL ELAINE Jun 07, 2016 11:20
--- NOTE | 2016-06-07 11:26 | Cardiology Progress Note ---
Assessment/Plan Assessment/Plan s/p pulmonary arrest atrial fibrillation now back in afib anoxic encephalopathy with no change in mentation since severe pulmonary HTN right heart failure leukocytosis Nephrotic Syndrome seizure disorder constipation hyponatremia Mild hypothyroidism with elevated TSH functional quadriplegi off pressors now on the vent neuro noted vent support d/w rn d/w dr emma terrell normal ekg noted has some chronic t inversion remains critical and at risk of dying tele reviewed labs reviewed repeat echo shows normal ef still with pulm htn has sig edema but cannot diurese as bp borderine hr too rapid is gettign beta agonist which may be driving the afib d/c if possible will give one or tow doses o f dig to see if able to help the her overall her prognosis felt to be poor Subjective ROS Limited/Unobtainable: Yes Subjective s/p cardiopulm arrest while in mri s/p resuscitation now on the vent not verbal not communicative Objective Last 24 Hour Vital Signs Date Time Temp Pulse Resp B/P Pulse Ox O2 Delivery O2 Flow Rate FiO2 06/07/16 10:00 108 16 98/52 100 Mechanical Ventilator 40 06/07/16 10:00 40 06/07/16 09:00 108 16 90/54 100 Mechanical Ventilator 40 06/07/16 09:00 104 16 40 06/07/16 08:00 99.2 108 16 100/50 100 Mechanical Ventilator 40 06/07/16 08:00 113 06/07/16 07:00 108 16 11/60 100 Mechanical Ventilator 40 06/07/16 06:50 114 16 40 06/07/16 06:00 108 16 136/85 100 Mechanical Ventilator 40 06/07/16 05:00 110 16 135/71 100 Mechanical Ventilator 40 06/07/16 04:50 104 16 40 06/07/16 04:00 40 06/07/16 04:00 98.9 109 16 120/72 100 Mechanical Ventilator 40 06/07/16 04:00 109 06/07/16 03:00 106 16 126/72 100 Mechanical Ventilator 40 06/07/16 03:00 105 16 40 06/07/16 02:00 104 16 116/59 100 Mechanical Ventilator 40 06/07/16 01:00 101 16 40 06/07/16 01:00 104 16 108/65 100 Mechanical Ventilator 40 06/07/16 00:00 99.0 98 16 124/65 100 Mechanical Ventilator 40 06/07/16 00:00 40 06/07/16 00:00 99 06/06/16 23:00 98 16 113/80 100 Mechanical Ventilator 40 06/06/16 22:40 99 16 40 06/06/16 22:00 100 15 104/45 100 Mechanical Ventilator 40 06/06/16 21:00 100 15 88/52 100 Mechanical Ventilator 40 06/06/16 20:55 97 16 40 06/06/16 20:00 101 06/06/16 20:00 98.9 99 13 98/58 100 Mechanical Ventilator 40 06/06/16 20:00 40 06/06/16 19:00 99 13 107/51 100 Mechanical Ventilator 40 06/06/16 18:59 98 16 40 06/06/16 18:00 100 16 98/58 100 Mechanical Ventilator 40 06/06/16 17:00 98 16 106/44 100 Mechanical Ventilator 40 06/06/16 17:00 97 16 40 06/06/16 16:00 40 06/06/16 16:00 99.0 98 16 83/51 100 Mechanical Ventilator 40 06/06/16 16:00 100 06/06/16 15:20 99 16 40 06/06/16 15:00 98 18 105/61 100 Mechanical Ventilator 40 06/06/16 14:00 105 18 103/56 100 Mechanical Ventilator 40 06/06/16 13:02 121 16 40 06/06/16 13:00 124 17 95/56 100 Mechanical Ventilator 40 06/06/16 12:00 40 06/06/16 12:00 104 06/06/16 12:00 98.9 109 15 101/67 100 Mechanical Ventilator 40 General Appearance: obese, on vent, other - not responsive not communicative Neck: supple Cardiovascular: irregularly irregular Respiratory/Chest: rhonchi - bilaterally Abdomen: non tender, soft Extremities: severe edema - edema exended to aliyah abd wall Intake and Output 06/06/16 06/07/16 19:00 07:00 Intake Total 1824.1 ml 1455.0 ml Output Total 160 ml 230 ml Balance 1664.1 ml 1225.0 ml Free Water 180 ml 100 ml IV Total 1174.1 ml 710.0 ml Tube Feeding 470 ml 645 ml Output Urine Total 160 ml 230 ml # Bowel Movements 2 4 Laboratory Tests Test 06/07/16 04:30 06/07/16 08:50 White Blood Count 26.9 K/UL (4.8-10.8) *H Red Blood Count 3.84 M/UL (4.20-5.40) L Hemoglobin 10.7 G/DL (12.0-16.0) L Hematocrit 33.2 % (37.0-47.0) L Mean Corpuscular Volume 87 FL (80-99) Mean Corpuscular Hemoglobin 27.8 PG (27.0-31.0) Mean Corpuscular Hemoglobin Concent 32.1 G/DL (32.0-36.0) Red Cell Distribution Width 13.6 % (11.6-14.8) Platelet Count 245 K/UL (150-450) Mean Platelet Volume 9.4 FL (6.5-10.1) Neutrophils (%) (Auto) % (45.0-75.0) Lymphocytes (%) (Auto) % (20.0-45.0) Monocytes (%) (Auto) % (1.0-10.0) Eosinophils (%) (Auto) % (0.0-3.0) Basophils (%) (Auto) % (0.0-2.0) Differential Total Cells Counted 100 Neutrophils % (Manual) 86 % (45-75) H Lymphocytes % (Manual) 3 % (20-45) L Monocytes % (Manual) 8 % (1-10) Eosinophils % (Manual) 0 % (0-3) Basophils % (Manual) 0 % (0-2) Band Neutrophils 3 % (0-8) Platelet Estimate Adequate Platelet Morphology Normal Hypochromasia 1+ Anisocytosis Sodium Level 146 mEQ/L (135-145) H Potassium Level 2.9 mEQ/L (3.4-4.9) L Chloride Level 109 mEQ/L (98-107) H Carbon Dioxide Level 24 mEQ/L (20-30) Anion Gap 13 (5-15) Blood Urea Nitrogen 28 mg/dL (7-23) H Creatinine 1.0 mg/dL (0.5-0.9) H Estimat Glomerular Filtration Rate mL/min (>60) Glucose Level 173 mg/dL (74-106) H Calcium Level 6.9 mg/dL (8.6-10.2) L Phosphorus Level 2.9 mg/dL (2.5-4.8) Magnesium Level 1.6 mg/dL (1.7-2.5) L Total Bilirubin 0.3 mg/dL (0.0-1.2) Aspartate Amino Transf (AST/SGOT) 23 U/L (5-40) Alanine Aminotransferase (ALT/SGPT) 23 U/L (3-33) Alkaline Phosphatase 116 U/L (35-104) H Total Protein 5.3 g/dL (6.6-8.7) #L Albumin 1.1 g/dL (3.5-5.2) L Globulin 4.2 g/dL Albumin/Globulin Ratio 0.2 (1.0-2.7) L Arterial Blood pH 7.360 (7.350-7.450) Arterial Blood Partial Pressure CO2 43.0 mmHg (35.0-45.0) Arterial Blood Partial Pressure O2 89.6 mmHg (75.0-100.0) Arterial Blood HCO3 23.7 mmol/L (22.0-26.0) Arterial Blood Oxygen Saturation 96.3 % (92.0-98.0) Arterial Blood Base Excess -1.7 Claudy Test Positive Microbiology Date/Time Source Procedure Growth Status 06/05/16 11:30 Blood Blood Culture - Preliminary Staphylococcus Aureus Resulted 06/05/16 11:15 Blood Blood Culture - Preliminary Resulted 06/05/16 11:15 Sputum Gram Stain - Final Complete 06/05/16 11:15 Sputum Culture - Final Staphylococcus Aureus Complete 06/05/16 15:00 Indwelling Cath Urine Culture - Final Pseudomonas Aeruginosa Complete TOMEKA CHUN Jun 07, 2016 11:26
--- NOTE | 2016-06-07 11:34 | Diagnostic Imaging Report ---
Indication: Dyspnea Comparison: 06/06/16 A single view chest radiograph was obtained. Findings: Focus of consolidation demonstrated at the right lung base. Heart size is increased but stable. Tubes and lines are stable. 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
[2016-06-07] MEDS ORDERED: AMIKACIN IV SCH (14:00)
[2016-06-07] MEDS ORDERED: D5W IV SCH (14:00)
--- NOTE | 2016-06-07 15:06 | Neurology Progress Note ---
Interim History Interim History Interim History Ms. Donato continues to be unresponsive to her environment. She is intubated and artificially ventilated. She is off pressors and maintaining her BP. As per her nurse there has been no improvement in her neurologic state. No seizures have been noted. She has not demonstrated any improvement in neurologic function >5 days following her cardiopulmonary event. Review of Systems Neuro Review of Systems Unable to obtain. Objective Physical Exam Last Vital Signs Date Time Temp Pulse Resp B/P Pulse Ox O2 Delivery O2 Flow Rate FiO2 06/07/16 14:00 110 16 98/56 100 Mechanical Ventilator 40 06/07/16 12:00 98.7 06/02/16 12:00 3.0 Laboratory Tests Test 06/07/16 04:30 06/07/16 08:50 06/07/16 13:30 White Blood Count 26.9 K/UL (4.8-10.8) *H Red Blood Count 3.84 M/UL (4.20-5.40) L Hemoglobin 10.7 G/DL (12.0-16.0) L Hematocrit 33.2 % (37.0-47.0) L Mean Corpuscular Volume 87 FL (80-99) Mean Corpuscular Hemoglobin 27.8 PG (27.0-31.0) Mean Corpuscular Hemoglobin Concent 32.1 G/DL (32.0-36.0) Red Cell Distribution Width 13.6 % (11.6-14.8) Platelet Count 245 K/UL (150-450) Mean Platelet Volume 9.4 FL (6.5-10.1) Neutrophils (%) (Auto) % (45.0-75.0) Lymphocytes (%) (Auto) % (20.0-45.0) Monocytes (%) (Auto) % (1.0-10.0) Eosinophils (%) (Auto) % (0.0-3.0) Basophils (%) (Auto) % (0.0-2.0) Differential Total Cells Counted 100 Neutrophils % (Manual) 86 % (45-75) H Lymphocytes % (Manual) 3 % (20-45) L Monocytes % (Manual) 8 % (1-10) Eosinophils % (Manual) 0 % (0-3) Basophils % (Manual) 0 % (0-2) Band Neutrophils 3 % (0-8) Platelet Estimate Adequate Platelet Morphology Normal Hypochromasia 1+ Anisocytosis Sodium Level 146 mEQ/L (135-145) H Potassium Level 2.9 mEQ/L (3.4-4.9) L Chloride Level 109 mEQ/L (98-107) H Carbon Dioxide Level 24 mEQ/L (20-30) Anion Gap 13 (5-15) Blood Urea Nitrogen 28 mg/dL (7-23) H Creatinine 1.0 mg/dL (0.5-0.9) H Estimat Glomerular Filtration Rate mL/min (>60) Glucose Level 173 mg/dL (74-106) H Calcium Level 6.9 mg/dL (8.6-10.2) L Phosphorus Level 2.9 mg/dL (2.5-4.8) Magnesium Level 1.6 mg/dL (1.7-2.5) L Total Bilirubin 0.3 mg/dL (0.0-1.2) Aspartate Amino Transf (AST/SGOT) 23 U/L (5-40) Alanine Aminotransferase (ALT/SGPT) 23 U/L (3-33) Alkaline Phosphatase 116 U/L (35-104) H Total Protein 5.3 g/dL (6.6-8.7) #L Albumin 1.1 g/dL (3.5-5.2) L Globulin 4.2 g/dL Albumin/Globulin Ratio 0.2 (1.0-2.7) L Arterial Blood pH 7.360 (7.350-7.450) Arterial Blood Partial Pressure CO2 43.0 mmHg (35.0-45.0) Arterial Blood Partial Pressure O2 89.6 mmHg (75.0-100.0) Arterial Blood HCO3 23.7 mmol/L (22.0-26.0) Arterial Blood Oxygen Saturation 96.3 % (92.0-98.0) Arterial Blood Base Excess -1.7 Claudy Test Positive Amikacin Level Trough 4.5 ug/mL (10.0-15.0) L Neurologic Exam Objective PHYSICAL EXAMINATION: GENERAL: She is a well-developed, black lady, lying in an ICU bed, connected to a ventilator via an orotracheal tube. HEAD: Normocephalic, atraumatic, with old right temporal craniotomy scar. NECK: No neck rigidity was observed. EENT EXAMINATION: Benign except for bilateral chemosis. NEUROLOGICAL EXAMINATION: MENTAL STATUS EXAMINATION: She was comatose and did not respond even to deep painful stimuli. SPEECH: Could not be tested. LANGUAGE: Could not be tested. CRANIAL NERVE EXAMINATION: II: She did not blink to threat. III, IV & : The pupils were 5 mm in diameter and did not react to light. She had restricted eye movements on oculocephalic maneuvers. V & VII: The corneal reflexes were absent. VIII: She did not respond to sounds and had no nystagmus. IX & X: The gag reflex was absent. XI: The sternocleidomastoids and trapezii did not function. XII: Could not be tested. MOTOR SYSTEM: The tone was increased in all four extremities with a significant degree of spasticity. Examination of muscle mass revealed generalized muscle wasting with bilateral upper and lower extremity contractures. Examination of power was impossible to perform because even on applying deep painful stimuli, no movements were seen. SENSORY EXAMINATION: She did not respond even to deep painful stimuli. REFLEXES: 3+ on the right and 3++ on the left at the biceps, triceps, and brachioradialis. 1+ at both knees. 0 at both ankles. The plantar responses were extensor bilaterally. COORDINATION, STANCE & GAIT: Could not be tested. Impression/Recommendations Diagnostic Impression 1. Ms. Liya Donato is a 70-year-old, right-handed, black lady, who had a right middle cerebral aneurysmal rupture approximately 20 years ago with unknown consequences. This however was followed by a seizure disorder for which the patient is on Zonegran. About 7 years ago, she had a seizure associated with a neck injury and she became quadriparetic. On 05/28/2016, she was hospitalized at [facility] for constipation and anasarca. On , there was a sudden change in her mental state. A CT scan of the brain was performed, and was benign for acute pathology. On 06/02/2016, she was taken to the MRI scanner where she had a respiratory arrest. A Code Blue was called and she had to be intubated and ventilated. She has been comatose since then. 2. At this time she continues to be comatose, artificially ventilated with no spontaneous respirations. 3. On neurological examination at this time, she does not respond even to deep painful stimuli. She demonstrates minimal brainstem function in the form of restricted occulocephalic eye movements. The deep tendon reflexes are brisk in the upper extremities and diminished at the knees with extensor plantar responses. 4. The EEG done on 06/02/16 revealed a severe encephalopathy with no reactivity, but no inter-ictal or ictal phenomena. 5. The patient's history and neurological examination are most compatible with a severe anoxic ischemic cerebral insult, with her at this point in time being in a comatose state, with no improvement in her neurologic condition. 6. As the patient has exhibited no significant improvement in neurologic function > 5 days following her cardiopulmonary event, the prognosis for recovery of neurologic function is dismal. Recommendations 1. Continue present management. 2. Continue to support the patient's cardiorespiratory function in an ICU setting. 3. Continue Keppra 500 mg intravenously every 12 hours. 4. Observe closely. 5. Make decision with family regarding intensity of further care in light of her poor prognosis. Renny Bazzi M.D., M.S.P.RENNY GERMAIN Jun 07, 2016 15:06
[2016-06-07] MEDS ORDERED: Digoxin 0.5mg/2ml Inj IVP ONE ×2 (17:00→18:00)
[2016-06-07] MEDS ORDERED: Tubing IV Secondary IV ONE (17:23)
[2016-06-07] MEDS: Vancomycin 1gm/D5W 275ml IVPB SCH ×2 (17:44)
--- NOTE | 2016-06-07 18:12 | Internal Med Progress Note ---
Subjective Date of Service: Jun 07, 2016 Physician Name Zenia Lafleur Attending Physician Jareth Verma MD Current Medications Medications (Trade) Dose Ordered Sig/Miguel Route PRN Reason Start Time Stop Time Status Last Admin Dose Admin Acetaminophen (Tylenol) 650 mg Q4H PRN ORAL fever 06/02/16 20:15 07/02/16 20:14 06/06/16 10:05 Albuterol Sulfate (Proventil MDI) 2 puff Q4H PRN INH Shortness of Breath 06/02/16 21:00 07/02/16 20:59 Artificial Tears (Akwa-Tears) 2 drop Q2H PRN BOTH EYES Dry Eyes 06/02/16 18:15 07/02/16 18:14 06/04/16 20:19 Clonidine HCl (Catapres) 0.1 mg Q4H PRN ORAL For High Blood Pressure 06/02/16 18:30 07/02/16 18:29 Dextrose (Dextrose 50%) STAT PRN IV Hypoglycemia 06/03/16 00:15 07/03/16 00:14 Heparin Sodium (Porcine) (Heparin 5000 units/ml) 5,000 units EVERY 12 HOURS SUBQ 06/02/16 21:00 07/02/16 20:59 06/07/16 09:09 Levetiracetam/ Dextrose (Keppra/D5W) 115 ml @ 460 mls/hr Q12HR IV 06/03/16 09:00 07/03/16 08:59 06/07/16 08:59 Levothyroxine Sodium (Synthroid) 50 mcg DAILY@0630 ORAL 06/03/16 06:30 07/03/16 06:29 06/07/16 07:52 Lorazepam (Ativan 2mg/ml 1ml) 2 mg Q4H PRN IV For Anxiety 06/02/16 21:30 06/09/16 21:29 Metronidazole (Flagyl) 500 mg Q8HR NG 06/05/16 16:00 06/12/16 15:59 06/07/16 14:06 Mineral Oil (Fleet's Mineral Oil Enema) 133 ml EVERY OTHER DAY RECTAL 06/03/16 09:00 07/03/16 08:59 06/07/16 09:02 Norepinephrine Bitartrate 4 mg/ Dextrose 250 ml @ 0 mls/hr Q24H IV 06/02/16 17:15 07/02/16 17:14 06/06/16 03:20 Nystatin 1 applic 1 applic THREE TIMES A DAY TOPIC 06/05/16 16:00 07/05/16 15:59 06/07/16 17:44 Ondansetron HCl (Zofran) 4 mg Q6H PRN IVP Nausea & Vomiting 06/02/16 18:15 07/02/16 18:14 Pantoprazole (Protonix) 40 mg DAILY ORAL 06/03/16 09:00 07/03/16 08:59 06/07/16 09:02 Piperacillin Sod/ Tazobactam Sod 3.375 gm/Sodium Chloride 110 ml @ 27.5 mls/hr Q8H IVPB 06/06/16 16:00 06/07/16 20:00 06/07/16 16:12 Piperacillin Sod/ Tazobactam Sod/ Dextrose (Zosyn/D5W) 110 ml @ 27.5 mls/hr Q8HR@0000,0800,1600 IVPB 06/08/16 00:00 06/11/16 00:00 Polyethylene Glycol 17 gm 17 gm DAILY ORAL 06/03/16 09:00 07/03/16 08:59 06/05/16 08:55 Sodium Chloride (Sodium Chloride 1000ml bag) 1,000 ml @ 50 mls/hr Q20H IV 06/03/16 11:00 07/03/16 10:59 06/06/16 21:29 Vancomycin HCl 1 ea 1 ea DAILY PRN MISC Per rx protocol 06/05/16 10:45 07/05/16 10:44 Vancomycin HCl/ Dextrose (Vancomycin/D5W) 275 ml @ 183.708 mls/hr Q24H IVPB 06/06/16 18:00 06/11/16 17:59 06/07/16 17:44 Allergies: Coded Allergies: OPIOIDS - MORPHINE ANALOGUES (Verified Allergy, Unknown, 06/02/16) per daughter. All opiods, she doesn't want any given to patient Uncoded Allergies: NARCOTICS (Allergy, Mild, 10/02/14) Opiates --> Nausea, SOB ROS Limited/Unobtainable: Yes Subjective 70 YO F admitted for constipation, anasarca and altered mental status. Cover for Int Med-Dr Verma. Intubated and sedated. ICU. Continues on pressors. Objective Last Vital Signs Date Time Temp Pulse Resp B/P Pulse Ox O2 Delivery O2 Flow Rate FiO2 06/07/16 17:50 110 06/07/16 17:15 120/68 06/07/16 17:10 16 40 06/07/16 17:00 100 Mechanical Ventilator 06/07/16 16:00 98.5 06/02/16 12:00 3.0 Laboratory Tests Test 06/07/16 04:30 06/07/16 08:50 06/07/16 13:30 06/07/16 15:00 White Blood Count 26.9 K/UL (4.8-10.8) *H Red Blood Count 3.84 M/UL (4.20-5.40) L Hemoglobin 10.7 G/DL (12.0-16.0) L Hematocrit 33.2 % (37.0-47.0) L Mean Corpuscular Volume 87 FL (80-99) Mean Corpuscular Hemoglobin 27.8 PG (27.0-31.0) Mean Corpuscular Hemoglobin Concent 32.1 G/DL (32.0-36.0) Red Cell Distribution Width 13.6 % (11.6-14.8) Platelet Count 245 K/UL (150-450) Mean Platelet Volume 9.4 FL (6.5-10.1) Neutrophils (%) (Auto) % (45.0-75.0) Lymphocytes (%) (Auto) % (20.0-45.0) Monocytes (%) (Auto) % (1.0-10.0) Eosinophils (%) (Auto) % (0.0-3.0) Basophils (%) (Auto) % (0.0-2.0) Differential Total Cells Counted 100 Neutrophils % (Manual) 86 % (45-75) H Lymphocytes % (Manual) 3 % (20-45) L Monocytes % (Manual) 8 % (1-10) Eosinophils % (Manual) 0 % (0-3) Basophils % (Manual) 0 % (0-2) Band Neutrophils 3 % (0-8) Platelet Estimate Adequate Platelet Morphology Normal Hypochromasia 1+ Anisocytosis Sodium Level 146 mEQ/L (135-145) H Potassium Level 2.9 mEQ/L (3.4-4.9) L Chloride Level 109 mEQ/L (98-107) H Carbon Dioxide Level 24 mEQ/L (20-30) Anion Gap 13 (5-15) Blood Urea Nitrogen 28 mg/dL (7-23) H Creatinine 1.0 mg/dL (0.5-0.9) H Estimat Glomerular Filtration Rate mL/min (>60) Glucose Level 173 mg/dL (74-106) H Calcium Level 6.9 mg/dL (8.6-10.2) L Phosphorus Level 2.9 mg/dL (2.5-4.8) Magnesium Level 1.6 mg/dL (1.7-2.5) L Total Bilirubin 0.3 mg/dL (0.0-1.2) Aspartate Amino Transf (AST/SGOT) 23 U/L (5-40) Alanine Aminotransferase (ALT/SGPT) 23 U/L (3-33) Alkaline Phosphatase 116 U/L (35-104) H Total Protein 5.3 g/dL (6.6-8.7) #L Albumin 1.1 g/dL (3.5-5.2) L Globulin 4.2 g/dL Albumin/Globulin Ratio 0.2 (1.0-2.7) L Arterial Blood pH 7.360 (7.350-7.450) Arterial Blood Partial Pressure CO2 43.0 mmHg (35.0-45.0) Arterial Blood Partial Pressure O2 89.6 mmHg (75.0-100.0) Arterial Blood HCO3 23.7 mmol/L (22.0-26.0) Arterial Blood Oxygen Saturation 96.3 % (92.0-98.0) Arterial Blood Base Excess -1.7 Claudy Test Positive Amikacin Level Trough 4.5 ug/mL (10.0-15.0) L Amikacin Level Peak 18.9 ug/mL (20.0-35.0) L Microbiology Date/Time Source Procedure Growth Status 06/05/16 11:30 Blood Blood Culture - Preliminary Staphylococcus Aureus Resulted 06/05/16 11:15 Blood Blood Culture - Preliminary Resulted 06/05/16 11:15 Sputum Gram Stain - Final Complete 06/05/16 11:15 Sputum Culture - Final Staphylococcus Aureus Complete 06/05/16 15:00 Indwelling Cath Urine Culture - Final Pseudomonas Aeruginosa Complete Intake and Output 06/06/16 06/07/16 19:00 07:00 Intake Total 1824.1 ml 1455.0 ml Output Total 160 ml 230 ml Balance 1664.1 ml 1225.0 ml Free Water 180 ml 100 ml IV Total 1174.1 ml 710.0 ml Tube Feeding 470 ml 645 ml Output Urine Total 160 ml 230 ml # Bowel Movements 2 4 Objective General Appearance: WD/WN, lethargic, agitated EENT: PERRL/EOMI, normal ENT inspection, TMs normal Neck: non-tender, normal alignment, supple Cardiovascular: normal peripheral pulses, normal rate, regular rhythm, no gallop/murmur, no JVD Respiratory/Chest: Mech vent; respiratory distress, crackles/rales, rhonchi - bilaterally, expiratory wheezing Abdomen: normal bowel sounds, non tender, soft, no organomegaly, no mass Extremities: normal range of motion Edema: pitting Neurologic: clinical rn liaison II-XII grossly normal Skin: normal pigmentation, warm/dry Assessment/Plan Problem List: (1) Altered mental status (2) Acute complete quadriplegia (3) Constipation Assessment & Plan: Resolving; ? due to hypothyroidism? (4) Anasarca Assessment & Plan: ?hypothyroidism? Continue lasix (5) Cerebral vascular disease (6) HTN (hypertension) (7) Atrial fibrillation Assessment & Plan: see cardiology note. Cont lovenox. May require coumadin (8) Hypothyroidism Assessment & Plan: Cont levoxyl. (9) Hyponatremia Assessment & Plan: See nephrology note. (10) Respiratory failure Assessment & Plan: Intubated 06/02/16; see pulmonary note. (11) Leukocytosis Assessment & Plan: Worsening. Continue antibiotics per ID. (12) Cardiac arrest (13) Cardiogenic shock Assessment & Plan: Cont pressors Status: not improved Assessment/Plan Prognosis is guarded. ZENIA LAFLEUR Jun 07, 2016 18:12
[2016-06-07] MEDS ORDERED: Atenolol 25mg tab NG ONE (19:30)
[2016-06-07] MEDS: Artificial Tears 1.4% Op Soln BOTH EYES PRN (22:36)
[2016-06-07] MEDS: Piperacillin/Tazobactam 3.375 GM in D5W 110 ML IVPB SCH (23:58)
[2016-06-08] VITALS (24 sets, daily range): BP systolic 90–137; BP diastolic 36–75
[2016-06-08 05:18] LABS: MEAN CORPUSCULAR HGB CONC 32.1 G/DL (32.0-36.0); MEAN CORPUSCULAR VOLUME 87 FL (80-99); MEAN PLATELET VOLUME 8.6 FL (6.5-10.1); PLATELET COUNT 249 K/UL (150-450); RED BLOOD COUNT 3.88 M/UL (4.20-5.40); RED CELL DISTRIBUTION WIDTH 13.7 % (11.6-14.8)
[2016-06-08 05:23] LABS: WHITE BLOOD COUNT 24.4 K/UL (4.8-10.8)
[2016-06-08 05:43] LABS: ALANINE AMINOTRANSFERASE 28 U/L (3-33); ALBUMIN/GLOBULIN RATIO 0.2 (1.0-2.7); ANION GAP 15 (5-15); ASPARTATE AMINO TRANSFERASE 37 U/L (5-40); CALCIUM 6.6 mg/dL (8.6-10.2); CARBON DIOXIDE 22 mEQ/L (20-30); CHLORIDE 107 mEQ/L (98-107); CREATININE 0.8 mg/dL (0.5-0.9); HEMOLYSIS 2; MAGNESIUM 2.3 mg/dL (1.7-2.5); PHOSPHORUS 2.2 mg/dL (2.5-4.8); SODIUM 144 mEQ/L (135-145); TOTAL PROTEIN 5.5 g/dL (6.6-8.7)
[2016-06-08] MEDS: metroNIDAZOLE 500mg tab NG SCH ×3 (06:26→21:46)
--- NOTE | 2016-06-08 08:13 | Infectious Diseases Prog Note ---
Assessment/Plan Assessment/Plan ASSESSMENT: 70 y/o female with: // MSSA bacteremia 06/14 ?source lung vs PICC - TTE 06/04 neg veg // PSA UTI // Possible aspiration PNA - SCx MSSA - CXR 06/06: Bilateral small pleural effusions persists. 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, unchanged // Loose stool r/o C.difficile - toxin pending // Sepsis // Leukocytosis - improving - CT A/P 05/27: no abscess // Low grade fever - resolved // Acute VDRF - intubated 06/02 // Severe encephalopathy / comatose, probable MADAN - no improvement, family leaning towards withdrawal of care // SP code blue 06/02 ?etiology // Elevated ALP - US: Negative for gallstones or dilated ducts // Hypoalbuminemia 05/15 nephrotic syndrome // Elevated CRP // PAD - arterial doppler: waveform analysis is monophasic, consistent with severe ischemia at rest. // Severe pulmonary HTN // Constipation // Chronic paraplegia 05/15 SCI // SP RUE PICC 06/01 // No ABX allergies // Full Code PLAN: - continue zosyn d# 4 / , flagyl d# 4 pending C.diff. DC IV vancomycin d# 3 ( 06/07 SP amikakin d# 3 ) - if ongoing aggressive care, will need PICC change, repeat blood cultures - f/u final cultures, C.difficile - monitor CBC, temperatures - monitor BMP - monitor CXR - vent support, wean as tolerated - poor overall prognosis Subjective Allergies: Coded Allergies: OPIOIDS - MORPHINE ANALOGUES (Verified Allergy, Unknown, 06/02/16) per daughter. All opiods, she doesn't want any given to patient Uncoded Allergies: NARCOTICS (Allergy, Mild, 10/02/14) Opiates --> Nausea, SOB Subjective fevers resolved, WBC improving nonresponsive on vent no family at bedside Objective Vital Signs Last 24 Hour Vital Signs Date Time Temp Pulse Resp B/P Pulse Ox O2 Delivery O2 Flow Rate FiO2 06/08/16 07:00 80 16 136/60 99 Mechanical Ventilator 40 06/08/16 07:00 82 16 40 06/08/16 06:00 85 16 125/67 99 Mechanical Ventilator 40 06/08/16 05:00 81 16 134/58 100 Mechanical Ventilator 40 06/08/16 04:55 81 16 40 06/08/16 04:00 40 06/08/16 04:00 84 06/08/16 04:00 97.0 82 16 137/59 99 Mechanical Ventilator 40 06/08/16 03:05 101 16 40 06/08/16 03:00 80 16 115/53 99 Mechanical Ventilator 40 06/08/16 02:00 82 16 98/61 99 Mechanical Ventilator 40 06/08/16 01:00 80 16 40 06/08/16 01:00 80 16 111/66 100 Mechanical Ventilator 40 06/08/16 00:07 97.9 79 16 115/64 100 Mechanical Ventilator 40 06/08/16 00:00 80 06/08/16 00:00 40 06/07/16 23:00 80 16 117/60 100 Mechanical Ventilator 40 06/07/16 22:38 79 16 40 06/07/16 22:00 81 16 113/54 99 Mechanical Ventilator 40 06/07/16 21:00 80 16 104/61 100 Mechanical Ventilator 40 06/07/16 20:38 83 16 40 06/07/16 20:00 40 06/07/16 20:00 98.0 88 16 112/97 100 Mechanical Ventilator 40 06/07/16 20:00 123 06/07/16 19:29 121 134/66 06/07/16 19:00 128 16 124/98 100 Mechanical Ventilator 40 06/07/16 18:55 121 16 40 06/07/16 18:00 107 16 134/66 100 Mechanical Ventilator 40 06/07/16 17:50 110 06/07/16 17:15 120/68 06/07/16 17:10 110 16 40 06/07/16 17:00 111 16 128/54 100 Mechanical Ventilator 40 06/07/16 16:00 106 06/07/16 16:00 40 06/07/16 16:00 98.5 108 16 120/68 100 Mechanical Ventilator 40 17 15:10 110 16 40 17 15:10 107 16 40 17 15:00 112 16 96/52 100 Mechanical Ventilator 40 06/07/16 14:00 110 16 98/56 100 Mechanical Ventilator 40 17 13:20 109 16 40 06/07/17 13:00 105 16 94/54 100 Mechanical Ventilator 40 06/07/16 12:00 98.7 115 16 99/62 100 Mechanical Ventilator 40 06/07/16 12:00 100 06/07/16 12:00 40 06/07/16 11:10 121 16 40 06/07/16 11:00 108 16 98/52 100 Mechanical Ventilator 40 06/07/16 10:00 108 16 98/52 100 Mechanical Ventilator 40 06/07/16 10:00 40 06/07/16 09:00 108 16 90/54 100 Mechanical Ventilator 40 06/07/16 09:00 104 16 40 Height (Feet): 5 Height (Inches): 4.00 Weight (Pounds): 170 General Appearance: other - intubated, nonresponsive Respiratory/Chest: decreased breath sounds Cardiovascular: normal rate, regular rhythm Abdomen: normal bowel sounds, soft, non tender, non distended Microbiology Date/Time Source Procedure Growth Status 06/05/16 11:30 Blood Blood Culture - Final Staphylococcus Aureus Complete 06/05/16 11:15 Blood Blood Culture - Final Staphylococcus Aureus Complete 06/05/16 11:15 Sputum Gram Stain - Final Complete 06/05/16 11:15 Sputum Culture - Final Staphylococcus Aureus Complete 06/06/16 08:30 Indwelling Cath Urine Culture - Preliminary Strep Species, Gamma-Hemolytic Pseudomonas Aeruginosa Resulted 06/05/16 15:00 Indwelling Cath Urine Culture - Final Pseudomonas Aeruginosa Complete Laboratory Tests Test 06/07/16 08:50 06/07/16 13:30 06/07/16 15:00 06/08/16 04:50 Arterial Blood pH 7.360 (7.350-7.450) Arterial Blood Partial Pressure CO2 43.0 mmHg (35.0-45.0) Arterial Blood Partial Pressure O2 89.6 mmHg (75.0-100.0) Arterial Blood HCO3 23.7 mmol/L (22.0-26.0) Arterial Blood Oxygen Saturation 96.3 % (92.0-98.0) Arterial Blood Base Excess -1.7 Claudy Test Positive Amikacin Level Trough 4.5 ug/mL (10.0-15.0) L Amikacin Level Peak 18.9 ug/mL (20.0-35.0) L White Blood Count 24.4 K/UL (4.8-10.8) *H Red Blood Count 3.88 M/UL (4.20-5.40) L Hemoglobin 10.9 G/DL (12.0-16.0) L Hematocrit 33.9 % (37.0-47.0) L Mean Corpuscular Volume 87 FL (80-99) Mean Corpuscular Hemoglobin 28.0 PG (27.0-31.0) Mean Corpuscular Hemoglobin Concent 32.1 G/DL (32.0-36.0) Red Cell Distribution Width 13.7 % (11.6-14.8) Platelet Count 249 K/UL (150-450) Mean Platelet Volume 8.6 FL (6.5-10.1) Neutrophils (%) (Auto) % (45.0-75.0) Lymphocytes (%) (Auto) % (20.0-45.0) Monocytes (%) (Auto) % (1.0-10.0) Eosinophils (%) (Auto) % (0.0-3.0) Basophils (%) (Auto) % (0.0-2.0) Neutrophils % (Manual) Pending Lymphocytes % (Manual) Pending Platelet Estimate Pending Platelet Morphology Pending Sodium Level 144 mEQ/L (135-145) Potassium Level 3.0 mEQ/L (3.4-4.9) L Chloride Level 107 mEQ/L (98-107) Carbon Dioxide Level 22 mEQ/L (20-30) Anion Gap 15 (5-15) Blood Urea Nitrogen 29 mg/dL (7-23) H Creatinine 0.8 mg/dL (0.5-0.9) Estimat Glomerular Filtration Rate mL/min (>60) Glucose Level 167 mg/dL (74-106) H Calcium Level 6.6 mg/dL (8.6-10.2) L Phosphorus Level 2.2 mg/dL (2.5-4.8) L Magnesium Level 2.3 mg/dL (1.7-2.5) Total Bilirubin 0.3 mg/dL (0.0-1.2) Aspartate Amino Transf (AST/SGOT) 37 U/L (5-40) Alanine Aminotransferase (ALT/SGPT) 28 U/L (3-33) Alkaline Phosphatase 144 U/L (35-104) H Total Protein 5.5 g/dL (6.6-8.7) L Albumin 1.1 g/dL (3.5-5.2) L Globulin 4.4 g/dL Albumin/Globulin Ratio 0.2 (1.0-2.7) L Test 06/08/16 07:45 Arterial Blood pH Pending Arterial Blood Partial Pressure CO2 Pending Arterial Blood Partial Pressure O2 Pending Arterial Blood HCO3 Pending Arterial Blood Oxygen Saturation Pending Arterial Blood Base Excess Pending Claudy Test Pending Current Medications Medications (Trade) Dose Ordered Sig/Miguel Route PRN Reason Start Time Stop Time Status Last Admin Dose Admin Acetaminophen (Tylenol) 650 mg Q4H PRN ORAL fever 06/02/16 20:15 07/02/16 20:14 06/06/16 10:05 Albuterol Sulfate (Proventil MDI) 2 puff Q4H PRN INH Shortness of Breath 06/02/16 21:00 07/02/16 20:59 Artificial Tears (Akwa-Tears) 2 drop Q2H PRN BOTH EYES Dry Eyes 06/02/16 18:15 07/02/16 18:14 06/07/16 22:36 Atenolol (Tenormin) 25 mg EVERY 12 HOURS NG 06/08/16 09:00 07/08/16 08:59 Clonidine HCl (Catapres) 0.1 mg Q4H PRN ORAL For High Blood Pressure 06/02/16 18:30 07/02/16 18:29 Dextrose (Dextrose 50%) STAT PRN IV Hypoglycemia 06/03/16 00:15 07/03/16 00:14 Heparin Sodium (Porcine) (Heparin 5000 units/ml) 5,000 units EVERY 12 HOURS SUBQ 06/02/16 21:00 07/02/16 20:59 06/07/16 21:12 Levetiracetam/ Dextrose (Keppra/D5W) 115 ml @ 460 mls/hr Q12HR IV 06/03/16 09:00 07/03/16 08:59 06/07/16 20:37 Levothyroxine Sodium (Synthroid) 50 mcg DAILY@0630 ORAL 06/03/16 06:30 07/03/16 06:29 06/08/16 06:26 Lorazepam (Ativan 2mg/ml 1ml) 2 mg Q4H PRN IV For Anxiety 06/02/16 21:30 06/09/16 21:29 Metronidazole (Flagyl) 500 mg Q8HR NG 06/05/16 16:00 06/12/16 15:59 06/08/16 06:26 Mineral Oil (Fleet's Mineral Oil Enema) 133 ml EVERY OTHER DAY RECTAL 06/03/16 09:00 07/03/16 08:59 06/07/16 09:02 Norepinephrine Bitartrate 4 mg/ Dextrose 250 ml @ 0 mls/hr Q24H IV 06/02/16 17:15 07/02/16 17:14 06/06/16 03:20 Nystatin 1 applic 1 applic THREE TIMES A DAY TOPIC 06/05/16 16:00 07/05/16 15:59 06/07/16 17:44 Ondansetron HCl (Zofran) 4 mg Q6H PRN IVP Nausea & Vomiting 06/02/16 18:15 07/02/16 18:14 Pantoprazole (Protonix) 40 mg DAILY ORAL 06/03/16 09:00 07/03/16 08:59 06/07/16 09:02 Piperacillin Sod/ Tazobactam Sod/ Dextrose (Zosyn/D5W) 110 ml @ 27.5 mls/hr Q8HR@0000,0800,1600 IVPB 06/08/16 00:00 06/11/16 00:00 06/07/16 23:58 Polyethylene Glycol 17 gm 17 gm DAILY ORAL 06/03/16 09:00 07/03/16 08:59 06/05/16 08:55 Sodium Chloride (Sodium Chloride 1000ml bag) 1,000 ml @ 50 mls/hr Q20H IV 06/03/16 11:00 07/03/16 10:59 06/07/16 22:36 Vancomycin HCl 1 ea 1 ea DAILY PRN MISC Per rx protocol 06/05/16 10:45 07/05/16 10:44 Vancomycin HCl/ Dextrose (Vancomycin/D5W) 275 ml @ 183.708 mls/hr Q24H IVPB 06/06/16 18:00 06/11/16 17:59 06/07/16 17:44 ABHISHEK BURTON Jun 08, 2016 08:13
[2016-06-08 08:19] LABS: ABG ALLEN TEST POSITIVE; ABG BASE EXCESS -4.3; ABG PCO2 40.7 mmHg (35.0-45.0)
[2016-06-08] MEDS: Piperacillin/Tazobactam 3.375 GM in D5W 110 ML IVPB SCH ×2 (08:29→15:26)
[2016-06-08] MEDS: levETIRAcetam 500 MG in D5W 110 ML IV SCH ×2 (08:31→21:46)
[2016-06-08] MEDS: Atenolol 25mg tab NG SCH ×2 (08:31→21:00)
[2016-06-08] MEDS: Heparin 5000 units/ml inj SUBQ SCH ×2 (08:33→21:47)
[2016-06-08] MEDS: Nystatin Powder 100,000 units/gm 15gm TOPIC SCH ×3 (08:40→18:00)
[2016-06-08] MEDS: Miralax 17gm pkt ORAL SCH (09:00)
[2016-06-08] MEDS ORDERED: NS 275ml ONE (09:57)
[2016-06-08] MEDS ORDERED: Tubing IV Secondary IV ONE (09:57)
--- NOTE | 2016-06-08 10:38 | Pulmonolgy Critical Care Note ---
Critical Care - Asmt/Plan Problems: (1) Acute respiratory failure (2) Chronic incomplete quadriplegia (3) Atrial fibrillation (4) Protein-calorie malnutrition, severe (5) Cardiac arrest (6) Anasarca (7) Acute encephalopathy Respiratory: monitor respiratory rate Cardiac: continue to monitor HR/BP Renal: F/U I&O, keep IV fluid, check electrolytes Infectious Disease: check cultures, continue antibiotics Gastrointestinal: continue feedings/current rate Endocrine: monitor blood sugar, check TSH Hematologic: monitor H/H Neurologic: PRN Ativan Affect: PRN ativan Prophylaxis: Protonix Disposition: keep in ICU Time Spent (Minutes): 40 Notes Reviewed: city manager, cardio, 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, consultants Critical Care - Objective Last 24 Hour Vital Signs Date Time Temp Pulse Resp B/P Pulse Ox O2 Delivery O2 Flow Rate FiO2 06/08/16 10:00 73 16 125/55 99 Mechanical Ventilator 40 06/08/16 09:21 81 16 40 06/08/16 09:00 72 16 105/57 99 Mechanical Ventilator 40 06/08/16 08:31 78 115/93 06/08/16 08:00 97.0 77 16 109/36 99 Mechanical Ventilator 40 06/08/16 08:00 74 06/08/16 08:00 40 06/08/16 07:00 80 16 136/60 99 Mechanical Ventilator 40 06/08/16 07:00 82 16 40 06/08/16 06:00 85 16 125/67 99 Mechanical Ventilator 40 06/08/16 05:00 81 16 134/58 100 Mechanical Ventilator 40 06/08/16 04:55 81 16 40 06/08/16 04:00 40 06/08/16 04:00 84 06/08/16 04:00 97.0 82 16 137/59 99 Mechanical Ventilator 40 06/08/16 03:05 101 16 40 06/08/16 03:00 80 16 115/53 99 Mechanical Ventilator 40 06/08/16 02:00 82 16 98/61 99 Mechanical Ventilator 40 06/08/16 01:00 80 16 40 06/08/16 01:00 80 16 111/66 100 Mechanical Ventilator 40 06/08/16 00:07 97.9 79 16 115/64 100 Mechanical Ventilator 40 06/08/16 00:00 80 06/08/16 00:00 40 06/07/16 23:00 80 16 117/60 100 Mechanical Ventilator 40 06/07/16 22:38 79 16 40 06/07/16 22:00 81 16 113/54 99 Mechanical Ventilator 40 06/07/16 21:00 80 16 104/61 100 Mechanical Ventilator 40 06/07/16 20:38 83 16 40 06/07/16 20:00 40 06/07/16 20:00 98.0 88 16 112/97 100 Mechanical Ventilator 40 06/07/16 20:00 123 06/07/16 19:29 121 134/66 06/07/16 19:00 128 16 124/98 100 Mechanical Ventilator 40 06/07/16 18:55 121 16 40 06/07/16 18:00 107 16 134/66 100 Mechanical Ventilator 40 06/07/16 17:50 110 06/07/16 17:15 120/68 06/07/16 17:10 110 16 40 06/07/16 17:00 111 16 128/54 100 Mechanical Ventilator 40 06/07/16 16:00 106 06/07/16 16:00 40 06/07/16 16:00 98.5 108 16 120/68 100 Mechanical Ventilator 40 06/07/16 15:10 110 16 40 06/07/16 15:10 107 16 40 06/07/16 15:00 112 16 96/52 100 Mechanical Ventilator 40 06/07/16 14:00 110 16 98/56 100 Mechanical Ventilator 40 06/07/16 13:20 109 16 40 06/07/16 13:00 105 16 94/54 100 Mechanical Ventilator 40 06/07/16 12:00 98.7 115 16 99/62 100 Mechanical Ventilator 40 06/07/16 12:00 100 06/07/16 12:00 40 06/07/16 11:10 121 16 40 06/07/16 11:00 108 16 98/52 100 Mechanical Ventilator 40 Status: obtunded Condition: critical HEENT: atraumatic, normocephalic Neck: full ROM Lungs: chest wall tender Heart: HR/BP stable Abdomen: soft, non-tender, feeding tube Extremities: edema Objective: family needs time ti think about plan of care Micro: Microbiology Date/Time Source Procedure Growth Status 06/05/16 11:30 Blood Blood Culture - Final Staphylococcus Aureus Complete 06/05/16 11:15 Blood Blood Culture - Final Staphylococcus Aureus Complete 06/05/16 11:15 Sputum Gram Stain - Final Complete 06/05/16 11:15 Sputum Culture - Final Staphylococcus Aureus Complete 06/06/16 08:30 Indwelling Cath Urine Culture - Preliminary Strep Species, Gamma-Hemolytic Pseudomonas Aeruginosa Resulted 06/05/16 15:00 Indwelling Cath Urine Culture - Final Pseudomonas Aeruginosa Complete Critical Care - Subjective ROS Limited/Unobtainable: No Interval Events: not breathing over vent Condition: critical FI02: 40 Vent Support Breath Rate: 16 Vent Support Mode: AC Vent Tidal Volume: 600 Sputum Amount: Moderate PEEP: 5.0 PIP: 50 Tube Feeding Amount: 55 I&O: Intake and Output 06/07/16 06/08/16 19:00 07:00 Intake Total 2942.858 ml 1278.792 ml Output Total 245 ml 340 ml Balance 2697.858 ml 938.792 ml Free Water 100 ml 50 ml IV Total 2127.858 ml 593.792 ml Tube Feeding 715 ml 605 ml Other 30 ml Output Urine Total 245 ml 340 ml # Bowel Movements 4 3 CXR: no change, ET in good position RLL infiltrate ET-Tube: 7.5 ET Position: 23 Labs: Laboratory Tests Test 06/07/16 13:30 06/07/16 15:00 06/08/16 04:50 06/08/16 07:45 Amikacin Level Trough 4.5 ug/mL (10.0-15.0) L Amikacin Level Peak 18.9 ug/mL (20.0-35.0) L White Blood Count 24.4 K/UL (4.8-10.8) *H Red Blood Count 3.88 M/UL (4.20-5.40) L Hemoglobin 10.9 G/DL (12.0-16.0) L Hematocrit 33.9 % (37.0-47.0) L Mean Corpuscular Volume 87 FL (80-99) Mean Corpuscular Hemoglobin 28.0 PG (27.0-31.0) Mean Corpuscular Hemoglobin Concent 32.1 G/DL (32.0-36.0) Red Cell Distribution Width 13.7 % (11.6-14.8) Platelet Count 249 K/UL (150-450) Mean Platelet Volume 8.6 FL (6.5-10.1) Neutrophils (%) (Auto) % (45.0-75.0) Lymphocytes (%) (Auto) % (20.0-45.0) Monocytes (%) (Auto) % (1.0-10.0) Eosinophils (%) (Auto) % (0.0-3.0) Basophils (%) (Auto) % (0.0-2.0) Neutrophils % (Manual) Pending Lymphocytes % (Manual) Pending Platelet Estimate Pending Platelet Morphology Pending Sodium Level 144 mEQ/L (135-145) Potassium Level 3.0 mEQ/L (3.4-4.9) L Chloride Level 107 mEQ/L (98-107) Carbon Dioxide Level 22 mEQ/L (20-30) Anion Gap 15 (5-15) Blood Urea Nitrogen 29 mg/dL (7-23) H Creatinine 0.8 mg/dL (0.5-0.9) Estimat Glomerular Filtration Rate mL/min (>60) Glucose Level 167 mg/dL (74-106) H Calcium Level 6.6 mg/dL (8.6-10.2) L Phosphorus Level 2.2 mg/dL (2.5-4.8) L Magnesium Level 2.3 mg/dL (1.7-2.5) Total Bilirubin 0.3 mg/dL (0.0-1.2) Aspartate Amino Transf (AST/SGOT) 37 U/L (5-40) Alanine Aminotransferase (ALT/SGPT) 28 U/L (3-33) Alkaline Phosphatase 144 U/L (35-104) H Total Protein 5.5 g/dL (6.6-8.7) L Albumin 1.1 g/dL (3.5-5.2) L Globulin 4.4 g/dL Albumin/Globulin Ratio 0.2 (1.0-2.7) L Arterial Blood pH 7.335 (7.350-7.450) Arterial Blood Partial Pressure CO2 40.7 mmHg (35.0-45.0) Arterial Blood Partial Pressure O2 82.5 mmHg (75.0-100.0) Arterial Blood HCO3 21.2 mmol/L (22.0-26.0) L Arterial Blood Oxygen Saturation 95.8 % (92.0-98.0) Arterial Blood Base Excess -4.3 Claudy Test Positive DARION MISHRA 26, 2017 10:38
[2016-06-08 11:25] LABS: BAND NEUTROPHILS % (MANUAL) 1 % (0-8); LYMPHOCYTES % (MANUAL) 3 % (20-45); NEUTROPHILS % (MANUAL) 91 % (45-75); TOTAL CELLS COUNTED 100
[2016-06-08] MEDS: LORazepam Inj 2mg/ml 1ml IV PRN (11:25)
[2016-06-08 11:26] LABS: BASOPHILS % (MANUAL) 0 % (0-2); EOSINOPHILS % (MANUAL) 0 % (0-3); PLATELET ESTIMATE ADEQUATE; PLATELET MORPHOLOGY NORMAL
[2016-06-08 11:27] LABS: HYPOCHROMASIA 1+
[2016-06-08] MEDS ORDERED: Potassium Phosphate 30 MM in Sodium Chloride 550 ML IV ONE (12:00)
--- NOTE | 2016-06-08 13:06 | General Progress Note ---
Assessment/Plan Status: stable - from renal stand Assessment/Plan Renal: Nephrotic Syndrome most likely- leading to Anasarca, Pleural effusion Other: Respiratory failure- anoxic ischemic cerebral insult , post code blue acute toxic encephalopathy- severe PVD mild pulmonary edema severe pulmonary HTN seizure disorder constipation hyponatremia , likelu due to Anasarca Mild hypothyroidism with elevated TSH functional quadriplegia Plan: K , phos IV as needed pulm support per orders- monitor lytes- poor prognosis favor comfort care and terminal extubation if Neuro and family agrees Subjective ROS Limited/Unobtainable: Yes Allergies: Coded Allergies: OPIOIDS - MORPHINE ANALOGUES (Verified Allergy, Unknown, 06/02/16) per daughter. All opiods, she doesn't want any given to patient Uncoded Allergies: NARCOTICS (Allergy, Mild, 10/02/14) Opiates --> Nausea, SOB Objective Last 24 Hour Vital Signs Date Time Temp Pulse Resp B/P Pulse Ox O2 Delivery O2 Flow Rate FiO2 06/08/16 12:00 87 06/08/16 12:00 40 06/08/16 11:21 72 23 40 06/08/16 10:00 73 16 125/55 99 Mechanical Ventilator 40 06/08/16 09:21 81 16 40 06/08/16 09:00 72 16 105/57 99 Mechanical Ventilator 40 06/08/16 08:31 78 115/93 06/08/16 08:00 97.0 77 16 109/36 99 Mechanical Ventilator 40 06/08/16 08:00 74 06/08/16 08:00 40 06/08/16 07:00 80 16 136/60 99 Mechanical Ventilator 40 06/08/16 07:00 82 16 40 06/08/16 06:00 85 16 125/67 99 Mechanical Ventilator 40 06/08/16 05:00 81 16 134/58 100 Mechanical Ventilator 40 06/08/16 04:55 81 16 40 06/08/16 04:00 40 06/08/16 04:00 84 06/08/16 04:00 97.0 82 16 137/59 99 Mechanical Ventilator 40 06/08/16 03:05 101 16 40 06/08/16 03:00 80 16 115/53 99 Mechanical Ventilator 40 06/08/16 02:00 82 16 98/61 99 Mechanical Ventilator 40 06/08/16 01:00 80 16 40 06/08/16 01:00 80 16 111/66 100 Mechanical Ventilator 40 06/08/16 00:07 97.9 79 16 115/64 100 Mechanical Ventilator 40 06/08/16 00:00 80 06/08/16 00:00 40 06/07/16 23:00 80 16 117/60 100 Mechanical Ventilator 40 06/07/16 22:38 79 16 40 06/07/16 22:00 81 16 113/54 99 Mechanical Ventilator 40 06/07/16 21:00 80 16 104/61 100 Mechanical Ventilator 40 06/07/16 20:38 83 16 40 06/07/16 20:00 40 06/07/16 20:00 98.0 88 16 112/97 100 Mechanical Ventilator 40 06/07/16 20:00 123 06/07/16 19:29 121 134/66 06/07/16 19:00 128 16 124/98 100 Mechanical Ventilator 40 06/07/16 18:55 121 16 40 06/07/16 18:00 107 16 134/66 100 Mechanical Ventilator 40 06/07/16 17:50 110 06/07/16 17:15 120/68 06/07/16 17:10 110 16 40 06/07/16 17:00 111 16 128/54 100 Mechanical Ventilator 40 06/07/16 16:00 106 06/07/16 16:00 40 06/07/16 16:00 98.5 108 16 120/68 100 Mechanical Ventilator 40 06/07/16 15:10 110 16 40 06/07/16 15:10 107 16 40 06/07/16 15:00 112 16 96/52 100 Mechanical Ventilator 40 06/07/16 14:00 110 16 98/56 100 Mechanical Ventilator 40 06/07/16 13:20 109 16 40 Intake and Output 06/07/16 06/08/16 19:00 07:00 Intake Total 2942.858 ml 1278.792 ml Output Total 245 ml 340 ml Balance 2697.858 ml 938.792 ml Free Water 100 ml 50 ml IV Total 2127.858 ml 593.792 ml Tube Feeding 715 ml 605 ml Other 30 ml Output Urine Total 245 ml 340 ml # Bowel Movements 4 3 Laboratory Tests 06/07/16 13:30: Amikacin Level Trough 4.5L 06/07/16 15:00: Amikacin Level Peak 18.9L 06/08/16 04:50: White Blood Count 24.4*H, Red Blood Count 3.88L, Hemoglobin 10.9L, Hematocrit 33.9L, Mean Corpuscular Volume 87, Mean Corpuscular Hemoglobin 28.0, Mean Corpuscular Hemoglobin Concent 32.1, Red Cell Distribution Width 13.7, Platelet Count 249, Mean Platelet Volume 8.6, Neutrophils (%) (Auto) , Lymphocytes (%) ( Auto) , Monocytes (%) (Auto) , Eosinophils (%) (Auto) , Basophils (%) (Auto) , Differential Total Cells Counted 100, Neutrophils % (Manual) 91H, Lymphocytes % (Manual) 3L, Monocytes % (Manual) 5, Eosinophils % (Manual) 0, Basophils % ( Manual) 0, Band Neutrophils 1, Platelet Estimate Adequate, Platelet Morphology Normal, Hypochromasia 1+, Sodium Level 144, Potassium Level 3.0L, Chloride Level 107, Carbon Dioxide Level 22, Anion Gap 15, Blood Urea Nitrogen 29H, Creatinine 0.8, Estimat Glomerular Filtration Rate , Glucose Level 167H, Calcium Level 6.6L, Phosphorus Level 2.2L, Magnesium Level 2.3, Total Bilirubin 0.3, Aspartate Amino Transf (AST/SGOT) 37, Alanine Aminotransferase (ALT/SGPT) 28, Alkaline Phosphatase 144H, Total Protein 5.5L, Albumin 1.1L, Globulin 4.4, Albumin/Globulin Ratio 0.2L 06/08/16 07:45: Arterial Blood pH 7.335L, Arterial Blood Partial Pressure CO2 40.7, Arterial Blood Partial Pressure O2 82.5, Arterial Blood HCO3 21.2L, Arterial Blood Oxygen Saturation 95.8, Arterial Blood Base Excess -4.3, Claudy Test Positive Height (Feet): 5 Height (Inches): 4.00 Weight (Pounds): 170 General Appearance: other Objective other PE not changed MARISOL ELAINE Jun 08, 2016 13:06
--- NOTE | 2016-06-08 13:13 | Neurology Progress Note ---
Interim History Interim History Interim History Ms. Donato continues to be unresponsive to her environment. She is intubated and artificially ventilated. She is off pressors and maintaining her BP. As per her nurse there has been no improvement in her neurologic state. No seizures have been noted. She has not demonstrated any improvement in neurologic function >6 days following her cardiopulmonary event. Review of Systems Neuro Review of Systems Unable to obtain. Objective Physical Exam Last Vital Signs Date Time Temp Pulse Resp B/P Pulse Ox O2 Delivery O2 Flow Rate FiO2 06/08/16 12:00 87 06/08/16 12:00 40 06/08/16 11:21 23 06/08/16 10:00 125/55 99 Mechanical Ventilator 06/08/16 08:00 97.0 06/02/16 12:00 3.0 Laboratory Tests Test 06/07/16 13:30 06/07/16 15:00 06/08/16 04:50 06/08/16 07:45 Amikacin Level Trough 4.5 ug/mL (10.0-15.0) L Amikacin Level Peak 18.9 ug/mL (20.0-35.0) L White Blood Count 24.4 K/UL (4.8-10.8) *H Red Blood Count 3.88 M/UL (4.20-5.40) L Hemoglobin 10.9 G/DL (12.0-16.0) L Hematocrit 33.9 % (37.0-47.0) L Mean Corpuscular Volume 87 FL (80-99) Mean Corpuscular Hemoglobin 28.0 PG (27.0-31.0) Mean Corpuscular Hemoglobin Concent 32.1 G/DL (32.0-36.0) Red Cell Distribution Width 13.7 % (11.6-14.8) Platelet Count 249 K/UL (150-450) Mean Platelet Volume 8.6 FL (6.5-10.1) Neutrophils (%) (Auto) % (45.0-75.0) Lymphocytes (%) (Auto) % (20.0-45.0) Monocytes (%) (Auto) % (1.0-10.0) Eosinophils (%) (Auto) % (0.0-3.0) Basophils (%) (Auto) % (0.0-2.0) Differential Total Cells Counted 100 Neutrophils % (Manual) 91 % (45-75) H Lymphocytes % (Manual) 3 % (20-45) L Monocytes % (Manual) 5 % (1-10) Eosinophils % (Manual) 0 % (0-3) Basophils % (Manual) 0 % (0-2) Band Neutrophils 1 % (0-8) Platelet Estimate Adequate Platelet Morphology Normal Hypochromasia 1+ Sodium Level 144 mEQ/L (135-145) Potassium Level 3.0 mEQ/L (3.4-4.9) L Chloride Level 107 mEQ/L (98-107) Carbon Dioxide Level 22 mEQ/L (20-30) Anion Gap 15 (5-15) Blood Urea Nitrogen 29 mg/dL (7-23) H Creatinine 0.8 mg/dL (0.5-0.9) Estimat Glomerular Filtration Rate mL/min (>60) Glucose Level 167 mg/dL (74-106) H Calcium Level 6.6 mg/dL (8.6-10.2) L Phosphorus Level 2.2 mg/dL (2.5-4.8) L Magnesium Level 2.3 mg/dL (1.7-2.5) Total Bilirubin 0.3 mg/dL (0.0-1.2) Aspartate Amino Transf (AST/SGOT) 37 U/L (5-40) Alanine Aminotransferase (ALT/SGPT) 28 U/L (3-33) Alkaline Phosphatase 144 U/L (35-104) H Total Protein 5.5 g/dL (6.6-8.7) L Albumin 1.1 g/dL (3.5-5.2) L Globulin 4.4 g/dL Albumin/Globulin Ratio 0.2 (1.0-2.7) L Arterial Blood pH 7.335 (7.350-7.450) Arterial Blood Partial Pressure CO2 40.7 mmHg (35.0-45.0) Arterial Blood Partial Pressure O2 82.5 mmHg (75.0-100.0) Arterial Blood HCO3 21.2 mmol/L (22.0-26.0) L Arterial Blood Oxygen Saturation 95.8 % (92.0-98.0) Arterial Blood Base Excess -4.3 Claudy Test Positive Neurologic Exam Objective PHYSICAL EXAMINATION: GENERAL: She is a well-developed, black lady, lying in an ICU bed, connected to a ventilator via an orotracheal tube. HEAD: Normocephalic, atraumatic, with old right temporal craniotomy scar. NECK: No neck rigidity was observed. EENT EXAMINATION: Benign except for bilateral chemosis. NEUROLOGICAL EXAMINATION: MENTAL STATUS EXAMINATION: She was comatose and responded to deep painful stimuli with decerebration in both upper extremities.. SPEECH: Could not be tested. LANGUAGE: Could not be tested. CRANIAL NERVE EXAMINATION: II: She did not blink to threat. III, IV & : The pupils were 4 mm in diameter and did not react to light. She had restricted eye movements on oculocephalic maneuvers. V & VII: The corneal reflexes were absent. VIII: She did not respond to sounds and had no nystagmus. IX & X: The gag reflex was absent. XI: The sternocleidomastoids and trapezii did not function. XII: Could not be tested. MOTOR SYSTEM: The tone was increased in all four extremities with a significant degree of spasticity. Examination of muscle mass revealed generalized muscle wasting with bilateral upper and lower extremity contractures. Examination of power was impossible to perform she responded to deep painful stimuli with decerebration in both upper extremities.. SENSORY EXAMINATION: She responded to deep painful stimuli with decerebration in both upper extremities.. REFLEXES: 3+ on the right and 3++ on the left at the biceps, triceps, and brachioradialis. 1+ at both knees. 0 at both ankles. The plantar responses were extensor bilaterally. COORDINATION, STANCE & GAIT: Could not be tested. Impression/Recommendations Diagnostic Impression 1. Ms. Liya Donato is a 70-year-old, right-handed, black lady, who had a right middle cerebral aneurysmal rupture approximately 20 years ago with unknown consequences. This however was followed by a seizure disorder for which the patient is on Zonegran. About 7 years ago, she had a seizure associated with a neck injury and she became quadriparetic. On 05/28/2016, she was hospitalized at [facility] for constipation and anasarca. On , there was a sudden change in her mental state. A CT scan of the brain was performed, and was benign for acute pathology. On 06/02/2016, she was taken to the MRI scanner where she had a respiratory arrest. A Code Blue was called and she had to be intubated and ventilated. She has been comatose since then. 2. At this time she continues to be comatose, artificially ventilated with no spontaneous respirations. 3. On neurological examination at this time, she only responds to deep painful stimuli with decerebration in both upper extremities. She demonstrates minimal brainstem function in the form of restricted occulocephalic eye movements. The deep tendon reflexes are brisk in the upper extremities and diminished at the knees with extensor plantar responses. 4. The EEG done on 06/02/16 revealed a severe encephalopathy with no reactivity, but no inter-ictal or ictal phenomena. 5. The patient's history and neurological examination are most compatible with a severe anoxic ischemic cerebral insult, with her at this point in time being in a comatose state, with no improvement in her neurologic condition. 6. As the patient has exhibited no significant improvement in neurologic function > 6 days following her cardiopulmonary event, the prognosis for recovery of neurologic function is dismal. Recommendations 1. Continue present management. 2. Continue to support the patient's cardiorespiratory function in an ICU setting. 3. Continue Keppra 500 mg intravenously every 12 hours. 4. Observe closely. 5. Make decision with family regarding intensity of further care in light of her poor prognosis. Renny Bazzi M.D., M.S.P.Gavin. RENNY BAZZI Jun 08, 2016 13:13
--- NOTE | 2016-06-08 13:53 | Internal Med Progress Note ---
Subjective Date of Service: Jun 08, 2016 Physician Name Zenia Lafleur Attending Physician Jareth Verma MD Current Medications Medications (Trade) Dose Ordered Sig/Miguel Route PRN Reason Start Time Stop Time Status Last Admin Dose Admin Acetaminophen (Tylenol) 650 mg Q4H PRN ORAL fever 06/02/16 20:15 07/02/16 20:14 06/06/16 10:05 Albuterol Sulfate (Proventil MDI) 2 puff Q4H PRN INH Shortness of Breath 06/02/16 21:00 07/02/16 20:59 Artificial Tears (Akwa-Tears) 2 drop Q2H PRN BOTH EYES Dry Eyes 06/02/16 18:15 07/02/16 18:14 06/07/16 22:36 Atenolol 25 mg 25 mg EVERY 12 HOURS NG 06/08/16 09:00 07/08/16 08:59 06/08/16 08:31 Clonidine HCl (Catapres) 0.1 mg Q4H PRN ORAL For High Blood Pressure 06/02/16 18:30 07/02/16 18:29 Dextrose (Dextrose 50%) STAT PRN IV Hypoglycemia 06/03/16 00:15 07/03/16 00:14 Heparin Sodium (Porcine) (Heparin 5000 units/ml) 5,000 units EVERY 12 HOURS SUBQ 06/02/16 21:00 07/02/16 20:59 06/08/16 08:33 Levetiracetam/ Dextrose (Keppra/D5W) 115 ml @ 460 mls/hr Q12HR IV 06/03/16 09:00 07/03/16 08:59 06/08/16 08:31 Levothyroxine Sodium (Synthroid) 50 mcg DAILY@0630 ORAL 06/03/16 06:30 07/03/16 06:29 06/08/16 06:26 Lorazepam (Ativan 2mg/ml 1ml) 2 mg Q4H PRN IV For Anxiety 06/02/16 21:30 06/09/16 21:29 06/08/16 11:25 Metronidazole (Flagyl) 500 mg Q8HR NG 06/05/16 16:00 06/12/16 15:59 06/08/16 06:26 Mineral Oil (Fleet's Mineral Oil Enema) 133 ml EVERY OTHER DAY RECTAL 06/03/16 09:00 07/03/16 08:59 06/07/16 09:02 Norepinephrine Bitartrate 4 mg/ Dextrose 250 ml @ 0 mls/hr Q24H IV 06/02/16 17:15 07/02/16 17:14 06/06/16 03:20 Nystatin 1 applic 1 applic THREE TIMES A DAY TOPIC 06/05/16 16:00 07/05/16 15:59 06/08/16 13:00 Ondansetron HCl (Zofran) 4 mg Q6H PRN IVP Nausea & Vomiting 06/02/16 18:15 07/02/16 18:14 Pantoprazole (Protonix) 40 mg DAILY ORAL 06/03/16 09:00 07/03/16 08:59 06/08/16 08:29 Piperacillin Sod/ Tazobactam Sod/ Dextrose (Zosyn/D5W) 110 ml @ 27.5 mls/hr Q8HR@0000,0800,1600 IVPB 06/08/16 00:00 06/11/16 00:00 06/08/16 08:29 Polyethylene Glycol 17 gm 17 gm DAILY ORAL 06/03/16 09:00 07/03/16 08:59 06/05/16 08:55 Potassium Phosphate/Sodium Chloride (Potassium Phosphate/NS) 560 ml @ 93.3 mls/hr ONCE ONCE IV 06/08/16 12:00 06/08/16 18:00 06/08/16 11:25 Sodium Chloride (Sodium Chloride 1000ml bag) 1,000 ml @ 50 mls/hr Q20H IV 06/03/16 11:00 07/03/16 10:59 06/07/16 22:36 Allergies: Coded Allergies: OPIOIDS - MORPHINE ANALOGUES (Verified Allergy, Unknown, 06/02/16) per daughter. All opiods, she doesn't want any given to patient Uncoded Allergies: NARCOTICS (Allergy, Mild, 10/02/14) Opiates --> Nausea, SOB ROS Limited/Unobtainable: Yes Subjective 70 YO F admitted for constipation, anasarca and altered mental status. Cover for Int Med-Dr Verma. Intubated and sedated. ICU. Continues on pressors. Objective Last Vital Signs Date Time Temp Pulse Resp B/P Pulse Ox O2 Delivery O2 Flow Rate FiO2 06/08/16 12:00 87 06/08/16 12:00 40 06/08/16 11:21 23 06/08/16 10:00 125/55 99 Mechanical Ventilator 06/08/16 08:00 97.0 06/02/16 12:00 3.0 Laboratory Tests Test 06/07/16 15:00 06/08/16 04:50 06/08/16 07:45 Amikacin Level Peak 18.9 ug/mL (20.0-35.0) L White Blood Count 24.4 K/UL (4.8-10.8) *H Red Blood Count 3.88 M/UL (4.20-5.40) L Hemoglobin 10.9 G/DL (12.0-16.0) L Hematocrit 33.9 % (37.0-47.0) L Mean Corpuscular Volume 87 FL (80-99) Mean Corpuscular Hemoglobin 28.0 PG (27.0-31.0) Mean Corpuscular Hemoglobin Concent 32.1 G/DL (32.0-36.0) Red Cell Distribution Width 13.7 % (11.6-14.8) Platelet Count 249 K/UL (150-450) Mean Platelet Volume 8.6 FL (6.5-10.1) Neutrophils (%) (Auto) % (45.0-75.0) Lymphocytes (%) (Auto) % (20.0-45.0) Monocytes (%) (Auto) % (1.0-10.0) Eosinophils (%) (Auto) % (0.0-3.0) Basophils (%) (Auto) % (0.0-2.0) Differential Total Cells Counted 100 Neutrophils % (Manual) 91 % (45-75) H Lymphocytes % (Manual) 3 % (20-45) L Monocytes % (Manual) 5 % (1-10) Eosinophils % (Manual) 0 % (0-3) Basophils % (Manual) 0 % (0-2) Band Neutrophils 1 % (0-8) Platelet Estimate Adequate Platelet Morphology Normal Hypochromasia 1+ Sodium Level 144 mEQ/L (135-145) Potassium Level 3.0 mEQ/L (3.4-4.9) L Chloride Level 107 mEQ/L (98-107) Carbon Dioxide Level 22 mEQ/L (20-30) Anion Gap 15 (5-15) Blood Urea Nitrogen 29 mg/dL (7-23) H Creatinine 0.8 mg/dL (0.5-0.9) Estimat Glomerular Filtration Rate mL/min (>60) Glucose Level 167 mg/dL (74-106) H Calcium Level 6.6 mg/dL (8.6-10.2) L Phosphorus Level 2.2 mg/dL (2.5-4.8) L Magnesium Level 2.3 mg/dL (1.7-2.5) Total Bilirubin 0.3 mg/dL (0.0-1.2) Aspartate Amino Transf (AST/SGOT) 37 U/L (5-40) Alanine Aminotransferase (ALT/SGPT) 28 U/L (3-33) Alkaline Phosphatase 144 U/L (35-104) H Total Protein 5.5 g/dL (6.6-8.7) L Albumin 1.1 g/dL (3.5-5.2) L Globulin 4.4 g/dL Albumin/Globulin Ratio 0.2 (1.0-2.7) L Arterial Blood pH 7.335 (7.350-7.450) Arterial Blood Partial Pressure CO2 40.7 mmHg (35.0-45.0) Arterial Blood Partial Pressure O2 82.5 mmHg (75.0-100.0) Arterial Blood HCO3 21.2 mmol/L (22.0-26.0) L Arterial Blood Oxygen Saturation 95.8 % (92.0-98.0) Arterial Blood Base Excess -4.3 Claudy Test Positive Microbiology Date/Time Source Procedure Growth Status 06/06/16 08:30 Indwelling Cath Urine Culture - Preliminary Strep Species, Gamma-Hemolytic Pseudomonas Aeruginosa Resulted 06/05/16 15:00 Indwelling Cath Urine Culture - Final Pseudomonas Aeruginosa Complete Intake and Output 06/07/16 06/08/16 19:00 07:00 Intake Total 2942.858 ml 1328.792 ml Output Total 245 ml 340 ml Balance 2697.858 ml 988.792 ml Free Water 100 ml 50 ml IV Total 2127.858 ml 643.792 ml Tube Feeding 715 ml 605 ml Other 30 ml Output Urine Total 245 ml 340 ml # Bowel Movements 4 3 Objective General Appearance: WD/WN, lethargic, agitated EENT: PERRL/EOMI, normal ENT inspection, TMs normal Neck: non-tender, normal alignment, supple Cardiovascular: normal peripheral pulses, normal rate, regular rhythm, no gallop/murmur, no JVD Respiratory/Chest: Mech vent; respiratory distress, crackles/rales, rhonchi - bilaterally, expiratory wheezing Abdomen: normal bowel sounds, non tender, soft, no organomegaly, no mass Extremities: normal range of motion Edema: pitting 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 due to hypothyroidism? (4) Anasarca Assessment & Plan: ?hypothyroidism? Continue lasix (5) Cerebral vascular disease (6) HTN (hypertension) (7) Atrial fibrillation Assessment & Plan: see cardiology note. Cont lovenox. May require coumadin (8) Hypothyroidism Assessment & Plan: Cont levoxyl. (9) Hyponatremia Assessment & Plan: See nephrology note. (10) Respiratory failure Assessment & Plan: Intubated 06/02/16; see pulmonary note. (11) Leukocytosis Assessment & Plan: Worsening. Continue antibiotics per ID. (12) Cardiac arrest (13) Cardiogenic shock Assessment & Plan: Cont pressors Status: not improved Assessment/Plan Prognosis is guarded. ZENIA LAFLEUR Jun 08, 2016 13:53
--- NOTE | 2016-06-08 16:01 | Cardiology Progress Note ---
Assessment/Plan Assessment/Plan s/p pulmonary arrest atrial fibrillation now back to sinus anoxic encephalopathy with no change in mentation since severe pulmonary HTN right heart failure leukocytosis Nephrotic Syndrome seizure disorder constipation hyponatremia Mild hypothyroidism with elevated TSH functional quadriplegi off pressors now on the vent neuro noted vent support d/w rn d/w dr emma terrell normal ekg noted has some chronic t inversion remains critical and at risk of dying tele reviewed labs reviewed repeat echo shows normal ef still with pulm htn has sig edema but cannot diurese as bp borderine is gettign beta agonist which may be driving the afib d/c if possible per dtr terminal extubation planned for Subjective ROS Limited/Unobtainable: Yes Subjective now on the vent not verbal not communicative Objective Last 24 Hour Vital Signs Date Time Temp Pulse Resp B/P Pulse Ox O2 Delivery O2 Flow Rate FiO2 06/08/16 15:20 76 16 40 06/08/16 15:13 76 16 95/51 99 Mechanical Ventilator 40 06/08/16 14:00 77 16 93/51 99 Mechanical Ventilator 40 06/08/16 13:20 84 16 40 06/08/16 13:00 80 16 118/58 99 Mechanical Ventilator 40 06/08/16 12:00 87 06/08/16 12:00 40 06/08/16 12:00 77 16 113/55 99 Mechanical Ventilator 40 06/08/16 11:21 72 23 40 06/08/16 11:00 96.9 85 16 118/60 99 Mechanical Ventilator 40 06/08/16 10:00 73 16 125/55 99 Mechanical Ventilator 40 06/08/16 09:21 81 16 40 06/08/16 09:00 72 16 105/57 99 Mechanical Ventilator 40 06/08/16 08:31 78 115/93 06/08/16 08:00 97.0 77 16 109/36 99 Mechanical Ventilator 40 06/08/16 08:00 74 06/08/16 08:00 40 06/08/16 07:00 80 16 136/60 99 Mechanical Ventilator 40 06/08/16 07:00 82 16 40 06/08/16 06:00 85 16 125/67 99 Mechanical Ventilator 40 06/08/16 05:00 81 16 134/58 100 Mechanical Ventilator 40 06/08/16 04:55 81 16 40 06/08/16 04:00 40 06/08/16 04:00 84 06/08/16 04:00 97.0 82 16 137/59 99 Mechanical Ventilator 40 06/08/16 03:05 101 16 40 06/08/16 03:00 80 16 115/53 99 Mechanical Ventilator 40 06/08/16 02:00 82 16 98/61 99 Mechanical Ventilator 40 06/08/16 01:00 80 16 40 06/08/16 01:00 80 16 111/66 100 Mechanical Ventilator 40 06/08/16 00:07 97.9 79 16 115/64 100 Mechanical Ventilator 40 06/08/16 00:00 80 06/08/16 00:00 40 06/07/16 23:00 80 16 117/60 100 Mechanical Ventilator 40 06/07/16 22:38 79 16 40 06/07/16 22:00 81 16 113/54 99 Mechanical Ventilator 40 06/07/16 21:00 80 16 104/61 100 Mechanical Ventilator 40 06/07/16 20:38 83 16 40 06/07/16 20:00 40 06/07/16 20:00 98.0 88 16 112/97 100 Mechanical Ventilator 40 06/07/16 20:00 123 06/07/16 19:29 121 134/66 06/07/16 19:00 128 16 124/98 100 Mechanical Ventilator 40 06/07/16 18:55 121 16 40 06/07/16 18:00 107 16 134/66 100 Mechanical Ventilator 40 06/07/16 17:50 110 06/07/16 17:15 120/68 06/07/16 17:10 110 16 40 06/07/16 17:00 111 16 128/54 100 Mechanical Ventilator 40 06/07/16 16:00 106 06/07/16 16:00 40 06/07/16 16:00 98.5 108 16 120/68 100 Mechanical Ventilator 40 General Appearance: no apparent distress, on vent Neck: no JVD Cardiovascular: normal rate, regular rhythm Respiratory/Chest: expiratory wheezing, inspiratory wheezing Abdomen: normal bowel sounds, non tender, soft Extremities: severe edema Intake and Output 06/07/16 06/08/16 19:00 07:00 Intake Total 2942.858 ml 1328.792 ml Output Total 245 ml 340 ml Balance 2697.858 ml 988.792 ml Free Water 100 ml 50 ml IV Total 2127.858 ml 643.792 ml Tube Feeding 715 ml 605 ml Other 30 ml Output Urine Total 245 ml 340 ml # Bowel Movements 4 3 Laboratory Tests Test 06/08/16 04:50 06/08/16 07:45 White Blood Count 24.4 K/UL (4.8-10.8) *H Red Blood Count 3.88 M/UL (4.20-5.40) L Hemoglobin 10.9 G/DL (12.0-16.0) L Hematocrit 33.9 % (37.0-47.0) L Mean Corpuscular Volume 87 FL (80-99) Mean Corpuscular Hemoglobin 28.0 PG (27.0-31.0) Mean Corpuscular Hemoglobin Concent 32.1 G/DL (32.0-36.0) Red Cell Distribution Width 13.7 % (11.6-14.8) Platelet Count 249 K/UL (150-450) Mean Platelet Volume 8.6 FL (6.5-10.1) Neutrophils (%) (Auto) % (45.0-75.0) Lymphocytes (%) (Auto) % (20.0-45.0) Monocytes (%) (Auto) % (1.0-10.0) Eosinophils (%) (Auto) % (0.0-3.0) Basophils (%) (Auto) % (0.0-2.0) Differential Total Cells Counted 100 Neutrophils % (Manual) 91 % (45-75) H Lymphocytes % (Manual) 3 % (20-45) L Monocytes % (Manual) 5 % (1-10) Eosinophils % (Manual) 0 % (0-3) Basophils % (Manual) 0 % (0-2) Band Neutrophils 1 % (0-8) Platelet Estimate Adequate Platelet Morphology Normal Hypochromasia 1+ Sodium Level 144 mEQ/L (135-145) Potassium Level 3.0 mEQ/L (3.4-4.9) L Chloride Level 107 mEQ/L (98-107) Carbon Dioxide Level 22 mEQ/L (20-30) Anion Gap 15 (5-15) Blood Urea Nitrogen 29 mg/dL (7-23) H Creatinine 0.8 mg/dL (0.5-0.9) Estimat Glomerular Filtration Rate mL/min (>60) Glucose Level 167 mg/dL (74-106) H Calcium Level 6.6 mg/dL (8.6-10.2) L Phosphorus Level 2.2 mg/dL (2.5-4.8) L Magnesium Level 2.3 mg/dL (1.7-2.5) Total Bilirubin 0.3 mg/dL (0.0-1.2) Aspartate Amino Transf (AST/SGOT) 37 U/L (5-40) Alanine Aminotransferase (ALT/SGPT) 28 U/L (3-33) Alkaline Phosphatase 144 U/L (35-104) H Total Protein 5.5 g/dL (6.6-8.7) L Albumin 1.1 g/dL (3.5-5.2) L Globulin 4.4 g/dL Albumin/Globulin Ratio 0.2 (1.0-2.7) L Arterial Blood pH 7.335 (7.350-7.450) Arterial Blood Partial Pressure CO2 40.7 mmHg (35.0-45.0) Arterial Blood Partial Pressure O2 82.5 mmHg (75.0-100.0) Arterial Blood HCO3 21.2 mmol/L (22.0-26.0) L Arterial Blood Oxygen Saturation 95.8 % (92.0-98.0) Arterial Blood Base Excess -4.3 Claudy Test Positive Microbiology Date/Time Source Procedure Growth Status 06/06/16 08:30 Indwelling Cath Urine Culture - Preliminary Strep Species, Gamma-Hemolytic Pseudomonas Aeruginosa Resulted TOMEKA CHUN Jun 08, 2016 16:01
[2016-06-09] VITALS (25 sets, daily range): BP systolic 83–147; BP diastolic 36–83
[2016-06-09] MEDS: Piperacillin/Tazobactam 3.375 GM in D5W 110 ML IVPB SCH (00:58)
[2016-06-09 05:44] LABS: MEAN CORPUSCULAR HEMOGLOBIN 27.7 PG (27.0-31.0); MEAN CORPUSCULAR HGB CONC 31.8 G/DL (32.0-36.0); MEAN CORPUSCULAR VOLUME 87 FL (80-99); MEAN PLATELET VOLUME 8.7 FL (6.5-10.1); PLATELET COUNT 250 K/UL (150-450); RED BLOOD COUNT 3.65 M/UL (4.20-5.40); RED CELL DISTRIBUTION WIDTH 13.7 % (11.6-14.8)
[2016-06-09 05:55] LABS: WHITE BLOOD COUNT 22.1 K/UL (4.8-10.8)
[2016-06-09 06:04] LABS: ALANINE AMINOTRANSFERASE 31 U/L (3-33); ALBUMIN/GLOBULIN RATIO 0.2 (1.0-2.7); ANION GAP 16 (5-15); ASPARTATE AMINO TRANSFERASE 39 U/L (5-40); CALCIUM 6.3 mg/dL (8.6-10.2); CARBON DIOXIDE 22 mEQ/L (20-30); CHLORIDE 107 mEQ/L (98-107); CREATININE 0.8 mg/dL (0.5-0.9); HEMOLYSIS 2; MAGNESIUM 2.4 mg/dL (1.7-2.5); PHOSPHORUS 3.3 mg/dL (2.5-4.8); POTASSIUM 3.3 mEQ/L (3.4-4.9); SODIUM 145 mEQ/L (135-145); TOTAL PROTEIN 5.2 g/dL (6.6-8.7)
[2016-06-09] MEDS: metroNIDAZOLE 500mg tab NG SCH ×3 (06:16→21:28)
--- NOTE | 2016-06-09 08:06 | Infectious Diseases Prog Note ---
Assessment/Plan Assessment/Plan ASSESSMENT: 70 y/o female with: // MSSA bacteremia 06/14 ?source lung vs PICC - TTE 06/04 neg veg // PSA / Strp UTI // Possible aspiration PNA - SCx MSSA - CXR 06/06: Bilateral small pleural effusions persists. 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, unchanged // Loose stool r/o C.difficile - toxin pending // Sepsis // Leukocytosis - improving - CT A/P 05/27: no abscess // Low grade fever - resolved // Acute VDRF - intubated 06/02 // Severe encephalopathy / comatose, probable MADAN - no improvement, family leaning towards withdrawal of care // SP code blue 06/02 ?etiology // Elevated ALP - US: Negative for gallstones or dilated ducts // Hypoalbuminemia 05/15 nephrotic syndrome // Elevated CRP // PAD - arterial doppler: waveform analysis is monophasic, consistent with severe ischemia at rest. // Severe pulmonary HTN // Constipation // Chronic paraplegia 05/15 SCI // SP RUE PICC 06/01 // No ABX allergies // Full Code PLAN: - continue flagyl d# 5 , change Zosyn d# 5 to IV Levaquin and Ancef d# 1 / 10 ( 06/08 SP IV vancomycin d# 3 ) ( 06/07 SP amikakin d# 3 ) - if ongoing aggressive care, will need PICC change, repeat blood cultures - f/u final cultures, C.difficile - monitor CBC, temperatures - monitor BMP - monitor CXR - vent support, wean as tolerated - poor overall prognosis - repeat Blood cx Subjective Allergies: Coded Allergies: OPIOIDS - MORPHINE ANALOGUES (Verified Allergy, Unknown, 06/02/16) per daughter. All opiods, she doesn't want any given to patient Uncoded Allergies: NARCOTICS (Allergy, Mild, 10/02/14) Opiates --> Nausea, SOB Objective Vital Signs Last 24 Hour Vital Signs Date Time Temp Pulse Resp B/P Pulse Ox O2 Delivery O2 Flow Rate FiO2 06/09/16 07:15 83 16 98/58 98 Mechanical Ventilator 40 06/09/16 07:11 84 16 40 06/09/16 06:00 84 16 100/45 99 Mechanical Ventilator 40 06/09/16 05:02 86 16 40 06/09/16 05:00 88 16 108/44 99 Mechanical Ventilator 40 06/09/16 04:00 97.6 77 16 99/45 100 Mechanical Ventilator 40 06/09/16 04:00 77 06/09/16 04:00 40 06/09/16 03:02 80 16 40 06/09/16 03:00 80 16 102/61 100 Mechanical Ventilator 40 06/09/16 02:00 75 16 102/83 100 Mechanical Ventilator 40 06/09/16 01:03 79 16 40 06/09/16 01:00 82 16 92/36 100 Mechanical Ventilator 40 06/09/16 00:00 96.9 78 16 106/61 100 Mechanical Ventilator 40 06/09/16 00:00 40 06/09/16 00:00 78 06/08/16 23:03 82 16 40 06/08/16 23:00 81 16 102/75 99 Mechanical Ventilator 40 06/08/16 22:00 87 16 90/49 99 Mechanical Ventilator 40 06/08/16 21:00 81 94/58 06/08/16 21:00 83 16 94/58 99 Mechanical Ventilator 40 06/08/16 20:53 88 16 40 06/08/16 20:00 75 06/08/16 20:00 97.4 81 16 112/61 99 Mechanical Ventilator 40 06/08/16 20:00 40 06/08/16 19:45 81 16 40 06/08/16 19:00 75 16 90/61 99 Mechanical Ventilator 40 06/08/16 18:00 73 16 93/59 99 Mechanical Ventilator 40 06/08/16 17:13 75 16 40 06/08/16 17:00 73 16 94/52 99 Mechanical Ventilator 40 06/08/16 16:00 40 06/08/16 16:00 97.1 76 16 96/47 99 Mechanical Ventilator 40 06/08/16 16:00 93 06/08/16 15:20 76 16 40 06/08/16 15:13 76 16 95/51 99 Mechanical Ventilator 40 06/08/16 14:00 77 16 93/51 99 Mechanical Ventilator 40 06/08/16 13:20 84 16 40 06/08/16 13:00 80 16 118/58 99 Mechanical Ventilator 40 06/08/16 12:00 87 06/08/16 12:00 40 06/08/16 12:00 77 16 113/55 99 Mechanical Ventilator 40 06/08/16 11:21 72 23 40 06/08/16 11:00 96.9 85 16 118/60 99 Mechanical Ventilator 40 06/08/16 10:00 73 16 125/55 99 Mechanical Ventilator 40 06/08/16 09:21 81 16 40 06/08/16 09:00 72 16 105/57 99 Mechanical Ventilator 40 06/08/16 08:31 78 115/93 06/08/16 08:00 97.0 77 16 109/36 99 Mechanical Ventilator 40 06/08/16 08:00 74 06/08/16 08:00 40 Height (Feet): 5 Height (Inches): 4.00 Weight (Pounds): 170 Microbiology Date/Time Source Procedure Growth Status 06/06/16 08:30 Indwelling Cath Urine Culture - Preliminary Strep Species, Gamma-Hemolytic Pseudomonas Aeruginosa Resulted Laboratory Tests Test 06/09/16 04:00 White Blood Count 22.1 K/UL (4.8-10.8) *H Red Blood Count 3.65 M/UL (4.20-5.40) L Hemoglobin 10.1 G/DL (12.0-16.0) L Hematocrit 31.8 % (37.0-47.0) L Mean Corpuscular Volume 87 FL (80-99) Mean Corpuscular Hemoglobin 27.7 PG (27.0-31.0) Mean Corpuscular Hemoglobin Concent 31.8 G/DL (32.0-36.0) L Red Cell Distribution Width 13.7 % (11.6-14.8) Platelet Count 250 K/UL (150-450) Mean Platelet Volume 8.7 FL (6.5-10.1) Neutrophils (%) (Auto) % (45.0-75.0) Lymphocytes (%) (Auto) % (20.0-45.0) Monocytes (%) (Auto) % (1.0-10.0) Eosinophils (%) (Auto) % (0.0-3.0) Basophils (%) (Auto) % (0.0-2.0) Neutrophils % (Manual) Pending Lymphocytes % (Manual) Pending Platelet Estimate Pending Platelet Morphology Pending Sodium Level 145 mEQ/L (135-145) Potassium Level 3.3 mEQ/L (3.4-4.9) L Chloride Level 107 mEQ/L (98-107) Carbon Dioxide Level 22 mEQ/L (20-30) Anion Gap 16 (5-15) H Blood Urea Nitrogen 32 mg/dL (7-23) H Creatinine 0.8 mg/dL (0.5-0.9) Estimat Glomerular Filtration Rate mL/min (>60) Glucose Level 142 mg/dL (74-106) H Calcium Level 6.3 mg/dL (8.6-10.2) L Phosphorus Level 3.3 mg/dL (2.5-4.8) Magnesium Level 2.4 mg/dL (1.7-2.5) Total Bilirubin 0.3 mg/dL (0.0-1.2) Aspartate Amino Transf (AST/SGOT) 39 U/L (5-40) Alanine Aminotransferase (ALT/SGPT) 31 U/L (3-33) Alkaline Phosphatase 208 U/L (35-104) H Total Protein 5.2 g/dL (6.6-8.7) L Albumin 1.0 g/dL (3.5-5.2) L Globulin 4.2 g/dL Albumin/Globulin Ratio 0.2 (1.0-2.7) L Current Medications Medications (Trade) Dose Ordered Sig/Miguel Route PRN Reason Start Time Stop Time Status Last Admin Dose Admin Acetaminophen (Tylenol) 650 mg Q4H PRN ORAL fever 06/02/16 20:15 07/02/16 20:14 06/06/16 10:05 Albuterol Sulfate (Proventil MDI) 2 puff Q4H PRN INH Shortness of Breath 06/02/16 21:00 07/02/16 20:59 Artificial Tears (Akwa-Tears) 2 drop Q2H PRN BOTH EYES Dry Eyes 06/02/16 18:15 07/02/16 18:14 06/07/16 22:36 Atenolol 25 mg 25 mg EVERY 12 HOURS NG 06/08/16 09:00 07/08/16 08:59 06/08/16 08:31 Clonidine HCl (Catapres) 0.1 mg Q4H PRN ORAL For High Blood Pressure 06/02/16 18:30 07/02/16 18:29 Dextrose (Dextrose 50%) STAT PRN IV Hypoglycemia 06/03/16 00:15 07/03/16 00:14 Heparin Sodium (Porcine) (Heparin 5000 units/ml) 5,000 units EVERY 12 HOURS SUBQ 06/02/16 21:00 07/02/16 20:59 06/08/16 21:47 Levetiracetam/ Dextrose (Keppra/D5W) 115 ml @ 460 mls/hr Q12HR IV 06/03/16 09:00 07/03/16 08:59 06/08/16 21:46 Levothyroxine Sodium (Synthroid) 50 mcg DAILY@0630 ORAL 06/03/16 06:30 07/03/16 06:29 06/09/16 06:16 Lorazepam (Ativan 2mg/ml 1ml) 2 mg Q4H PRN IV For Anxiety 06/02/16 21:30 06/09/16 21:29 06/08/16 11:25 Metronidazole (Flagyl) 500 mg Q8HR NG 06/05/16 16:00 06/12/16 15:59 06/09/16 06:16 Mineral Oil (Fleet's Mineral Oil Enema) 133 ml EVERY OTHER DAY RECTAL 06/03/16 09:00 07/03/16 08:59 06/07/16 09:02 Norepinephrine Bitartrate 4 mg/ Dextrose 250 ml @ 0 mls/hr Q24H IV 06/02/16 17:15 07/02/16 17:14 06/06/16 03:20 Nystatin 1 applic 1 applic THREE TIMES A DAY TOPIC 06/05/16 16:00 07/05/16 15:59 06/08/16 18:00 Ondansetron HCl (Zofran) 4 mg Q6H PRN IVP Nausea & Vomiting 06/02/16 18:15 07/02/16 18:14 Pantoprazole (Protonix) 40 mg DAILY ORAL 06/03/16 09:00 07/03/16 08:59 06/08/16 08:29 Piperacillin Sod/ Tazobactam Sod/ Dextrose (Zosyn/D5W) 110 ml @ 27.5 mls/hr Q8HR@0000,0800,1600 IVPB 06/08/16 00:00 06/11/16 00:00 06/09/16 00:58 Polyethylene Glycol 17 gm 17 gm DAILY ORAL 06/03/16 09:00 07/03/16 08:59 06/05/16 08:55 Potassium Chloride/Dextrose (KCl/D5W 500ml) 520 ml @ 130 mls/hr ONCE ONCE IVPB 06/09/16 07:30 06/09/16 11:29 UNV Sodium Chloride (Sodium Chloride 1000ml bag) 1,000 ml @ 50 mls/hr Q20H IV 06/03/16 11:00 07/03/16 10:59 06/08/16 22:44 AMEE COOPER M.D. Jun 09, 2016 08:06
[2016-06-09] MEDS: Miralax 17gm pkt ORAL SCH (08:33)
[2016-06-09] MEDS: Fleet's Mineral Oil Enema RECTAL SCH (08:33)
[2016-06-09] MEDS: Nystatin Powder 100,000 units/gm 15gm TOPIC SCH ×3 (08:34→18:45)
[2016-06-09] MEDS: Atenolol 25mg tab NG SCH ×2 (08:34→20:35)
[2016-06-09] MEDS: Heparin 5000 units/ml inj SUBQ SCH ×2 (08:35→20:39)
--- NOTE | 2016-06-09 08:39 | Diagnostic Imaging Report ---
Indication: Dyspnea Comparison: 06/07/2016 A single view chest radiograph was obtained. Findings: Dense right basal infiltrate again demonstrated. Tubes and lines are stable. Heart size is stable. Impression: Right basilar consolidation suspicious for pneumonia unchanged
[2016-06-09] MEDS: Artificial Tears 1.4% Op Soln BOTH EYES PRN ×3 (08:46→21:28)
--- NOTE | 2016-06-09 08:54 | General Progress Note ---
Assessment/Plan Status: stable - from renal stand, unchanged - from neuro stand Assessment/Plan Renal: Nephrotic Syndrome most likely- leading to Anasarca, Pleural effusion Other: Respiratory failure- anoxic ischemic cerebral insult , post code blue acute toxic encephalopathy- severe PVD mild pulmonary edema severe pulmonary HTN seizure disorder constipation hyponatremia , likelu due to Anasarca Mild hypothyroidism with elevated TSH functional quadriplegia Plan: K , phos IV as needed pulm support per orders- monitor lytes- poor prognosis favor comfort care and terminal extubation if Neuro and family agrees Subjective ROS Limited/Unobtainable: Yes Allergies: Coded Allergies: OPIOIDS - MORPHINE ANALOGUES (Verified Allergy, Unknown, 06/02/16) per daughter. All opiods, she doesn't want any given to patient Uncoded Allergies: NARCOTICS (Allergy, Mild, 10/02/14) Opiates --> Nausea, SOB Objective Last 24 Hour Vital Signs Date Time Temp Pulse Resp B/P Pulse Ox O2 Delivery O2 Flow Rate FiO2 06/09/16 08:34 81 119/62 06/09/16 07:15 83 16 98/58 98 Mechanical Ventilator 40 06/09/16 07:11 84 16 40 06/09/16 06:00 84 16 100/45 99 Mechanical Ventilator 40 06/09/16 05:02 86 16 40 06/09/16 05:00 88 16 108/44 99 Mechanical Ventilator 40 06/09/16 04:00 97.6 77 16 99/45 100 Mechanical Ventilator 40 06/09/16 04:00 77 06/09/16 04:00 40 06/09/16 03:02 80 16 40 06/09/16 03:00 80 16 102/61 100 Mechanical Ventilator 40 06/09/16 02:00 75 16 102/83 100 Mechanical Ventilator 40 06/09/16 01:03 79 16 40 06/09/16 01:00 82 16 92/36 100 Mechanical Ventilator 40 06/09/16 00:00 96.9 78 16 106/61 100 Mechanical Ventilator 40 06/09/16 00:00 40 06/09/16 00:00 78 06/08/16 23:03 82 16 40 06/08/16 23:00 81 16 102/75 99 Mechanical Ventilator 40 06/08/16 22:00 87 16 90/49 99 Mechanical Ventilator 40 06/08/16 21:00 81 94/58 06/08/16 21:00 83 16 94/58 99 Mechanical Ventilator 40 06/08/16 20:53 88 16 40 06/08/16 20:00 75 06/08/16 20:00 97.4 81 16 112/61 99 Mechanical Ventilator 40 06/08/16 20:00 40 06/08/16 19:45 81 16 40 06/08/16 19:00 75 16 90/61 99 Mechanical Ventilator 40 06/08/16 18:00 73 16 93/59 99 Mechanical Ventilator 40 06/08/16 17:13 75 16 40 06/08/16 17:00 73 16 94/52 99 Mechanical Ventilator 40 06/08/16 16:00 40 06/08/16 16:00 97.1 76 16 96/47 99 Mechanical Ventilator 40 06/08/16 16:00 93 06/08/16 15:20 76 16 40 06/08/16 15:13 76 16 95/51 99 Mechanical Ventilator 40 06/08/16 14:00 77 16 93/51 99 Mechanical Ventilator 40 06/08/16 13:20 84 16 40 06/08/16 13:00 80 16 118/58 99 Mechanical Ventilator 40 06/08/16 12:00 87 06/08/16 12:00 40 06/08/16 12:00 77 16 113/55 99 Mechanical Ventilator 40 06/08/16 11:21 72 23 40 06/08/16 11:00 96.9 85 16 118/60 99 Mechanical Ventilator 40 06/08/16 10:00 73 16 125/55 99 Mechanical Ventilator 40 06/08/16 09:21 81 16 40 06/08/16 09:00 72 16 105/57 99 Mechanical Ventilator 40 Intake and Output 06/08/16 06/09/16 19:00 07:00 Intake Total 2039.8 ml 1345.0 ml Output Total 350 ml 270 ml Balance 1689.8 ml 1075.0 ml Free Water 30 ml IV Total 1379.8 ml 710.0 ml Tube Feeding 660 ml 605 ml Output Urine Total 350 ml 270 ml # Bowel Movements 4 2 Laboratory Tests 06/09/16 04:00: White Blood Count 22.1*H, Red Blood Count 3.65L, Hemoglobin 10.1L, Hematocrit 31.8L, Mean Corpuscular Volume 87, Mean Corpuscular Hemoglobin 27.7, Mean Corpuscular Hemoglobin Concent 31.8L, Red Cell Distribution Width 13.7, Platelet Count 250, Mean Platelet Volume 8.7, Neutrophils (%) (Auto) , Lymphocytes (%) (Auto) , Monocytes (%) (Auto) , Eosinophils (%) (Auto) , Basophils (%) (Auto) , Neutrophils % (Manual) [Pending], Lymphocytes % (Manual) [Pending], Platelet Estimate [Pending], Platelet Morphology [Pending], Sodium Level 145, Potassium Level 3.3L, Chloride Level 107, Carbon Dioxide Level 22, Anion Gap 16H, Blood Urea Nitrogen 32H, Creatinine 0.8, Estimat Glomerular Filtration Rate , Glucose Level 142H, Calcium Level 6.3L, Phosphorus Level 3.3, Magnesium Level 2.4, Total Bilirubin 0.3, Aspartate Amino Transf (AST/SGOT) 39, Alanine Aminotransferase (ALT/SGPT) 31, Alkaline Phosphatase 208H, Total Protein 5.2L, Albumin 1.0L, Globulin 4.2, Albumin/Globulin Ratio 0.2L Height (Feet): 5 Height (Inches): 4.00 Weight (Pounds): 170 General Appearance: other - comatose Objective other PE not changed MARISOL ELAINE Jun 09, 2016 08:54
[2016-06-09 09:12] LABS: ABG ALLEN TEST POSITIVE; ABG BASE EXCESS -4.7; ABG PCO2 38.6 mmHg (35.0-45.0)
[2016-06-09] MEDS: levETIRAcetam 500 MG in D5W 110 ML IV SCH ×2 (09:29→20:34)
[2016-06-09] MEDS ORDERED: Potassium Chloride 40 MEQ in D5W 500ml 500 ML IV ONE (09:30)
[2016-06-09 09:58] LABS: BAND NEUTROPHILS % (MANUAL) 5 % (0-8); BASOPHILS % (MANUAL) 0 % (0-2); EOSINOPHILS % (MANUAL) 2 % (0-3); HYPOCHROMASIA 1+; LYMPHOCYTES % (MANUAL) 3 % (20-45); NEUTROPHILS % (MANUAL) 85 % (45-75); PLATELET ESTIMATE ADEQUATE; PLATELET MORPHOLOGY NORMAL; TOTAL CELLS COUNTED 100
[2016-06-09] MEDS ORDERED: NS 275ml ONE (10:47)
[2016-06-09] MEDS ORDERED: Tubing IV Secondary IV ONE (10:47)
--- NOTE | 2016-06-09 11:24 | Diagnostic Imaging Report ---
Indications: DYSPNEA Technique: Portable AP chest Findings: Comparison: 06/08/16 Consolidative parenchymal/pleural opacity right costophrenic angle, diffuse bilateral interstitial infiltrates unchanged. Cardiomediastinal silhouette stable. Lines and tubes remain in place. No new abnormality identified. IMPRESSION: No change from one day prior
--- NOTE | 2016-06-09 11:47 | Internal Med Progress Note ---
Subjective Date of Service: Jun 09, 2016 Physician Name Zeina Lafleur Attending Physician Jareth Verma MD Current Medications Medications (Trade) Dose Ordered Sig/Miguel Route PRN Reason Start Time Stop Time Status Last Admin Dose Admin Acetaminophen (Tylenol) 650 mg Q4H PRN ORAL fever 06/02/16 20:15 07/02/16 20:14 06/06/16 10:05 Albuterol Sulfate (Proventil MDI) 2 puff Q4H PRN INH Shortness of Breath 06/02/16 21:00 07/02/16 20:59 Artificial Tears (Akwa-Tears) 2 drop Q2H PRN BOTH EYES Dry Eyes 06/02/16 18:15 07/02/16 18:14 06/09/16 08:46 Atenolol 25 mg 25 mg EVERY 12 HOURS NG 06/08/16 09:00 07/08/16 08:59 06/09/16 08:34 Cefazolin Sodium 2 gm/Dextrose 110 ml @ 220 mls/hr Q8HR IVPB 06/09/16 14:00 06/16/16 13:59 Clonidine HCl (Catapres) 0.1 mg Q4H PRN ORAL For High Blood Pressure 06/02/16 18:30 07/02/16 18:29 Dextrose (Dextrose 50%) STAT PRN IV Hypoglycemia 06/03/16 00:15 07/03/16 00:14 Heparin Sodium (Porcine) (Heparin 5000 units/ml) 5,000 units EVERY 12 HOURS SUBQ 06/02/16 21:00 07/02/16 20:59 06/09/16 08:35 Levetiracetam/ Dextrose (Keppra/D5W) 115 ml @ 460 mls/hr Q12HR IV 06/03/16 09:00 07/03/16 08:59 06/09/16 09:29 Levofloxacin (Levaquin 750mg/ D5W) 150 ml @ 100 mls/hr Q24H IVPB 06/09/16 10:00 06/16/16 09:59 06/09/16 09:57 Levothyroxine Sodium (Synthroid) 50 mcg DAILY@0630 ORAL 06/03/16 06:30 07/03/16 06:29 06/09/16 06:16 Lorazepam (Ativan 2mg/ml 1ml) 2 mg Q4H PRN IV For Anxiety 06/02/16 21:30 06/09/16 21:29 06/08/16 11:25 Metronidazole (Flagyl) 500 mg Q8HR NG 06/05/16 16:00 06/12/16 15:59 06/09/16 06:16 Mineral Oil (Fleet's Mineral Oil Enema) 133 ml EVERY OTHER DAY RECTAL 06/03/16 09:00 07/03/16 08:59 06/07/16 09:02 Norepinephrine Bitartrate 4 mg/ Dextrose 250 ml @ 0 mls/hr Q24H IV 06/02/16 17:15 07/02/16 17:14 06/06/16 03:20 Nystatin (Nystop Powder) 1 applic THREE TIMES A DAY TOPIC 06/05/16 16:00 07/05/16 15:59 06/09/16 08:34 Ondansetron HCl (Zofran) 4 mg Q6H PRN IVP Nausea & Vomiting 06/02/16 18:15 07/02/16 18:14 Pantoprazole (Protonix) 40 mg DAILY ORAL 06/03/16 09:00 07/03/16 08:59 06/09/16 08:32 Polyethylene Glycol 17 gm 17 gm DAILY ORAL 06/03/16 09:00 07/03/16 08:59 06/09/16 08:33 Potassium Chloride 40 meq/ Dextrose 520 ml @ 130 mls/hr ONCE ONCE IV 06/09/16 09:30 06/09/16 13:29 06/09/16 09:29 Sodium Chloride (Sodium Chloride 1000ml bag) 1,000 ml @ 50 mls/hr Q20H IV 06/03/16 11:00 07/03/16 10:59 06/08/16 22:44 Allergies: Coded Allergies: OPIOIDS - MORPHINE ANALOGUES (Verified Allergy, Unknown, 06/02/16) per daughter. All opiods, she doesn't want any given to patient Uncoded Allergies: NARCOTICS (Allergy, Mild, 10/02/14) Opiates --> Nausea, SOB ROS Limited/Unobtainable: Yes Subjective 70 YO F admitted for constipation, anasarca and altered mental status. Cover for Int Med-Dr Verma. Intubated and sedated. ICU. Continues on pressors. Objective Last Vital Signs Date Time Temp Pulse Resp B/P Pulse Ox O2 Delivery O2 Flow Rate FiO2 06/09/16 11:05 87 16 106/55 97 Mechanical Ventilator 40 06/09/16 08:00 97.1 06/02/16 12:00 3.0 Laboratory Tests Test 06/09/16 04:00 06/09/16 08:55 White Blood Count 22.1 K/UL (4.8-10.8) *H Red Blood Count 3.65 M/UL (4.20-5.40) L Hemoglobin 10.1 G/DL (12.0-16.0) L Hematocrit 31.8 % (37.0-47.0) L Mean Corpuscular Volume 87 FL (80-99) Mean Corpuscular Hemoglobin 27.7 PG (27.0-31.0) Mean Corpuscular Hemoglobin Concent 31.8 G/DL (32.0-36.0) L Red Cell Distribution Width 13.7 % (11.6-14.8) Platelet Count 250 K/UL (150-450) Mean Platelet Volume 8.7 FL (6.5-10.1) Neutrophils (%) (Auto) % (45.0-75.0) Lymphocytes (%) (Auto) % (20.0-45.0) Monocytes (%) (Auto) % (1.0-10.0) Eosinophils (%) (Auto) % (0.0-3.0) Basophils (%) (Auto) % (0.0-2.0) Differential Total Cells Counted 100 Neutrophils % (Manual) 85 % (45-75) H Lymphocytes % (Manual) 3 % (20-45) L Monocytes % (Manual) 5 % (1-10) Eosinophils % (Manual) 2 % (0-3) Basophils % (Manual) 0 % (0-2) Band Neutrophils 5 % (0-8) Platelet Estimate Adequate Platelet Morphology Normal Hypochromasia 1+ Sodium Level 145 mEQ/L (135-145) Potassium Level 3.3 mEQ/L (3.4-4.9) L Chloride Level 107 mEQ/L (98-107) Carbon Dioxide Level 22 mEQ/L (20-30) Anion Gap 16 (5-15) H Blood Urea Nitrogen 32 mg/dL (7-23) H Creatinine 0.8 mg/dL (0.5-0.9) Estimat Glomerular Filtration Rate mL/min (>60) Glucose Level 142 mg/dL (74-106) H Calcium Level 6.3 mg/dL (8.6-10.2) L Phosphorus Level 3.3 mg/dL (2.5-4.8) Magnesium Level 2.4 mg/dL (1.7-2.5) Total Bilirubin 0.3 mg/dL (0.0-1.2) Aspartate Amino Transf (AST/SGOT) 39 U/L (5-40) Alanine Aminotransferase (ALT/SGPT) 31 U/L (3-33) Alkaline Phosphatase 208 U/L (35-104) H Total Protein 5.2 g/dL (6.6-8.7) L Albumin 1.0 g/dL (3.5-5.2) L Globulin 4.2 g/dL Albumin/Globulin Ratio 0.2 (1.0-2.7) L Arterial Blood pH 7.344 (7.350-7.450) Arterial Blood Partial Pressure CO2 38.6 mmHg (35.0-45.0) Arterial Blood Partial Pressure O2 144.2 mmHg (75.0-100.0) H Arterial Blood HCO3 20.5 mmol/L (22.0-26.0) L Arterial Blood Oxygen Saturation 98.8 % (92.0-98.0) H Arterial Blood Base Excess -4.7 Claudy Test Positive Microbiology Date/Time Source Procedure Growth Status 06/08/16 03:30 Stool Clostridium difficile Toxin Assay - Final Complete Intake and Output 06/08/16 06/09/16 19:00 07:00 Intake Total 2039.8 ml 1345.0 ml Output Total 350 ml 270 ml Balance 1689.8 ml 1075.0 ml Free Water 30 ml IV Total 1379.8 ml 710.0 ml Tube Feeding 660 ml 605 ml Output Urine Total 350 ml 270 ml # Bowel Movements 4 2 Objective General Appearance: WD/WN, lethargic, agitated EENT: PERRL/EOMI, normal ENT inspection, TMs normal Neck: non-tender, normal alignment, supple Cardiovascular: normal peripheral pulses, normal rate, regular rhythm, no gallop/murmur, no JVD Respiratory/Chest: Mech vent; respiratory distress, crackles/rales, rhonchi - bilaterally, expiratory wheezing Abdomen: normal bowel sounds, non tender, soft, no organomegaly, no mass Extremities: normal range of motion Edema: pitting Neurologic: oil and gas principal II-XII grossly normal Skin: normal pigmentation, warm/dry Assessment/Plan Problem List: (1) Altered mental status (2) Acute complete quadriplegia (3) Constipation Assessment & Plan: Resolving; ? due to hypothyroidism? (4) Anasarca Assessment & Plan: ?hypothyroidism? Continue lasix (5) Cerebral vascular disease (6) HTN (hypertension) (7) Atrial fibrillation Assessment & Plan: see cardiology note. Cont lovenox. May require coumadin (8) Hypothyroidism Assessment & Plan: Cont levoxyl. (9) Hyponatremia Assessment & Plan: See nephrology note. (10) Respiratory failure Assessment & Plan: Intubated 06/02/16; see pulmonary note. (11) Leukocytosis Assessment & Plan: Worsening. Continue antibiotics per ID. (12) Cardiac arrest (13) Cardiogenic shock Assessment & Plan: Cont pressors Status: not improved Assessment/Plan Prognosis is guarded. ZENIA LAFLEUR Jun 09, 2016 11:47
--- NOTE | 2016-06-09 11:48 | Pulmonolgy Critical Care Note ---
Critical Care - Asmt/Plan Problems: (1) Acute respiratory failure (2) Chronic incomplete quadriplegia (3) Atrial fibrillation (4) Protein-calorie malnutrition, severe (5) Cardiac arrest (6) Anasarca (7) Acute encephalopathy Respiratory: monitor respiratory rate, adjust FIO2, CXR Cardiac: continue to monitor HR/BP Renal: F/U I&O, keep IV fluid, check electrolytes Infectious Disease: check cultures, continue antibiotics Gastrointestinal: continue feedings/current rate Endocrine: monitor blood sugar, check TSH, continue sliding scale insulin Hematologic: monitor H/H, transfuse if hgb<8.5 Neurologic: PRN Ativan, PRN Morphine, keep patient comfortable Affect: PRN ativan Time Spent (Minutes): 40 Notes Reviewed: breaker layer, 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, consultants, case checkermanager intermediate - Objective Last 24 Hour Vital Signs Date Time Temp Pulse Resp B/P Pulse Ox O2 Delivery O2 Flow Rate FiO2 06/09/16 11:05 87 16 106/55 97 Mechanical Ventilator 40 06/09/16 10:40 84 16 40 06/09/16 10:00 80 16 115/47 99 Mechanical Ventilator 40 06/09/16 09:00 89 16 109/63 99 Mechanical Ventilator 40 06/09/16 08:50 82 16 40 06/09/16 08:34 81 119/62 06/09/16 08:00 97.1 82 20 119/62 99 Mechanical Ventilator 40 06/09/16 08:00 40 06/09/16 08:00 86 06/09/16 07:15 83 16 98/58 98 Mechanical Ventilator 40 06/09/16 07:11 84 16 40 06/09/16 06:00 84 16 100/45 99 Mechanical Ventilator 40 06/09/16 05:02 86 16 40 06/09/16 05:00 88 16 108/44 99 Mechanical Ventilator 40 06/09/16 04:00 97.6 77 16 99/45 100 Mechanical Ventilator 40 06/09/16 04:00 77 06/09/16 04:00 40 06/09/16 03:02 80 16 40 06/09/16 03:00 80 16 102/61 100 Mechanical Ventilator 40 06/09/16 02:00 75 16 102/83 100 Mechanical Ventilator 40 06/09/16 01:03 79 16 40 06/09/16 01:00 82 16 92/36 100 Mechanical Ventilator 40 06/09/16 00:00 96.9 78 16 106/61 100 Mechanical Ventilator 40 06/09/16 00:00 40 06/09/16 00:00 78 06/08/16 23:03 82 16 40 06/08/16 23:00 81 16 102/75 99 Mechanical Ventilator 40 06/08/16 22:00 87 16 90/49 99 Mechanical Ventilator 40 06/08/16 21:00 81 94/58 06/08/16 21:00 83 16 94/58 99 Mechanical Ventilator 40 06/08/16 20:53 88 16 40 06/08/16 20:00 75 06/08/16 20:00 97.4 81 16 112/61 99 Mechanical Ventilator 40 06/08/16 20:00 40 06/08/16 19:45 81 16 40 06/08/16 19:00 75 16 90/61 99 Mechanical Ventilator 40 06/08/16 18:00 73 16 93/59 99 Mechanical Ventilator 40 06/08/16 17:13 75 16 40 06/08/16 17:00 73 16 94/52 99 Mechanical Ventilator 40 06/08/16 16:00 40 06/08/16 16:00 97.1 76 16 96/47 99 Mechanical Ventilator 40 06/08/16 16:00 93 06/08/16 15:20 76 16 40 06/08/16 15:13 76 16 95/51 99 Mechanical Ventilator 40 06/08/16 14:00 77 16 93/51 99 Mechanical Ventilator 40 06/08/16 13:20 84 16 40 06/08/16 13:00 80 16 118/58 99 Mechanical Ventilator 40 06/08/16 12:00 87 06/08/16 12:00 40 06/08/16 12:00 77 16 113/55 99 Mechanical Ventilator 40 Status: awake Condition: critical HEENT: atraumatic, normocephalic Lungs: clear, chest wall tender Heart: HR/BP stable Abdomen: soft, non-tender Extremities: no C/C/E, edema Decubiti: location Objective: family needs time ti think about plan of care Micro: Microbiology Date/Time Source Procedure Growth Status 06/08/16 03:30 Stool Clostridium difficile Toxin Assay - Final Complete Critical Care - Subjective ROS Limited/Unobtainable: Yes ICU Day: 11 Intubation Day: 11 Condition: critical EKG Rhythm: Sinus Rhythm FI02: 40 Vent Support Breath Rate: 16 Vent Support Mode: AC Vent Tidal Volume: 600 Sputum Amount: Small PEEP: 5.0 PIP: 43 Tube Feeding Amount: 55 I&O: Intake and Output 06/08/16 06/09/16 19:00 07:00 Intake Total 2039.8 ml 1345.0 ml Output Total 350 ml 270 ml Balance 1689.8 ml 1075.0 ml Free Water 30 ml IV Total 1379.8 ml 710.0 ml Tube Feeding 660 ml 605 ml Output Urine Total 350 ml 270 ml # Bowel Movements 4 2 CXR: no change, et tube in good position ET-Tube: 7.5 ET Position: 23 Labs: Laboratory Tests Test 06/09/16 04:00 06/09/16 08:55 White Blood Count 22.1 K/UL (4.8-10.8) *H Red Blood Count 3.65 M/UL (4.20-5.40) L Hemoglobin 10.1 G/DL (12.0-16.0) L Hematocrit 31.8 % (37.0-47.0) L Mean Corpuscular Volume 87 FL (80-99) Mean Corpuscular Hemoglobin 27.7 PG (27.0-31.0) Mean Corpuscular Hemoglobin Concent 31.8 G/DL (32.0-36.0) L Red Cell Distribution Width 13.7 % (11.6-14.8) Platelet Count 250 K/UL (150-450) Mean Platelet Volume 8.7 FL (6.5-10.1) Neutrophils (%) (Auto) % (45.0-75.0) Lymphocytes (%) (Auto) % (20.0-45.0) Monocytes (%) (Auto) % (1.0-10.0) Eosinophils (%) (Auto) % (0.0-3.0) Basophils (%) (Auto) % (0.0-2.0) Differential Total Cells Counted 100 Neutrophils % (Manual) 85 % (45-75) H Lymphocytes % (Manual) 3 % (20-45) L Monocytes % (Manual) 5 % (1-10) Eosinophils % (Manual) 2 % (0-3) Basophils % (Manual) 0 % (0-2) Band Neutrophils 5 % (0-8) Platelet Estimate Adequate Platelet Morphology Normal Hypochromasia 1+ Sodium Level 145 mEQ/L (135-145) Potassium Level 3.3 mEQ/L (3.4-4.9) L Chloride Level 107 mEQ/L (98-107) Carbon Dioxide Level 22 mEQ/L (20-30) Anion Gap 16 (5-15) H Blood Urea Nitrogen 32 mg/dL (7-23) H Creatinine 0.8 mg/dL (0.5-0.9) Estimat Glomerular Filtration Rate mL/min (>60) Glucose Level 142 mg/dL (74-106) H Calcium Level 6.3 mg/dL (8.6-10.2) L Phosphorus Level 3.3 mg/dL (2.5-4.8) Magnesium Level 2.4 mg/dL (1.7-2.5) Total Bilirubin 0.3 mg/dL (0.0-1.2) Aspartate Amino Transf (AST/SGOT) 39 U/L (5-40) Alanine Aminotransferase (ALT/SGPT) 31 U/L (3-33) Alkaline Phosphatase 208 U/L (35-104) H Total Protein 5.2 g/dL (6.6-8.7) L Albumin 1.0 g/dL (3.5-5.2) L Globulin 4.2 g/dL Albumin/Globulin Ratio 0.2 (1.0-2.7) L Arterial Blood pH 7.344 (7.350-7.450) Arterial Blood Partial Pressure CO2 38.6 mmHg (35.0-45.0) Arterial Blood Partial Pressure O2 144.2 mmHg (75.0-100.0) H Arterial Blood HCO3 20.5 mmol/L (22.0-26.0) L Arterial Blood Oxygen Saturation 98.8 % (92.0-98.0) H Arterial Blood Base Excess -4.7 Claudy Test Positive DARION MISHRA Jun 09, 2016 11:48
--- NOTE | 2016-06-09 12:03 | Neurology Progress Note ---
Interim History Interim History Interim History Ms. Donato continues to be unresponsive to her environment. She is intubated and artificially ventilated. She is maintaining her BP. As per her nurse there has been no improvement in her neurologic state. No seizures have been noted. She has not demonstrated any improvement in neurologic function > 7 days following her cardiopulmonary event. Review of Systems Neuro Review of Systems Unable to obtain. Objective Physical Exam Last Vital Signs Date Time Temp Pulse Resp B/P Pulse Ox O2 Delivery O2 Flow Rate FiO2 06/09/16 11:05 87 16 106/55 97 Mechanical Ventilator 40 06/09/16 08:00 97.1 06/02/16 12:00 3.0 Laboratory Tests Test 06/09/16 04:00 06/09/16 08:55 White Blood Count 22.1 K/UL (4.8-10.8) *H Red Blood Count 3.65 M/UL (4.20-5.40) L Hemoglobin 10.1 G/DL (12.0-16.0) L Hematocrit 31.8 % (37.0-47.0) L Mean Corpuscular Volume 87 FL (80-99) Mean Corpuscular Hemoglobin 27.7 PG (27.0-31.0) Mean Corpuscular Hemoglobin Concent 31.8 G/DL (32.0-36.0) L Red Cell Distribution Width 13.7 % (11.6-14.8) Platelet Count 250 K/UL (150-450) Mean Platelet Volume 8.7 FL (6.5-10.1) Neutrophils (%) (Auto) % (45.0-75.0) Lymphocytes (%) (Auto) % (20.0-45.0) Monocytes (%) (Auto) % (1.0-10.0) Eosinophils (%) (Auto) % (0.0-3.0) Basophils (%) (Auto) % (0.0-2.0) Differential Total Cells Counted 100 Neutrophils % (Manual) 85 % (45-75) H Lymphocytes % (Manual) 3 % (20-45) L Monocytes % (Manual) 5 % (1-10) Eosinophils % (Manual) 2 % (0-3) Basophils % (Manual) 0 % (0-2) Band Neutrophils 5 % (0-8) Platelet Estimate Adequate Platelet Morphology Normal Hypochromasia 1+ Sodium Level 145 mEQ/L (135-145) Potassium Level 3.3 mEQ/L (3.4-4.9) L Chloride Level 107 mEQ/L (98-107) Carbon Dioxide Level 22 mEQ/L (20-30) Anion Gap 16 (5-15) H Blood Urea Nitrogen 32 mg/dL (7-23) H Creatinine 0.8 mg/dL (0.5-0.9) Estimat Glomerular Filtration Rate mL/min (>60) Glucose Level 142 mg/dL (74-106) H Calcium Level 6.3 mg/dL (8.6-10.2) L Phosphorus Level 3.3 mg/dL (2.5-4.8) Magnesium Level 2.4 mg/dL (1.7-2.5) Total Bilirubin 0.3 mg/dL (0.0-1.2) Aspartate Amino Transf (AST/SGOT) 39 U/L (5-40) Alanine Aminotransferase (ALT/SGPT) 31 U/L (3-33) Alkaline Phosphatase 208 U/L (35-104) H Total Protein 5.2 g/dL (6.6-8.7) L Albumin 1.0 g/dL (3.5-5.2) L Globulin 4.2 g/dL Albumin/Globulin Ratio 0.2 (1.0-2.7) L Arterial Blood pH 7.344 (7.350-7.450) Arterial Blood Partial Pressure CO2 38.6 mmHg (35.0-45.0) Arterial Blood Partial Pressure O2 144.2 mmHg (75.0-100.0) H Arterial Blood HCO3 20.5 mmol/L (22.0-26.0) L Arterial Blood Oxygen Saturation 98.8 % (92.0-98.0) H Arterial Blood Base Excess -4.7 Claudy Test Positive Neurologic Exam Objective PHYSICAL EXAMINATION: GENERAL: She is a well-developed, black lady, lying in an ICU bed, connected to a ventilator via an orotracheal tube. HEAD: Normocephalic, atraumatic, with old right temporal craniotomy scar. NECK: No neck rigidity was observed. EENT EXAMINATION: Benign except for decreased bilateral chemosis. NEUROLOGICAL EXAMINATION: MENTAL STATUS EXAMINATION: She was comatose and responded to deep painful stimuli with decerebration in both upper extremities.. SPEECH: Could not be tested. LANGUAGE: Could not be tested. CRANIAL NERVE EXAMINATION: II: She did not blink to threat. III, IV & : The pupils were 4 mm in diameter and did not react to light. She had restricted eye movements on oculocephalic maneuvers. V & VII: The corneal reflexes were absent. VIII: She did not respond to sounds and had no nystagmus. IX & X: The gag reflex was absent. XI: The sternocleidomastoids and trapezii did not function. XII: Could not be tested. MOTOR SYSTEM: The tone was increased in all four extremities with a significant degree of spasticity. Examination of muscle mass revealed generalized muscle wasting with bilateral upper and lower extremity contractures. Examination of power was impossible to perform she responded to deep painful stimuli with decerebration in both upper extremities.. SENSORY EXAMINATION: She responded to deep painful stimuli with decerebration in both upper extremities.. REFLEXES: 3+ on the right and 3++ on the left at the biceps, triceps, and brachioradialis. 1+ at both knees. 0 at both ankles. The plantar responses were extensor bilaterally. COORDINATION, STANCE & GAIT: Could not be tested. Impression/Recommendations Diagnostic Impression 1. Ms. Liya Donato is a 70-year-old, right-handed, black lady, who had a right middle cerebral aneurysmal rupture approximately 20 years ago with unknown consequences. This however was followed by a seizure disorder for which the patient is on Zonegran. About 7 years ago, she had a seizure associated with a neck injury and she became quadriparetic. On 05/28/2016, she was hospitalized at [facility] for constipation and anasarca. On , there was a sudden change in her mental state. A CT scan of the brain was performed, and was benign for acute pathology. On 06/02/2016, she was taken to the MRI scanner where she had a respiratory arrest. A Code Blue was called and she had to be intubated and ventilated. She has been comatose since then. 2. At this time she continues to be comatose, artificially ventilated with no spontaneous respirations. 3. On neurological examination at this time, she only responds to deep painful stimuli with decerebration in both upper extremities. She demonstrates minimal brainstem function in the form of restricted occulocephalic eye movements and at times triggering the ventilator. The deep tendon reflexes are brisk in the upper extremities and diminished at the knees with extensor plantar responses. 4. The EEG done on 06/02/16 revealed a severe encephalopathy with no reactivity, but no inter-ictal or ictal phenomena. 5. The patient's history and neurological examination are most compatible with a severe anoxic ischemic cerebral insult, with her at this point in time being in a comatose state, with no improvement in her neurologic condition. 6. As the patient has exhibited no significant improvement in neurologic function > 7 days following her cardiopulmonary event, the prognosis for recovery of neurologic function is dismal. Recommendations 1. Continue present management. 2. Continue to support the patient's cardiorespiratory function in an ICU setting. 3. Continue Keppra 500 mg intravenously every 12 hours. 4. Observe closely. 5. Make decision with family regarding intensity of further care in light of her poor prognosis. Renny Bazzi M.D., M.S.P.H. RENNY BAZZI Jun 09, 2016 12:03
[2016-06-09] MEDS: ceFAZolin sod 2 GM in D5W 110 ML IVPB SCH ×2 (13:09→21:28)
--- NOTE | 2016-06-09 15:24 | Cardiology Progress Note ---
Assessment/Plan Assessment/Plan s/p pulmonary arrest atrial fibrillation now back to sinus anoxic encephalopathy with no change in mentation since severe pulmonary HTN right heart failure leukocytosis Nephrotic Syndrome seizure disorder constipation hyponatremia Mild hypothyroidism with elevated TSH functional quadriplegi off pressors now on the vent neuro uncahnged vent support trop normal ekg noted has some chronic t inversion remains critical and at risk of dying tele reviewed labs reviewed repeat echo shows normal ef still with pulm htn has sig edema is gettign beta agonist which may be driving the afib d/c if possible per dtr terminal extubation planned for Subjective ROS Limited/Unobtainable: Yes Subjective now on the vent not verbal not communicative Objective Last 24 Hour Vital Signs Date Time Temp Pulse Resp B/P Pulse Ox O2 Delivery O2 Flow Rate FiO2 06/09/16 15:03 88 16 123/47 100 Mechanical Ventilator 40 06/09/16 14:30 88 17 40 06/09/16 14:03 87 16 125/45 100 Mechanical Ventilator 40 06/09/16 13:14 90 17 40 06/09/16 13:00 92 17 125/74 100 Mechanical Ventilator 40 06/09/16 12:00 40 06/09/16 12:00 90 06/09/16 12:00 97.1 91 16 113/55 97 Mechanical Ventilator 40 06/09/16 11:05 87 16 106/55 97 Mechanical Ventilator 40 06/09/16 10:40 84 16 40 06/09/16 10:00 80 16 115/47 99 Mechanical Ventilator 40 06/09/16 09:00 89 16 109/63 99 Mechanical Ventilator 40 06/09/16 08:50 82 16 40 06/09/16 08:34 81 119/62 06/09/16 08:00 97.1 82 20 119/62 99 Mechanical Ventilator 40 06/09/16 08:00 40 06/09/16 08:00 86 06/09/16 07:15 83 16 98/58 98 Mechanical Ventilator 40 06/09/16 07:11 84 16 40 06/09/16 06:00 84 16 100/45 99 Mechanical Ventilator 40 06/09/16 05:02 86 16 40 06/09/16 05:00 88 16 108/44 99 Mechanical Ventilator 40 06/09/16 04:00 97.6 77 16 99/45 100 Mechanical Ventilator 40 06/09/16 04:00 77 06/09/16 04:00 40 06/09/16 03:02 80 16 40 06/09/16 03:00 80 16 102/61 100 Mechanical Ventilator 40 06/09/16 02:00 75 16 102/83 100 Mechanical Ventilator 40 06/09/16 01:03 79 16 40 06/09/16 01:00 82 16 92/36 100 Mechanical Ventilator 40 06/09/16 00:00 96.9 78 16 106/61 100 Mechanical Ventilator 40 06/09/16 00:00 40 06/09/16 00:00 78 06/08/16 23:03 82 16 40 06/08/16 23:00 81 16 102/75 99 Mechanical Ventilator 40 06/08/16 22:00 87 16 90/49 99 Mechanical Ventilator 40 06/08/16 21:00 81 94/58 06/08/16 21:00 83 16 94/58 99 Mechanical Ventilator 40 06/08/16 20:53 88 16 40 06/08/16 20:00 75 06/08/16 20:00 97.4 81 16 112/61 99 Mechanical Ventilator 40 06/08/16 20:00 40 06/08/16 19:45 81 16 40 06/08/16 19:00 75 16 90/61 99 Mechanical Ventilator 40 06/08/16 18:00 73 16 93/59 99 Mechanical Ventilator 40 06/08/16 17:13 75 16 40 06/08/16 17:00 73 16 94/52 99 Mechanical Ventilator 40 06/08/16 16:00 40 06/08/16 16:00 97.1 76 16 96/47 99 Mechanical Ventilator 40 06/08/16 16:00 93 General Appearance: on vent Cardiovascular: normal rate, regular rhythm Respiratory/Chest: lungs clear - anterirorly Abdomen: normal bowel sounds, non tender, soft Extremities: moderate edema Intake and Output 06/08/16 06/09/16 19:00 07:00 Intake Total 2039.8 ml 1345.0 ml Output Total 350 ml 270 ml Balance 1689.8 ml 1075.0 ml Free Water 30 ml IV Total 1379.8 ml 710.0 ml Tube Feeding 660 ml 605 ml Output Urine Total 350 ml 270 ml # Bowel Movements 4 2 Laboratory Tests Test 06/09/16 04:00 06/09/16 08:55 White Blood Count 22.1 K/UL (4.8-10.8) *H Red Blood Count 3.65 M/UL (4.20-5.40) L Hemoglobin 10.1 G/DL (12.0-16.0) L Hematocrit 31.8 % (37.0-47.0) L Mean Corpuscular Volume 87 FL (80-99) Mean Corpuscular Hemoglobin 27.7 PG (27.0-31.0) Mean Corpuscular Hemoglobin Concent 31.8 G/DL (32.0-36.0) L Red Cell Distribution Width 13.7 % (11.6-14.8) Platelet Count 250 K/UL (150-450) Mean Platelet Volume 8.7 FL (6.5-10.1) Neutrophils (%) (Auto) % (45.0-75.0) Lymphocytes (%) (Auto) % (20.0-45.0) Monocytes (%) (Auto) % (1.0-10.0) Eosinophils (%) (Auto) % (0.0-3.0) Basophils (%) (Auto) % (0.0-2.0) Differential Total Cells Counted 100 Neutrophils % (Manual) 85 % (45-75) H Lymphocytes % (Manual) 3 % (20-45) L Monocytes % (Manual) 5 % (1-10) Eosinophils % (Manual) 2 % (0-3) Basophils % (Manual) 0 % (0-2) Band Neutrophils 5 % (0-8) Platelet Estimate Adequate Platelet Morphology Normal Hypochromasia 1+ Sodium Level 145 mEQ/L (135-145) Potassium Level 3.3 mEQ/L (3.4-4.9) L Chloride Level 107 mEQ/L (98-107) Carbon Dioxide Level 22 mEQ/L (20-30) Anion Gap 16 (5-15) H Blood Urea Nitrogen 32 mg/dL (7-23) H Creatinine 0.8 mg/dL (0.5-0.9) Estimat Glomerular Filtration Rate mL/min (>60) Glucose Level 142 mg/dL (74-106) H Calcium Level 6.3 mg/dL (8.6-10.2) L Phosphorus Level 3.3 mg/dL (2.5-4.8) Magnesium Level 2.4 mg/dL (1.7-2.5) Total Bilirubin 0.3 mg/dL (0.0-1.2) Aspartate Amino Transf (AST/SGOT) 39 U/L (5-40) Alanine Aminotransferase (ALT/SGPT) 31 U/L (3-33) Alkaline Phosphatase 208 U/L (35-104) H Total Protein 5.2 g/dL (6.6-8.7) L Albumin 1.0 g/dL (3.5-5.2) L Globulin 4.2 g/dL Albumin/Globulin Ratio 0.2 (1.0-2.7) L Arterial Blood pH 7.344 (7.350-7.450) Arterial Blood Partial Pressure CO2 38.6 mmHg (35.0-45.0) Arterial Blood Partial Pressure O2 144.2 mmHg (75.0-100.0) H Arterial Blood HCO3 20.5 mmol/L (22.0-26.0) L Arterial Blood Oxygen Saturation 98.8 % (92.0-98.0) H Arterial Blood Base Excess -4.7 Claudy Test Positive Microbiology Date/Time Source Procedure Growth Status 06/08/16 03:30 Stool Clostridium difficile Toxin Assay - Final Complete TOMEKA CHUN Jun 09, 2016 15:24
[2016-06-09] MEDS: LORazepam Inj 2mg/ml 1ml IV PRN (18:28)
[2016-06-10] VITALS (16 sets, daily range): BP systolic 88–155; BP diastolic 43–87
[2016-06-10] MEDS: ceFAZolin sod 2 GM in D5W 110 ML IVPB SCH ×2 (05:30→13:11)
[2016-06-10] MEDS: metroNIDAZOLE 500mg tab NG SCH ×2 (05:33→13:11)
[2016-06-10 06:08] LABS: MEAN CORPUSCULAR HEMOGLOBIN 27.6 PG (27.0-31.0); MEAN CORPUSCULAR HGB CONC 31.3 G/DL (32.0-36.0); MEAN CORPUSCULAR VOLUME 88 FL (80-99); MEAN PLATELET VOLUME 8.6 FL (6.5-10.1); PLATELET COUNT 316 K/UL (150-450); RED BLOOD COUNT 3.85 M/UL (4.20-5.40); RED CELL DISTRIBUTION WIDTH 14.3 % (11.6-14.8)
[2016-06-10 06:15] LABS: WHITE BLOOD COUNT 27.9 K/UL (4.8-10.8)
[2016-06-10 06:37] LABS: ALANINE AMINOTRANSFERASE 26 U/L (3-33); ALBUMIN/GLOBULIN RATIO 0.3 (1.0-2.7); ANION GAP 15 (5-15); ASPARTATE AMINO TRANSFERASE 27 U/L (5-40); CALCIUM 6.6 mg/dL (8.6-10.2); CARBON DIOXIDE 20 mEQ/L (20-30); CHLORIDE 109 mEQ/L (98-107); CREATININE 0.7 mg/dL (0.5-0.9); HEMOLYSIS 0; MAGNESIUM 2.1 mg/dL (1.7-2.5); PHOSPHORUS 2.9 mg/dL (2.5-4.8); POTASSIUM 3.5 mEQ/L (3.4-4.9); SODIUM 144 mEQ/L (135-145); TOTAL PROTEIN 5.8 g/dL (6.6-8.7)
[2016-06-10] MEDS: levETIRAcetam 500 MG in D5W 110 ML IV SCH (08:23)
[2016-06-10 08:24] LABS: BAND NEUTROPHILS % (MANUAL) 1 % (0-8); BASOPHILS % (MANUAL) 0 % (0-2); EOSINOPHILS % (MANUAL) 0 % (0-3); LYMPHOCYTES % (MANUAL) 2 % (20-45); NEUTROPHILS % (MANUAL) 90 % (45-75); PLATELET ESTIMATE ADEQUATE; PLATELET MORPHOLOGY NORMAL; TOTAL CELLS COUNTED 100
[2016-06-10 08:25] LABS: HYPOCHROMASIA 1+
[2016-06-10] MEDS: Heparin 5000 units/ml inj SUBQ SCH (08:28)
[2016-06-10] MEDS: Miralax 17gm pkt ORAL SCH (08:29)
[2016-06-10] MEDS: Nystatin Powder 100,000 units/gm 15gm TOPIC SCH ×2 (08:29→13:11)
[2016-06-10 09:21] LABS: ABG ALLEN TEST POSITIVE; ABG BASE EXCESS -6.6; ABG PCO2 52.3 mmHg (35.0-45.0)
--- NOTE | 2016-06-10 09:49 | Wound Care Consultation ---
Wound Assessment Wound Assessment #1: Wound Number: #1 Wound Present on Admission: Yes New Wound: No Status Change of Wound: No Wound Location Body Site Modif: right Wound Location Body Site: buttocks Wound Type: pressure ulcer Benson Test: Does not Benson Pressure Ulcer Stage: deep tissue injury Wound Thickness: Full Thickness Wound Length: 3.0 Wound Width: 3.0 Wound Depth: utd Percent of Wound Purple/Maroon: 100 Wound Drainage Amount: None Wound Drainage Odor: None/Absent Tissue Surrounding Wound: Intact Wound General Appearance: Reddened Wound Assessment #2: Wound Number: #1 Wound Present on Admission: No New Wound: No Status Change of Wound: No Wound Location Body Site Modif: left Wound Location Body Site: breast Wound Type: discoloration Benson Test: Does not Benson Percent of Wound [place]/Red: 50 - scattered Percent of Wound Purple/Maroon: 50 - scattered Wound Drainage Amount: None Wound Drainage Odor: None/Absent Tissue Surrounding Wound: Edematous - intact Wound General Appearance: Reddened, Open to air Wound Assessment #3: Wound Number: #3 Wound Present on Admission: No New Wound: No Status Change of Wound: No Wound Location Body Site Modif: right, upper Wound Location Body Site: arm Wound Type: scab - scattered scabs Benson Test: Does not Benson Wound Thickness: Partial Thickness Percent of Wound Bed Yellow/Wh: 50 Percent of Wound Black/Brown: 50 Wound Drainage Amount: None Wound Drainage Odor: None/Absent Tissue Surrounding Wound: Erythemic Wound General Appearance: Reddened Wound Assessment #4: Wound Number: #1 Wound Present on Admission: No New Wound: No Status Change of Wound: No Wound Location Body Site Modif: left, upper Wound Location Body Site: thigh Wound Type: other - POSSIBLE CELLULITIS Benson Test: Does not Benson Percent of Wound [place]/Red: 100 - scattered Wound Drainage Amount: None Wound Drainage Odor: None/Absent Tissue Surrounding Wound: Erythemic - Red in color, swollen, skin noted warmer to touch than adjacent tissue. Wound General Appearance: Reddened, Open to air Wound Comment #1 Right buttock deep tissue injury. #2 Right upper extremities scattered scabs. #3 Left Breast scattered red and purple discoloration. #4 Left anterior thigh possible cellulitis. Recommendation -Local wound care as ordered. -Keep skin clean and dry. -Optimize nutrition. -Turn and reposition. -Heel Protectors. -Low air loss mattress with AP P200. -Asses and notify MD if any further changes in skin are noted. - LEFT ANTERIOR THIGH MONITOR FOR POSSIBLE CELLULITIS. MONITOR FOR INCREASE REDNESS, INCREASE TEMPERATURE, INCREASE IN SIZE, TENDERNESS , PAIN. MONITOR FOR ANY BLISTERING , RASH TO SKIN. REPORT TO ATTENDING MD FOR ANY CHANGES IN CONDITION OR FURTHER ORDERS. HEMALATHA NAJERA Jun 10, 2016 09:49
--- NOTE | 2016-06-10 10:09 | General Progress Note ---
Assessment/Plan Status: unchanged Status Narrative comatose Assessment/Plan Renal: Nephrotic Syndrome most likely- leading to Anasarca, Pleural effusion Other: Respiratory failure- anoxic ischemic cerebral insult , post code blue acute toxic encephalopathy- severe PVD mild pulmonary edema severe pulmonary HTN seizure disorder constipation hyponatremia , likelu due to Anasarca Mild hypothyroidism with elevated TSH functional quadriplegia Plan: K , phos IV as needed pulm support per orders- monitor lytes- poor prognosis favor comfort care and terminal extubation if Neuro and family agrees Subjective ROS Limited/Unobtainable: Yes Allergies: Coded Allergies: OPIOIDS - MORPHINE ANALOGUES (Verified Allergy, Unknown, 06/02/16) per daughter. All opiods, she doesn't want any given to patient Uncoded Allergies: NARCOTICS (Allergy, Mild, 10/02/14) Opiates --> Nausea, SOB Objective Last 24 Hour Vital Signs Date Time Temp Pulse Resp B/P Pulse Ox O2 Delivery O2 Flow Rate FiO2 06/10/16 09:07 90 16 40 06/10/16 08:09 81 06/10/16 08:05 96.7 88 16 99/46 100 Mechanical Ventilator 40 06/10/16 08:04 40 06/10/16 07:17 78 19 40 06/10/16 07:00 74 16 88/43 100 Mechanical Ventilator 40 06/10/16 06:00 74 16 101/74 100 Mechanical Ventilator 40 06/10/16 05:27 90 16 40 06/10/16 05:00 84 16 155/64 100 Mechanical Ventilator 40 06/10/16 04:00 86 06/10/16 04:00 97.5 88 16 134/63 100 Mechanical Ventilator 40 06/10/16 04:00 87 16 131/71 100 Mechanical Ventilator 40 06/10/16 04:00 40 06/10/16 03:04 85 16 40 06/10/16 03:00 88 16 125/63 100 Mechanical Ventilator 40 06/10/16 02:00 88 16 120/61 100 Mechanical Ventilator 40 06/10/16 01:07 114 16 40 06/10/16 01:00 90 16 120/61 100 Mechanical Ventilator 40 06/10/16 01:00 92 06/10/16 00:00 97.4 92 16 146/67 100 Mechanical Ventilator 40 06/10/16 00:00 92 06/10/16 00:00 40 06/09/16 23:15 84 16 40 06/09/16 23:00 86 16 120/62 100 Mechanical Ventilator 40 06/09/16 22:00 83 16 110/60 100 Mechanical Ventilator 40 06/09/16 21:09 81 16 40 06/09/16 21:00 77 16 110/50 100 Mechanical Ventilator 40 06/09/16 20:35 78 114/58 06/09/16 20:13 78 16 114/58 100 Mechanical Ventilator 40 06/09/16 20:00 40 06/09/16 20:00 77 06/09/16 20:00 97.2 88 16 86/39 97 Mechanical Ventilator 40 06/09/16 19:19 80 16 40 06/09/16 19:00 80 16 83/41 100 Mechanical Ventilator 40 06/09/16 18:00 90 16 147/75 100 Mechanical Ventilator 40 06/09/16 17:15 147/75 06/09/16 17:01 85 16 40 06/09/16 17:00 87 16 115/64 97 Mechanical Ventilator 40 06/09/16 16:00 40 06/09/16 16:00 97.7 78 16 88/64 97 Mechanical Ventilator 40 06/09/16 16:00 96 06/09/16 15:03 88 16 123/47 100 Mechanical Ventilator 40 06/09/16 14:30 88 17 40 06/09/16 14:03 87 16 125/45 100 Mechanical Ventilator 40 06/09/16 13:14 90 17 40 06/09/16 13:00 92 17 125/74 100 Mechanical Ventilator 40 06/09/16 12:00 40 06/09/16 12:00 90 06/09/16 12:00 97.1 91 16 113/55 97 Mechanical Ventilator 40 06/09/16 11:05 87 16 106/55 97 Mechanical Ventilator 40 06/09/16 10:40 84 16 40 Intake and Output 06/09/16 06/10/16 19:00 07:00 Intake Total 2165 ml 1805 ml Output Total 475 ml 425 ml Balance 1690 ml 1380 ml Free Water 60 ml 100 ml IV Total 1370 ml 935 ml Tube Feeding 715 ml 770 ml Other 20 ml Output Urine Total 475 ml 425 ml # Bowel Movements 4 4 Laboratory Tests 06/10/16 04:00: White Blood Count 27.9*H, Red Blood Count 3.85L, Hemoglobin 10.6L, Hematocrit 34.0L, Mean Corpuscular Volume 88, Mean Corpuscular Hemoglobin 27.6, Mean Corpuscular Hemoglobin Concent 31.3L, Red Cell Distribution Width 14.3, Platelet Count 316, Mean Platelet Volume 8.6, Neutrophils (%) (Auto) , Lymphocytes (%) (Auto) , Monocytes (%) (Auto) , Eosinophils (%) (Auto) , Basophils (%) (Auto) , Differential Total Cells Counted 100, Neutrophils % ( Manual) 90H, Lymphocytes % (Manual) 2L, Monocytes % (Manual) 7, Eosinophils % ( Manual) 0, Basophils % (Manual) 0, Band Neutrophils 1, Platelet Estimate Adequate, Platelet Morphology Normal, Hypochromasia 1+, Sodium Level 144, Potassium Level 3.5, Chloride Level 109H, Carbon Dioxide Level 20, Anion Gap 15 , Blood Urea Nitrogen 33H, Creatinine 0.7, Estimat Glomerular Filtration Rate , Glucose Level 198H, Calcium Level 6.6L, Phosphorus Level 2.9, Magnesium Level 2.1, Total Bilirubin 0.2, Aspartate Amino Transf (AST/SGOT) 27, Alanine Aminotransferase (ALT/SGPT) 26, Alkaline Phosphatase 205H, Total Protein 5.8L, Albumin 1.4L, Globulin 4.4, Albumin/Globulin Ratio 0.3L 06/10/16 09:07: Arterial Blood pH 7.230*L, Arterial Blood Partial Pressure CO2 52.3H, Arterial Blood Partial Pressure O2 72.0L, Arterial Blood HCO3 21.2L, Arterial Blood Oxygen Saturation 93.0, Arterial Blood Base Excess -6.6, Claudy Test Positive Height (Feet): 5 Height (Inches): 4.00 Weight (Pounds): 170 General Appearance: no apparent distress Objective other PE not changed MARISOL ELAINE Jun 10, 2016 10:09
--- NOTE | 2016-06-10 10:10 | Infectious Diseases Prog Note ---
Assessment/Plan Assessment/Plan ASSESSMENT: 70 y/o female with: // MSSA bacteremia 06/14 ?source lung vs PICC - TTE 06/04 neg veg // PSA / Strp UTI // Possible aspiration PNA - SCx MSSA - CXR 06/06: Bilateral small pleural effusions persists. 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, unchanged // Loose stool r/o C.difficile - toxin pending // Sepsis // Leukocytosis - improving - CT A/P 05/27: no abscess // Low grade fever - resolved // +ve UCX : Enterococcus and PSA ( low count) no sig at this time // Acute VDRF - intubated 06/02 // Severe encephalopathy / comatose, probable MADAN - no improvement, family leaning towards withdrawal of care // SP code blue 06/02 ?etiology // Elevated ALP - US: Negative for gallstones or dilated ducts // Hypoalbuminemia 05/15 nephrotic syndrome // Elevated CRP // PAD - arterial doppler: waveform analysis is monophasic, consistent with severe ischemia at rest. // Severe pulmonary HTN // Constipation // Chronic paraplegia 05/15 SCI // SP RUE PICC 06/01 // No ABX allergies // Full Code PLAN: - continue flagyl d# 6 , IV Levaquin and Ancef d# 2 / 10 ( 06/09 SP 5 , change Zosyn d# 5 ) ( 06/08 SP IV vancomycin d# 3 ) ( 06/07 SP amikakin d# 3 ) - if ongoing aggressive care, will need PICC change, repeat blood cultures - f/u final cultures, C.difficile - monitor CBC, temperatures - monitor BMP - monitor CXR - vent support, wean as tolerated - poor overall prognosis - Monitor Blood cx - Terminal Extubation today Subjective Allergies: Coded Allergies: OPIOIDS - MORPHINE ANALOGUES (Verified Allergy, Unknown, 06/02/16) per daughter. All opiods, she doesn't want any given to patient Uncoded Allergies: NARCOTICS (Allergy, Mild, 10/02/14) Opiates --> Nausea, SOB Subjective on vent Objective Vital Signs Last 24 Hour Vital Signs Date Time Temp Pulse Resp B/P Pulse Ox O2 Delivery O2 Flow Rate FiO2 06/10/16 09:07 90 16 40 06/10/16 08:09 81 06/10/16 08:05 96.7 88 16 99/46 100 Mechanical Ventilator 40 06/10/16 08:04 40 06/10/16 07:17 78 19 40 06/10/16 07:00 74 16 88/43 100 Mechanical Ventilator 40 06/10/16 06:00 74 16 101/74 100 Mechanical Ventilator 40 06/10/16 05:27 90 16 40 06/10/16 05:00 84 16 155/64 100 Mechanical Ventilator 40 06/10/16 04:00 86 06/10/16 04:00 97.5 88 16 134/63 100 Mechanical Ventilator 40 06/10/16 04:00 87 16 131/71 100 Mechanical Ventilator 40 06/10/16 04:00 40 06/10/16 03:04 85 16 40 06/10/16 03:00 88 16 125/63 100 Mechanical Ventilator 40 06/10/16 02:00 88 16 120/61 100 Mechanical Ventilator 40 06/10/16 01:07 114 16 40 06/10/16 01:00 90 16 120/61 100 Mechanical Ventilator 40 06/10/16 01:00 92 06/10/16 00:00 97.4 92 16 146/67 100 Mechanical Ventilator 40 06/10/16 00:00 92 06/10/16 00:00 40 06/09/16 23:15 84 16 40 06/09/16 23:00 86 16 120/62 100 Mechanical Ventilator 40 06/09/16 22:00 83 16 110/60 100 Mechanical Ventilator 40 06/09/16 21:09 81 16 40 06/09/16 21:00 77 16 110/50 100 Mechanical Ventilator 40 06/09/16 20:35 78 114/58 06/09/16 20:13 78 16 114/58 100 Mechanical Ventilator 40 06/09/16 20:00 40 06/09/16 20:00 77 06/09/16 20:00 97.2 88 16 86/39 97 Mechanical Ventilator 40 06/09/16 19:19 80 16 40 06/09/16 19:00 80 16 83/41 100 Mechanical Ventilator 40 06/09/16 18:00 90 16 147/75 100 Mechanical Ventilator 40 06/09/16 17:15 147/75 06/09/16 17:01 85 16 40 06/09/16 17:00 87 16 115/64 97 Mechanical Ventilator 40 06/09/16 16:00 40 06/09/16 16:00 97.7 78 16 88/64 97 Mechanical Ventilator 40 06/09/16 16:00 96 06/09/16 15:03 88 16 123/47 100 Mechanical Ventilator 40 06/09/16 14:30 88 17 40 06/09/16 14:03 87 16 125/45 100 Mechanical Ventilator 40 06/09/16 13:14 90 17 40 06/09/16 13:00 92 17 125/74 100 Mechanical Ventilator 40 06/09/16 12:00 40 06/09/16 12:00 90 06/09/16 12:00 97.1 91 16 113/55 97 Mechanical Ventilator 40 06/09/16 11:05 87 16 106/55 97 Mechanical Ventilator 40 06/09/16 10:40 84 16 40 Height (Feet): 5 Height (Inches): 4.00 Weight (Pounds): 170 Respiratory/Chest: decreased breath sounds Cardiovascular: regular rhythm Abdomen: soft, non tender, no organomegaly Skin: no rash Microbiology Date/Time Source Procedure Growth Status 06/08/16 03:30 Stool Clostridium difficile Toxin Assay - Final Complete Laboratory Tests Test 06/10/16 04:00 06/10/16 09:07 White Blood Count 27.9 K/UL (4.8-10.8) *H Red Blood Count 3.85 M/UL (4.20-5.40) L Hemoglobin 10.6 G/DL (12.0-16.0) L Hematocrit 34.0 % (37.0-47.0) L Mean Corpuscular Volume 88 FL (80-99) Mean Corpuscular Hemoglobin 27.6 PG (27.0-31.0) Mean Corpuscular Hemoglobin Concent 31.3 G/DL (32.0-36.0) L Red Cell Distribution Width 14.3 % (11.6-14.8) Platelet Count 316 K/UL (150-450) Mean Platelet Volume 8.6 FL (6.5-10.1) Neutrophils (%) (Auto) % (45.0-75.0) Lymphocytes (%) (Auto) % (20.0-45.0) Monocytes (%) (Auto) % (1.0-10.0) Eosinophils (%) (Auto) % (0.0-3.0) Basophils (%) (Auto) % (0.0-2.0) Differential Total Cells Counted 100 Neutrophils % (Manual) 90 % (45-75) H Lymphocytes % (Manual) 2 % (20-45) L Monocytes % (Manual) 7 % (1-10) Eosinophils % (Manual) 0 % (0-3) Basophils % (Manual) 0 % (0-2) Band Neutrophils 1 % (0-8) Platelet Estimate Adequate Platelet Morphology Normal Hypochromasia 1+ Sodium Level 144 mEQ/L (135-145) Potassium Level 3.5 mEQ/L (3.4-4.9) Chloride Level 109 mEQ/L (98-107) H Carbon Dioxide Level 20 mEQ/L (20-30) Anion Gap 15 (5-15) Blood Urea Nitrogen 33 mg/dL (7-23) H Creatinine 0.7 mg/dL (0.5-0.9) Estimat Glomerular Filtration Rate mL/min (>60) Glucose Level 198 mg/dL (74-106) H Calcium Level 6.6 mg/dL (8.6-10.2) L Phosphorus Level 2.9 mg/dL (2.5-4.8) Magnesium Level 2.1 mg/dL (1.7-2.5) Total Bilirubin 0.2 mg/dL (0.0-1.2) Aspartate Amino Transf (AST/SGOT) 27 U/L (5-40) Alanine Aminotransferase (ALT/SGPT) 26 U/L (3-33) Alkaline Phosphatase 205 U/L (35-104) H Total Protein 5.8 g/dL (6.6-8.7) L Albumin 1.4 g/dL (3.5-5.2) L Globulin 4.4 g/dL Albumin/Globulin Ratio 0.3 (1.0-2.7) L Arterial Blood pH 7.230 (7.350-7.450) Arterial Blood Partial Pressure CO2 52.3 mmHg (35.0-45.0) H Arterial Blood Partial Pressure O2 72.0 mmHg (75.0-100.0) L Arterial Blood HCO3 21.2 mmol/L (22.0-26.0) L Arterial Blood Oxygen Saturation 93.0 % (92.0-98.0) Arterial Blood Base Excess -6.6 Claudy Test Positive Current Medications Medications (Trade) Dose Ordered Sig/Miguel Route PRN Reason Start Time Stop Time Status Last Admin Dose Admin Acetaminophen (Tylenol) 650 mg Q4H PRN ORAL fever 06/02/16 20:15 07/02/16 20:14 06/06/16 10:05 Albuterol Sulfate (Proventil MDI) 2 puff Q4H PRN INH Shortness of Breath 06/02/16 21:00 07/02/16 20:59 Artificial Tears (Akwa-Tears) 2 drop Q2H PRN BOTH EYES Dry Eyes 06/02/16 18:15 07/02/16 18:14 06/09/16 21:28 Atenolol 25 mg 25 mg EVERY 12 HOURS NG 06/08/16 09:00 07/08/16 08:59 06/09/16 20:35 Cefazolin Sodium 2 gm/Dextrose 110 ml @ 220 mls/hr Q8HR IVPB 06/09/16 14:00 06/16/16 13:59 06/10/16 05:30 Clonidine HCl (Catapres) 0.1 mg Q4H PRN ORAL For High Blood Pressure 06/02/16 18:30 07/02/16 18:29 Dextrose (Dextrose 50%) STAT PRN IV Hypoglycemia 06/03/16 00:15 07/03/16 00:14 Heparin Sodium (Porcine) (Heparin 5000 units/ml) 5,000 units EVERY 12 HOURS SUBQ 06/02/16 21:00 07/02/16 20:59 06/10/16 08:28 Levetiracetam/ Dextrose (Keppra/D5W) 115 ml @ 460 mls/hr Q12HR IV 06/03/16 09:00 07/03/16 08:59 06/10/16 08:23 Levofloxacin (Levaquin 750mg/ D5W) 150 ml @ 100 mls/hr Q24H IVPB 06/09/16 10:00 06/16/16 09:59 06/09/16 09:57 Levothyroxine Sodium (Synthroid) 50 mcg DAILY@0630 ORAL 06/03/16 06:30 07/03/16 06:29 06/10/16 05:34 Metronidazole (Flagyl) 500 mg Q8HR NG 06/05/16 16:00 06/12/16 15:59 06/10/16 05:33 Mineral Oil (Fleet's Mineral Oil Enema) 133 ml EVERY OTHER DAY RECTAL 06/03/16 09:00 07/03/16 08:59 06/07/16 09:02 Norepinephrine Bitartrate 4 mg/ Dextrose 250 ml @ 0 mls/hr Q24H IV 06/02/16 17:15 07/02/16 17:14 06/06/16 03:20 Nystatin (Nystop Powder) 1 applic THREE TIMES A DAY TOPIC 06/05/16 16:00 07/05/16 15:59 06/10/16 08:29 Ondansetron HCl (Zofran) 4 mg Q6H PRN IVP Nausea & Vomiting 06/02/16 18:15 07/02/16 18:14 Pantoprazole (Protonix) 40 mg DAILY ORAL 06/03/16 09:00 07/03/16 08:59 06/10/16 08:23 Polyethylene Glycol 17 gm 17 gm DAILY ORAL 06/03/16 09:00 07/03/16 08:59 06/09/16 08:33 Sodium Chloride (Sodium Chloride 1000ml bag) 1,000 ml @ 50 mls/hr Q20H IV 06/03/16 11:00 07/03/16 10:59 06/09/16 18:47 AMEE COOPER M.D. Jun 10, 2016 10:10
--- NOTE | 2016-06-10 10:15 | Pulmonolgy Critical Care Note ---
Critical Care - Asmt/Plan Problems: (1) Acute respiratory failure (2) Chronic incomplete quadriplegia (3) Atrial fibrillation (4) Protein-calorie malnutrition, severe (5) Cardiac arrest (6) Anasarca (7) Acute encephalopathy Respiratory: monitor respiratory rate, adjust FIO2, CXR Cardiac: continue pressors, continue to monitor HR/BP Renal: F/U I&O, keep IV fluid, check electrolytes Infectious Disease: check cultures, continue antibiotics Gastrointestinal: continue feedings/current rate Endocrine: monitor blood sugar, continue sliding scale insulin Hematologic: monitor H/H, transfuse if hgb<8.5 Neurologic: PRN Ativan, PRN Morphine, keep patient comfortable Affect: PRN ativan Disposition: keep in ICU Notes Reviewed: activity specialist, cardio Discussed with: nurses, consultants, vocational case managermanager regional - Objective Last 24 Hour Vital Signs Date Time Temp Pulse Resp B/P Pulse Ox O2 Delivery O2 Flow Rate FiO2 06/10/16 09:07 90 16 40 06/10/16 08:09 81 06/10/16 08:05 96.7 88 16 99/46 100 Mechanical Ventilator 40 06/10/16 08:04 40 06/10/16 07:17 78 19 40 06/10/16 07:00 74 16 88/43 100 Mechanical Ventilator 40 06/10/16 06:00 74 16 101/74 100 Mechanical Ventilator 40 06/10/16 05:27 90 16 40 06/10/16 05:00 84 16 155/64 100 Mechanical Ventilator 40 06/10/16 04:00 86 06/10/16 04:00 97.5 88 16 134/63 100 Mechanical Ventilator 40 06/10/16 04:00 87 16 131/71 100 Mechanical Ventilator 40 06/10/16 04:00 40 06/10/16 03:04 85 16 40 06/10/16 03:00 88 16 125/63 100 Mechanical Ventilator 40 06/10/16 02:00 88 16 120/61 100 Mechanical Ventilator 40 06/10/16 01:07 114 16 40 06/10/16 01:00 90 16 120/61 100 Mechanical Ventilator 40 06/10/16 01:00 92 06/10/16 00:00 97.4 92 16 146/67 100 Mechanical Ventilator 40 06/10/16 00:00 92 06/10/16 00:00 40 06/09/16 23:15 84 16 40 06/09/16 23:00 86 16 120/62 100 Mechanical Ventilator 40 06/09/16 22:00 83 16 110/60 100 Mechanical Ventilator 40 06/09/16 21:09 81 16 40 06/09/16 21:00 77 16 110/50 100 Mechanical Ventilator 40 06/09/16 20:35 78 114/58 06/09/16 20:13 78 16 114/58 100 Mechanical Ventilator 40 06/09/16 20:00 40 06/09/16 20:00 77 06/09/16 20:00 97.2 88 16 86/39 97 Mechanical Ventilator 40 06/09/16 19:19 80 16 40 06/09/16 19:00 80 16 83/41 100 Mechanical Ventilator 40 06/09/16 18:00 90 16 147/75 100 Mechanical Ventilator 40 06/09/16 17:15 147/75 06/09/16 17:01 85 16 40 06/09/16 17:00 87 16 115/64 97 Mechanical Ventilator 40 06/09/16 16:00 40 06/09/16 16:00 97.7 78 16 88/64 97 Mechanical Ventilator 40 06/09/16 16:00 96 06/09/16 15:03 88 16 123/47 100 Mechanical Ventilator 40 06/09/16 14:30 88 17 40 06/09/16 14:03 87 16 125/45 100 Mechanical Ventilator 40 06/09/16 13:14 90 17 40 06/09/16 13:00 92 17 125/74 100 Mechanical Ventilator 40 06/09/16 12:00 40 06/09/16 12:00 90 06/09/16 12:00 97.1 91 16 113/55 97 Mechanical Ventilator 40 06/09/16 11:05 87 16 106/55 97 Mechanical Ventilator 40 06/09/16 10:40 84 16 40 Status: awake Condition: critical, grave HEENT: atraumatic, normocephalic Neck: full ROM Lungs: clear Heart: HR/BP stable, HR/BP unstable Abdomen: soft, non-tender, active bowel sounds Extremities: edema Decubiti: location, stage Objective: family needs time ti think about plan of care Micro: Microbiology Date/Time Source Procedure Growth Status 06/08/16 03:30 Stool Clostridium difficile Toxin Assay - Final Complete Critical Care - Subjective ROS Limited/Unobtainable: Yes ICU Day: 8 Intubation Day: 8 Interval Events: unresponsive, not breathing over the vent. No gag reflex. EKG Rhythm: Sinus Rhythm FI02: 40 Vent Support Breath Rate: 16 Vent Support Mode: AC Vent Tidal Volume: 600 Sputum Amount: Small PEEP: 5.0 PIP: 51 Secretions: small Tube Feeding Amount: 55 I&O: Intake and Output 06/09/16 06/10/16 19:00 07:00 Intake Total 2165 ml 1805 ml Output Total 475 ml 425 ml Balance 1690 ml 1380 ml Free Water 60 ml 100 ml IV Total 1370 ml 935 ml Tube Feeding 715 ml 770 ml Other 20 ml Output Urine Total 475 ml 425 ml # Bowel Movements 4 4 CXR: no change ET-Tube: 7.5 ET Position: 23 Labs: Laboratory Tests Test 06/10/16 04:00 06/10/16 09:07 White Blood Count 27.9 K/UL (4.8-10.8) *H Red Blood Count 3.85 M/UL (4.20-5.40) L Hemoglobin 10.6 G/DL (12.0-16.0) L Hematocrit 34.0 % (37.0-47.0) L Mean Corpuscular Volume 88 FL (80-99) Mean Corpuscular Hemoglobin 27.6 PG (27.0-31.0) Mean Corpuscular Hemoglobin Concent 31.3 G/DL (32.0-36.0) L Red Cell Distribution Width 14.3 % (11.6-14.8) Platelet Count 316 K/UL (150-450) Mean Platelet Volume 8.6 FL (6.5-10.1) Neutrophils (%) (Auto) % (45.0-75.0) Lymphocytes (%) (Auto) % (20.0-45.0) Monocytes (%) (Auto) % (1.0-10.0) Eosinophils (%) (Auto) % (0.0-3.0) Basophils (%) (Auto) % (0.0-2.0) Differential Total Cells Counted 100 Neutrophils % (Manual) 90 % (45-75) H Lymphocytes % (Manual) 2 % (20-45) L Monocytes % (Manual) 7 % (1-10) Eosinophils % (Manual) 0 % (0-3) Basophils % (Manual) 0 % (0-2) Band Neutrophils 1 % (0-8) Platelet Estimate Adequate Platelet Morphology Normal Hypochromasia 1+ Sodium Level 144 mEQ/L (135-145) Potassium Level 3.5 mEQ/L (3.4-4.9) Chloride Level 109 mEQ/L (98-107) H Carbon Dioxide Level 20 mEQ/L (20-30) Anion Gap 15 (5-15) Blood Urea Nitrogen 33 mg/dL (7-23) H Creatinine 0.7 mg/dL (0.5-0.9) Estimat Glomerular Filtration Rate mL/min (>60) Glucose Level 198 mg/dL (74-106) H Calcium Level 6.6 mg/dL (8.6-10.2) L Phosphorus Level 2.9 mg/dL (2.5-4.8) Magnesium Level 2.1 mg/dL (1.7-2.5) Total Bilirubin 0.2 mg/dL (0.0-1.2) Aspartate Amino Transf (AST/SGOT) 27 U/L (5-40) Alanine Aminotransferase (ALT/SGPT) 26 U/L (3-33) Alkaline Phosphatase 205 U/L (35-104) H Total Protein 5.8 g/dL (6.6-8.7) L Albumin 1.4 g/dL (3.5-5.2) L Globulin 4.4 g/dL Albumin/Globulin Ratio 0.3 (1.0-2.7) L Arterial Blood pH 7.230 (7.350-7.450) Arterial Blood Partial Pressure CO2 52.3 mmHg (35.0-45.0) H Arterial Blood Partial Pressure O2 72.0 mmHg (75.0-100.0) L Arterial Blood HCO3 21.2 mmol/L (22.0-26.0) L Arterial Blood Oxygen Saturation 93.0 % (92.0-98.0) Arterial Blood Base Excess -6.6 Claudy Test Positive DARION MISHRA Jun 10, 2016 10:15
[2016-06-10] MEDS: Atenolol 25mg tab NG SCH (10:36)
--- NOTE | 2016-06-10 11:54 | Diagnostic Imaging Report ---
Indication: Dyspnea Comparison: 06/09/2016 A single view chest radiograph was obtained. Findings: Interstitial edema appears improved. There is a dense focus of right basilar consolidation which is unchanged. Tubes and lines are stable. Heart size is stable. Impression: Some improvement in interstitial edema. No change otherwise.
[2016-06-10] MEDS ORDERED: Haloperidol 5mg/ml Inj IM PRN (15:00)
[2016-06-10] MEDS ORDERED: Morphine Sulfate 10mg/ml Inj IVP ONE (15:00)
[2016-06-10] MEDS ORDERED: Prochlorperazine 10mg tab ORAL PRN (15:00)
[2016-06-10] MEDS ORDERED: Glycopyrrolate 0.2mg/ml 1ml Vial IV PRN (15:00)
[2016-06-10] MEDS ORDERED: NS 275ml ONE (15:29)
[2016-06-10] MEDS ORDERED: Tubing IV Secondary IV ONE (15:29)
[2016-06-10] MEDS ORDERED: Rate Change Narcotic Drip MISC PRN (15:30)
[2016-06-10] MEDS ORDERED: Morphine Sulfate 4mg/ml Inj SUBQ PRN (15:30)
[2016-06-10] MEDS ORDERED: Artificial Tears 1.4% Op Soln BOTH EYES PRN (15:30)
[2016-06-10] MEDS ORDERED: PCA Morphine 1mg/ml 30 ML IV PRN (15:30)
--- NOTE | 2016-06-10 19:48 | Discharge Summary ---
Discharge Summary Hospital Course Date of Admission May 28, 2016 at 00:47 Date of Discharge Jun 10, 2016 at 15:30 Admitting Diagnosis hyponatremia, abdominal pain HPI Liya Donato is a 70 year old female who was admitted on May 28, 2016 at 00:47 for Hyponatremia,Abdominal Pain Hospital Course terminal extubation today Discharge Discharge Disposition Patient was discharged to SNF/Subacute Facility(03) Discharge Diagnoses: Jareth Verma MD Jun 10, 2016 19:48
[2016-06-10] MEDS ORDERED: Narcotic Shift Volume MISC SCH (23:00)
--- NOTE | 2016-06-11 06:58 | Discharge Summary ---
DATE OF ADMISSION: 05/28/2016 DATE OF DISCHARGE: 06/10/2016 HISTORY AND HOSPITAL COURSE: This was a 70-year-old very unfortunate female with past medical history significant for hypertension, atrial fibrillation, quadriplegia due to the compression fracture of the spine as a result of spinal cord injury, and history of aneurysm rupture who was presented to the hospital due to constipation. The patient was noted to be in leukocytosis. Throughout the hospital course, the patient's status was gradually progressively worsening and became less responsive, and the patient's MRI of the brain was done, was noted to be unremarkable. However, throughout the MRI of the brain, [place] was called on 06/10/2016, and subsequently the patient was intubated and was transferred to the ICU. EEG was noted to be consistent with severe encephalopathy, and the patient was started on multiple pressors in order to maintain blood pressure. Throughout the hospital course, the patient was followed by Dr. José Miguel Hedrick from ID, Dr. Beto Bazzi from Neurology, Dr. Piyush Sepulveda from Nephrology, Dr. Janee Pablo from [facility], and from Urology, and Dr. Shravan Dhaliwal from Endocrine, and Dr. Tenorio from Pulmonary Critical Care. The patient became less responsive, and after further discussion with the family, explained the patient's status and prognosis, and the patient become DNR/DNI. Comfort care was considered, and subsequently, the patient was terminally extubated today to be followed with palliative care response. The patient was shortly after that. FINAL DIAGNOSES: 1. Acute respiratory failure. 2. Chronic quadriplegia. 3. Atrial fibrillation. 4. Protein-calorie malnutrition, severe. 5. Cardiac arrest. 6. Anasarca. 7. Acute encephalopathy. 8. Toxic metabolic encephalopathy. 9. Hyponatremia. 10. Hypothyroidism. 11. Cardiogenic shock. Family member was informed and . Jareth Verma M.D. DR: TERESO JOB#: [id number] CC:
== END 2016-06-10 15:30 | disposition expired | DRG 391 ==
LOC: EDBD 15:35 → EMR 15:51 → 4E 23:19 → EDBEDREQ 05-28 01:18 → 4E 05-29 18:27 → 2W 05-29 20:45 → ICU 06-02 15:37
DX: K59.00 Constipation, unspecified (principal); J96.00 Acute respiratory failure, unspecified whether with hypoxia or hypercapnia; R57.0 Cardiogenic shock; R65.20 Severe sepsis without septic shock; E43 Unspecified severe protein-calorie malnutrition; A41.9 Sepsis, unspecified organism; G82.50 Quadriplegia, unspecified; G92 Toxic encephalopathy; E87.1 Hypo-osmolality and hyponatremia; N04.9 Nephrotic syndrome with unspecified morphologic changes; G93.1 Anoxic brain damage, not elsewhere classified; Z99.11 Dependence on respirator [ventilator] status; N39.0 Urinary tract infection, site not specified; E03.9 Hypothyroidism, unspecified; I10 Essential (primary) hypertension; I48.91 Unspecified atrial fibrillation; I73.9 Peripheral vascular disease, unspecified; I27.2 Other secondary pulmonary hypertension; G40.909 Epilepsy, unspecified, not intractable, without status epilepticus; R40.2434 Glasgow coma scale score 3-8, 24 hours or more after hospital admission; Z51.5 Encounter for palliative care; Z66 Do not resuscitate
CPT/HCPCS: 36415; 36569; 36600; 70450; 70551; 71010; 73502; 74000; 74176; 76700; 76937; 80048; 80053; 80061; 80076; 80150; 81001; 81003; 81050; 82105; 82140; 82378; 82533; 82550; 82803; 82962; 82977; 83036; 83735; 83880; 83930; 83935; 84100; 84156; 84300; 84439; 84443; 84481; 84484; 84550; 85007; 85025; 85610; 85730; 86140; 87040; 87070; 87086; 87181; 87205; 87493; 93005; 93306; 93925; 94002; 94003; 94640; 94664; 94760; 95819; J0171; J2405